=== PATIENT | male | born 1960 | race Caucasian/White ===

== ENCOUNTER 2017-05-18 11:13 | Observation (INO) | payer OTHER ==
[2017-05-18 11:36] VITALS: BMI 34.0
[2017-05-18] MEDS ORDERED: ONDANSETRON 4 MG/2 ML VIAL IVPB ONE (11:58)
[2017-05-18] MEDS ORDERED: morphine CARPU-JECT 4 MG/1 ML DISP.SYRIN IVPUSH ONE (12:02)
[2017-05-18 12:38] LABS: BASOPHIL 0.7 % (0-2.0); EOSINOPHIL 2.3 % (0-4.5); MCH 30.7 pg (25.7-33.7); MCHC 33.4 g/dl (32.0-35.9); MEAN CELL VOLUME 91.7 fl (80-96); MEAN PLT VOLUME 7.6 fl (7.5-11.1); NEUTROPHILS 78.9 % (42.8-82.8); PLATELET COUNT 235 K/MM3 (134-434); RDW 15.3 % (11.9-15.9); WHITE BLOOD COUNT 13.8 K/mm3 (4.0-10.0)
--- NOTE | 2017-05-18 12:52 | PDOC ---
Attending Attestation - HPI HPI: 05/18/17 13:09 The patient is a 56 year old male, with a significant past medical history of Anemia, CAD (s/p stents), COPD, DM, ESRD (HD on MWF), Osteomyelitis, HTN who presents to the emergency department with epigastric abdominal pain today. Patient reports associated nausea and vomiting. Patient admits to taking Oxycodone and 2 tabs of Antacids however denies relief. Patient was able to complete full HD today and presents to the ED for further evaluation. He denies chest pain, headache or dizziness. He denies fever, chills, abdominal pain, nausea, vomit, diarrhea or constipation. He denies dysuria, frequency, urgency or hematuria. - Physicial Exam PE: 05/18/17 13:10 GENERAL: Awake, alert, and fully oriented, in no acute distress. +Obese. HEAD: No signs of trauma EYES: PERRLA, EOMI, sclera anicteric, conjunctiva clear ENT: Auricles normal inspection, hearing grossly normal, nares patent, oropharynx clear without exudates. Moist mucosa NECK: Normal ROM, supple, no lymphadenopathy, JVD, or masses LUNGS: Breath sounds equal, clear to auscultation bilaterally. No wheezes, and no crackles HEART: Regular rate and rhythm, normal S1 and S2, no murmurs, rubs or gallops ABDOMEN: +Tenderness to epigastric. Soft, nontender, normoactive bowel sounds. No guarding, no rebound. No masses EXTREMITIES: Normal range of motion, no edema. No clubbing or cyanosis. No cords, erythema, or tenderness. +R sided BKA. +L arm Fistula. NEUROLOGICAL: Cranial nerves II through XII grossly intact. Normal speech, normal gait SKIN: Warm, Dry, normal turgor, no rashes or lesions noted. - Medical Decision Making 05/18/17 13:10 Documentation prepared by Alem Sanderson, acting as medical secretary for Hector Perry MD <Alem Sanderson - Last Filed: 05/18/17 13:09> - Resident Resident Name: Dat Becker - ED Attending Attestation I have performed the following: I have examined & evaluated the patient, The case was reviewed & discussed with the resident, I agree w/resident's findings & plan, Exceptions are as noted - Medical Decision Making 05/18/17 13:32 Vital Signs Temp Pulse Resp BP Pulse Ox 97 F L 71 17 166/67 100 05/18/17 11:28 05/18/17 11:28 05/18/17 11:28 05/18/17 11:28 05/18/17 11:28 56-year-old male with past medical history of peripheral arterial disease, status post right-sided BKA, end-stage renal disease on dialysis Thursday, Thursday, Thursday with last dialysis today, chronic hypertension, diabetes, gastroparesis presents with persistent upper abdominal pain. The patient was recently admitted to [facility] where he had a CAT scan and ultrasound abdominal workup. However, demonstrated no obvious findings. Patient was discharged however, he continues to persist with epigastric left upper quadrant right upper quadrant pain. He was told that he may potentially have gallstones in his gallbladder. Patient had taken his oxycodone today but did not help. Within differential is pancreatitis, biliary colic or acute cholecystitis. However, patient may benefit from endoscopy to rule out peptic ulcer disease or gastric ulcer. We'll attempt to control patient's pain, however, if the symptoms are persistent uncontrollable, we'll need to consider admission to the hospital. 05/18/17 14:50 CBC, BMP 05/18/17 12:05 05/18/17 12:05 CMP Sodium 138 mmol/L (136-145) 05/18/17 12:05 Potassium 3.9 mmol/L (3.5-5.1) 05/18/17 12:05 Chloride 99 mmol/L (98-107) 05/18/17 12:05 Carbon Dioxide 33 mmol/L (21-32) H 05/18/17 12:05 Anion Gap 6 (8-16) L 05/18/17 12:05 BUN 24 mg/dL (7-18) H 05/18/17 12:05 Creatinine 4.1 mg/dL (0.7-1.3) H 05/18/17 12:05 Creat Clearance w eGFR 15.06 (>60) 05/18/17 12:05 Random Glucose 212 mg/dL (74-106) H 05/18/17 12:05 Calcium 9.0 mg/dL (8.5-10.1) 05/18/17 12:05 Total Bilirubin 0.5 mg/dL (0.2-1.0) 05/18/17 12:05 AST 13 U/L (15-37) L 05/18/17 12:05 ALT 14 U/L (12-78) 05/18/17 12:05 Alkaline Phosphatase 98 U/L (45-117) 05/18/17 12:05 Creatine Kinase 108 IU/L (39-308) 05/18/17 12:05 Troponin I 0.04 ng/ml (0.00-0.05) 05/18/17 12:05 Total Protein 7.7 g/dl (6.4-8.2) 05/18/17 12:05 Albumin 3.5 g/dl (3.4-5.0) 05/18/17 12:05 Lipase 237 U/L (73-393) 05/18/17 12:05 Ultrasound shows positive richards and gallstones. Will need HIDA scan. Will admit the patient. <Hector Perry - Last Filed: 05/18/17 14:52>
[2017-05-18 13:14] LABS: ALBUMIN 3.5 g/dl (3.4-5.0); ANION GAP 6 (8-16); CO2 33 mmol/L (21-32); CREATININE 4.1 mg/dL (0.7-1.3); GLUCOSE,RANDOM 212 mg/dL (74-106); SGOT/AST 13 U/L (15-37); SGPT/ALT 14 U/L (12-78)
[2017-05-18 13:16] LABS: ALK PHOS 98 U/L (45-117); BILIRUBIN,TOTAL 0.5 mg/dL (0.2-1.0); TOT PROT 7.7 g/dl (6.4-8.2)
[2017-05-18 13:18] LABS: TROPONIN I 0.04 ng/ml (0.00-0.05)
--- NOTE | 2017-05-18 16:34 | EKG ---
Test Reason : Blood Pressure : / mmHG Vent. Rate : 066 BPM Atrial Rate : 066 BPM P-R Int : 202 ms QRS Dur : 104 ms QT Int : 480 ms P-R-T Axes : 049 046 067 degrees QTc Int : 503 ms SINUS RHYTHM WITH PREMATURE ATRIAL COMPLEXES IN A PATTERN OF BIGEMINY PROLONGED QT ABNORMAL ECG NO PREVIOUS ECGS AVAILABLE Confirmed by CAM PONCE MD ([id number]) on 05/18/2017 4:34:28 PM Referred By: Confirmed By:CAM PONCE MD
--- NOTE | 2017-05-18 17:01 | PDOC ---
History of Present Illness - General Chief Complaint: Pain Stated Complaint: ABD PAIN Time Seen by Provider: 05/18/17 11:36 History Source: Patient Exam Limitations: No Limitations - History of Present Illness Initial Comments: 05/18/17 16:56 Mr Ceja is a 56M with history of MWF dialysis, IDDM, HTN, peripheral artery disease, gastroparesis, COPD, and GERD is here today for epigastric abdominal pain. The patient was recently worked up at [facility], where he was hospitalized for a week. He says that he got a full abdominal workup including ultrasound, CT , labs. These were normal. He also had a normal cath. The pain radiates to both sides of his abdomen. He endorses associated nausea. He denies fevers and vomiting. Last bowel movement was yesterday. He successfully got dialysis today. He denies chest pain and shortness of breath. He was scheduled to see Dr Weeks tomorrow for his AV fistula. Past History - Past Medical History Allergies/Adverse Reactions: Allergies Allergy/AdvReac Type Severity Reaction Status Date / Time tree nut Allergy Verified 05/18/17 18:15 raw fruits Allergy Uncoded 05/18/17 18:15 Home Medications: Ambulatory Orders Aspirin [ASA -] 81 mg PO DAILY 05/18/17 Atorvastatin Ca [Lipitor] 40 mg PO HS 05/18/17 Azelastine HCl 137 mcg NS BID 05/18/17 Baclofen 10 mg PO ASDIR 05/18/17 Cetirizine HCl [Zyrtec -] 10 mg PO DAILY 05/18/17 Clopidogrel Bisulfate [Plavix -] 75 mg PO DAILY 05/18/17 Cyclosporine, Modified [Cyclosporine] 1 drop OU BID 05/18/17 Docusate Sodium [Colace -] 3 cap PO HS 05/18/17 Famotidine [Pepcid] 20 mg PO DAILY 05/18/17 Folic Acid 1 mg PO DAILY 05/18/17 Gabapentin 100 mg PO HS 05/18/17 Insulin Glargine,Hum.rec.anlog [Basaglar Kwikpen U-100] 10 unit SQ DAILY Insulin Lispro [Humalog] 0 unit SQ PRN 05/18/17 Insulin Lispro [Humalog] 10 unit SQ DAILY 05/18/17 Lactobacillus Acidophilus [Probiotic] 1 each PO TID 05/18/17 Mag Hydrox/Al Hydrox/Simeth [Mylanta Oral Suspension -] 30 ml PO Q8H PRN Metoprolol Tartrate [Lopressor] 50 mg PO BID 05/18/17 Oxycodone HCl 2 tab PO Q6H PRN 05/18/17 Pantoprazole Sodium [Protonix] 40 mg PO DAILY 05/18/17 Polyethylene Glycol 3350 [Glycolax] 17 gm PO DAILY 05/18/17 Sennosides [Senna] 2 tab PO HS 05/18/17 Tamsulosin HCl [Flomax] 0.4 mg PO HS 05/18/17 Vitamin B Comp W-C [Nephro-Ingris -] 1 tablet PO DAILY 05/18/17 Zolpidem Tartrate [Ambien] 10 mg PO HS PRN 05/18/17 Anemia: Yes Cardiac Disorders: Yes (cardiac stent) COPD: Yes Diabetes: Yes Dialysis: Yes (M-W-F) GI Disorders: Yes (Acid Reflux) Other medical history: PVD, Osteomyelitis RT stump - Suicide/Smoking/Psychosocial Hx Smoking History: Former smoker Have you smoked in the past 12 months: No Information on smoking cessation initiated: No Hx Alcohol Use: No (denies) Drug/Substance Use Hx: No (denies) Substance Use Type: None Review of Systems - Review of Systems Comments:: 05/18/17 17:01 GENERAL/CONSTITUTIONAL: No fever or chills. No weakness. HEAD, EYES, EARS, NOSE AND THROAT: No change in vision. No sore throat. CARDIOVASCULAR: No chest pain or shortness of breath RESPIRATORY: No cough, wheezing, or hemoptysis. GASTROINTESTINAL: Positive for nausea. Negative for vomiting, diarrhea or constipation. GENITOURINARY: No dysuria, frequency, or change in urination. MUSCULOSKELETAL: Positive for back pain and multiple joint pain, chronic SKIN: No rash NEUROLOGIC: Positive for headache. Negative for vertigo, loss of consciousness, or change in strength/sensation. ENDOCRINE: No increased thirst. No abnormal weight change ALLERGIC/IMMUNOLOGIC: No hives or skin allergy. *Physical Exam - Vital Signs Last Vital Signs Temp Pulse Resp BP Pulse Ox 99.2 F 76 17 151/86 98 05/18/17 15:33 05/18/17 15:33 05/18/17 15:33 05/18/17 15:33 05/18/17 15:33 - Physical Exam Comments: 05/18/17 17:03 GENERAL: Awake, alert, and fully oriented, in no acute distress HEAD: No signs of trauma, normocephalic, atraumatic EYES: PERRLA, EOMI, sclera anicteric, conjunctiva clear ENT: Auricles normal inspection, hearing grossly normal, nares patent, oropharynx clear without exudates. Moist mucosa LUNGS: No distress, speaks full sentences, clear to auscultation bilaterally HEART: Regular rate and rhythm, normal S1 and S2, no murmurs, rubs or gallops, peripheral pulses normal and equal bilaterally. ABDOMEN: Soft, tender to palpation in RUQ, positive richards sign, normoactive bowel sounds. No guarding, no rebound. No masses EXTREMITIES: Normal inspection, Normal range of motion, no edema. No clubbing or cyanosis. NEUROLOGICAL: Cranial nerves II through XII grossly intact. Normal speech, normal gait, no focal sensorimotor deficits SKIN: Warm, Dry, normal turgor, no rashes or lesions noted. ED Treatment Course - LABORATORY CBC & Chemistry Diagram: 05/18/17 12:05 05/18/17 12:05 - ADDITIONAL ORDERS Additional order review: Laboratory Results 05/18/17 05/18/17 12:05 12:05 Sodium 138 Potassium 3.9 Chloride 99 Carbon Dioxide 33 H Anion Gap 6 L BUN 24 H Creatinine 4.1 H Creat Clearance w eGFR 15.06 Random Glucose 212 H Calcium 9.0 Total Bilirubin 0.5 AST 13 L ALT 14 Alkaline Phosphatase 98 Creatine Kinase 108 Troponin I 0.04 Total Protein 7.7 Albumin 3.5 Lipase 237 05/18/17 12:05 RBC 3.99 L MCV 91.7 MCHC 33.4 RDW 15.3 MPV 7.6 Neutrophils % 78.9 Lymphocytes % 12.3 Monocytes % 5.8 Eosinophils % 2.3 Basophils % 0.7 - RADIOLOGY Radiology Studies Ordered: Category Date Time Status HIDA SCAN [NM] Stat Nuclear 05/18/17 16:06 Ordered ABDOMEN US -LIMITED [US] Stat Ultrasound 05/18/17 12:01 Completed - Medications Given in the ED: ED Medications Discontinued Medications Generic Name Dose Route Start Last Admin Trade Name Freq PRN Reason Stop Dose Admin Morphine Sulfate 4 mg 05/18/17 12:02 05/18/17 13:40 Morphine Injection - IVPUSH 05/18/17 12:03 4 mg ONCE ONE Administration Ondansetron HCl 4 mg 05/18/17 11:58 05/18/17 12:43 Zofran Injection IVPB 05/18/17 11:59 4 mg ONCE ONE Administration Medical Decision Making - Medical Decision Making 05/18/17 17:03 56M with history of ESRD, IDDM, HTN, PAD, and gastroparesis here today complaining of abdominal pain. Vital signs stable and normal. Will evaluated with labs, cxr, and ultrasound. Will treat with morphine and zofran. Differential diagnosis includes, but is not limited to: gastroparesis, cholecystitis, gastritis. 05/18/17 17:08 Laboratory Tests 05/18/17 05/18/17 12:05 12:05 WBC 13.8 H Hgb 12.2 Hct 36.6 Plt Count 235 Troponin I 0.04 CBC shows white count of 14. Trop negative. CMP reassuring. UA negative. 05/18/17 17:08 Ultrasound shows gallstones and sludge without signs of acute cholecystitis. Suggests HIDA scan given clinical picture. Admitted to [facility]. *DC/Admit/Observation/Transfer Diagnosis at time of Disposition: Abdominal pain, RUQ abdominal pain
[2017-05-18 17:27] LABS: URINE APPEARANCE CLEAR; URINE BILIRUBIN NEGATIVE (NEGATIVE); URINE BLOOD NEGATIVE (NEGATIVE); URINE COLOR LTYELLOW; URINE GLUCOSE (UA) 3+ (NEGATIVE); URINE KETONE NEGATIVE (NEGATIVE); URINE LEUK ESTERASE NEGATIVE (NEGATIVE); URINE NITRITE NEGATIVE (NEGATIVE); URINE UROBILINOGEN NEGATIVE mg/dL (0.2-1.0)
[2017-05-18 17:36] LABS: URINE PROTEIN 3+ (NEGATIVE)
[2017-05-18 17:37] LABS: URINE MUCUS RARE; URINE RBC 1 /hpf (0-3); URINE WBC 1 /hpf (3-5)
[2017-05-18] MEDS ORDERED: ZOLPIDEM TARTRATE 5 MG TABLET PO PRN (18:09)
--- NOTE | 2017-05-18 18:09 | HP ---
Admitting History and Physical - Primary Care Physician PCP: Jerome Castellano - Admission History of Present Illness: 56 year old male, with a significant past medical history of Anemia, CAD (s/p stents), COPD, DM, ESRD (HD on MWF), Osteomyelitis, HTN who presents to the emergency department with epigastric abdominal pain today. Patient reports associated nausea and vomiting. Patient admits to taking Oxycodone and 2 tabs of Antacids however denies relief. Patient was able to complete full HD today and presents to the ED for further evaluation. - Past Medical History Cardiovascular: Yes: HTN Renal/: Yes: Hemodialysis, Other (esrd) Endocrine: Yes: Diabetes Mellitus - Smoking History Smoking history: Former smoker Have you smoked in the past 12 months: No - Alcohol/Substance Use Hx Alcohol Use: No (denies) Home Medications - Allergies Allergies/Adverse Reactions: Allergies Allergy/AdvReac Type Severity Reaction Status Date / Time tree nut Allergy Verified 05/18/17 18:15 raw fruits Allergy Uncoded 05/18/17 18:15 - Home Medications Home Medications: Ambulatory Orders Aspirin [ASA -] 81 mg PO DAILY 05/18/17 Atorvastatin Ca [Lipitor] 40 mg PO HS 05/18/17 Azelastine HCl 137 mcg NS BID 05/18/17 Cetirizine HCl [Zyrtec -] 10 mg PO DAILY 05/18/17 Clopidogrel Bisulfate [Plavix -] 75 mg PO DAILY 05/18/17 Cyclosporine, Modified [Cyclosporine] 1 drop OU BID 05/18/17 Docusate Sodium [Colace -] 3 cap PO HS 05/18/17 Famotidine [Pepcid] 20 mg PO DAILY 05/18/17 Folic Acid 1 mg PO DAILY 05/18/17 Gabapentin 100 mg PO HS 05/18/17 Insulin Glargine,Hum.rec.anlog [Basaglar Kwikpen U-100] 10 unit SQ DAILY Insulin Lispro [Humalog] 0 unit SQ PRN 05/18/17 Insulin Lispro [Humalog] 10 unit SQ DAILY 05/18/17 Lactobacillus Acidophilus [Probiotic] 1 each PO TID 05/18/17 Mag Hydrox/Al Hydrox/Simeth [Mylanta Oral Suspension -] 30 ml PO Q8H PRN Metoprolol Tartrate [Lopressor] 50 mg PO BID 05/18/17 Pantoprazole Sodium [Protonix] 40 mg PO DAILY 05/18/17 Polyethylene Glycol 3350 [Glycolax] 17 gm PO DAILY 05/18/17 Sennosides [Senna] 2 tab PO HS 05/18/17 Tamsulosin HCl [Flomax] 0.4 mg PO HS 05/18/17 Vitamin B Comp W-C [Nephro-Ingris -] 1 tablet PO DAILY 05/18/17 Zolpidem Tartrate [Ambien] 10 mg PO HS PRN 05/18/17 Baclofen [Lioresal -] 5 mg PO TID #90 tablet 05/20/17 Physical Examination Vital Signs: Vital Signs Temperature 99.2 F 05/18/17 15:33 Pulse Rate 76 05/18/17 15:33 Respiratory Rate 17 05/18/17 15:33 Blood Pressure 151/86 05/18/17 15:33 O2 Sat by Pulse Oximetry (%) 98 05/18/17 15:33 Constitutional: Yes: No Distress HENT: Yes: Atraumatic Neck: Yes: Supple Cardiovascular: Yes: Regular Rate and Rhythm Respiratory: Yes: CTA Bilaterally Gastrointestinal: Yes: Normal Bowel Sounds Extremities: Yes: Other (R bka) Neurological: Yes: Alert, Oriented Imaging - Results Cat Scan: Report Reviewed Problem List - Problems (1) RUQ abdominal pain Assessment/Plan: better prn pain meds Code(s): R10.11 - RIGHT UPPER QUADRANT PAIN (2) ESRD (end stage renal disease) Assessment/Plan: on hd dr marsh Code(s): N18.6 - END STAGE RENAL DISEASE (3) HTN (hypertension) Assessment/Plan: on meds stable Code(s): I10 - ESSENTIAL (PRIMARY) HYPERTENSION (4) Diabetes Assessment/Plan: on insulin coverage bgms Code(s): E11.9 - TYPE 2 DIABETES MELLITUS WITHOUT COMPLICATIONS Assessment/Plan Laboratory Tests 05/18/17 05/18/17 05/18/17 12:05 12:05 12:05 WBC 13.8 H RBC 3.99 L Hgb 12.2 Hct 36.6 MCV 91.7 MCH 30.7 MCHC 33.4 RDW 15.3 Plt Count 235 MPV 7.6 Neutrophils % 78.9 Lymphocytes % 12.3 Monocytes % 5.8 Eosinophils % 2.3 Basophils % 0.7 Sodium 138 Potassium 3.9 Chloride 99 Carbon Dioxide 33 H Anion Gap 6 L BUN 24 H Creatinine 4.1 H Creat Clearance w eGFR 15.06 Random Glucose 212 H Calcium 9.0 Total Bilirubin 0.5 AST 13 L ALT 14 Alkaline Phosphatase 98 Creatine Kinase 108 Troponin I 0.04 Total Protein 7.7 Albumin 3.5 Lipase 237 Urine Color Urine Appearance Urine pH Urine Protein Urine Glucose (UA) Urine Ketones Urine Blood Urine Nitrite Urine Bilirubin Urine Urobilinogen Urine RBC Urine WBC Urine Mucus 05/18/17 17:18 WBC RBC Hgb Hct MCV MCH MCHC RDW Plt Count MPV Neutrophils % Lymphocytes % Monocytes % Eosinophils % Basophils % Sodium Potassium Chloride Carbon Dioxide Anion Gap BUN Creatinine Creat Clearance w eGFR Random Glucose Calcium Total Bilirubin AST ALT Alkaline Phosphatase Creatine Kinase Troponin I Total Protein Albumin Lipase Urine Color Ltyellow Urine Appearance Clear Urine pH 8.0 Urine Protein 3+ H Urine Glucose (UA) 3+ H Urine Ketones Negative Urine Blood Negative Urine Nitrite Negative Urine Bilirubin Negative Urine Urobilinogen Negative Urine RBC 1 Urine WBC 1 Urine Mucus Rare Active Medications Generic Name Dose Route Start Last Admin Trade Name Freq PRN Reason Stop Dose Admin Hydromorphone HCl 1 mg 05/18/17 17:55 Dilaudid Injection - IVPB Q3H PRN PAIN Sodium Chloride 1,000 mls @ 100 mls/hr 05/18/17 18:00 Normal Saline - IV ASDIR LULU
[2017-05-18] MEDS: HYDROmorphone HCL CARPU-JECT 1 MG/1 ML DISP.SYRIN IVPB PRN (21:11)
[2017-05-18] MEDS: SODIUM CHLORIDE 1,000 ML IV SCH (21:12)
[2017-05-18] MEDS: DOCUSATE SODIUM 100 MG CAPSULE (FP) PO SCH (21:15)
[2017-05-18] MEDS: METOPROLOL TARTRATE 50 MG TABLET (FP) PO SCH (21:16)
[2017-05-18] MEDS: ATORVASTATIN CA 40 MG TABLET (FP) PO SCH (21:16)
[2017-05-18] MEDS: TAMSULOSIN HCL 0.4 MG CAP.ER.24H (FP) PO SCH (21:16)
[2017-05-18] MEDS ORDERED: CYCLOSPORINE MODIFIED OU SCH (22:00)
[2017-05-19] MEDS: HYDROmorphone HCL CARPU-JECT 1 MG/1 ML DISP.SYRIN IVPB PRN ×2 (07:02→21:18)
--- NOTE | 2017-05-19 08:39 | PN ---
Progress Note (short form) - Note Progress Note: 56 yo male admitted with RUQ/epigastric tenderness x3 weeks. States he was recently seen/evaluated at [facility] for same problem. While at , he underwent a cardiac cath. Currently, resting comfortably. Had some pain and nausea early this morning that resolved with PRN medicine. Had U/S which didn't show any acute billiary process. HIDA scan which showed prompt filling of the GB , delayed emptying into the small bowel (most likely secondary to ampullary spasm secondary to opiod administration during study). Denies CP, SOB, change in urine color, fever, chills. Last Vital Signs Temp Pulse Resp BP Pulse Ox 99.7 F H 69 20 150/88 98 05/19/17 06:44 05/19/17 06:44 05/19/17 06:44 05/19/17 06:44 05/18/17 21:21 CBC, BMP 05/18/17 12:05 05/18/17 12:05 Hepatic Panel Total Bilirubin 0.5 mg/dL (0.2-1.0) 05/18/17 12:05 AST 13 U/L (15-37) L 05/18/17 12:05 ALT 14 U/L (12-78) 05/18/17 12:05 Alkaline Phosphatase 98 U/L (45-117) 05/18/17 12:05 Albumin 3.5 g/dl (3.4-5.0) 05/18/17 12:05 PE General: alert. NAD. ABD: obese. Negative Fallon's sign or epigastric tenderness. Negative rebound/ guarding/rigidity UE: LAVF with +thrill LE: RBKA <Amauri Marie P - Last Filed: 05/19/17 09:08> - Note Progress Note: Attending Surgeon Patient seen and evaluated; concur w/ a/p as outlined by GRIS Marie. Tc Ross MD FACS <Tc Ross - Last Filed: 05/19/17 10:41> Problem List - Problems (1) Abdominal pain Assessment/Plan: Patient with RUQ / epigastric abd pain. Mild leukocytosis U/S & HIDA scan--> no acute process Recommend Cardiac Consult (given recent h/o cardiac cath) No surgical intervention at this time Await GI Consult Cont medical management Above discussed with Dr. Ross and agrees Code(s): R10.9 - UNSPECIFIED ABDOMINAL PAIN (2) Diabetes Assessment/Plan: Tight glycemic control Code(s): E11.9 - TYPE 2 DIABETES MELLITUS WITHOUT COMPLICATIONS (3) ESRD (end stage renal disease) Assessment/Plan: HD per schedule -- Code(s): N18.6 - END STAGE RENAL DISEASE <Amauri Marie - Last Filed: 05/19/17 09:08>
[2017-05-19] MEDS: METOPROLOL TARTRATE 50 MG TABLET (FP) PO SCH ×2 (10:16→21:23)
[2017-05-19] MEDS: FOLIC ACID 1 MG TABLET (FP) PO SCH (10:16)
[2017-05-19] MEDS: CLOPIDOGREL BISULFATE 75 MG TABLET (FP) PO SCH (10:16)
[2017-05-19] MEDS: POLYETHYLENE GLYCOL 3350 255 GM BTL PO SCH (10:24)
--- NOTE | 2017-05-19 17:42 | PN ---
Progress Note, Physician - Current Medication List Current Medications: Active Medications Atorvastatin Calcium (Lipitor -) 40 mg PO HS [facility] Last Admin: 05/18/17 21:16 Dose: 40 mg Clopidogrel Bisulfate (Plavix -) 75 mg PO DAILY [facility] Last Admin: 05/19/17 10:16 Dose: 75 mg Docusate Sodium (Colace -) 300 mg PO HS [facility] Last Admin: 05/18/17 21:15 Dose: 300 mg Folic Acid (Folic Acid -) 1 mg PO DAILY [facility] Last Admin: 05/19/17 10:16 Dose: 1 mg Hydromorphone HCl (Dilaudid Injection -) 1 mg IVPB Q3H PRN PRN Reason: PAIN Last Admin: 05/19/17 07:02 Dose: 1 mg Sodium Chloride (Normal Saline -) 1,000 mls @ 100 mls/hr IV ASDIR [facility] Last Admin: 05/18/17 21:12 Dose: 100 mls/hr Metoprolol Tartrate (Lopressor -) 50 mg PO BID [facility] Last Admin: 05/19/17 10:16 Dose: 50 mg Non-Formulary Medication (Cyclosporine, Modified [Cyclosporine]) 1 drop OU BID [facility] Polyethylene Glycol (Miralax (For Bowel Prep) -) 17 gm PO DAILY [facility] Last Admin: 05/19/17 10:24 Dose: Not Given Tamsulosin HCl (Flomax -) 0.4 mg PO [facility] Last Admin: 05/18/17 21:16 Dose: 0.4 mg Zolpidem Tartrate (Ambien -) 10 mg PO HS PRN PRN Reason: INSOMNIA - Objective Vital Signs: Vital Signs Temperature 98.5 F 05/19/17 14:00 Pulse Rate 64 05/19/17 14:00 Respiratory Rate 20 05/19/17 14:00 Blood Pressure 135/60 05/19/17 14:00 O2 Sat by Pulse Oximetry (%) 98 05/19/17 09:00 Constitutional: Yes: No Distress HENT: Yes: Atraumatic Neck: Yes: Supple Cardiovascular: Yes: Regular Rate and Rhythm Respiratory: Yes: CTA Bilaterally Gastrointestinal: Yes: Normal Bowel Sounds Extremities: Yes: WNL, Other (r bka) Edema: No Neurological: Yes: Alert, Oriented Problem List - Problems (1) RUQ abdominal pain Assessment/Plan: better prn pain meds Code(s): R10.11 - RIGHT UPPER QUADRANT PAIN (2) ESRD (end stage renal disease) Assessment/Plan: on hd dr marsh Code(s): N18.6 - END STAGE RENAL DISEASE (3) HTN (hypertension) Assessment/Plan: on meds Code(s): I10 - ESSENTIAL (PRIMARY) HYPERTENSION (4) Diabetes Assessment/Plan: on insulin coverage Code(s): E11.9 - TYPE 2 DIABETES MELLITUS WITHOUT COMPLICATIONS Assessment/Plan all questions answered
--- NOTE | 2017-05-19 19:14 | CON.GI ---
Consult Consult Specialty:: GI Referred by:: Dr Castellano Reason for Consultation:: abdominal pain - History of Present Illness Chief Complaint: abdominal pain History of Present Illness: Mr Ceja is a 56M with history of MWF dialysis, IDDM, HTN, peripheral artery disease, S/P R BKA, gastroparesis, COPD, and GERD is here today for epigastric abdominal pain. The patient was recently worked up at [facility], where he was hospitalized for a week. He says that he got a full abdominal workup including ultrasound, CT, labs. These were normal. He also had a normal cath. The pain radiates to both sides of his abdomen. On arrival at [facility] he had a HIDA scan done that shows normal gb filling but suggests CBD obstruction with no tracer in the intestine suggesting CBD obstruction. This might be due to stone or SOD secondary to narcotic meds. - History Source History Provided By: Patient, Medical Record Limitations to Obtaining History: No Limitations - Past Medical History Cardio/Vascular: Yes: HTN Renal/: Yes: Hemodialysis, Other (esrd) Endocrine: Yes: Diabetes Mellitus - Alcohol/Substance Use Hx Alcohol Use: No (denies) - Smoking History Smoking history: Former smoker Have you smoked in the past 12 months: No Home Medications - Allergies Allergies/Adverse Reactions: Allergies Allergy/AdvReac Type Severity Reaction Status Date / Time tree nut Allergy Verified 05/18/17 18:15 raw fruits Allergy Uncoded 05/18/17 18:15 - Home Medications Home Medications: Ambulatory Orders Aspirin [ASA -] 81 mg PO DAILY 05/18/17 Atorvastatin Ca [Lipitor] 40 mg PO HS 05/18/17 Azelastine HCl 137 mcg NS BID 05/18/17 Baclofen 10 mg PO ASDIR 05/18/17 Cetirizine HCl [Zyrtec -] 10 mg PO DAILY 05/18/17 Clopidogrel Bisulfate [Plavix -] 75 mg PO DAILY 05/18/17 Cyclosporine, Modified [Cyclosporine] 1 drop OU BID 05/18/17 Docusate Sodium [Colace -] 3 cap PO HS 05/18/17 Famotidine [Pepcid] 20 mg PO DAILY 05/18/17 Folic Acid 1 mg PO DAILY 05/18/17 Gabapentin 100 mg PO HS 05/18/17 Insulin Glargine,Hum.rec.anlog [Basaglar Kwikpen U-100] 10 unit SQ DAILY Insulin Lispro [Humalog] 0 unit SQ PRN 05/18/17 Insulin Lispro [Humalog] 10 unit SQ DAILY 05/18/17 Lactobacillus Acidophilus [Probiotic] 1 each PO TID 05/18/17 Mag Hydrox/Al Hydrox/Simeth [Mylanta Oral Suspension -] 30 ml PO Q8H PRN Metoprolol Tartrate [Lopressor] 50 mg PO BID 05/18/17 Oxycodone HCl 2 tab PO Q6H PRN 05/18/17 Pantoprazole Sodium [Protonix] 40 mg PO DAILY 05/18/17 Polyethylene Glycol 3350 [Glycolax] 17 gm PO DAILY 05/18/17 Sennosides [Senna] 2 tab PO HS 05/18/17 Tamsulosin HCl [Flomax] 0.4 mg PO HS 05/18/17 Vitamin B Comp W-C [Nephro-Ingris -] 1 tablet PO DAILY 05/18/17 Zolpidem Tartrate [Ambien] 10 mg PO HS PRN 05/18/17 Physical Exam-GI Vital Signs: Vital Signs Temperature 98.5 F 05/19/17 14:00 Pulse Rate 64 05/19/17 14:00 Respiratory Rate 20 05/19/17 14:00 Blood Pressure 135/60 05/19/17 14:00 O2 Sat by Pulse Oximetry (%) 98 05/19/17 09:00 Constitutional: Yes: Obese HENT: Yes: Normocephalic Neck: Yes: Supple, Trachea Midline Cardiovascular: Yes: Regular Rate and Rhythm Respiratory: Yes: CTA Bilaterally Gastrointestinal Inspection: Yes: Distention ...Auscultate: Yes: Normoactive Bowel Sounds Labs: CBC, BMP 05/18/17 12:05 05/18/17 12:05 Hepatic Panel Total Bilirubin 0.5 mg/dL (0.2-1.0) 05/18/17 12:05 AST 13 U/L (15-37) L 05/18/17 12:05 ALT 14 U/L (12-78) 05/18/17 12:05 Alkaline Phosphatase 98 U/L (45-117) 05/18/17 12:05 Albumin 3.5 g/dl (3.4-5.0) 05/18/17 12:05 Imaging - Results Other: Pending, Report Reviewed (HIDA with gb filling but failure of CBD to drain into the intestine suggesting obstruction of the duct), Image Reviewed, Other Assessment/Plan Needs MRI/MRCP to better evaluate the duct ERCP may be necessary
[2017-05-19] MEDS ORDERED: SODIUM CHLORIDE NASAL SPRAY 44 ML BOTTLE NS PRN (21:18)
[2017-05-19] MEDS: DOCUSATE SODIUM 100 MG CAPSULE (FP) PO SCH (21:21)
[2017-05-19] MEDS: PANTOPRAZOLE 40 MG TABLET (FP) PO SCH (21:22)
[2017-05-19] MEDS: TAMSULOSIN HCL 0.4 MG CAP.ER.24H (FP) PO SCH (21:22)
[2017-05-19] MEDS: ATORVASTATIN CA 40 MG TABLET (FP) PO SCH (21:22)
[2017-05-19] MEDS: INSULIN SLIDING SCALE (NOVOLOG) 1 VIAL SQ SCH (21:23)
[2017-05-19] MEDS: LORATADINE 10 MG TABLET PO SCH (21:30)
[2017-05-19] MEDS: VITAMIN B COMP W-C 1 EA TABLET PO SCH (21:58)
[2017-05-19] MEDS: ARTIFICIAL TEARS (POLYVINYL ALCOHOL 1.4%) OPTH DROPS OU PRN (21:58)
[2017-05-20] MEDS: INSULIN SLIDING SCALE (NOVOLOG) 1 VIAL SQ SCH ×4 (07:41→21:56)
[2017-05-20] MEDS ORDERED: LORATADINE 10 MG TABLET PO SCH (10:00)
--- NOTE | 2017-05-20 10:15 | PN ---
Progress Note (short form) - Note Progress Note: PT states that he had some nausea yesterday after eating, mild upper abd pain. Also asked by the nursing staff to look at an abscess site on his buttock. The patient states that he had an I&D completed while he was admitted at [facility] this month. He is unsure if it was drained in the OR/ or at the bedside. He is to have HD today, records reviewed and the ER note states that he had HD prior to coming to the hospital for admission. The patient was to have an appointment with Dr. Trujillo to evaluate his fistula. He has occasional pain to his left arm with HD. Vital Signs Period Temp Pulse Resp BP Sys/Quick Pulse Ox Last 24 Hr 98.5 F-100.1 F 64-73 20-20 135-171/60-86 98-98 GEN: appears comfortable ABD: soft, non-distended, mild epigastric/upper abd tenderness. Left buttock with healing/non-draining wound, approx 1/2 by 1/2 cm in size. Granulation pink tissue base without surrounding erythema. It does not probe with a cotton tip and is non-tender. Left arm: Palpable thrill to left FA access, gd radial pulse without evidence of ischemia. Hepatic Panel Total Bilirubin 0.5 mg/dL (0.2-1.0) 05/18/17 12:05 AST 13 U/L (15-37) L 05/18/17 12:05 ALT 14 U/L (12-78) 05/18/17 12:05 Alkaline Phosphatase 98 U/L (45-117) 05/18/17 12:05 Albumin 3.5 g/dl (3.4-5.0) 05/18/17 12:05 US-GB stones A/P: 56 yo male with abd pain, LFTs WNL, HIDa delatyed transient time to SB Plan for MRI/MRPC of the abd today He remains NPO HD via left arm access D/W Dr. Ross
[2017-05-20] MEDS: SODIUM CHLORIDE 1,000 ML IV SCH ×2 (11:11→20:52)
[2017-05-20] MEDS ORDERED: INSULIN (NOVOLOG) ASPART 100 UNITS/ML 10ML VIAL ONE (11:59)
[2017-05-20] MEDS: POLYETHYLENE GLYCOL 3350 255 GM BTL PO SCH (12:44)
[2017-05-20] MEDS: FOLIC ACID 1 MG TABLET (FP) PO SCH (12:44)
[2017-05-20] MEDS: LORATADINE 10 MG TABLET PO SCH ×2 (12:44→22:43)
[2017-05-20] MEDS: METOPROLOL TARTRATE 50 MG TABLET (FP) PO SCH ×2 (12:44→21:05)
[2017-05-20] MEDS: VITAMIN B COMP W-C 1 EA TABLET PO SCH (12:45)
[2017-05-20] MEDS: CLOPIDOGREL BISULFATE 75 MG TABLET (FP) PO SCH (12:45)
[2017-05-20] MEDS ORDERED: ALPRAZolam 0.25 MG TABLET PO ONE (12:45)
[2017-05-20] MEDS: PANTOPRAZOLE 40 MG TABLET (FP) PO SCH (12:46)
--- NOTE | 2017-05-20 14:48 | CONSULT ---
Consult Consult Specialty:: Nephrology Reason for Consultation:: ESRD - History of Present Illness Chief Complaint: abdominal pain History of Present Illness: Pt is a 56 year old male with pmhx of anemia, CAD, ESRD, COPD, DM and HTN who presents to the ER with abdominal pain. He is admitted and being worked up for cholecystitis. He is due for HD today and I was called to evaluate him. He says he has not been eating or drinking much. He has a dry weight of 117 kg but he says that it has varied over the last few weeks. He denies shortness of breath. He denies fevers or chills. - History Source History Provided By: Patient - Past Medical History Cardio/Vascular: Yes: HTN Pulmonary: Yes: COPD Renal/: Yes: Hemodialysis, Other (esrd) Heme/Onc: Yes: Anemia Endocrine: Yes: Diabetes Mellitus - Alcohol/Substance Use Hx Alcohol Use: No (denies) - Smoking History Smoking history: Former smoker Have you smoked in the past 12 months: No Home Medications - Allergies Allergies/Adverse Reactions: Allergies Allergy/AdvReac Type Severity Reaction Status Date / Time tree nut Allergy Verified 05/18/17 18:15 raw fruits Allergy Uncoded 05/18/17 18:15 - Home Medications Home Medications: Ambulatory Orders Aspirin [ASA -] 81 mg PO DAILY 05/18/17 Atorvastatin Ca [Lipitor] 40 mg PO HS 05/18/17 Azelastine HCl 137 mcg NS BID 05/18/17 Baclofen 10 mg PO ASDIR 05/18/17 Cetirizine HCl [Zyrtec -] 10 mg PO DAILY 05/18/17 Clopidogrel Bisulfate [Plavix -] 75 mg PO DAILY 05/18/17 Cyclosporine, Modified [Cyclosporine] 1 drop OU BID 05/18/17 Docusate Sodium [Colace -] 3 cap PO HS 05/18/17 Famotidine [Pepcid] 20 mg PO DAILY 05/18/17 Folic Acid 1 mg PO DAILY 05/18/17 Gabapentin 100 mg PO HS 05/18/17 Insulin Glargine,Hum.rec.anlog [Basaglar Kwikpen U-100] 10 unit SQ DAILY Insulin Lispro [Humalog] 0 unit SQ PRN 05/18/17 Insulin Lispro [Humalog] 10 unit SQ DAILY 05/18/17 Lactobacillus Acidophilus [Probiotic] 1 each PO TID 05/18/17 Mag Hydrox/Al Hydrox/Simeth [Mylanta Oral Suspension -] 30 ml PO Q8H PRN Metoprolol Tartrate [Lopressor] 50 mg PO BID 05/18/17 Oxycodone HCl 2 tab PO Q6H PRN 05/18/17 Pantoprazole Sodium [Protonix] 40 mg PO DAILY 05/18/17 Polyethylene Glycol 3350 [Glycolax] 17 gm PO DAILY 05/18/17 Sennosides [Senna] 2 tab PO HS 05/18/17 Tamsulosin HCl [Flomax] 0.4 mg PO HS 05/18/17 Vitamin B Comp W-C [Nephro-Ingris -] 1 tablet PO DAILY 05/18/17 Zolpidem Tartrate [Ambien] 10 mg PO HS PRN 05/18/17 Family Disease History - Family Disease History Family History: Denies Review of Systems - Review of Systems Constitutional: reports: Malaise Eyes: reports: No Symptoms HENT: reports: No Symptoms Neck: reports: No Symptoms Cardiovascular: reports: No Symptoms Respiratory: reports: No Symptoms Gastrointestinal: reports: Abdominal Pain Genitourinary: reports: No Symptoms Musculoskeletal: reports: No Symptoms Hematology/Lymphatic: reports: No Symptoms Physical Exam Vital Signs: Vital Signs Temperature 98.1 F 05/20/17 13:11 Pulse Rate 68 05/20/17 13:11 Respiratory Rate 13 05/20/17 13:11 Blood Pressure 135/57 05/20/17 13:11 O2 Sat by Pulse Oximetry (%) 98 05/19/17 21:00 Constitutional: Yes: Calm Eyes: Yes: Conjunctiva Clear HENT: Yes: Atraumatic Neck: Yes: Supple Cardiovascular: Yes: S1, S2 Respiratory: Yes: CTA Bilaterally Gastrointestinal: Yes: Soft Renal/: Yes: WNL Extremities: Yes: Amputation Neurological: Yes: Oriented Psychiatric: Yes: Oriented Labs: Laboratory Tests 05/18/17 05/18/17 12:05 12:05 Hgb 12.2 Sodium 138 Potassium 3.9 Chloride 99 Carbon Dioxide 33 H BUN 24 H Creatinine 4.1 H Imaging - Results MRI: Report Reviewed Problem List - Problems (1) Abdominal pain Code(s): R10.9 - UNSPECIFIED ABDOMINAL PAIN (2) Diabetes Code(s): E11.9 - TYPE 2 DIABETES MELLITUS WITHOUT COMPLICATIONS (3) ESRD (end stage renal disease) Code(s): N18.6 - END STAGE RENAL DISEASE (4) HTN (hypertension) Code(s): I10 - ESSENTIAL (PRIMARY) HYPERTENSION (5) RUQ abdominal pain Code(s): R10.11 - RIGHT UPPER QUADRANT PAIN Assessment/Plan Current Medications Generic Name Dose Route Start Last Admin Trade Name Freq PRN Reason Stop Dose Admin Artificial Tears 1 drop 05/19/17 20:47 05/19/17 21:58 Artificial Tears OU 1 drop BID PRN Administration DRY EYES Atorvastatin Calcium 40 mg 05/18/17 22:00 05/19/17 21:22 Lipitor - PO 40 mg HS [facility] Administration Clopidogrel Bisulfate 75 mg 05/19/17 10:00 05/20/17 12:45 Plavix - PO Not Given DAILY [facility] Docusate Sodium 300 mg 05/18/17 22:00 05/19/17 21:21 Colace - PO 300 mg HS [facility] Administration Folic Acid 1 mg 05/19/17 10:00 05/20/17 12:44 Folic Acid - PO Not Given DAILY [facility] Hydromorphone HCl 1 mg 05/18/17 17:55 05/20/17 14:51 Dilaudid Injection - IVPB 1 mg Q3H PRN Administration PAIN Sodium Chloride 1,000 mls @ 100 mls/hr 05/18/17 18:00 05/20/17 11:11 Normal Saline - IV Not Given ASDIR [facility] Insulin Aspart 1 vial 05/19/17 22:00 05/20/17 17:54 Novolog Vial Sliding Scale - SQ Not Given ACHS [facility] Protocol Loratadine 10 mg 05/19/17 21:30 05/20/17 12:44 Claritin - PO Not Given DAILY [facility] Metoprolol Tartrate 50 mg 05/18/17 22:00 05/20/17 12:44 Lopressor - PO Not Given BID [facility] Multivit/Ca Carb/B Cmplx/FA/Prenat 1 tablet 05/19/17 20:30 05/20/17 12:45 Nephro-Ingris - PO Not Given DAILY [facility] Pantoprazole Sodium 40 mg 05/19/17 20:30 05/20/17 12:46 Protonix - PO Not Given DAILY [facility] Polyethylene Glycol 17 gm 05/19/17 10:00 05/20/17 12:44 Miralax (For Bowel Prep) - PO Not Given DAILY [facility] Sodium Chloride 2 spray 05/19/17 21:18 [place] Nasal [place] - NS BID PRN NASAL CONGESTION Tamsulosin HCl 0.4 mg 05/18/17 22:00 05/19/17 21:22 Flomax - PO 0.4 mg HS [facility] Administration Zolpidem Tartrate 10 mg 05/18/17 18:09 Ambien - PO HS PRN INSOMNIA Impression 1. ESRD 2. HTN 3. abdominal pain 4. DM 5. COPD Plan - will arrange for HD today - GI/surgery follow up - monitor blood pressure - he does not have labs, order pre hd labs - will follow Dr Vicente
--- NOTE | 2017-05-20 14:49 | PN ---
Progress Note, Physician History of Present Illness: comfortable - Current Medication List Current Medications: Active Medications Artificial Tears (Artificial Tears) 1 drop OU BID PRN PRN Reason: DRY EYES Last Admin: 05/19/17 21:58 Dose: 1 drop Atorvastatin Calcium (Lipitor -) 40 mg PO HS [facility] Last Admin: 05/19/17 21:22 Dose: 40 mg Baclofen (Lioresal -) 10 mg PO ASDIR [facility] Clopidogrel Bisulfate (Plavix -) 75 mg PO DAILY [facility] Last Admin: 05/20/17 12:45 Dose: Not Given Docusate Sodium (Colace -) 300 mg PO HS [facility] Last Admin: 05/19/17 21:21 Dose: 300 mg Folic Acid (Folic Acid -) 1 mg PO DAILY [facility] Last Admin: 05/20/17 12:44 Dose: Not Given Hydromorphone HCl (Dilaudid Injection -) 1 mg IVPB Q3H PRN PRN Reason: PAIN Last Admin: 05/19/17 21:18 Dose: 1 mg Sodium Chloride (Normal Saline -) 1,000 mls @ 100 mls/hr IV ASDIR [facility] Last Admin: 05/20/17 11:11 Dose: Not Given Insulin Aspart (Novolog Vial Sliding Scale -) 1 vial SQ ACHS [facility] PRN Reason: Protocol Last Admin: 05/20/17 12:08 Dose: 4 units Loratadine (Claritin -) 10 mg PO DAILY [facility] Last Admin: 05/20/17 12:44 Dose: Not Given Metoprolol Tartrate (Lopressor -) 50 mg PO BID [facility] Last Admin: 05/20/17 12:44 Dose: Not Given Multivit/Ca Carb/B Cmplx/FA/Prenat (Nephro-Ingris -) 1 tablet PO DAILY [facility] Last Admin: 05/20/17 12:45 Dose: Not Given Pantoprazole Sodium (Protonix -) 40 mg PO DAILY [facility] Last Admin: 05/20/17 12:46 Dose: Not Given Polyethylene Glycol (Miralax (For Bowel Prep) -) 17 gm PO DAILY [facility] Last Admin: 05/20/17 12:44 Dose: Not Given Sodium Chloride ([place] Nasal [place] -) 2 spray NS BID PRN PRN Reason: NASAL CONGESTION Tamsulosin HCl (Flomax -) 0.4 mg PO HS [facility] Last Admin: 05/19/17 21:22 Dose: 0.4 mg Zolpidem Tartrate (Ambien -) 10 mg PO HS PRN PRN Reason: INSOMNIA - Objective Vital Signs: Vital Signs Temperature 98.1 F 05/20/17 13:11 Pulse Rate 68 05/20/17 13:11 Respiratory Rate 13 05/20/17 13:11 Blood Pressure 135/57 05/20/17 13:11 O2 Sat by Pulse Oximetry (%) 98 05/19/17 21:00 Constitutional: Yes: No Distress HENT: Yes: Atraumatic Neck: Yes: Supple Cardiovascular: Yes: Regular Rate and Rhythm Respiratory: Yes: CTA Bilaterally Gastrointestinal: Yes: Normal Bowel Sounds Extremities: Yes: Other (R bka) Neurological: Yes: Alert, Oriented Problem List - Problems (1) RUQ abdominal pain Assessment/Plan: better prn pain meds Code(s): R10.11 - RIGHT UPPER QUADRANT PAIN (2) ESRD (end stage renal disease) Assessment/Plan: on hd dr marsh Code(s): N18.6 - END STAGE RENAL DISEASE (3) HTN (hypertension) Assessment/Plan: on meds Code(s): I10 - ESSENTIAL (PRIMARY) HYPERTENSION (4) Diabetes Assessment/Plan: on insulin coverage Code(s): E11.9 - TYPE 2 DIABETES MELLITUS WITHOUT COMPLICATIONS Assessment/Plan i was in patients room with dr becerril , he discussed findings of mri he suggested baclofen 5mgpotid stop narcotics as that is mostlikely causing problem and follow up in his office patient can be dc back to [facility]
[2017-05-20] MEDS: HYDROmorphone HCL CARPU-JECT 1 MG/1 ML DISP.SYRIN IVPB PRN ×2 (14:51→20:43)
[2017-05-20] MEDS ORDERED: BACLOFEN 10 MG TABLET (FP) PO ONE (15:00)
--- NOTE | 2017-05-20 15:08 | CON.ID ---
Consult Consult Specialty:: infectious diseases Reason for Consultation:: abd pain - History of Present Illness Chief Complaint: abd pain History of Present Illness: 56 yo male admitted with RUQ/epigastric tenderness x3 weeks. patient [facility] cardiac cath on work up patient was worked up Had U/S which didn't show any acute billiary process. HIDA scan which showed prompt filling of the GB, delayed emptying into the small bowel Denies CP, SOB, change in urine color, fever, chills. patient also has wound in the buttocks which is superficial. says that he had an I&D completed while he was admitted at [facility] this month. currently patient has no problems and is being dialyzed He says he has not been eating or drinking much. - Past Medical History Cardio/Vascular: Yes: HTN Renal/: Yes: Hemodialysis, Other (esrd) Endocrine: Yes: Diabetes Mellitus - Alcohol/Substance Use Hx Alcohol Use: No (denies) - Smoking History Smoking history: Former smoker Have you smoked in the past 12 months: No Home Medications - Allergies Allergies/Adverse Reactions: Allergies Allergy/AdvReac Type Severity Reaction Status Date / Time tree nut Allergy Verified 05/18/17 18:15 raw fruits Allergy Uncoded 05/18/17 18:15 - Home Medications Home Medications: Ambulatory Orders Aspirin [ASA -] 81 mg PO DAILY 05/18/17 Atorvastatin Ca [Lipitor] 40 mg PO HS 05/18/17 Azelastine HCl 137 mcg NS BID 05/18/17 Baclofen 10 mg PO ASDIR 05/18/17 Cetirizine HCl [Zyrtec -] 10 mg PO DAILY 05/18/17 Clopidogrel Bisulfate [Plavix -] 75 mg PO DAILY 05/18/17 Cyclosporine, Modified [Cyclosporine] 1 drop OU BID 05/18/17 Docusate Sodium [Colace -] 3 cap PO HS 05/18/17 Famotidine [Pepcid] 20 mg PO DAILY 05/18/17 Folic Acid 1 mg PO DAILY 05/18/17 Gabapentin 100 mg PO HS 05/18/17 Insulin Glargine,Hum.rec.anlog [Basaglar Kwikpen U-100] 10 unit SQ DAILY Insulin Lispro [Humalog] 0 unit SQ PRN 05/18/17 Insulin Lispro [Humalog] 10 unit SQ DAILY 05/18/17 Lactobacillus Acidophilus [Probiotic] 1 each PO TID 05/18/17 Mag Hydrox/Al Hydrox/Simeth [Mylanta Oral Suspension -] 30 ml PO Q8H PRN Metoprolol Tartrate [Lopressor] 50 mg PO BID 05/18/17 Oxycodone HCl 2 tab PO Q6H PRN 05/18/17 Pantoprazole Sodium [Protonix] 40 mg PO DAILY 05/18/17 Polyethylene Glycol 3350 [Glycolax] 17 gm PO DAILY 05/18/17 Sennosides [Senna] 2 tab PO HS 05/18/17 Tamsulosin HCl [Flomax] 0.4 mg PO HS 05/18/17 Vitamin B Comp W-C [Nephro-Ingris -] 1 tablet PO DAILY 05/18/17 Zolpidem Tartrate [Ambien] 10 mg PO HS PRN 05/18/17 Review of Systems - Review of Systems Constitutional: reports: No Symptoms Eyes: reports: No Symptoms HENT: reports: No Symptoms Cardiovascular: reports: No Symptoms Respiratory: reports: No Symptoms Gastrointestinal: reports: Abdominal Pain Musculoskeletal: reports: No Symptoms Integumentary: reports: No Symptoms Neurological: reports: No Symptoms Endocrine: reports: No Symptoms Hematology/Lymphatic: reports: No Symptoms Psychiatric: reports: No Symptoms Physical Exam Vital Signs: Vital Signs Temperature 98.4 F 05/20/17 14:30 Pulse Rate 54 L 05/20/17 14:40 Respiratory Rate 18 05/20/17 14:40 Blood Pressure 192/79 05/20/17 14:40 O2 Sat by Pulse Oximetry (%) 98 05/19/17 21:00 Constitutional: Yes: No Distress, Calm Neck: Yes: Supple Cardiovascular: Yes: Regular Rate and Rhythm Respiratory: Yes: Regular, CTA Bilaterally Gastrointestinal: Yes: Normal Bowel Sounds, Soft Musculoskeletal: Yes: WNL Extremities: Yes: Other Neurological: Yes: Alert, Oriented Psychiatric: Yes: Alert Imaging - Results Ultrasound: Report Reviewed, Image Reviewed Assessment/Plan Problem List - Problems (1) RUQ abdominal pain Code(s): R10.11 - RIGHT UPPER QUADRANT PAIN (2) ESRD (end stage renal disease) Code(s): N18.6 - END STAGE RENAL DISEASE (3) HTN (hypertension) Code(s): I10 - ESSENTIAL (PRIMARY) HYPERTENSION (4) Diabetes Code(s): E11.9 - TYPE 2 DIABETES MELLITUS WITHOUT COMPLICATIONS plan will not start any abx at this time wound care gi following the patient patient being dialyzed if patient continues to remain stable will not start any abx
[2017-05-20] MEDS: ATORVASTATIN CA 40 MG TABLET (FP) PO SCH (21:05)
[2017-05-20] MEDS: DOCUSATE SODIUM 100 MG CAPSULE (FP) PO SCH (21:05)
[2017-05-20] MEDS: TAMSULOSIN HCL 0.4 MG CAP.ER.24H (FP) PO SCH (21:05)
[2017-05-20] MEDS ORDERED: PT OWN MED DRAWER 7, Y5N ONE ×2 (22:42→22:48)
[2017-05-20] MEDS: ARTIFICIAL TEARS (POLYVINYL ALCOHOL 1.4%) OPTH DROPS OU PRN (22:43)
[2017-05-20] MEDS: BACLOFEN 10 MG TABLET (FP) PO SCH (23:11)
[2017-05-21] MEDS: BACLOFEN 10 MG TABLET (FP) PO SCH (05:38)
[2017-05-21] MEDS: INSULIN SLIDING SCALE (NOVOLOG) 1 VIAL SQ SCH ×2 (06:06→11:46)
[2017-05-21 07:29] LABS: BASOPHIL 0.6 % (0-2.0); MCH 30.6 pg (25.7-33.7); MCHC 33.6 g/dl (32.0-35.9); MEAN CELL VOLUME 91.1 fl (80-96); MEAN PLT VOLUME 7.5 fl (7.5-11.1); NEUTROPHILS 68.2 % (42.8-82.8); PLATELET COUNT 242 K/MM3 (134-434); RDW 15.6 % (11.9-15.9); WHITE BLOOD COUNT 11.2 K/mm3 (4.0-10.0)
[2017-05-21 08:01] LABS: ALBUMIN 3.6 g/dl (3.4-5.0); ANION GAP 9 (8-16); CALCIUM 8.9 mg/dL (8.5-10.1); CO2 32 mmol/L (21-32); GLUCOSE,RANDOM 143 mg/dL (74-106); SGOT/AST 13 U/L (15-37); SGPT/ALT 16 U/L (12-78)
[2017-05-21 08:03] LABS: ALK PHOS 95 U/L (45-117); CREATININE 5.1 mg/dL (0.7-1.3); TOT PROT 7.4 g/dl (6.4-8.2)
[2017-05-21] MEDS: PANTOPRAZOLE 40 MG TABLET (FP) PO SCH (10:07)
[2017-05-21] MEDS: LORATADINE 10 MG TABLET PO SCH (10:07)
[2017-05-21] MEDS: METOPROLOL TARTRATE 50 MG TABLET (FP) PO SCH (10:07)
[2017-05-21] MEDS: FOLIC ACID 1 MG TABLET (FP) PO SCH (10:07)
[2017-05-21] MEDS: VITAMIN B COMP W-C 1 EA TABLET PO SCH (10:07)
[2017-05-21] MEDS: CLOPIDOGREL BISULFATE 75 MG TABLET (FP) PO SCH (10:07)
[2017-05-21] MEDS: POLYETHYLENE GLYCOL 3350 255 GM BTL PO SCH (10:08)
--- NOTE | 2017-05-21 11:02 | PN ---
Progress Note (short form) - Note Progress Note: Attending Surgeon No c/o; tolerating diet VSS AF abdomen-benign WBC 11.2 LFT's wnl MRI reviewed; seen by ID IMP: cholelithiasis w/o evidence of acute cholecystitis PLAN: Would defer lap ifrah if at all until patient is off ASA/Plavix and full reults of cardiac w/u are available from recent inpatient stay at [facility]; suggest low fat diet. Tc Ross MD FACS
[2017-05-21] MEDS ORDERED: INSULIN (NOVOLOG) ASPART 100 UNITS/ML 10ML VIAL ONE (11:41)
[2017-05-21 13:04] VITALS: BP 151/80; PULSE 78; TEMP 98.9
--- NOTE | 2017-05-21 18:06 | DS ---
Physical Examination Vital Signs: Vital Signs Temperature 98.9 F 05/21/17 08:00 Pulse Rate 78 05/21/17 08:00 Respiratory Rate 20 05/21/17 08:00 Blood Pressure 151/80 05/21/17 08:00 O2 Sat by Pulse Oximetry (%) 98 05/20/17 21:00 Labs: CBC, BMP 05/21/17 06:00 05/21/17 06:00 Discharge Summary Reason For Visit: ABD PAIN - Instructions Diet, Activity, Other Instructions: see dr dominguez in 1 week pt was instructed not to take narcotics pain meds as that is most likely causing his gi problems follow up mri if wound at the buttocks does not heal completely after wound care in few weeks d/w dr crum id ...no need for abx now pts pmd is dr domenic claros Referrals: Katherine Crum MD [Staff Physician] - Francisco Dominguez MD [Staff Physician] - Domenic Good MD [Non Staff, Medical] - Disposition: [facility] - Home Medications Comprehensive Discharge Medication List: Ambulatory Orders Aspirin [ASA -] 81 mg PO DAILY 05/18/17 Atorvastatin Ca [Lipitor] 40 mg PO HS 05/18/17 Azelastine HCl 137 mcg NS BID 05/18/17 Cetirizine HCl [Zyrtec -] 10 mg PO DAILY 05/18/17 Clopidogrel Bisulfate [Plavix -] 75 mg PO DAILY 05/18/17 Cyclosporine, Modified [Cyclosporine] 1 drop OU BID 05/18/17 Docusate Sodium [Colace -] 3 cap PO HS 05/18/17 Famotidine [Pepcid] 20 mg PO DAILY 05/18/17 Folic Acid 1 mg PO DAILY 05/18/17 Gabapentin 100 mg PO HS 05/18/17 Insulin Glargine,Hum.rec.anlog [Basaglar Kwikpen U-100] 10 unit SQ DAILY Insulin Lispro [Humalog] 0 unit SQ PRN 05/18/17 Insulin Lispro [Humalog] 10 unit SQ DAILY 05/18/17 Lactobacillus Acidophilus [Probiotic] 1 each PO TID 05/18/17 Mag Hydrox/Al Hydrox/Simeth [Mylanta Oral Suspension -] 30 ml PO Q8H PRN Metoprolol Tartrate [Lopressor] 50 mg PO BID 05/18/17 Pantoprazole Sodium [Protonix] 40 mg PO DAILY 05/18/17 Polyethylene Glycol 3350 [Glycolax] 17 gm PO DAILY 05/18/17 Sennosides [Senna] 2 tab PO HS 05/18/17 Tamsulosin HCl [Flomax] 0.4 mg PO HS 05/18/17 Vitamin B Comp W-C [Nephro-Ingris -] 1 tablet PO DAILY 05/18/17 Zolpidem Tartrate [Ambien] 10 mg PO HS PRN 05/18/17 Baclofen [Lioresal -] 5 mg PO TID #90 tablet 05/20/17 dc to snf
[2017-05-22 08:07] LABS: HEP B SURFACE AB Non Reactive (.)
== END 2017-05-21 13:27 ==
LOC: JER 11:13 → JERBED 16:22 → INTOOBSV 16:22 → UNDOADMOB 16:22 → JERBED 20:44 → J8W 20:44 → JERBED 05-19 11:20 → J8W 05-19 11:20
PROVIDERS: ADMIT Internal Medicine; ATTEND Internal Medicine
PROC: 3E033NZ Introduction of Analgesics, Hypnotics, Sedatives into Peripheral Vein, Percutaneous Approach (ICD-10-PCS; principal; 2017-05-19)
PROC: 3E013VG Introduction of Insulin into Subcutaneous Tissue, Percutaneous Approach (ICD-10-PCS; 2017-05-19)
PROC: 3E033GC Introduction of Other Therapeutic Substance into Peripheral Vein, Percutaneous Approach (ICD-10-PCS; 2017-05-19)
PROC: 3E0337Z Introduction of Electrolytic and Water Balance Substance into Peripheral Vein, Percutaneous Approach (ICD-10-PCS; 2017-05-19)
DX: R10.11 Right upper quadrant pain (principal); I12.0 Hypertensive chronic kidney disease with stage 5 chronic kidney disease or end stage renal disease; E13.22 Other specified diabetes mellitus with diabetic chronic kidney disease; N18.6 End stage renal disease; Z99.2 Dependence on renal dialysis; Z79.4 Long term (current) use of insulin; Z79.84 Long term (current) use of oral hypoglycemic drugs; Z87.891 Personal history of nicotine dependence; I25.10 Atherosclerotic heart disease of native coronary artery without angina pectoris; K21.9 Gastro-esophageal reflux disease without esophagitis; D64.9 Anemia, unspecified; M86.9 Osteomyelitis, unspecified; D72.829 Elevated white blood cell count, unspecified; Z95.5 Presence of coronary angioplasty implant and graft; Z91.010 Allergy to peanuts; Z91.018 Allergy to other foods; Z79.82 Long term (current) use of aspirin; Z79.01 Long term (current) use of anticoagulants; K80.20 Calculus of gallbladder without cholecystitis without obstruction
CPT/HCPCS: 36415; 74181-TC; 76705-TC; 78226-TC; 80053; 81003; 81015; 83690; 84484; 85025; 86704; 86706; 86708; 86803; 87340; 93005; 93010; 99283-25; A9537; G0378; J0475

== ENCOUNTER 2017-05-22 08:00 | Inpatient (IN) | payer OTHER ==
[2017-05-22 08:12] VITALS: BMI 25.7
[2017-05-22] MEDS ORDERED: HYDROmorphone HCL CARPU-JECT 1 MG/1 ML DISP.SYRIN IVPUSH ONE (08:16)
[2017-05-22 09:07] LABS: URINE APPEARANCE CLEAR; URINE BILIRUBIN NEGATIVE (NEGATIVE); URINE BLOOD 1+ (NEGATIVE); URINE COLOR LT. YELLOW; URINE GLUCOSE (UA) 2+ (NEGATIVE); URINE KETONE NEGATIVE (NEGATIVE); URINE LEUK ESTERASE NEGATIVE (NEGATIVE); URINE NITRITE NEGATIVE (NEGATIVE); URINE UROBILINOGEN 0.2 mg/dL (0.2-1.0)
[2017-05-22 09:12] LABS: URINE PROTEIN 3+ (NEGATIVE)
[2017-05-22 09:20] LABS: URINE RBC 2 /hpf (0-3); URINE WBC 1 /hpf (3-5)
[2017-05-22 09:26] LABS: BASOPHIL 0.8 % (0-2.0); EOSINOPHIL 2.4 % (0-4.5); MCH 31.1 pg (25.7-33.7); MCHC 34.2 g/dl (32.0-35.9); MEAN CELL VOLUME 90.9 fl (80-96); MEAN PLT VOLUME 7.3 fl (7.5-11.1); NEUTROPHILS 71.9 % (42.8-82.8); PLATELET COUNT 251 K/MM3 (134-434); RDW 15.5 % (11.9-15.9); WHITE BLOOD COUNT 13.6 K/mm3 (4.0-10.0)
[2017-05-22] MEDS ORDERED: HYDROmorphone HCL CARPU-JECT 1 MG/1 ML DISP.SYRIN ONE (09:36)
[2017-05-22 09:55] LABS: ALBUMIN 3.4 g/dl (3.4-5.0); ANION GAP 10 (8-16); CALCIUM 8.4 mg/dL (8.5-10.1); CO2 26 mmol/L (21-32); GLUCOSE,RANDOM 195 mg/dL (74-106); SGPT/ALT 18 U/L (12-78)
[2017-05-22 10:00] LABS: ALK PHOS 95 U/L (45-117); BILIRUBIN,TOTAL 0.5 mg/dL (0.2-1.0); CREATININE 5.1 mg/dL (0.7-1.3); TOT PROT 7.3 g/dl (6.4-8.2); TROPONIN I 0.03 ng/ml (0.00-0.05)
--- NOTE | 2017-05-22 10:09 | PDOC ---
History of Present Illness - General Chief Complaint: Pain Stated Complaint: ABD PAIN History Source: Patient Exam Limitations: No Limitations - History of Present Illness Initial Comments: 05/22/17 09:48 The patient is a 56M with a PMH of ESRD (MWF), DM, HTN, CAD s/p stents, who presents to the ED from the dialysis center. He did not finish HD. The patient is complaining of lower R sided CP and RUQ pain. The patient states that this pain is sharp/stabbing and does not radiate anywhere. The pain comes and goes and nothing makes it feel better, some positions make it worse. He denies CP, SOB, nausea, vomiting. The patient was discharged from [facility] yesterday for similar pain and states that the pain was mild when he was discharged. He had a HIDA scan which showed no CBD dilation. Cath at [facility] 2-3 weeks ago. Past History - Past Medical History Allergies/Adverse Reactions: Allergies Allergy/AdvReac Type Severity Reaction Status Date / Time tree nut Allergy Verified 05/22/17 08:06 raw fruits Allergy Uncoded 05/22/17 08:06 Home Medications: Ambulatory Orders Aspirin [ASA -] 81 mg PO DAILY 05/18/17 Atorvastatin Ca [Lipitor] 40 mg PO HS 05/18/17 Azelastine HCl 137 mcg NS BID 05/18/17 Cetirizine HCl [Zyrtec -] 10 mg PO DAILY 05/18/17 Clopidogrel Bisulfate [Plavix -] 75 mg PO DAILY 05/18/17 Cyclosporine, Modified [Cyclosporine] 1 drop OU BID 05/18/17 Docusate Sodium [Colace -] 3 cap PO HS 05/18/17 Famotidine [Pepcid] 20 mg PO DAILY 05/18/17 Folic Acid 1 mg PO DAILY 05/18/17 Gabapentin 100 mg PO HS 05/18/17 Insulin Glargine,Hum.rec.anlog [Basaglar Kwikpen U-100] 10 unit SQ DAILY Insulin Lispro [Humalog] 0 unit SQ PRN 05/18/17 Insulin Lispro [Humalog] 10 unit SQ DAILY 05/18/17 Lactobacillus Acidophilus [Probiotic] 1 each PO TID 05/18/17 Mag Hydrox/Al Hydrox/Simeth [Mylanta Oral Suspension -] 30 ml PO Q8H PRN Metoprolol Tartrate [Lopressor] 50 mg PO BID 05/18/17 Pantoprazole Sodium [Protonix] 40 mg PO DAILY 05/18/17 Polyethylene Glycol 3350 [Glycolax] 17 gm PO DAILY 05/18/17 Sennosides [Senna] 2 tab PO HS 05/18/17 Tamsulosin HCl [Flomax] 0.4 mg PO HS 05/18/17 Vitamin B Comp W-C [Nephro-Ingris -] 1 tablet PO DAILY 05/18/17 Zolpidem Tartrate [Ambien] 10 mg PO HS PRN 05/18/17 Baclofen [Lioresal -] 5 mg PO TID #90 tablet 05/20/17 Anemia: Yes Cardiac Disorders: Yes (cardiac stent) COPD: Yes Diabetes: Yes Dialysis: Yes ([facility]-) GI Disorders: Yes (Acid Reflux) HTN: Yes - Surgical History Orthopedic Surgery: Yes (rt AKA) - Suicide/Smoking/Psychosocial Hx Smoking History: Never smoked Have you smoked in the past 12 months: No Hx Alcohol Use: No Drug/Substance Use Hx: No Substance Use Type: None Review of Systems - Review of Systems Able to Perform ROS?: Yes Is the patient limited Malagasy proficient: No Constitutional: No: Chills, Fever Respiratory: No: Shortness of Breath Cardiac (ROS): Yes: Chest Pain (R sided). No: Irregular Heart Rate, Palpitations, Chest Tightness ABD/GI: Yes: Diarrhea. No: Constipated, Nausea, Vomiting : No: Burning, Dysuria, Discharge Musculoskeletal: Yes: Neck Pain (chronic) Neurological: No: Headache, Numbness, Tingling, Weakness *Physical Exam - Vital Signs Last Vital Signs Temp Pulse Resp BP Pulse Ox 98.7 F 70 20 164/74 100 05/22/17 08:07 05/22/17 08:07 05/22/17 08:07 05/22/17 08:07 05/22/17 08:07 - Physical Exam General Appearance: Yes: Nourished, Appropriately Dressed. No: Apparent Distress HEENT: positive: Normal Voice, Hearing Grossly Normal Respiratory/Chest: positive: Chest Tender (R anterior inferior chest wall), Lungs Clear, Normal Breath Sounds. negative: Respiratory Distress, Decreased Breath Sounds, Crackles, Rales, Rhonchi Cardiovascular: positive: Regular Rhythm, Regular Rate, S1, S2. negative: Diastolic Murmur, Systolic Murmur Gastrointestinal/Abdominal: positive: Tender (near RUQ, negative richards sign), Flat, Soft. negative: Distended, Guarding, Rebound, Tenderness, Hernia Musculoskeletal: negative: CVA Tenderness (R), CVA Tenderness (L) Integumentary: positive: Dry, Warm, Petechiae (Lower extremities), Other (BKA on R side) Neurologic: positive: Fully Oriented, Alert, Normal Mood/Affect Heart Score/ECG Review - ECG Impressions Comment:: 05/22/17 11:47 1st degree AV block Rate 84 VT 218 QT/QTc 458/472 Unchanged from EKG 3 days ago ED Treatment Course - LABORATORY CBC & Chemistry Diagram: 05/22/17 09:00 05/22/17 09:00 - ADDITIONAL ORDERS Additional order review: Laboratory Results 05/22/17 08:15 Urine Color Lt. yellow Urine Appearance Clear Urine pH 8.0 Urine Protein 3+ H Urine Glucose (UA) 2+ H Urine Ketones Negative Urine Blood 1+ H Urine Nitrite Negative Urine Bilirubin Negative Urine Urobilinogen 0.2 Urine RBC 2 Urine WBC 1 05/22/17 09:00 RBC 3.70 L MCV 90.9 MCHC 34.2 RDW 15.5 MPV 7.3 L Neutrophils % 71.9 Lymphocytes % 17.7 Monocytes % 7.2 Eosinophils % 2.4 Basophils % 0.8 - RADIOLOGY Radiology Studies Ordered: Category Date Time Status CHEST X-RAY PORTABLE* [RAD] Stat Radiology 05/22/17 08:18 Completed ABDOMEN US -LIMITED [US] Stat Ultrasound 05/22/17 08:18 Ordered - Medications Given in the ED: ED Medications Discontinued Medications Generic Name Dose Route Start Last Admin Trade Name Freq PRN Reason Stop Dose Admin Hydromorphone HCl 0.5 mg 05/22/17 08:16 05/22/17 09:41 Dilaudid Injection - IVPUSH 05/22/17 08:17 0.5 mg ONCE ONE Administration Medical Decision Making - Medical Decision Making 05/22/17 10:19 The patient is a 56M with a PMH of ESRD (MWF), CAD s/p stents, DM, HTN, who presents to the ED with R chest wall pain that is tender to palpation. Negative richards and extensive workup with discharge yesterday shows a low suspicion for a hepatobiliary pathology. This is most likely musculoskeletal 2/2 to its reproducibility. Repeat ACS event and PE are also on the differential. Will reassess when labs/imaging return. 05/22/17 11:27 Attending has spoken with Dr. Dominguez and he recommends f/u at a higher care facility where they can do an endoscopic ultrasound. 05/22/17 11:53 CT to r/o PE cannot be done because of a lack of proper access. Radiologist has been paged for recs. *DC/Admit/Observation/Transfer Diagnosis at time of Disposition: Chest pain Qualifiers: Chest pain type: unspecified Qualified Code(s): R07.9 - Chest pain, unspecified - Discharge Dispostion Condition at time of disposition: Stable Admit: Yes
[2017-05-22 10:14] LABS: CPK 169 IU/L (39-308); SGOT/AST 22 U/L (15-37)
--- NOTE | 2017-05-22 11:43 | PDOC ---
Attending Attestation - Resident Resident Name: Hector Chang - ED Attending Attestation I have performed the following: I have examined & evaluated the patient, The case was reviewed & discussed with the resident, I agree w/resident's findings & plan, Exceptions are as noted - HPI HPI: 05/22/17 11:38 56 yo male with h/o esrd, htn dm, pvc ( right bka) here with c/o epigastric ruq pain. was recenlty admitted and dc yesterday for same . work up had included mrcp, us and hida. concerns for gb emptying dysfunction on hida, cholelithiasis on us, ( single small stone) but no cbd stone on mrcp. pt to follow up with outpt with dr. becerril. denies n/v no fever or chills. pain right upper abd , right lower ribs. also reports having a fall 3 weeks ago, but landed on buttock, no chest wall trauma. no cough. no sob. no change to pain with food. 05/22/17 16:53 - Physicial Exam PE: 05/22/17 11:42 awake alert lungs clear heart rrr no mrg. abd soft, ruq epigastric ttp. righ tlower rib ttp. no crepitus. no step off. . right bka. nuero alert oriented x 3 05/22/17 16:53 05/22/17 16:54 - Medical Decision Making 05/22/17 11:35 56 yo M h/o esrd, dm htn , right aka, here with right sided epigastric pain, pleuritic. was admitted and worked up with recent mrcp, hida and us. has known cholelithiasis, but no cbd stone. concerns for gb emptying dysfunction. d/w dr becerril ( GI) labs, repeat us gb. and reassess. differential gastritis, rib trauma from recent fall, ifrah, pna
[2017-05-22] MEDS ORDERED: BACLOFEN 10 MG TABLET (FP) PO ONE (16:45)
[2017-05-22] MEDS ORDERED: BACLOFEN 10 MG TABLET (FP) ONE (16:57)
--- NOTE | 2017-05-22 17:05 | CONSULT ---
Consult Consult Specialty:: Nephrology Reason for Consultation:: ESRD - History of Present Illness Chief Complaint: abdominal pain History of Present Illness: Pt is a 56 year old male with pmhx of anemia, CAD, ESRD, COPD, DM and HTN who presents to the ER with abdominal pain. He was just discharged yesterday with similar symptoms. He went to HD today and could only tolerate about 20 minutes. He denies vomiting or diarrhea. He denies fevers or chills. - History Source History Provided By: Patient - Past Medical History Cardio/Vascular: Yes: HTN Pulmonary: Yes: COPD Renal/: Yes: Hemodialysis, Other (esrd) Endocrine: Yes: Diabetes Mellitus - Alcohol/Substance Use Hx Alcohol Use: No - Smoking History Smoking history: Never smoked Have you smoked in the past 12 months: No Home Medications - Allergies Allergies/Adverse Reactions: Allergies Allergy/AdvReac Type Severity Reaction Status Date / Time tree nut Allergy Verified 05/22/17 08:06 raw fruits Allergy Uncoded 05/22/17 08:06 - Home Medications Home Medications: Ambulatory Orders Aspirin [ASA -] 81 mg PO DAILY 05/18/17 Atorvastatin Ca [Lipitor] 40 mg PO HS 05/18/17 Azelastine HCl 137 mcg NS BID 05/18/17 Cetirizine HCl [Zyrtec -] 10 mg PO DAILY 05/18/17 Clopidogrel Bisulfate [Plavix -] 75 mg PO DAILY 05/18/17 Cyclosporine, Modified [Cyclosporine] 1 drop OU BID 05/18/17 Docusate Sodium [Colace -] 3 cap PO HS 05/18/17 Famotidine [Pepcid] 20 mg PO DAILY 05/18/17 Folic Acid 1 mg PO DAILY 05/18/17 Gabapentin 100 mg PO HS 05/18/17 Insulin Glargine,Hum.rec.anlog [Basaglar Kwikpen U-100] 10 unit SQ DAILY Insulin Lispro [Humalog] 0 unit SQ PRN 05/18/17 Insulin Lispro [Humalog] 10 unit SQ DAILY 05/18/17 Lactobacillus Acidophilus [Probiotic] 1 each PO TID 05/18/17 Mag Hydrox/Al Hydrox/Simeth [Mylanta Oral Suspension -] 30 ml PO Q8H PRN Metoprolol Tartrate [Lopressor] 50 mg PO BID 05/18/17 Pantoprazole Sodium [Protonix] 40 mg PO DAILY 05/18/17 Polyethylene Glycol 3350 [Glycolax] 17 gm PO DAILY 05/18/17 Sennosides [Senna] 2 tab PO HS 05/18/17 Tamsulosin HCl [Flomax] 0.4 mg PO HS 05/18/17 Vitamin B Comp W-C [Nephro-Ingris -] 1 tablet PO DAILY 05/18/17 Zolpidem Tartrate [Ambien] 10 mg PO HS PRN 05/18/17 Baclofen [Lioresal -] 5 mg PO TID #90 tablet 05/20/17 Family Disease History - Family Disease History Family History: Denies Review of Systems - Review of Systems Constitutional: reports: No Symptoms Eyes: reports: No Symptoms HENT: reports: No Symptoms Neck: reports: No Symptoms Cardiovascular: reports: No Symptoms Gastrointestinal: reports: Abdominal Pain Genitourinary: reports: No Symptoms Musculoskeletal: reports: No Symptoms Integumentary: reports: No Symptoms Neurological: reports: No Symptoms Endocrine: reports: No Symptoms Hematology/Lymphatic: reports: No Symptoms Physical Exam Vital Signs: Vital Signs Temperature 98.7 F 05/22/17 08:07 Pulse Rate 70 05/22/17 08:07 Respiratory Rate 20 05/22/17 08:07 Blood Pressure 164/74 05/22/17 08:07 O2 Sat by Pulse Oximetry (%) 100 05/22/17 08:07 Constitutional: Yes: Anxious HENT: Yes: Atraumatic Neck: Yes: Supple Cardiovascular: Yes: S1, S2 Respiratory: Yes: CTA Bilaterally Gastrointestinal: Yes: Normal Bowel Sounds, Soft Extremities: Yes: Amputation Neurological: Yes: Oriented Psychiatric: Yes: Oriented Labs: Laboratory Tests 05/22/17 05/22/17 09:00 09:00 WBC 13.6 H Hgb 11.5 L Sodium 139 Potassium 4.3 Problem List - Problems (1) ESRD (end stage renal disease) Code(s): N18.6 - END STAGE RENAL DISEASE (2) HTN (hypertension) Code(s): I10 - ESSENTIAL (PRIMARY) HYPERTENSION (3) RUQ abdominal pain Code(s): R10.11 - RIGHT UPPER QUADRANT PAIN Assessment/Plan Impression 1. ESRD 2. abdominal pain 3. copd 4. HTN 5. DM Plan - will arrange for HD today - GI follow up - resume home meds - will follow Dr Vicente
[2017-05-22] MEDS ORDERED: HEPARIN NA (PORCINE) 5,000 UNITS/ML 1ML VIAL IVPUSH ONE (18:00)
[2017-05-22] MEDS: METOPROLOL TARTRATE 50 MG TABLET (FP) PO SCH (19:04)
--- NOTE | 2017-05-22 19:23 | HP ---
CHIEF COMPLAINT: Abdominal pain PCP: Dr. Marques Good HISTORY OF PRESENT ILLNESS: 56 year-old male, resident of [place], with a PMH significant for HTN, CAD s/ p stents, DM, and ESRD (MWF), PVD s/p right BKA. Presented to the ED from the dialysis center after stopping the session after 20 minutes because of abdominal pain. Complains of RUQ and epigastric pain, the same complaint for which patient was admitted to this hospital from 05/18-->05/22/17. Workup revealed an ampullary spasm. Patient was advised to avoid opioid use as the possible source of this diagnosis. Patient states the pain is intolerable and that is why he came back to the ED. Recent Travel: No Social History: Smoking: former smoker Alcohol: no Drugs: no Family History: non-contributory Allergies tree nut Allergy (Verified 05/22/17 08:06) raw fruits Allergy (Uncoded 05/22/17 08:06) Home Medications Medication Instructions Recorded Aspirin [ASA -] 81 mg PO DAILY 05/18/17 Atorvastatin Ca [Lipitor] 40 mg PO HS 05/18/17 Azelastine HCl 137 mcg NS BID 05/18/17 Cetirizine HCl [Zyrtec -] 10 mg PO DAILY 05/18/17 Clopidogrel Bisulfate [Plavix -] 75 mg PO DAILY 05/18/17 Cyclosporine, Modified 1 drop OU BID 05/18/17 [Cyclosporine] Docusate Sodium [Colace -] 3 cap PO HS 05/18/17 Famotidine [Pepcid] 20 mg PO DAILY 05/18/17 Folic Acid 1 mg PO DAILY 05/18/17 Gabapentin 100 mg PO HS 05/18/17 Insulin Glargine,Hum.rec.anlog 10 unit SQ DAILY 05/18/17 [Basaglar Kwikpen U-100] Insulin Lispro [Humalog] 0 unit SQ PRN 05/18/17 Insulin Lispro [Humalog] 10 unit SQ DAILY 05/18/17 Lactobacillus Acidophilus 1 each PO TID 05/18/17 [Probiotic] Mag Hydrox/Al Hydrox/Simeth 30 ml PO Q8H PRN 05/18/17 [Mylanta Oral Suspension -] Metoprolol Tartrate [Lopressor] 50 mg PO BID 05/18/17 Pantoprazole Sodium [Protonix] 40 mg PO DAILY 05/18/17 Polyethylene Glycol 3350 [Glycolax] 17 gm PO DAILY 05/18/17 Sennosides [Senna] 2 tab PO HS 05/18/17 Tamsulosin HCl [Flomax] 0.4 mg PO HS 05/18/17 Vitamin B Comp W-C [Nephro-Ingris -] 1 tablet PO DAILY 05/18/17 Zolpidem Tartrate [Ambien] 10 mg PO HS PRN 05/18/17 Baclofen [Lioresal -] 5 mg PO TID #90 tablet 05/20/17 REVIEW OF SYSTEMS CONSTITUTIONAL: Absent: fever, chills, diaphoresis, generalized weakness, malaise, loss of appetite, weight change HEENT: Absent: rhinorrhea, nasal congestion, throat pain, throat swelling, difficulty swallowing, mouth swelling, ear pain, eye pain, visual changes CARDIOVASCULAR: Absent: chest pain, syncope, palpitations, irregular heart rate, lightheadedness , peripheral edema RESPIRATORY: Absent: cough, shortness of breath, dyspnea with exertion, orthopnea, wheezing, stridor, hemoptysis GASTROINTESTINAL: Present: epigastric, RUQ pain Absent: abdominal distension, nausea, vomiting, diarrhea, constipation, melena, hematochezia GENITOURINARY: Absent: dysuria, frequency, urgency, hesitancy, hematuria, flank pain, genital pain MUSCULOSKELETAL: Absent: myalgia, arthralgia, joint swelling, back pain, neck pain SKIN: Absent: rash, itching, pallor HEMATOLOGIC/IMMUNOLOGIC: Absent: easy bleeding, easy bruising, lymphadenopathy, frequent infections ENDOCRINE: Absent: unexplained weight gain, unexplained weight loss, heat intolerance, cold intolerance NEUROLOGIC: Absent: headache, focal weakness or paresthesias, dizziness, unsteady gait, seizure, mental status changes, bladder or bowel incontinence PSYCHIATRIC: Absent: anxiety, depression, suicidal or homicidal ideation, hallucinations. PHYSICAL EXAMINATION Vital Signs - 24 hr 05/22/17 05/22/17 05/22/17 17:01 17:25 17:30 Temperature 97.8 F Pulse Rate 78 78 Pulse Rate [ 74 Apical] Respiratory 18 18 18 Rate Blood Pressure 203/64 185/64 Blood Pressure 159/64 [Right Arm] O2 Sat by Pulse 98 Oximetry (%) 05/22/17 05/22/17 18:00 18:30 Temperature Pulse Rate 60 81 Pulse Rate [ Apical] Respiratory 18 18 Rate Blood Pressure 190/81 180/90 Blood Pressure [Right Arm] O2 Sat by Pulse Oximetry (%) GENERAL: Awake, alert, and fully oriented. HEAD: Normal with no signs of trauma. EYES: Pupils equal, round and reactive to light, extraocular movements intact, sclera injected appearance, conjunctiva clear. No ptosis.. EARS, NOSE, THROAT: Ears normal, nares patent, oropharynx clear without exudates. Moist mucous membranes. NECK: Normal range of motion, supple without lymphadenopathy, JVD, or masses. LUNGS: Breath sounds equal, clear to auscultation bilaterally. No wheezes, and no crackles. No accessory muscle use. HEART: Regular rate and rhythm, normal S1 and S2 without murmur, rub or gallop. ABDOMEN: Would not allow exam. UPPER EXTREMITIES: 2+ pulses, warm, well-perfused. No cyanosis. No clubbing. No peripheral edema. LOWER EXTREMITIES: Right BKA NEUROLOGICAL: Cranial nerves II-XII intact. Normal speech. Normal gait. PSYCHIATRIC: Agitated, verbally agressive toward staff. ASSESSMENT/PLAN: 56 year-old male, resident of [place], with a PMH significant for HTN, CAD s/ p stents, DM, and ESRD (MWF), PVD s/p right BKA. Presented to the ED from the dialysis center after stopping the session after 20 minutes because of abdominal pain. Abdominal pain secondary to ampullary spasm --per patient and review of EMR, he has had two complete workups over the past 3 weeks for this complaint, one at [facility], and one at [facility] --HIDA scan showed ampullary spasm --discharged yesterday with instructions to follow up with Dr. Dominguez and to avoid opioid use as a contributing factor --patient states the pain is too severe to wait for an outpatient appointment ; he is demanding transfer to a facility that can treat him --continue Baclofen, protonix IV BID --lorazepam 0.5mg IVP x 1 for agitation/anxiety --GI consult ESRD on HD --HD this evening, 1.8L off --Dr. Vicente following Hypertension --continue metoprolol CAD --continue metoprolol, ASA, Plavix, Lipitor Dispo: continues to require inpatient care. Full Code. Visit type - Emergency Visit Emergency Visit: Yes ED Registration Date: 05/23/17 Care time: The patient presented to the Emergency Department on the above date and was hospitalized for further evaluation of their emergent condition. - New Patient This patient is new to me today: Yes Date on this admission: 05/23/17 - Critical Care Critical Care patient: No
[2017-05-22] MEDS ORDERED: BACLOFEN 10 MG TABLET (FP) PO STA (20:35)
[2017-05-22] MEDS ORDERED: PANTOPRAZOLE SODIUM 40 MG in SODIUM CHLORIDE 100 ML IVPB STA (20:45)
[2017-05-22] MEDS ORDERED: MAG HYDROX/AL HYDROX/SIMETH 30 ML UNIT-DOSE CUP PO PRN (21:03)
[2017-05-22] MEDS: TAMSULOSIN HCL 0.4 MG CAP.ER.24H (FP) PO SCH (21:23)
[2017-05-22] MEDS: GABAPENTIN 100 MG CAPSULE (FP) PO SCH (21:24)
[2017-05-22] MEDS: MAG HYDROX/AL HYDROX/SIMETH 30 ML UNIT-DOSE CUP PO PRN (21:24)
[2017-05-22] MEDS: ATORVASTATIN CA 40 MG TABLET (FP) PO SCH (21:27)
[2017-05-22] MEDS: DOCUSATE SODIUM 100 MG CAPSULE (FP) PO SCH (21:27)
[2017-05-22] MEDS: SENNOSIDES 8.6MG TABLET (FP) PO SCH (21:28)
[2017-05-22] MEDS ORDERED: TAMSULOSIN HCL 0.4 MG CAP.ER.24H (FP) PO SCH (22:00)
[2017-05-22] MEDS ORDERED: LORazepam 2 MG/ML SDV VIAL IVPUSH ONE (22:00)
[2017-05-22] MEDS ORDERED: METOPROLOL TARTRATE 50 MG TABLET (FP) PO SCH (22:00)
[2017-05-23] MEDS: BACLOFEN 10 MG TABLET (FP) PO SCH ×4 (01:58→21:25)
[2017-05-23] MEDS: METOPROLOL TARTRATE 50 MG TABLET (FP) PO SCH ×2 (01:58→09:18)
[2017-05-23] MEDS: INSULIN (NOVOLOG) ASPART 100 UNITS/ML 10ML VIAL SQ SCH ×5 (01:59→21:26)
[2017-05-23] MEDS ORDERED: traMADol HCL 50 MG TABLET PO ONE (03:49)
[2017-05-23] MEDS: MAG HYDROX/AL HYDROX/SIMETH 30 ML UNIT-DOSE CUP PO PRN (06:31)
[2017-05-23 08:17] LABS: BASOPHIL 0.9 % (0-2.0); EOSINOPHIL 2.5 % (0-4.5); MCH 30.8 pg (25.7-33.7); MCHC 33.6 g/dl (32.0-35.9); MEAN CELL VOLUME 91.7 fl (80-96); MEAN PLT VOLUME 7.4 fl (7.5-11.1); NEUTROPHILS 74.2 % (42.8-82.8); PLATELET COUNT 241 K/MM3 (134-434); RDW 15.4 % (11.9-15.9); WHITE BLOOD COUNT 10.4 K/mm3 (4.0-10.0)
[2017-05-23 08:41] LABS: ALBUMIN 3.4 g/dl (3.4-5.0); ANION GAP 7 (8-16); CALCIUM 8.6 mg/dL (8.5-10.1); CO2 31 mmol/L (21-32); GLUCOSE,RANDOM 197 mg/dL (74-106)
[2017-05-23 08:45] LABS: ALK PHOS 90 U/L (45-117); BILIRUBIN,TOTAL 0.6 mg/dL (0.2-1.0); CREATININE 5.2 mg/dL (0.7-1.3); PHOSPHOROUS 3.5 mg/dL (2.5-4.9); SGOT/AST 15 U/L (15-37); SGPT/ALT 15 U/L (12-78); TOT PROT 7.4 g/dl (6.4-8.2)
[2017-05-23] MEDS: ASPIRIN 81 MG CHEWABLE TABLETS PO SCH (09:16)
[2017-05-23] MEDS: VITAMIN B COMP W-C 1 EA TABLET PO SCH (09:16)
[2017-05-23] MEDS: FOLIC ACID 1 MG TABLET (FP) PO SCH (09:17)
[2017-05-23] MEDS: TAMSULOSIN HCL 0.4 MG CAP.ER.24H (FP) PO SCH ×2 (09:18→21:24)
[2017-05-23] MEDS: CLOPIDOGREL BISULFATE 75 MG TABLET (FP) PO SCH (09:18)
[2017-05-23] MEDS: POLYETHYLENE GLYCOL 3350 255 GM BTL PO SCH (09:21)
--- NOTE | 2017-05-23 09:48 | EKG ---
Test Reason : Blood Pressure : / mmHG Vent. Rate : 064 BPM Atrial Rate : 064 BPM P-R Int : 218 ms QRS Dur : 104 ms QT Int : 458 ms P-R-T Axes : 037 028 094 degrees QTc Int : 472 ms SINUS RHYTHM WITH SINUS ARRHYTHMIA WITH 1ST DEGREE A-V BLOCK ABNORMAL QRS-T ANGLE, CONSIDER PRIMARY T WAVE ABNORMALITY ABNORMAL ECG Confirmed by MD REINA, EVERETT ([id number]) on 05/23/2017 9:48:12 AM Referred By: Confirmed By:EVERETT HUANG MD
[2017-05-23] MEDS ORDERED: PANTOPRAZOLE 40 MG TABLET (FP) PO SCH (10:00)
--- NOTE | 2017-05-23 13:41 | PN ---
Progress Note (short form) - Note Progress Note: RENAL pt is awake and alert comfortable but complains of recurent abdominal pain says he has been on opioids for pain from his BKA asking if his pain is from hemodialysis Last Vital Signs Temp Pulse Resp BP Pulse Ox 98.8 F 66 20 166/71 98 05/23/17 06:00 05/23/17 06:00 05/23/17 06:00 05/23/17 06:00 05/22/17 21:00 lungs clear cvs s1s2 rr abd soft, not distended ext no edema, right BKA neuro a+o x3 CBC, BMP 05/23/17 06:00 05/23/17 06:00 Current Medications Generic Name Dose Route Start Last Admin Trade Name Freq PRN Reason Stop Dose Admin Al Hydroxide/Mg Hydroxide 30 ml 05/22/17 19:38 05/23/17 06:31 Mylanta Oral Suspension - PO 30 ml Q8H PRN Administration DYSPEPSIA Al Hydroxide/Mg Hydroxide 30 ml 05/22/17 21:03 Mylanta Oral Suspension - PO Q6H PRN DYSPEPSIA Aspirin 81 mg 05/23/17 10:00 05/23/17 09:16 Asa - PO 81 mg DAILY [facility] Administration Atorvastatin Calcium 40 mg 05/22/17 22:00 05/22/17 21:27 Lipitor - PO 40 mg HS [facility] Administration Baclofen 5 mg 05/22/17 22:00 05/23/17 06:19 Lioresal - PO 5 mg TID [facility] Administration Clopidogrel Bisulfate 75 mg 05/23/17 10:00 05/23/17 09:18 Plavix - PO 75 mg DAILY [facility] Administration Docusate Sodium 300 mg 05/22/17 22:00 05/22/17 21:27 Colace - PO 300 mg HS L[facility]U Administration Folic Acid 1 mg 05/23/17 10:00 05/23/17 09:17 Folic Acid - PO 1 mg DAILY [facility] Administration Gabapentin 100 mg 05/22/17 22:00 05/22/17 21:24 Neurontin - PO 100 mg HS [facility] Administration Insulin Aspart 0 units 05/22/17 22:00 05/23/17 06:31 Novolog Vial SQ 4 units ACHS [facility] Administration Protocol Metoprolol Tartrate 50 mg 05/22/17 18:30 05/23/17 09:18 Lopressor - PO 50 mg BID [facility] Administration Multivit/Ca Carb/B Cmplx/FA/Prenat 1 tablet 05/23/17 10:00 05/23/17 09:16 Nephro-Ingris - PO 1 tablet DAILY [facility] Administration Polyethylene Glycol 17 gm 05/23/17 10:00 05/23/17 09:21 Miralax (For Bowel Prep) - PO Not Given DAILY [facility] Senna 2 tab 05/22/17 22:00 05/22/17 21:28 Senna - PO 2 tab HS L[facility] Administration Tamsulosin HCl 0.4 mg 05/22/17 20:00 05/23/17 09:18 Flomax - PO Not Given DAILY@0830 [facility] Impression 1. ESRD 2. abdominal pain- sphincter of oddi spasm, constipation or biliary dyskinesia 3. copd 4. HTN 5. DM Plan dc aluminum containing meds- not good for hd patients keep on a bowel regimen to see if treating constipation solves his problem mrcp vs ercp MV
--- NOTE | 2017-05-23 16:50 | CON.GI ---
Consult Consult Specialty:: gastroenterology Referred by:: hospitalist Reason for Consultation:: ruq pain - History of Present Illness History of Present Illness: 56 y/o male with ESRD was admitted because of severe abdominal pain which occurred during dialysis. i saw him during lunch time and was eating almost 90percnet of his tray.He is asymptomatic . extnsive w/u including MRCP fail to show any biliary dilation.He was recently discharged for the same complaints - Past Medical History Cardio/Vascular: Yes: HTN Pulmonary: Yes: COPD Renal/: Yes: Hemodialysis, Other (esrd) Endocrine: Yes: Diabetes Mellitus - Alcohol/Substance Use Hx Alcohol Use: No - Smoking History Smoking history: Never smoked Have you smoked in the past 12 months: No Home Medications - Allergies Allergies/Adverse Reactions: Allergies Allergy/AdvReac Type Severity Reaction Status Date / Time tree nut Allergy Verified 05/22/17 08:06 raw fruits Allergy Uncoded 05/22/17 08:06 - Home Medications Home Medications: Ambulatory Orders Aspirin [ASA -] 81 mg PO DAILY 05/18/17 Atorvastatin Ca [Lipitor] 40 mg PO HS 05/18/17 Azelastine HCl 137 mcg NS BID 05/18/17 Cetirizine HCl [Zyrtec -] 10 mg PO DAILY 05/18/17 Clopidogrel Bisulfate [Plavix -] 75 mg PO DAILY 05/18/17 Cyclosporine, Modified [Cyclosporine] 1 drop OU BID 05/18/17 Docusate Sodium [Colace -] 3 cap PO HS 05/18/17 Famotidine [Pepcid] 20 mg PO DAILY 05/18/17 Folic Acid 1 mg PO DAILY 05/18/17 Gabapentin 100 mg PO HS 05/18/17 Insulin Glargine,Hum.rec.anlog [Basaglar Kwikpen U-100] 10 unit SQ DAILY Insulin Lispro [Humalog] 0 unit SQ PRN 05/18/17 Insulin Lispro [Humalog] 10 unit SQ DAILY 05/18/17 Lactobacillus Acidophilus [Probiotic] 1 each PO TID 05/18/17 Mag Hydrox/Al Hydrox/Simeth [Mylanta Oral Suspension -] 30 ml PO Q8H PRN Metoprolol Tartrate [Lopressor] 50 mg PO BID 05/18/17 Pantoprazole Sodium [Protonix] 40 mg PO DAILY 05/18/17 Polyethylene Glycol 3350 [Glycolax] 17 gm PO DAILY 05/18/17 Sennosides [Senna] 2 tab PO HS 05/18/17 Tamsulosin HCl [Flomax] 0.4 mg PO HS 05/18/17 Vitamin B Comp W-C [Nephro-Ingris -] 1 tablet PO DAILY 05/18/17 Zolpidem Tartrate [Ambien] 10 mg PO HS PRN 05/18/17 Baclofen [Lioresal -] 5 mg PO TID #90 tablet 05/20/17 Physical Exam-GI Vital Signs: Vital Signs Temperature 99.5 F 05/23/17 14:35 Pulse Rate 66 05/23/17 14:35 Respiratory Rate 18 05/23/17 14:35 Blood Pressure 148/86 05/23/17 10:00 O2 Sat by Pulse Oximetry (%) 98 05/22/17 21:00 Constitutional: Yes: Obese Eyes: Yes: Conjunctiva Clear Neck: No: Lymphadenopathy Cardiovascular: Yes: Regular Rate and Rhythm Respiratory: Yes: CTA Bilaterally ...Palpate: Yes: Soft. No: Firm/Rigid, Guarding, Hepatomegaly, Pulsatile Mass, Splenomegaly Labs: CBCD WBC 10.4 K/mm3 (4.0-10.0) H 05/23/17 06:00 RBC 3.95 M/mm3 (4.00-5.60) L 05/23/17 06:00 Hgb 12.2 GM/dL (11.7-16.9) 05/23/17 06:00 Hct 36.2 % (35.4-49) 05/23/17 06:00 MCV 91.7 fl (80-96) 05/23/17 06:00 MCHC 33.6 g/dl (32.0-35.9) 05/23/17 06:00 RDW 15.4 % (11.9-15.9) 05/23/17 06:00 Plt Count 241 K/MM3 (134-434) 05/23/17 06:00 MPV 7.4 fl (7.5-11.1) L 05/23/17 06:00 CMP Sodium 139 mmol/L (136-145) 05/23/17 06:00 Potassium 3.8 mmol/L (3.5-5.1) 05/23/17 06:00 Chloride 101 mmol/L (98-107) 05/23/17 06:00 Carbon Dioxide 31 mmol/L (21-32) 05/23/17 06:00 Anion Gap 7 (8-16) L 05/23/17 06:00 BUN 26 mg/dL (7-18) H 05/23/17 06:00 Creatinine 5.2 mg/dL (0.7-1.3) H 05/23/17 06:00 Creat Clearance w eGFR 11.45 (>60) 05/23/17 06:00 Calcium 8.6 mg/dL (8.5-10.1) 05/23/17 06:00 Total Bilirubin 0.6 mg/dL (0.2-1.0) 05/23/17 06:00 AST 15 U/L (15-37) D 05/23/17 06:00 ALT 15 U/L (12-78) 05/23/17 06:00 Alkaline Phosphatase 90 U/L (45-117) 05/23/17 06:00 Total Protein 7.4 g/dl (6.4-8.2) 05/23/17 06:00 Albumin 3.4 g/dl (3.4-5.0) 05/23/17 06:00 Problem List - Problems (1) RUQ abdominal pain Assessment/Plan: severe associated with mild leokocytosis and low grade temp r/o secondary low flow state during dialysis leading ischemia and sphincter of oddi dyskenisia r>w/u for hyprcoaguable state made aware to ffup egd as an outpatient maintain on PPI bentyl 10mg bid Code(s): R10.11 - RIGHT UPPER QUADRANT PAIN
[2017-05-23] MEDS ORDERED: DICYCLOMINE HCL 10 MG CAPSULE PO PRN (16:54)
[2017-05-23] MEDS: PANTOPRAZOLE SODIUM 40 MG in SODIUM CHLORIDE 100 ML IVPB SCH ×2 (17:20→22:01)
--- NOTE | 2017-05-23 18:31 | PN ---
Physical Exam: SUBJECTIVE: Patient seen and examined sitting on edge of bed. Reports feeling "much better" and pain resolved last night. Answered numerous questions to patient's apparent satisfaction. OBJECTIVE: Vital Signs Period Temp Pulse Resp BP Sys/Quick Pulse Ox Last 24 Hr 99.0 F 91 18 162/105 GENERAL: The patient is awake, alert, and fully oriented, in no acute distress. LUNGS: Breath sounds equal, clear to auscultation bilaterally, no wheezes, no crackles, no accessory muscle use. HEART: Regular rate and rhythm, S1, S2 without murmur, rub or gallop. ABDOMEN: Soft, nontender, nondistended, normoactive bowel sounds, no guarding, no rebound, no hepatosplenomegaly, no masses. EXTREMITIES: 2+ pulses, warm, well-perfused, no edema. NEUROLOGICAL: Cranial nerves II through XII grossly intact. Normal speech, gait not observed. PSYCH: Calm, cooperative. CBCD WBC 10.4 K/mm3 (4.0-10.0) H 05/23/17 06:00 RBC 3.95 M/mm3 (4.00-5.60) L 05/23/17 06:00 Hgb 12.2 GM/dL (11.7-16.9) 05/23/17 06:00 Hct 36.2 % (35.4-49) 05/23/17 06:00 MCV 91.7 fl (80-96) 05/23/17 06:00 MCHC 33.6 g/dl (32.0-35.9) 05/23/17 06:00 RDW 15.4 % (11.9-15.9) 05/23/17 06:00 Plt Count 241 K/MM3 (134-434) 05/23/17 06:00 MPV 7.4 fl (7.5-11.1) L 05/23/17 06:00 CMP Sodium 139 mmol/L (136-145) 05/23/17 06:00 Potassium 3.8 mmol/L (3.5-5.1) 05/23/17 06:00 Chloride 101 mmol/L (98-107) 05/23/17 06:00 Carbon Dioxide 31 mmol/L (21-32) 05/23/17 06:00 Anion Gap 7 (8-16) L 05/23/17 06:00 BUN 26 mg/dL (7-18) H 05/23/17 06:00 Creatinine 5.2 mg/dL (0.7-1.3) H 05/23/17 06:00 Creat Clearance w eGFR 11.45 (>60) 05/23/17 06:00 Calcium 8.6 mg/dL (8.5-10.1) 05/23/17 06:00 Total Bilirubin 0.6 mg/dL (0.2-1.0) 05/23/17 06:00 AST 15 U/L (15-37) D 05/23/17 06:00 ALT 15 U/L (12-78) 05/23/17 06:00 Alkaline Phosphatase 90 U/L (45-117) 05/23/17 06:00 Total Protein 7.4 g/dl (6.4-8.2) 05/23/17 06:00 Albumin 3.4 g/dl (3.4-5.0) 05/23/17 06:00 Laboratory Results - last 24 hr 05/23/17 17:10 POC Glucometer 197 Active Medications Generic Name Dose Route Start Last Admin Trade Name Edouard PRN Reason Stop Dose Admin Aspirin 81 mg 05/23/17 10:00 05/23/17 09:16 Asa - PO 81 mg DAILY [facility] Administration Atorvastatin Calcium 40 mg 05/22/17 22:00 05/22/17 21:27 Lipitor - PO 40 mg HS [facility] Administration Baclofen 5 mg 05/22/17 22:00 05/23/17 14:27 Lioresal - PO 5 mg TID [facility] Administration Clopidogrel Bisulfate 75 mg 05/23/17 10:00 05/23/17 09:18 Plavix - PO 75 mg DAILY [facility] Administration Dicyclomine HCl 10 mg 05/23/17 22:00 Bentyl - PO BID [facility] Docusate Sodium 300 mg 05/22/17 22:00 05/22/17 21:27 Colace - PO 300 mg HS [facility] Administration Folic Acid 1 mg 05/23/17 10:00 05/23/17 09:17 Folic Acid - PO 1 mg DAILY [facility] Administration Gabapentin 100 mg 05/22/17 22:00 05/22/17 21:24 Neurontin - PO 100 mg HS [facility] Administration Pantoprazole Sodium 40 mg/ 100 mls @ 200 mls/hr 05/23/17 17:00 05/23/17 17:20 Sodium Chloride IVPB 200 mls/hr BID [facility] Administration Insulin Aspart 0 units 05/22/17 22:00 05/23/17 17:12 Novolog Vial SQ 2 units ACHS [facility] Administration Protocol Metoprolol Succinate 50 mg 05/23/17 22:00 Toprol Xl - PO BID [facility] Multivit/Ca Carb/B Cmplx/FA/Prenat 1 tablet 05/23/17 10:00 05/23/17 09:16 Nephro-Ingris - PO 1 tablet DAILY [facility] Administration Polyethylene Glycol 17 gm 05/23/17 10:00 05/23/17 09:21 Miralax (For Bowel Prep) - PO Not Given DAILY [facility] Senna 2 tab 05/22/17 22:00 05/22/17 21:28 Senna - PO 2 tab HS [facility] Administration Tamsulosin HCl 0.4 mg 05/23/17 22:00 Flomax - PO HS [facility] ASSESSMENT/PLAN: 56 year-old male, resident of [place], with a PMH significant for HTN, CAD s/ p stents, DM, and ESRD (MWF), PVD s/p right BKA. Presented to the ED from the dialysis center after stopping the session after 20 minutes because of abdominal pain. Abdominal pain secondary to ampullary spasm --pain subsided last night with no further recurrence --seen and evaluated by GI, will start Bentyl ESRD on HD --HD yesterday --Dr. Vicente following Hypertension --BP elevated, switched metoprolol to Toprol XL CAD --continue Toprol XL, ASA, Plavix, Lipitor Dispo: continues to require inpatient care. Full Code. Visit type - Emergency Visit Emergency Visit: Yes ED Registration Date: 05/23/17 Care time: The patient presented to the Emergency Department on the above date and was hospitalized for further evaluation of their emergent condition. - New Patient This patient is new to me today: No - Critical Care Critical Care patient: No
[2017-05-23] MEDS: DICYCLOMINE HCL 10 MG CAPSULE PO SCH (21:22)
[2017-05-23] MEDS: DOCUSATE SODIUM 100 MG CAPSULE (FP) PO SCH (21:24)
[2017-05-23] MEDS: ATORVASTATIN CA 40 MG TABLET (FP) PO SCH (21:26)
[2017-05-23] MEDS: GABAPENTIN 100 MG CAPSULE (FP) PO SCH (21:26)
[2017-05-23] MEDS: SENNOSIDES 8.6MG TABLET (FP) PO SCH (21:27)
[2017-05-23] MEDS: METOPROLOL SUCCINATE 50 MG TAB.SR.24H (FP) PO SCH (21:28)
[2017-05-23] MEDS ORDERED: LOSARTAN POTASSIUM 50 MG TABLET (FP) PO ONE (21:50)
[2017-05-23] MEDS ORDERED: PANTOPRAZOLE SODIUM 40 MG in SODIUM CHLORIDE 100 ML IVPB SCH (22:00)
--- NOTE | 2017-05-23 23:30 | HOSP ---
Subjective - Review of Symptoms Events since last encounter: Called to see this patient a 56 year-old male, resident of [place], with a PMH significant for HTN, CAD s/p stents, DM, and ESRD (MWF), PVD s/p right BKA. Presented to the ED from the dialysis center after stopping the session after 20 minutes because of abdominal pain because he thought there was a problem with the site of the R central line. No history of fevers or headaches. No dizziness. PE: Patient was lying in bed. In no obvious respiratory distress. Neck was supple, no signs of meningeal irritation. Examination of the neck showed a small 2mm red non-tender surrounding the site of the previous central line. Dry, not warm, no obvious discharge. Firm to touch. Assessment: Mild soft tissue reaction to previous R central line site Plan: Observe overnight If signs of infection like fever, please call doctor. Physical Examination Vital Signs: Vital Signs Temperature 99.0 F 05/23/17 18:10 Pulse Rate 70 05/23/17 22:00 Respiratory Rate 18 05/23/17 22:00 Blood Pressure 189/74 05/23/17 22:00 O2 Sat by Pulse Oximetry (%) 98 05/23/17 11:00 Visit type - Emergency Visit Emergency Visit: Yes ED Registration Date: 05/23/17 Care time: The patient presented to the Emergency Department on the above date and was hospitalized for further evaluation of their emergent condition. - New Patient This patient is new to me today: Yes Date on this admission: 05/23/17 - Critical Care Critical Care patient: No
[2017-05-24] MEDS ORDERED: diphenhydrAMINE HCL 25 MG CAPSULE (FP) PO ONE (04:45)
[2017-05-24] MEDS: BACLOFEN 10 MG TABLET (FP) PO SCH ×3 (06:56→22:06)
[2017-05-24] MEDS: INSULIN (NOVOLOG) ASPART 100 UNITS/ML 10ML VIAL SQ SCH ×4 (06:56→22:18)
[2017-05-24] MEDS ORDERED: FLU VACCINE QUAD 60 MCG/0.5 ML (MDV 17-18) IM ONE (10:00)
[2017-05-24] MEDS ORDERED: PT OWN MED DRAWER 7, Y5N ONE ×2 (10:26→18:23)
[2017-05-24] MEDS: LOSARTAN POTASSIUM 50 MG TABLET (FP) PO SCH (10:38)
[2017-05-24] MEDS: DICYCLOMINE HCL 10 MG CAPSULE PO SCH ×2 (10:39→22:05)
[2017-05-24] MEDS: CLOPIDOGREL BISULFATE 75 MG TABLET (FP) PO SCH (10:40)
[2017-05-24] MEDS: ASPIRIN 81 MG CHEWABLE TABLETS PO SCH (10:40)
[2017-05-24] MEDS: METOPROLOL SUCCINATE 50 MG TAB.SR.24H (FP) PO SCH ×2 (10:40→22:07)
[2017-05-24] MEDS: VITAMIN B COMP W-C 1 EA TABLET PO SCH (10:40)
[2017-05-24] MEDS: FOLIC ACID 1 MG TABLET (FP) PO SCH (10:40)
[2017-05-24] MEDS: POLYETHYLENE GLYCOL 3350 255 GM BTL PO SCH (10:41)
--- NOTE | 2017-05-24 10:44 | PN ---
Progress Note (short form) - Note Progress Note: RENAL pt is awake and alert pain is gone Last Vital Signs Temp Pulse Resp BP Pulse Ox 98.7 F 65 18 147/92 98 05/24/17 06:00 05/24/17 02:00 05/24/17 02:00 05/24/17 02:00 05/23/17 11:00 lungs clear cvs s1s2 rr abd soft, not distended ext no edema, right BKA neuro a+o x3 Current Medications Generic Name Dose Route Start Last Admin Trade Name Edouard PRN Reason Stop Dose Admin Aspirin 81 mg 05/23/17 10:00 05/24/17 10:40 Asa - PO 81 mg DAILY [facility] Administration Atorvastatin Calcium 40 mg 05/22/17 22:00 05/23/17 21:26 Lipitor - PO 40 mg HS [facility] Administration Baclofen 5 mg 05/22/17 22:00 05/24/17 06:56 Lioresal - PO 5 mg TID [facility] Administration Clopidogrel Bisulfate 75 mg 05/23/17 10:00 05/24/17 10:40 Plavix - PO 75 mg DAILY [facility] Administration Dicyclomine HCl 10 mg 05/23/17 22:00 05/24/17 10:39 Bentyl - PO 10 mg BID [facility] Administration Docusate Sodium 300 mg 05/22/17 22:00 05/23/17 21:24 Colace - PO 300 mg HS [facility] Administration Folic Acid 1 mg 05/23/17 10:00 05/24/17 10:40 Folic Acid - PO 1 mg DAILY [facility] Administration Gabapentin 100 mg 05/22/17 22:00 05/23/17 21:26 Neurontin - PO 100 mg HS [facility] Administration Pantoprazole Sodium 40 mg/ 100 mls @ 200 mls/hr 05/23/17 17:00 05/23/17 22:01 Sodium Chloride IVPB Not Given BID [facility] Insulin Aspart 0 units 05/22/17 22:00 05/24/17 06:56 Novolog Vial SQ 2 units ACHS [facility] Administration Protocol Losartan Potassium 100 mg 05/24/17 10:00 05/24/17 10:38 Cozaar - PO 100 mg DAILY [facility] Administration Metoprolol Succinate 50 mg 05/23/17 22:00 05/24/17 10:40 Toprol Xl - PO 50 mg BID [facility] Administration Multivit/Ca Carb/B Cmplx/FA/Prenat 1 tablet 05/23/17 10:00 05/24/17 10:40 Nephro-Ingris - PO 1 tablet DAILY [facility] Administration Polyethylene Glycol 17 gm 05/23/17 10:00 05/24/17 10:41 Miralax (For Bowel Prep) - PO Not Given DAILY [facility] Senna 2 tab 05/22/17 22:00 05/23/17 21:27 Senna - PO 2 tab HS [facility] Administration Tamsulosin HCl 0.4 mg 05/23/17 22:00 05/23/17 21:24 Flomax - PO 0.4 mg HS [facility] Administration CBC, BMP 05/23/17 06:00 05/23/17 06:00 Impression 1. ESRD 2. abdominal pain- sphincter of oddi spasm, constipation or biliary dyskinesia 3. copd 4. HTN 5. DM 6 gastroparesis likely contributing to pain Plan will dialyze again tomorrow mrcp vs ercp MV
[2017-05-24] MEDS: PANTOPRAZOLE SODIUM 40 MG in SODIUM CHLORIDE 100 ML IVPB SCH (11:18)
--- NOTE | 2017-05-24 11:32 | DS ---
Physical Exam: SUBJECTIVE: Patient seen and examined OBJECTIVE: Vital Signs Period Temp Pulse Resp BP Sys/Quick Pulse Ox Last 24 Hr 98.1 F-99.0 F 65-91 18-20 147-189/74-105 PHYSICAL EXAM GENERAL: The patient is awake, alert, and fully oriented, in no acute distress. HEAD: Normal with no signs of trauma. EYES: PERRL, extraocular movements intact, sclera anicteric, conjunctiva clear. ENT: Ears normal, nares patent, oropharynx clear without exudates, moist mucous membranes. NECK: Trachea midline, full range of motion, supple. LUNGS: Breath sounds equal, clear to auscultation bilaterally, no wheezes, no crackles, no accessory muscle use. HEART: Regular rate and rhythm, S1, S2 without murmur, rub or gallop. ABDOMEN: Soft, nontender, nondistended, normoactive bowel sounds, no guarding, no rebound, no hepatosplenomegaly, no masses. EXTREMITIES: 2+ pulses, warm, well-perfused, no edema. NEUROLOGICAL: Cranial nerves II through XII grossly intact. Normal speech, gait not observed. PSYCH: Normal mood, normal affect. SKIN: Warm, dry, normal turgor, no rashes or lesions noted. LABS Laboratory Results - last 24 hr 05/23/17 05/23/17 05/24/17 17:10 20:56 06:23 POC Glucometer 197 234 180 HOSPITAL COURSE: Date of Admission:05/23/17 Date of Discharge: 05/24/17 Minutes to complete discharge: 35 Discharge Summary Reason For Visit: CHEST PAIN,NEEDS DIALYSIS,NEGATIVE WORKUP Current Active Problems Chest pain (Acute) Condition: Stable - Home Medications Comprehensive Discharge Medication List: Ambulatory Orders Aspirin [ASA -] 81 mg PO DAILY 05/18/17 Atorvastatin Ca [Lipitor] 40 mg PO HS 05/18/17 Azelastine HCl 137 mcg NS BID 05/18/17 Cetirizine HCl [Zyrtec -] 10 mg PO DAILY 05/18/17 Clopidogrel Bisulfate [Plavix -] 75 mg PO DAILY 05/18/17 Cyclosporine, Modified [Cyclosporine] 1 drop OU BID 05/18/17 Docusate Sodium [Colace -] 3 cap PO HS 05/18/17 Famotidine [Pepcid] 20 mg PO DAILY 05/18/17 Folic Acid 1 mg PO DAILY 05/18/17 Gabapentin 100 mg PO HS 05/18/17 Insulin Glargine,Hum.rec.anlog [Basaglar Kwikpen U-100] 10 unit SQ DAILY Insulin Lispro [Humalog] 0 unit SQ PRN 05/18/17 Insulin Lispro [Humalog] 10 unit SQ DAILY 05/18/17 Lactobacillus Acidophilus [Probiotic] 1 each PO TID 05/18/17 Mag Hydrox/Al Hydrox/Simeth [Mylanta Oral Suspension -] 30 ml PO Q8H PRN Metoprolol Tartrate [Lopressor] 50 mg PO BID 05/18/17 Pantoprazole Sodium [Protonix] 40 mg PO DAILY 05/18/17 Polyethylene Glycol 3350 [Glycolax] 17 gm PO DAILY 05/18/17 Sennosides [Senna] 2 tab PO HS 05/18/17 Tamsulosin HCl [Flomax] 0.4 mg PO HS 05/18/17 Vitamin B Comp W-C [Nephro-Ingris -] 1 tablet PO DAILY 05/18/17 Zolpidem Tartrate [Ambien] 10 mg PO HS PRN 05/18/17 Baclofen [Lioresal -] 5 mg PO TID #90 tablet 05/20/17 This patient is new to me today: No Emergency Visit: Yes ED Registration Date: 05/23/17 Care time: The patient presented to the Emergency Department on the above date and was hospitalized for further evaluation of their emergent condition. Critical Care patient: No - Discharge Referral Referred to [facility] Med P.C.: No
[2017-05-24] MEDS ORDERED: INSULIN (NOVOLOG) ASPART 100 UNITS/ML 10ML VIAL ONE ×2 (11:55→21:39)
[2017-05-24] MEDS ORDERED: HEPARIN NA (PORCINE) 5,000 UNITS/ML 1ML VIAL IVPUSH ONE (13:30)
[2017-05-24] MEDS: PANTOPRAZOLE 40 MG TABLET (FP) PO SCH ×2 (14:11→22:19)
[2017-05-24] MEDS ORDERED: PANTOPRAZOLE 40 MG TABLET (FP) PO SCH (22:00)
[2017-05-24] MEDS: DOCUSATE SODIUM 100 MG CAPSULE (FP) PO SCH (22:05)
[2017-05-24] MEDS: SENNOSIDES 8.6MG TABLET (FP) PO SCH (22:05)
[2017-05-24] MEDS: GABAPENTIN 100 MG CAPSULE (FP) PO SCH (22:06)
[2017-05-24] MEDS: TAMSULOSIN HCL 0.4 MG CAP.ER.24H (FP) PO SCH (22:06)
[2017-05-24] MEDS: ATORVASTATIN CA 40 MG TABLET (FP) PO SCH (22:06)
[2017-05-25] MEDS ORDERED: DICYCLOMINE HCL 20 MG/2 ML AMPUL IM ONE (01:00)
[2017-05-25] MEDS ORDERED: FAMOTIDINE 20 MG/50 ML IVPB 50 ML IVPB ONE (01:11)
[2017-05-25] MEDS: INSULIN (NOVOLOG) ASPART 100 UNITS/ML 10ML VIAL SQ SCH ×4 (06:00→22:14)
[2017-05-25] MEDS: BACLOFEN 10 MG TABLET (FP) PO SCH ×3 (06:01→22:03)
[2017-05-25] MEDS ORDERED: INSULIN (NOVOLOG) ASPART 100 UNITS/ML 10ML VIAL ONE ×2 (06:47→21:49)
[2017-05-25] MEDS ORDERED: RANITIDINE HCL 150 MG TABLET (FP) PO ONE ×2 (07:30)
[2017-05-25] MEDS ORDERED: HYOSCYAMINE SULFATE 0.125 MG TABLET PO SCH (09:45)
[2017-05-25] MEDS ORDERED: HYOSCYAMINE SULFATE 0.125 MG *ODT PO SCH (09:58)
[2017-05-25] MEDS ORDERED: SUCRALFATE 1 GM/10 ML UNIT DOSE CUPS PO SCH (10:00)
[2017-05-25] MEDS: VITAMIN B COMP W-C 1 EA TABLET PO SCH (10:30)
[2017-05-25] MEDS: FOLIC ACID 1 MG TABLET (FP) PO SCH (10:30)
[2017-05-25] MEDS: METOPROLOL SUCCINATE 50 MG TAB.SR.24H (FP) PO SCH ×2 (10:30→22:03)
[2017-05-25] MEDS: CLOPIDOGREL BISULFATE 75 MG TABLET (FP) PO SCH (10:30)
[2017-05-25] MEDS: LOSARTAN POTASSIUM 50 MG TABLET (FP) PO SCH (10:30)
[2017-05-25] MEDS: POLYETHYLENE GLYCOL 3350 255 GM BTL PO SCH (10:30)
[2017-05-25] MEDS: ASPIRIN 81 MG CHEWABLE TABLETS PO SCH (10:30)
[2017-05-25] MEDS: HYOSCYAMINE SULFATE 0.125 MG *ODT PO SCH ×3 (10:44→22:04)
[2017-05-25] MEDS ORDERED: PT OWN MED DRAWER 7, Y5N ONE ×2 (11:36→21:51)
[2017-05-25] MEDS: DICYCLOMINE HCL 10 MG CAPSULE PO SCH ×2 (11:45→22:02)
[2017-05-25] MEDS: PANTOPRAZOLE 40 MG TABLET (FP) PO SCH ×2 (11:46→22:02)
[2017-05-25] MEDS ORDERED: HEPARIN NA (PORCINE) 5,000 UNITS/ML 1ML VIAL IVPUSH ONE (13:30)
--- NOTE | 2017-05-25 14:14 | PN ---
Progress Note, Physician History of Present Illness: Pt seen and examined at bedside. He complains of abdominal discomfort. - Current Medication List Current Medications: Active Medications Aspirin (Asa -) 81 mg PO DAILY [facility] Last Admin: 05/25/17 10:30 Dose: Not Given Atorvastatin Calcium (Lipitor -) 40 mg PO HS [facility] Last Admin: 05/24/17 22:06 Dose: 40 mg Baclofen (Lioresal -) 5 mg PO TID [facility] Last Admin: 05/25/17 06:01 Dose: 5 mg Bismuth Subsalicylate (Pepto-Bismol -) 524 mg PO DAILY PRN PRN Reason: DIARRHEA Calcium Carbonate (Calcium Carbonate -) 650 mg PO DAILY [facility] Clopidogrel Bisulfate (Plavix -) 75 mg PO DAILY [facility] Last Admin: 05/25/17 10:30 Dose: Not Given Dicyclomine HCl (Bentyl -) 10 mg PO BID [facility] Last Admin: 05/25/17 11:45 Dose: 10 mg Docusate Sodium (Colace -) 300 mg PO HS [facility] Last Admin: 05/24/17 22:05 Dose: 300 mg Folic Acid (Folic Acid -) 1 mg PO DAILY [facility] Last Admin: 05/25/17 10:30 Dose: Not Given Gabapentin (Neurontin -) 100 mg PO HS [facility] Last Admin: 05/24/17 22:06 Dose: 100 mg Heparin Sodium (Porcine) (Heparin -) 500 unit IVPUSH Q1H [facility] Stop: 05/25/17 15:31 Hyoscyamine Sulfate (Levsin Odt -) 0.125 mg PO TID [facility] Last Admin: 05/25/17 10:44 Dose: 0.125 mg Insulin Aspart (Novolog Vial) 0 units SQ ACHS [facility] PRN Reason: Protocol Last Admin: 05/25/17 12:26 Dose: 4 units Losartan Potassium (Cozaar -) 100 mg PO DAILY [facility] Last Admin: 05/25/17 10:30 Dose: Not Given Metoprolol Succinate (Toprol Xl -) 50 mg PO BID [facility] Last Admin: 05/25/17 10:30 Dose: Not Given Multivit/Ca Carb/B Cmplx/FA/Prenat (Nephro-Ingris -) 1 tablet PO DAILY [facility] Last Admin: 05/25/17 10:30 Dose: Not Given Pantoprazole Sodium (Protonix -) 40 mg PO BID [facility] Last Admin: 05/25/17 11:46 Dose: 40 mg Polyethylene Glycol (Miralax (For Bowel Prep) -) 17 gm PO DAILY [facility] Last Admin: 05/25/17 10:30 Dose: Not Given Senna (Senna -) 2 tab PO HS [facility] Last Admin: 05/24/17 22:05 Dose: 2 tab Tamsulosin HCl (Flomax -) 0.4 mg PO HS [facility] Last Admin: 05/24/17 22:06 Dose: 0.4 mg - Objective Vital Signs: Vital Signs Temperature 98.8 F 05/25/17 09:06 Pulse Rate 67 05/25/17 09:06 Respiratory Rate 20 05/25/17 09:06 Blood Pressure 146/73 05/25/17 09:06 O2 Sat by Pulse Oximetry (%) 98 05/25/17 09:00 Constitutional: Yes: Calm Eyes: Yes: Conjunctiva Clear HENT: Yes: Atraumatic Neck: Yes: Supple Cardiovascular: Yes: S1, S2 Respiratory: Yes: CTA Bilaterally Gastrointestinal: Yes: Soft, Abdomen, Obese Genitourinary: Yes: WNL Musculoskeletal: Yes: WNL Edema: Yes Edema: LLE: Trace, RLE: Trace Neurological: Yes: Oriented Psychiatric: Yes: Oriented Problem List - Problems (1) ESRD (end stage renal disease) Code(s): N18.6 - END STAGE RENAL DISEASE (2) HTN (hypertension) Code(s): I10 - ESSENTIAL (PRIMARY) HYPERTENSION (3) RUQ abdominal pain Code(s): R10.11 - RIGHT UPPER QUADRANT PAIN Assessment/Plan Current Medications Generic Name Dose Route Start Last Admin Trade Name Freq PRN Reason Stop Dose Admin Aspirin 81 mg 05/23/17 10:00 05/25/17 10:30 Asa - PO Not Given DAILY [facility] Atorvastatin Calcium 40 mg 05/22/17 22:00 05/24/17 22:06 Lipitor - PO 40 mg HS [facility] Administration Baclofen 5 mg 05/22/17 22:00 05/25/17 06:01 Lioresal - PO 5 mg TID [facility] Administration Bismuth Subsalicylate 524 mg 05/25/17 13:15 Pepto-Bismol - PO DAILY PRN DIARRHEA Calcium Carbonate 650 mg 05/25/17 13:15 Calcium Carbonate - PO DAILY [facility] Clopidogrel Bisulfate 75 mg 05/23/17 10:00 05/25/17 10:30 Plavix - PO Not Given DAILY [facility] Dicyclomine HCl 10 mg 05/23/17 22:00 05/25/17 11:45 Bentyl - PO 10 mg BID [facility] Administration Docusate Sodium 300 mg 05/22/17 22:00 05/24/17 22:05 Colace - PO 300 mg HS [facility] Administration Folic Acid 1 mg 05/23/17 10:00 05/25/17 10:30 Folic Acid - PO Not Given DAILY [facility] Gabapentin 100 mg 05/22/17 22:00 05/24/17 22:06 Neurontin - PO 100 mg HS [facility] Administration Heparin Sodium (Porcine) 500 unit 05/25/17 13:30 Heparin - IVPUSH 05/25/17 15:31 Q1H [facility] Hyoscyamine Sulfate 0.125 mg 05/25/17 10:30 05/25/17 10:44 Levsin Odt - PO 0.125 mg TID [facility] Administration Insulin Aspart 0 units 05/22/17 22:00 05/25/17 12:26 Novolog Vial SQ 4 units ACHS [facility] Administration Protocol Losartan Potassium 100 mg 05/24/17 10:00 05/25/17 10:30 Cozaar - PO Not Given DAILY [facility] Metoprolol Succinate 50 mg 05/23/17 22:00 05/25/17 10:30 Toprol Xl - PO Not Given BID [facility] Multivit/Ca Carb/B Cmplx/FA/Prenat 1 tablet 05/23/17 10:00 05/25/17 10:30 Nephro-Ingris - PO Not Given DAILY [facility] Pantoprazole Sodium 40 mg 05/24/17 11:16 05/25/17 11:46 Protonix - PO 40 mg BID [facility] Administration Polyethylene Glycol 17 gm 05/23/17 10:00 05/25/17 10:30 Miralax (For Bowel Prep) - PO Not Given DAILY [facility] Senna 2 tab 05/22/17 22:00 05/24/17 22:05 Senna - PO 2 tab HS [facility] Administration Tamsulosin HCl 0.4 mg 05/23/17 22:00 05/24/17 22:06 Flomax - PO 0.4 mg HS [facility] Administration Impression 1. ESRD 2. abdominal pain 3. copd 4. HTN 5. DM Plan - HD today - cont current meds - check pre hd labs - discussed with medical team - GI follow up - will follow Dr Vicente
[2017-05-25] MEDS: HEPARIN NA (PORCINE) 5,000 UNITS/ML 1ML VIAL IVPUSH SCH ×4 (14:15→17:02)
[2017-05-25 15:13] LABS: ANION GAP 12 (8-16); CALCIUM 8.3 mg/dL (8.5-10.1); CO2 20 mmol/L (21-32); CREATININE 7.3 mg/dL (0.7-1.3); GLUCOSE,RANDOM 242 mg/dL (74-106)
[2017-05-25] MEDS: BISMUTH SUBSALICYLATE 524 MG/30 ML UD PO PRN (17:26)
--- NOTE | 2017-05-25 18:04 | PN ---
Physical Exam: SUBJECTIVE: Patient seen and examined. He has abdominal pain it awoke him from sleep. Its too painful to lay down in HD, however he tolerated HD today and said the Hyoscyamine tempered it. OBJECTIVE: Vital Signs Period Temp Pulse Resp BP Sys/Quick Pulse Ox Last 24 Hr 98.1 F-98.8 F 58-82 18-22 114-193/52-100 98-98 PE Neuro: alert, awake, cn 2-12intact Pulm: CTAB CV: s1 s2 rrr nomrg Abd: abdominal tenderness soft abd Ext: R BKA, in WC Laboratory Results - last 24 hr 05/25/17 14:15 Sodium 139 Potassium 4.4 Chloride 107 Carbon Dioxide 20 L D Anion Gap 12 BUN 64 H D Creatinine 7.3 H D POC Glucometer Random Glucose 242 H D Calcium 8.3 L Active Medications Generic Name Dose Route Start Last Admin Trade Name Freq PRN Reason Stop Dose Admin Aspirin 81 mg 05/23/17 10:00 05/25/17 10:30 Asa - PO Not Given DAILY [facility] Atorvastatin Calcium 40 mg 05/22/17 22:00 05/24/17 22:06 Lipitor - PO 40 mg HS [facility] Administration Baclofen 5 mg 05/22/17 22:00 05/25/17 14:53 Lioresal - PO Not Given TID [facility] Bismuth Subsalicylate 524 mg 05/25/17 13:15 05/25/17 17:26 Pepto-Bismol - PO 524 mg DAILY PRN Administration DIARRHEA Calcium Carbonate 650 mg 05/25/17 13:15 Calcium Carbonate - PO DAILY [facility] Clopidogrel Bisulfate 75 mg 05/23/17 10:00 05/25/17 10:30 Plavix - PO Not Given DAILY [facility] Dicyclomine HCl 10 mg 05/23/17 22:00 05/25/17 11:45 Bentyl - PO 10 mg BID [facility] Administration Docusate Sodium 300 mg 05/22/17 22:00 05/24/17 22:05 Colace - PO 300 mg HS [facility] Administration Folic Acid 1 mg 05/23/17 10:00 05/25/17 10:30 Folic Acid - PO Not Given DAILY [facility] Gabapentin 100 mg 05/22/17 22:00 05/24/17 22:06 Neurontin - PO 100 mg HS [facility] Administration Hyoscyamine Sulfate 0.125 mg 05/25/17 10:30 05/25/17 14:53 Levsin Odt - PO Not Given TID [facility] Insulin Aspart 0 units 05/22/17 22:00 05/25/17 12:26 Novolog Vial SQ 4 units ACHS [facility] Administration Protocol Losartan Potassium 100 mg 05/24/17 10:00 05/25/17 10:30 Cozaar - PO Not Given DAILY [facility] Metoprolol Succinate 50 mg 05/23/17 22:00 05/25/17 10:30 Toprol Xl - PO Not Given BID [facility] Multivit/Ca Carb/B Cmplx/FA/Prenat 1 tablet 05/23/17 10:00 05/25/17 10:30 Nephro-Ingris - PO Not Given DAILY [facility] Pantoprazole Sodium 40 mg 05/24/17 11:16 05/25/17 11:46 Protonix - PO 40 mg BID [facility] Administration Polyethylene Glycol 17 gm 05/23/17 10:00 05/25/17 10:30 Miralax (For Bowel Prep) - PO Not Given DAILY [facility] Senna 2 tab 05/22/17 22:00 05/24/17 22:05 Senna - PO 2 tab HS [facility] Administration Tamsulosin HCl 0.4 mg 05/23/17 22:00 05/24/17 22:06 Flomax - PO 0.4 mg HS [facility] Administration Assessment: 56 year old male, resident of [place], with a PMH significant for HTN, CAD s/p stents, DM II, and ESRD (MWF), PVD s/p right BKA. Presented to the ED from the dialysis center after stopping the session after 20 minutes because of abdominal pain. Plan: 1. Abdominal pain secondary to ampullary spasm - Pain persists - Stop mylanta, has already received dose in ED, only give if pain is severe - Continue Bentyl - If pain persists, will need GI transfer for ischemia and sphincter of oddi dyskenisia work up - FFUP EGD oupt - Started hyoscyamine TID - Ca carbonate daily - Pepto daily 2. ESRD on HD - HD today 3. Hypertension - Elevated, however post HD now and BP meds to be given - Continue to monitor 4. CAD - Continue Toprol XL, ASA, Plavix, Lipitor 5. DM II - Start levemir 10units (home dose) - ISS, BGM ACHS Dispo: - Awaiting SNF authorization Visit type - Emergency Visit Emergency Visit: Yes ED Registration Date: 05/23/17 Care time: The patient presented to the Emergency Department on the above date and was hospitalized for further evaluation of their emergent condition. - New Patient This patient is new to me today: Yes Date on this admission: 05/25/17 - Critical Care Critical Care patient: No
[2017-05-25] MEDS: CALCIUM CARBONATE 650 MG TABLET PO SCH (18:39)
[2017-05-25 19:06] LABS: CREATININE 2.6 mg/dL (0.7-1.3)
[2017-05-25] MEDS ORDERED: INSULIN DETEMIR 100 UNITS/ML MDV SQ SCH (22:00)
[2017-05-25] MEDS: ATORVASTATIN CA 40 MG TABLET (FP) PO SCH (22:02)
[2017-05-25] MEDS: DOCUSATE SODIUM 100 MG CAPSULE (FP) PO SCH (22:02)
[2017-05-25] MEDS: GABAPENTIN 100 MG CAPSULE (FP) PO SCH (22:03)
[2017-05-25] MEDS: TAMSULOSIN HCL 0.4 MG CAP.ER.24H (FP) PO SCH (22:03)
[2017-05-25] MEDS: SENNOSIDES 8.6MG TABLET (FP) PO SCH (22:03)
[2017-05-26] MEDS ORDERED: INSULIN DETEMIR 100 UNITS/ML MDV SQ ONE ×2 (06:28→08:29)
[2017-05-26] MEDS: HYOSCYAMINE SULFATE 0.125 MG *ODT PO SCH ×4 (06:45→21:52)
[2017-05-26] MEDS: BACLOFEN 10 MG TABLET (FP) PO SCH ×4 (06:45→21:50)
[2017-05-26] MEDS: INSULIN (NOVOLOG) ASPART 100 UNITS/ML 10ML VIAL SQ SCH ×4 (06:48→21:57)
[2017-05-26] MEDS: INSULIN DETEMIR 100 UNITS/ML MDV SQ SCH (06:49)
[2017-05-26] MEDS ORDERED: PT OWN MED DRAWER 7, Y5N ONE ×5 (06:52→19:05)
[2017-05-26] MEDS: BISMUTH SUBSALICYLATE 524 MG/30 ML UD PO PRN (06:53)
[2017-05-26] MEDS ORDERED: INSULIN (NOVOLOG) ASPART 100 UNITS/ML 10ML VIAL ONE ×5 (08:29→21:22)
[2017-05-26] MEDS: VITAMIN B COMP W-C 1 EA TABLET PO SCH (10:52)
[2017-05-26] MEDS: ASPIRIN 81 MG CHEWABLE TABLETS PO SCH (10:52)
[2017-05-26] MEDS: CLOPIDOGREL BISULFATE 75 MG TABLET (FP) PO SCH (10:52)
[2017-05-26] MEDS: PANTOPRAZOLE 40 MG TABLET (FP) PO SCH ×2 (10:52→21:51)
[2017-05-26] MEDS: FOLIC ACID 1 MG TABLET (FP) PO SCH (10:52)
[2017-05-26] MEDS: METOPROLOL SUCCINATE 50 MG TAB.SR.24H (FP) PO SCH ×2 (10:52→21:54)
[2017-05-26] MEDS: CALCIUM CARBONATE 650 MG TABLET PO SCH (10:52)
[2017-05-26] MEDS: LOSARTAN POTASSIUM 50 MG TABLET (FP) PO SCH (10:52)
[2017-05-26] MEDS: DICYCLOMINE HCL 10 MG CAPSULE PO SCH ×2 (10:53→21:52)
[2017-05-26] MEDS: amLODIPine BESYLATE 5 MG TABLET (FP) PO SCH ×2 (10:53→11:00)
[2017-05-26] MEDS: POLYETHYLENE GLYCOL 3350 255 GM BTL PO SCH (10:55)
--- NOTE | 2017-05-26 11:07 | DS ---
Physical Examination Vital Signs: Vital Signs Temperature 98.4 F 05/26/17 10:38 Pulse Rate 70 05/26/17 10:38 Respiratory Rate 20 05/26/17 10:38 Blood Pressure 135/63 05/26/17 10:38 O2 Sat by Pulse Oximetry (%) 98 05/25/17 21:00 Findings/Remarks: PE Neuro: alert, awake, cn 2-12intact Pulm: CTAB CV: s1 s2 rrr nomrg Abd: abdominal tenderness soft abd Ext: R BKA, in WC Labs: CBC, BMP 05/25/17 18:00 Discharge Summary Reason For Visit: CHEST PAIN,NEEDS DIALYSIS,NEGATIVE WORKUP Current Active Problems Chest pain (Acute) Hospital Course: 56 year old male, resident of [place], with a PMH significant for HTN, CAD s/ p stents, DM II, and ESRD (MWF), PVD s/p right BKA. Presented to the ED from the dialysis center after stopping the session after 20 minutes because of abdominal pain. Plan: 1. Abdominal burning - Stop mylanta, has already received dose in ED - Continue Bentyl - FFUP EGD oupt - Started hyoscyamine TID - Ca carbonate daily - Pepto daily 2. ESRD on HD - HD M,W,F 3. Hypertension - Elevated, however post HD now and BP meds to be given - Continue to monitor 4. CAD - Continue Toprol XL, ASA, Plavix, Lipitor 5. DM II - Levemir 10units (home dose) - [facility] Instructed the patient to follow-up with Dr. Serna (in network with insurance) on Thursday05/27/17 at 4pm. Discussed case with Dr. Dominguez who recommends discharge with outpatient follow- up Condition: Improved - Instructions Diet, Activity, Other Instructions: The following changes were made to Mr. Ceja's mediation regimen. Please adjust your orders accordingly: 1. Discontinued Pepcid; switch to Protonix PO 40mg BID 2. Baclofen 10mg BID was added 3. Patient should NOT be given Mylanta; it is contraindicated for renal dialysis patients 4. Keep your appt with Dr. Serna 06/02/17 at 3pm Referrals: Farhan Serna MD [Staff Physician] - 06/02/17 3:00 pm (Please follow-up with Dr. Serna on 06/01/17 at 3pm ) Marques Good MD [Non Staff, Medical] - 1 Week (Please follow-up with Dr. Good within 1 week to schedule an outpatient appointment for an MRI to assess the hypodense focus seen on T11 on your catscan of your chest) Disposition: HALFWAY FACILITY - Home Medications Comprehensive Discharge Medication List: Ambulatory Orders Aspirin [ASA -] 81 mg PO DAILY 05/18/17 Atorvastatin Ca [Lipitor] 40 mg PO HS 05/18/17 Azelastine HCl 137 mcg NS BID 05/18/17 Cetirizine HCl [Zyrtec -] 10 mg PO DAILY 05/18/17 Clopidogrel Bisulfate [Plavix -] 75 mg PO DAILY 05/18/17 Cyclosporine, Modified [Cyclosporine] 1 drop OU BID 05/18/17 Docusate Sodium [Colace -] 3 cap PO HS 05/18/17 Folic Acid 1 mg PO DAILY 05/18/17 Gabapentin 100 mg PO HS 05/18/17 Insulin Glargine,Hum.rec.anlog [Basaglar Kwikpen U-100] 10 unit SQ DAILY Insulin Lispro [Humalog] 0 unit SQ PRN 05/18/17 Insulin Lispro [Humalog] 10 unit SQ DAILY 05/18/17 Lactobacillus Acidophilus [Probiotic] 1 each PO TID 05/18/17 Polyethylene Glycol 3350 [Glycolax] 17 gm PO DAILY 05/18/17 Sennosides [Senna] 2 tab PO HS 05/18/17 Tamsulosin HCl [Flomax] 0.4 mg PO HS 05/18/17 Vitamin B Comp W-C [Nephro-Ingris -] 1 tablet PO DAILY 05/18/17 Zolpidem Tartrate [Ambien] 10 mg PO HS PRN 05/18/17 Baclofen [Lioresal -] 5 mg PO TID PRN #90 tablet MDD 3 05/24/17 Dicyclomine HCl [Bentyl -] 10 mg PO BID #60 cap 05/24/17 Losartan Potassium [Cozaar -] 100 mg PO DAILY #30 tablet 05/24/17 Pantoprazole Sodium [Protonix -] 40 mg PO BID #80 tab MDD 2 05/24/17 Bismuth Subsalicylate [Pepto-Bismol -] 524 mg PO DAILY PRN #0 tab 05/25/17 Calcium Carbonate - 650 mg PO DAILY #0 tablet 05/25/17 Hyoscyamine Sulfate [Levsin 0.125MG Tablet -] 0.125 mg PO Q8H #90 tablet Metoprolol Tartrate [Lopressor] 50 mg PO BID #1 tablet 05/26/17 This patient is new to me today: No Emergency Visit: Yes ED Registration Date: 05/23/17 Care time: The patient presented to the Emergency Department on the above date and was hospitalized for further evaluation of their emergent condition. Critical Care patient: No - Discharge Referral Referred to [facility] Med P.C.: No
--- NOTE | 2017-05-26 16:28 | PN ---
Progress Note, Physician History of Present Illness: Pt seen and examined at bedside. He feels that the abdominal pain is improved. - Current Medication List Current Medications: Active Medications Amlodipine Besylate (Norvasc -) 5 mg PO DAILY [facility] Last Admin: 05/26/17 11:00 Dose: Not Given Aspirin (Asa -) 81 mg PO DAILY [facility] Last Admin: 05/26/17 10:52 Dose: 81 mg Atorvastatin Calcium (Lipitor -) 40 mg PO HS [facility] Last Admin: 05/25/17 22:02 Dose: 40 mg Baclofen (Lioresal -) 5 mg PO TID [facility] Last Admin: 05/26/17 15:09 Dose: 5 mg Bismuth Subsalicylate (Pepto-Bismol -) 524 mg PO DAILY PRN PRN Reason: DIARRHEA Last Admin: 05/26/17 06:53 Dose: 524 mg Calcium Carbonate (Calcium Carbonate -) 650 mg PO DAILY [facility] Last Admin: 05/26/17 10:52 Dose: 650 mg Clopidogrel Bisulfate (Plavix -) 75 mg PO DAILY [facility] Last Admin: 05/26/17 10:52 Dose: 75 mg Dicyclomine HCl (Bentyl -) 10 mg PO BID [facility] Last Admin: 05/26/17 10:53 Dose: 10 mg Docusate Sodium (Colace -) 300 mg PO [facility] Last Admin: 05/25/17 22:02 Dose: 100 mg Folic Acid (Folic Acid -) 1 mg PO DAILY [facility] Last Admin: 05/26/17 10:52 Dose: 1 mg Gabapentin (Neurontin -) 100 mg PO HS [facility] Last Admin: 05/25/17 22:03 Dose: 100 mg Hyoscyamine Sulfate (Levsin Odt -) 0.125 mg PO TID [facility] Last Admin: 05/26/17 15:09 Dose: 0.125 mg Insulin Aspart (Novolog Vial) 0 units SQ ACHS [facility] PRN Reason: Protocol Last Admin: 05/26/17 12:25 Dose: 4 units Insulin Detemir (Levemir Vial) 10 units SQ DAILY@0700 [facility] Last Admin: 05/26/17 06:49 Dose: 10 units Losartan Potassium (Cozaar -) 100 mg PO DAILY [facility] Last Admin: 05/26/17 10:52 Dose: 100 mg Metoprolol Succinate (Toprol Xl -) 50 mg PO BID [facility] Last Admin: 05/26/17 10:52 Dose: 50 mg Multivit/Ca Carb/B Cmplx/FA/Prenat (Nephro-Ingris -) 1 tablet PO DAILY [facility] Last Admin: 05/26/17 10:52 Dose: 1 tablet Pantoprazole Sodium (Protonix -) 40 mg PO BID [facility] Last Admin: 05/26/17 10:52 Dose: 40 mg Polyethylene Glycol (Miralax (For Bowel Prep) -) 17 gm PO DAILY [facility] Last Admin: 05/26/17 10:55 Dose: Not Given Senna (Senna -) 2 tab PO [facility] Last Admin: 05/25/17 22:03 Dose: 2 tab Tamsulosin HCl (Flomax -) 0.4 mg PO [facility] Last Admin: 05/25/17 22:03 Dose: 0.4 mg - Objective Vital Signs: Vital Signs Temperature 99.3 F 05/26/17 14:50 Pulse Rate 72 05/26/17 14:50 Respiratory Rate 22 05/26/17 14:50 Blood Pressure 123/62 05/26/17 14:50 O2 Sat by Pulse Oximetry (%) 98 05/25/17 21:00 Constitutional: Yes: Calm Eyes: Yes: Conjunctiva Clear Neck: Yes: Supple Cardiovascular: Yes: S1, S2 Respiratory: Yes: CTA Bilaterally Gastrointestinal: Yes: Soft, Abdomen, Obese Genitourinary: Yes: WNL Extremities: Yes: Amputation Edema: No Neurological: Yes: Oriented Psychiatric: Yes: Oriented Labs: CBC, BMP 05/25/17 18:00 Problem List - Problems (1) ESRD (end stage renal disease) Code(s): N18.6 - END STAGE RENAL DISEASE (2) HTN (hypertension) Code(s): I10 - ESSENTIAL (PRIMARY) HYPERTENSION (3) RUQ abdominal pain Code(s): R10.11 - RIGHT UPPER QUADRANT PAIN Assessment/Plan Current Medications Generic Name Dose Route Start Last Admin Trade Name Freq PRN Reason Stop Dose Admin Amlodipine Besylate 5 mg 05/26/17 10:00 05/26/17 11:00 Norvasc - PO Not Given DAILY [facility] Aspirin 81 mg 05/23/17 10:00 05/26/17 10:52 Asa - PO 81 mg DAILY [facility] Administration Atorvastatin Calcium 40 mg 05/22/17 22:00 05/25/17 22:02 Lipitor - PO 40 mg HS [facility] Administration Baclofen 5 mg 05/22/17 22:00 05/26/17 15:09 Lioresal - PO 5 mg TID [facility] Administration Bismuth Subsalicylate 524 mg 05/25/17 13:15 05/26/17 06:53 Pepto-Bismol - PO 524 mg DAILY PRN Administration DIARRHEA Calcium Carbonate 650 mg 05/25/17 13:15 05/26/17 10:52 Calcium Carbonate - PO 650 mg DAILY [facility] Administration Clopidogrel Bisulfate 75 mg 05/23/17 10:00 05/26/17 10:52 Plavix - PO 75 mg DAILY [facility] Administration Dicyclomine HCl 10 mg 05/23/17 22:00 05/26/17 10:53 Bentyl - PO 10 mg BID [facility] Administration Docusate Sodium 300 mg 05/22/17 22:00 05/25/17 22:02 Colace - PO 100 mg HS [facility] Administration Folic Acid 1 mg 05/23/17 10:00 05/26/17 10:52 Folic Acid - PO 1 mg DAILY [facility] Administration Gabapentin 100 mg 05/22/17 22:00 05/25/17 22:03 Neurontin - PO 100 mg HS [facility] Administration Hyoscyamine Sulfate 0.125 mg 05/25/17 10:30 05/26/17 15:09 Levsin Odt - PO 0.125 mg TID [facility] Administration Insulin Aspart 0 units 05/22/17 22:00 05/26/17 12:25 Novolog Vial SQ 4 units ACHS [facility] Administration Protocol Insulin Detemir 10 units 05/26/17 07:00 05/26/17 06:49 Levemir Vial SQ 10 units DAILY@0700 [facility] Administration Losartan Potassium 100 mg 05/24/17 10:00 05/26/17 10:52 Cozaar - PO 100 mg DAILY [facility] Administration Metoprolol Succinate 50 mg 05/23/17 22:00 05/26/17 10:52 Toprol Xl - PO 50 mg BID [facility] Administration Multivit/Ca Carb/B Cmplx/FA/Prenat 1 tablet 05/23/17 10:00 05/26/17 10:52 Nephro-Ingris - PO 1 tablet DAILY [facility] Administration Pantoprazole Sodium 40 mg 05/24/17 11:16 05/26/17 10:52 Protonix - PO 40 mg BID [facility] Administration Polyethylene Glycol 17 gm 05/23/17 10:00 05/26/17 10:55 Miralax (For Bowel Prep) - PO Not Given DAILY [facility] Senna 2 tab 05/22/17 22:00 05/25/17 22:03 Senna - PO 2 tab HS [facility] Administration Tamsulosin HCl 0.4 mg 05/23/17 22:00 05/25/17 22:03 Flomax - PO 0.4 mg HS [facility] Administration Impression 1. ESRD 2. abdominal pain 3. copd 4. HTN 5. DM Plan - HD scheduled as outpt tomorrow - will need follow up with GI - volume status is stable - cont current meds - discussed plan with pt at length - will follow Dr Vicente
--- NOTE | 2017-05-26 20:16 | PN ---
Progress Note (short form) - Note Progress Note: Patient appears completely comfortable. In wheelchair at nursing station. Seen last admission at which time he had a HIDA that showed normal gb filling but markedly delayed [id number] transit. An MRCP subsequently showed no stone in a non-dilated CBD The thought at that time was that he had sphincter of Oddi dysfunction, likely related to narcotic pain meds, and needed advanced biliary procedures that we don't offer at [facility]. (ie: EUS) 1 day post-discharge, he returned here. I reiterated the problem to the patient and he seems to understand. From my POV, he can be discharged after arrangement is made for ongoing dialysis and go to a tertiary care center. WBC down and LFT's normal
[2017-05-26 20:23] LABS: TROPONIN I 0.03 ng/ml (0.00-0.05)
[2017-05-26] MEDS: DOCUSATE SODIUM 100 MG CAPSULE (FP) PO SCH (21:51)
[2017-05-26] MEDS: SENNOSIDES 8.6MG TABLET (FP) PO SCH (21:51)
[2017-05-26] MEDS: TAMSULOSIN HCL 0.4 MG CAP.ER.24H (FP) PO SCH (21:51)
[2017-05-26] MEDS: GABAPENTIN 100 MG CAPSULE (FP) PO SCH (21:51)
[2017-05-26] MEDS: ATORVASTATIN CA 40 MG TABLET (FP) PO SCH (21:52)
[2017-05-26] MEDS ORDERED: BISMUTH SUBSALICYLATE 524 MG/30 ML UD PO ONE (22:16)
[2017-05-26] MEDS ORDERED: ACETAMINOPHEN 500 MG TABLET (FP) PO ONE (22:21)
--- NOTE | 2017-05-26 22:22 | HOSP ---
Subjective - Review of Symptoms Subjective: Pt reports pain to RUE "like I'm being shocked" 08/09 from site of BP cuff/ tourniquet to fingertips. The pain radiates to RUQ but is not as intense as the arm. Pain is relieved when the BP cuff/tourniquet is removed. Gastrointestinal: Yes: Abdominal Pain (RUQ) Musculoskeletal: Yes: Extremity Pain (right upper ) Physical Examination Vital Signs: Vital Signs Temperature 98.2 F 05/26/17 17:25 Pulse Rate 66 05/26/17 17:35 Respiratory Rate 20 05/26/17 17:35 Blood Pressure 124/53 05/26/17 17:35 O2 Sat by Pulse Oximetry (%) 98 05/26/17 11:00 Cardiovascular: Yes: Regular Rate and Rhythm. No: JVD, Gallop, Murmur, Rub Respiratory: Yes: WNL Gastrointestinal: Yes: WNL Extremities: Yes: Amputation (Right BKA), Other (strength 5/5). No: Cold, Cyanosis, Delayed Capillary Refill Edema: No Peripheral Pulses: Left Radial: 2+, Right Radial: 2+, Left Doralis Pedis: 2+ Neurological: Yes: WNL, Alert, Oriented, Cran Nerves II-XII Intact Labs: CBC, BMP 05/25/17 18:00 Hospitalist Encounter Assessment: A: 56yo man who is a resident of [place], with a PMH significant for HTN, CAD s/ p stents, DM II, and ESRD (MWF), PVD s/p right BKA. Presented to the ED from the dialysis center after stopping the session after 20 minutes because of abdominal pain. Now with RUE pain radiating to RUQ. P: Pain likely neuropathy - taking gabapentin currently- give dose homer - pepto-bismol x1 dose now - avoid right upper arm for blood pressure and tourniquet placement
[2017-05-27] MEDS ORDERED: LORazepam 1 MG TABLET PO ONE (01:58)
[2017-05-27] MEDS: HYOSCYAMINE SULFATE 0.125 MG *ODT PO SCH ×3 (06:49→22:15)
[2017-05-27] MEDS: BACLOFEN 10 MG TABLET (FP) PO SCH ×3 (06:49→22:18)
[2017-05-27] MEDS: INSULIN (NOVOLOG) ASPART 100 UNITS/ML 10ML VIAL SQ SCH ×5 (06:50→22:26)
[2017-05-27] MEDS: INSULIN DETEMIR 100 UNITS/ML MDV SQ SCH (06:50)
[2017-05-27 08:57] LABS: TROPONIN I 0.05 ng/ml (0.00-0.05)
[2017-05-27] MEDS ORDERED: PT OWN MED DRAWER 7, Y5N ONE ×2 (10:10→13:15)
[2017-05-27] MEDS: VITAMIN B COMP W-C 1 EA TABLET PO SCH (10:14)
[2017-05-27] MEDS: METOPROLOL SUCCINATE 50 MG TAB.SR.24H (FP) PO SCH ×2 (10:14→22:18)
[2017-05-27] MEDS: DICYCLOMINE HCL 10 MG CAPSULE PO SCH ×2 (10:14→22:48)
[2017-05-27] MEDS: ASPIRIN 81 MG CHEWABLE TABLETS PO SCH (10:15)
[2017-05-27] MEDS: PANTOPRAZOLE 40 MG TABLET (FP) PO SCH ×2 (10:15→22:18)
[2017-05-27] MEDS: FOLIC ACID 1 MG TABLET (FP) PO SCH (10:16)
[2017-05-27] MEDS: LOSARTAN POTASSIUM 50 MG TABLET (FP) PO SCH (10:16)
[2017-05-27] MEDS: CLOPIDOGREL BISULFATE 75 MG TABLET (FP) PO SCH (10:16)
[2017-05-27] MEDS: POLYETHYLENE GLYCOL 3350 255 GM BTL PO SCH (10:17)
[2017-05-27] MEDS: CALCIUM CARBONATE 650 MG TABLET PO SCH (10:17)
[2017-05-27] MEDS: amLODIPine BESYLATE 5 MG TABLET (FP) PO SCH (10:17)
[2017-05-27] MEDS: BISMUTH SUBSALICYLATE 524 MG/30 ML UD PO PRN (13:10)
--- NOTE | 2017-05-27 14:03 | PN ---
Progress Note, Physician History of Present Illness: Pt seen and examined at bedside. He is going for HD today. He feels that the abdominal pain is improved. - Current Medication List Current Medications: Active Medications Amlodipine Besylate (Norvasc -) 5 mg PO DAILY [facility] Last Admin: 05/27/17 10:17 Dose: 5 mg Aspirin (Asa -) 81 mg PO DAILY [facility] Last Admin: 05/27/17 10:15 Dose: 81 mg Atorvastatin Calcium (Lipitor -) 40 mg PO HS [facility] Last Admin: 05/26/17 21:52 Dose: 40 mg Baclofen (Lioresal -) 5 mg PO TID [facility] Last Admin: 05/27/17 13:20 Dose: 5 mg Bismuth Subsalicylate (Pepto-Bismol -) 524 mg PO DAILY PRN PRN Reason: DIARRHEA Last Admin: 05/27/17 13:10 Dose: 524 mg Calcium Carbonate (Calcium Carbonate -) 650 mg PO DAILY [facility] Last Admin: 05/27/17 10:17 Dose: 650 mg Clopidogrel Bisulfate (Plavix -) 75 mg PO DAILY [facility] Last Admin: 05/27/17 10:16 Dose: 75 mg Dicyclomine HCl (Bentyl -) 10 mg PO BID [facility] Last Admin: 05/27/17 10:14 Dose: 10 mg Docusate Sodium (Colace -) 300 mg PO HS [facility] Last Admin: 05/26/17 21:51 Dose: 300 mg Folic Acid (Folic Acid -) 1 mg PO DAILY [facility] Last Admin: 05/27/17 10:16 Dose: 1 mg Gabapentin (Neurontin -) 100 mg PO HS [facility] Last Admin: 05/26/17 21:51 Dose: 100 mg Hyoscyamine Sulfate (Levsin Odt -) 0.125 mg PO TID [facility] Last Admin: 05/27/17 06:49 Dose: 0.125 mg Insulin Aspart (Novolog Vial) 0 units SQ ACHS [facility] PRN Reason: Protocol Last Admin: 05/27/17 12:16 Dose: 6 units Insulin Detemir (Levemir Vial) 10 units SQ DAILY@0700 [facility] Last Admin: 05/27/17 06:50 Dose: 10 units Losartan Potassium (Cozaar -) 100 mg PO DAILY [facility] Last Admin: 05/27/17 10:16 Dose: 100 mg Metoprolol Succinate (Toprol Xl -) 50 mg PO BID [facility] Last Admin: 05/27/17 10:14 Dose: 50 mg Multivit/Ca Carb/B Cmplx/FA/Prenat (Nephro-Ingris -) 1 tablet PO DAILY [facility] Last Admin: 05/27/17 10:14 Dose: 1 tablet Pantoprazole Sodium (Protonix -) 40 mg PO BID [facility] Last Admin: 05/27/17 10:15 Dose: 40 mg Polyethylene Glycol (Miralax (For Bowel Prep) -) 17 gm PO DAILY [facility] Last Admin: 05/27/17 10:17 Dose: Not Given Senna (Senna -) 2 tab PO HS [facility] Last Admin: 05/26/17 21:51 Dose: 2 tab Tamsulosin HCl (Flomax -) 0.4 mg PO HS [facility] Last Admin: 05/26/17 21:51 Dose: 0.4 mg - Objective Vital Signs: Vital Signs Temperature 98.0 F 05/27/17 06:00 Pulse Rate 57 L 05/27/17 06:00 Respiratory Rate 18 05/27/17 06:00 Blood Pressure 163/76 05/27/17 06:00 O2 Sat by Pulse Oximetry (%) 98 05/26/17 21:00 Constitutional: Yes: Calm Eyes: Yes: Conjunctiva Clear HENT: Yes: Atraumatic Neck: Yes: Supple Cardiovascular: Yes: S1, S2 Respiratory: Yes: CTA Bilaterally Gastrointestinal: Yes: Soft Genitourinary: Yes: WNL Extremities: Yes: Amputation Integumentary: Yes: Tattoos Neurological: Yes: Oriented Psychiatric: Yes: Oriented Labs: CBC, BMP 05/25/17 18:00 Problem List - Problems (1) ESRD (end stage renal disease) Code(s): N18.6 - END STAGE RENAL DISEASE (2) HTN (hypertension) Code(s): I10 - ESSENTIAL (PRIMARY) HYPERTENSION (3) RUQ abdominal pain Code(s): R10.11 - RIGHT UPPER QUADRANT PAIN Assessment/Plan Current Medications Generic Name Dose Route Start Last Admin Trade Name Freq PRN Reason Stop Dose Admin Amlodipine Besylate 5 mg 05/26/17 10:00 05/27/17 10:17 Norvasc - PO 5 mg DAILY [facility] Administration Aspirin 81 mg 05/23/17 10:00 05/27/17 10:15 Asa - PO 81 mg DAILY [facility] Administration Atorvastatin Calcium 40 mg 05/22/17 22:00 05/26/17 21:52 Lipitor - PO 40 mg HS [facility] Administration Baclofen 5 mg 05/22/17 22:00 05/27/17 13:20 Lioresal - PO 5 mg TID [facility] Administration Bismuth Subsalicylate 524 mg 05/25/17 13:15 05/27/17 13:10 Pepto-Bismol - PO 524 mg DAILY PRN Administration DIARRHEA Calcium Carbonate 650 mg 05/25/17 13:15 05/27/17 10:17 Calcium Carbonate - PO 650 mg DAILY [facility] Administration Clopidogrel Bisulfate 75 mg 05/23/17 10:00 05/27/17 10:16 Plavix - PO 75 mg DAILY [facility] Administration Dicyclomine HCl 10 mg 05/23/17 22:00 05/27/17 10:14 Bentyl - PO 10 mg BID [facility] Administration Docusate Sodium 300 mg 05/22/17 22:00 05/26/17 21:51 Colace - PO 300 mg HS [facility] Administration Folic Acid 1 mg 05/23/17 10:00 05/27/17 10:16 Folic Acid - PO 1 mg DAILY [facility] Administration Gabapentin 100 mg 05/22/17 22:00 05/26/17 21:51 Neurontin - PO 100 mg HS [facility] Administration Hyoscyamine Sulfate 0.125 mg 05/25/17 10:30 05/27/17 06:49 Levsin Odt - PO 0.125 mg TID [facility] Administration Insulin Aspart 0 units 05/22/17 22:00 05/27/17 12:16 Novolog Vial SQ 6 units ACHS [facility] Administration Protocol Insulin Detemir 10 units 05/26/17 07:00 05/27/17 06:50 Levemir Vial SQ 10 units DAILY@0700 [facility] Administration Losartan Potassium 100 mg 05/24/17 10:00 05/27/17 10:16 Cozaar - PO 100 mg DAILY [facility] Administration Metoprolol Succinate 50 mg 05/23/17 22:00 05/27/17 10:14 Toprol Xl - PO 50 mg BID [facility] Administration Multivit/Ca Carb/B Cmplx/FA/Prenat 1 tablet 05/23/17 10:00 05/27/17 10:14 Nephro-Ingris - PO 1 tablet DAILY [facility] Administration Pantoprazole Sodium 40 mg 05/24/17 11:16 05/27/17 10:15 Protonix - PO 40 mg BID [facility] Administration Polyethylene Glycol 17 gm 05/23/17 10:00 05/27/17 10:17 Miralax (For Bowel Prep) - PO Not Given DAILY [facility] Senna 2 tab 05/22/17 22:00 05/26/17 21:51 Senna - PO 2 tab HS [facility] Administration Tamsulosin HCl 0.4 mg 05/23/17 22:00 05/26/17 21:51 Flomax - PO 0.4 mg HS [facility] Administration Impression 1. ESRD 2. abdominal pain 3. copd 4. HTN 5. DM - HD today - pt has HD scheduled as outpt - he will need GI follow up - volume status is stable - cont current meds - will follow Dr Vicente
[2017-05-27] MEDS: GABAPENTIN 100 MG CAPSULE (FP) PO SCH (22:18)
[2017-05-27] MEDS: ATORVASTATIN CA 40 MG TABLET (FP) PO SCH (22:18)
[2017-05-27] MEDS: TAMSULOSIN HCL 0.4 MG CAP.ER.24H (FP) PO SCH (22:18)
[2017-05-27] MEDS: SENNOSIDES 8.6MG TABLET (FP) PO SCH (22:18)
[2017-05-27] MEDS: DOCUSATE SODIUM 100 MG CAPSULE (FP) PO SCH (22:18)
[2017-05-28] MEDS ORDERED: BISMUTH SUBSALICYLATE 262 MG/15 ML BTL PO ONE (02:39)
[2017-05-28] MEDS ORDERED: ACETAMINOPHEN 500 MG TABLET (FP) PO ONE ×2 (02:39→23:15)
[2017-05-28] MEDS: HYOSCYAMINE SULFATE 0.125 MG *ODT PO SCH ×3 (05:34→22:16)
[2017-05-28] MEDS: BACLOFEN 10 MG TABLET (FP) PO SCH ×3 (05:34→22:13)
[2017-05-28] MEDS: INSULIN (NOVOLOG) ASPART 100 UNITS/ML 10ML VIAL SQ SCH (06:04)
[2017-05-28] MEDS: INSULIN DETEMIR 100 UNITS/ML MDV SQ SCH (06:04)
[2017-05-28] MEDS ORDERED: INSULIN DETEMIR 100 UNITS/ML MDV SQ ONE (06:31)
--- NOTE | 2017-05-28 07:16 | HOSP ---
Physical Examination Vital Signs: Vital Signs Temperature 98.3 F 05/27/17 22:00 Pulse Rate 72 05/27/17 22:00 Respiratory Rate 18 05/27/17 22:00 Blood Pressure 126/69 05/27/17 22:00 O2 Sat by Pulse Oximetry (%) 98 05/27/17 22:00 Findings/Remarks: The patient was discharged yesterday, awaiting insurance authorization prior to sending back to [facility]. Changed appointment with Dr. Serna to Thursday06/01/17 at 3pm. Labs: CBC, BMP 05/25/17 18:00
[2017-05-28] MEDS ORDERED: INSULIN SLIDING SCALE (NOVOLOG) 1 VIAL SQ SCH (08:00)
--- NOTE | 2017-05-28 11:07 | PN ---
Progress Note (short form) - Note Progress Note: SUBJECTIVE: Patient seen and examined. He has abdominal pain it awoke him from sleep. Its too painful to lay down in HD, however he tolerated HD today and said the Hyoscyamine tempered it. OBJECTIVE: Vital Signs Period Temp Pulse Resp BP Sys/Quick Pulse Ox Last 24 Hr 98.1 F-98.8 F 58-82 18-22 114-193/52-100 98-98 PE Neuro: alert, awake, cn 2-12intact Pulm: CTAB CV: s1 s2 rrr nomrg Abd: abdominal tenderness soft abd Ext: R BKA, in WC Laboratory Results - last 24 hr 05/25/17 14:15 Sodium 139 Potassium 4.4 Chloride 107 Carbon Dioxide 20 L D Anion Gap 12 BUN 64 H D Creatinine 7.3 H D POC Glucometer Random Glucose 242 H D Calcium 8.3 L Active Medications Generic Name Dose Route Start Last Admin Trade Name Freq PRN Reason Stop Dose Admin Aspirin 81 mg 05/23/17 10:00 05/25/17 10:30 Asa - PO Not Given DAILY [facility] Atorvastatin Calcium 40 mg 05/22/17 22:00 05/24/17 22:06 Lipitor - PO 40 mg HS [facility] Administration Baclofen 5 mg 05/22/17 22:00 05/25/17 14:53 Lioresal - PO Not Given TID [facility] Bismuth Subsalicylate 524 mg 05/25/17 13:15 05/25/17 17:26 Pepto-Bismol - PO 524 mg DAILY PRN Administration DIARRHEA Calcium Carbonate 650 mg 05/25/17 13:15 Calcium Carbonate - PO DAILY [facility] Clopidogrel Bisulfate 75 mg 05/23/17 10:00 05/25/17 10:30 Plavix - PO Not Given DAILY [facility] Dicyclomine HCl 10 mg 05/23/17 22:00 05/25/17 11:45 Bentyl - PO 10 mg BID [facility] Administration Docusate Sodium 300 mg 05/22/17 22:00 05/24/17 22:05 Colace - PO 300 mg HS [facility] Administration Folic Acid 1 mg 05/23/17 10:00 05/25/17 10:30 Folic Acid - PO Not Given DAILY [facility] Gabapentin 100 mg 05/22/17 22:00 05/24/17 22:06 Neurontin - PO 100 mg HS [facility] Administration Hyoscyamine Sulfate 0.125 mg 05/25/17 10:30 05/25/17 14:53 Levsin Odt - PO Not Given TID [facility] Insulin Aspart 0 units 05/22/17 22:00 05/25/17 12:26 Novolog Vial SQ 4 units ACHS [facility] Administration Protocol Losartan Potassium 100 mg 05/24/17 10:00 05/25/17 10:30 Cozaar - PO Not Given DAILY [facility] Metoprolol Succinate 50 mg 05/23/17 22:00 05/25/17 10:30 Toprol Xl - PO Not Given BID [facility] Multivit/Ca Carb/B Cmplx/FA/Prenat 1 tablet 05/23/17 10:00 05/25/17 10:30 Nephro-Ingris - PO Not Given DAILY [facility] Pantoprazole Sodium 40 mg 05/24/17 11:16 05/25/17 11:46 Protonix - PO 40 mg BID [facility] Administration Polyethylene Glycol 17 gm 05/23/17 10:00 05/25/17 10:30 Miralax (For Bowel Prep) - PO Not Given DAILY [facility] Senna 2 tab 05/22/17 22:00 05/24/17 22:05 Senna - PO 2 tab HS [facility] Administration Tamsulosin HCl 0.4 mg 05/23/17 22:00 05/24/17 22:06 Flomax - PO 0.4 mg HS [facility] Administration Assessment: 56 year old male, resident of [place], with a PMH significant for HTN, CAD s/p stents, DM II, and ESRD (MWF), PVD s/p right BKA. Presented to the ED from the dialysis center after stopping the session after 20 minutes because of abdominal pain. Plan: 1. Abdominal burning - Stop mylanta, has already received dose in ED - Continue Bentyl - [facility]UP EGD oupt - Started hyoscyamine TID - Ca carbonate daily - Pepto daily 2. ESRD on HD - HD M,W,F 3. Hypertension - Losartan - Norvasc - Continue to monitor 4. CAD - Continue Toprol XL, ASA, Plavix, Lipitor 5. DM II - Levemir 10units (home dose) - ISS, BGM ACHS 6. Diabetic neuropathy - Increased neuronton to 200mg po daily Dispo: - Awaiting SNF authorization Visit type - Emergency Visit Emergency Visit: Yes ED Registration Date: 05/23/17 Care time: The patient presented to the Emergency Department on the above date and was hospitalized for further evaluation of their emergent condition. - New Patient This patient is new to me today: No - Critical Care Critical Care patient: No
[2017-05-28] MEDS ORDERED: PT OWN MED DRAWER 7, Y5N ONE ×4 (11:24→18:01)
[2017-05-28] MEDS: ASPIRIN 81 MG CHEWABLE TABLETS PO SCH (11:27)
[2017-05-28] MEDS: VITAMIN B COMP W-C 1 EA TABLET PO SCH (11:28)
[2017-05-28] MEDS: LOSARTAN POTASSIUM 50 MG TABLET (FP) PO SCH (11:28)
[2017-05-28] MEDS: FOLIC ACID 1 MG TABLET (FP) PO SCH (11:28)
[2017-05-28] MEDS: PANTOPRAZOLE 40 MG TABLET (FP) PO SCH ×2 (11:28→22:14)
[2017-05-28] MEDS: METOPROLOL SUCCINATE 50 MG TAB.SR.24H (FP) PO SCH ×2 (11:28→22:14)
[2017-05-28] MEDS: amLODIPine BESYLATE 5 MG TABLET (FP) PO SCH (11:29)
[2017-05-28] MEDS: CALCIUM CARBONATE 650 MG TABLET PO SCH (11:29)
[2017-05-28] MEDS: DICYCLOMINE HCL 10 MG CAPSULE PO SCH ×2 (11:29→22:15)
[2017-05-28] MEDS: CLOPIDOGREL BISULFATE 75 MG TABLET (FP) PO SCH (11:29)
[2017-05-28] MEDS: POLYETHYLENE GLYCOL 3350 255 GM BTL PO SCH (11:29)
[2017-05-28] MEDS ORDERED: INSULIN (NOVOLOG) ASPART 100 UNITS/ML 10ML VIAL ONE ×3 (11:51→17:47)
[2017-05-28] MEDS: INSULIN SLIDING SCALE (NOVOLOG) 1 VIAL SQ SCH ×3 (12:26→22:19)
--- NOTE | 2017-05-28 14:57 | PN ---
Progress Note, Physician History of Present Illness: Pt seen and examined at bedside. He is awake and alert. He complains of abdominal discomfort. - Current Medication List Current Medications: Active Medications Amlodipine Besylate (Norvasc -) 5 mg PO DAILY [facility] Last Admin: 05/28/17 11:29 Dose: 5 mg Aspirin (Asa -) 81 mg PO DAILY [facility] Last Admin: 05/28/17 11:27 Dose: 81 mg Atorvastatin Calcium (Lipitor -) 40 mg PO HS [facility] Last Admin: 05/27/17 22:18 Dose: 40 mg Baclofen (Lioresal -) 5 mg PO TID [facility] Last Admin: 05/28/17 05:34 Dose: 5 mg Bismuth Subsalicylate (Pepto-Bismol -) 524 mg PO DAILY PRN PRN Reason: DIARRHEA Last Admin: 05/27/17 13:10 Dose: 524 mg Calcium Carbonate (Calcium Carbonate -) 650 mg PO DAILY [facility] Last Admin: 05/28/17 11:29 Dose: 650 mg Clopidogrel Bisulfate (Plavix -) 75 mg PO DAILY [facility] Last Admin: 05/28/17 11:29 Dose: 75 mg Dicyclomine HCl (Bentyl -) 10 mg PO BID [facility] Last Admin: 05/28/17 11:29 Dose: 10 mg Docusate Sodium (Colace -) 300 mg PO [facility] Last Admin: 05/27/17 22:18 Dose: 300 mg Folic Acid (Folic Acid -) 1 mg PO DAILY [facility] Last Admin: 05/28/17 11:28 Dose: 1 mg Gabapentin (Neurontin -) 200 mg PO [facility] Hyoscyamine Sulfate (Levsin Odt -) 0.125 mg PO TID [facility] Last Admin: 05/28/17 05:34 Dose: 0.125 mg Insulin Aspart (Novolog Vial Sliding Scale -) 1 vial SQ 0745,1145,1715,2200 [facility] PRN Reason: Protocol Last Admin: 05/28/17 12:26 Dose: 6 units Insulin Detemir (Levemir Vial) 10 units SQ DAILY@0700 [facility] Last Admin: 05/28/17 06:04 Dose: 10 units Losartan Potassium (Cozaar -) 100 mg PO DAILY [facility] Last Admin: 05/28/17 11:28 Dose: 100 mg Metoprolol Succinate (Toprol Xl -) 50 mg PO BID [facility] Last Admin: 05/28/17 11:28 Dose: 50 mg Multivit/Ca Carb/B Cmplx/FA/Prenat (Nephro-Ingris -) 1 tablet PO DAILY [facility] Last Admin: 05/28/17 11:28 Dose: 1 tablet Pantoprazole Sodium (Protonix -) 40 mg PO BID [facility] Last Admin: 05/28/17 11:28 Dose: 40 mg Polyethylene Glycol (Miralax (For Bowel Prep) -) 17 gm PO DAILY [facility] Last Admin: 05/28/17 11:29 Dose: Not Given Senna (Senna -) 2 tab PO HS [facility] Last Admin: 05/27/17 22:18 Dose: 2 tab Tamsulosin HCl (Flomax -) 0.4 mg PO [facility] Last Admin: 05/27/17 22:18 Dose: 0.4 mg - Objective Vital Signs: Vital Signs Temperature 98.5 F 05/28/17 11:27 Pulse Rate 65 05/28/17 11:27 Respiratory Rate 20 05/28/17 11:27 Blood Pressure 154/72 05/28/17 11:27 O2 Sat by Pulse Oximetry (%) 98 05/27/17 22:00 Constitutional: Yes: Calm Eyes: Yes: Conjunctiva Clear HENT: Yes: Atraumatic Neck: Yes: Supple Cardiovascular: Yes: S1, S2 Respiratory: Yes: CTA Bilaterally Gastrointestinal: Yes: Soft, Abdomen, Obese Genitourinary: Yes: WNL Extremities: Yes: Amputation Edema: Yes Integumentary: Yes: Tattoos Neurological: Yes: Oriented Psychiatric: Yes: Oriented Labs: CBC, BMP 05/25/17 18:00 Problem List - Problems (1) ESRD (end stage renal disease) Code(s): N18.6 - END STAGE RENAL DISEASE (2) HTN (hypertension) Code(s): I10 - ESSENTIAL (PRIMARY) HYPERTENSION (3) RUQ abdominal pain Code(s): R10.11 - RIGHT UPPER QUADRANT PAIN Assessment/Plan Current Medications Generic Name Dose Route Start Last Admin Trade Name Freq PRN Reason Stop Dose Admin Amlodipine Besylate 5 mg 05/26/17 10:00 05/28/17 11:29 Norvasc - PO 5 mg DAILY [facility] Administration Aspirin 81 mg 05/23/17 10:00 05/28/17 11:27 Asa - PO 81 mg DAILY [facility] Administration Atorvastatin Calcium 40 mg 05/22/17 22:00 05/27/17 22:18 Lipitor - PO 40 mg HS [facility] Administration Baclofen 5 mg 05/22/17 22:00 05/28/17 05:34 Lioresal - PO 5 mg TID [facility] Administration Bismuth Subsalicylate 524 mg 05/25/17 13:15 05/27/17 13:10 Pepto-Bismol - PO 524 mg DAILY PRN Administration DIARRHEA Calcium Carbonate 650 mg 05/25/17 13:15 05/28/17 11:29 Calcium Carbonate - PO 650 mg DAILY [facility] Administration Clopidogrel Bisulfate 75 mg 05/23/17 10:00 05/28/17 11:29 Plavix - PO 75 mg DAILY [facility] Administration Dicyclomine HCl 10 mg 05/23/17 22:00 05/28/17 11:29 Bentyl - PO 10 mg BID [facility] Administration Docusate Sodium 300 mg 05/22/17 22:00 05/27/17 22:18 Colace - PO 300 mg HS [facility] Administration Folic Acid 1 mg 05/23/17 10:00 05/28/17 11:28 Folic Acid - PO 1 mg DAILY [facility] Administration Gabapentin 200 mg 05/28/17 22:00 Neurontin - PO HS [facility] Hyoscyamine Sulfate 0.125 mg 05/25/17 10:30 05/28/17 05:34 Levsin Odt - PO 0.125 mg TID [facility] Administration Insulin Aspart 1 vial 05/28/17 08:00 05/28/17 12:26 Novolog Vial Sliding Scale - SQ 6 units 0745,1145,1715,2200 [facility] Administration Protocol Insulin Detemir 10 units 05/26/17 07:00 05/28/17 06:04 Levemir Vial SQ 10 units DAILY@0700 [facility] Administration Losartan Potassium 100 mg 05/24/17 10:00 05/28/17 11:28 Cozaar - PO 100 mg DAILY [facility] Administration Metoprolol Succinate 50 mg 05/23/17 22:00 05/28/17 11:28 Toprol Xl - PO 50 mg BID [facility] Administration Multivit/Ca Carb/B Cmplx/FA/Prenat 1 tablet 05/23/17 10:00 05/28/17 11:28 Nephro-Ingris - PO 1 tablet DAILY [facility] Administration Pantoprazole Sodium 40 mg 05/24/17 11:16 05/28/17 11:28 Protonix - PO 40 mg BID [facility] Administration Polyethylene Glycol 17 gm 05/23/17 10:00 05/28/17 11:29 Miralax (For Bowel Prep) - PO Not Given DAILY [facility] Senna 2 tab 05/22/17 22:00 05/27/17 22:18 Senna - PO 2 tab HS [facility] Administration Tamsulosin HCl 0.4 mg 05/23/17 22:00 05/27/17 22:18 Flomax - PO 0.4 mg HS [facility] Administration Impression 1. ESRD 2. abdominal pain 3. copd 4. HTN 5. DM Plan - will arrange for HD in am - orders written - cont current meds - he will need GI follow up - volume status is stable - will follow Dr Vicente
[2017-05-28] MEDS: BISMUTH SUBSALICYLATE 524 MG/30 ML UD PO PRN (19:58)
[2017-05-28] MEDS ORDERED: GABAPENTIN 100 MG CAPSULE (FP) PO SCH (22:00)
[2017-05-28] MEDS: DOCUSATE SODIUM 100 MG CAPSULE (FP) PO SCH (22:13)
[2017-05-28] MEDS: SENNOSIDES 8.6MG TABLET (FP) PO SCH (22:14)
[2017-05-28] MEDS: TAMSULOSIN HCL 0.4 MG CAP.ER.24H (FP) PO SCH (22:14)
[2017-05-28] MEDS: ATORVASTATIN CA 40 MG TABLET (FP) PO SCH (22:14)
[2017-05-29] MEDS: BACLOFEN 10 MG TABLET (FP) PO SCH ×2 (06:24→13:24)
[2017-05-29] MEDS: HYOSCYAMINE SULFATE 0.125 MG *ODT PO SCH ×2 (06:24→13:25)
[2017-05-29] MEDS: INSULIN DETEMIR 100 UNITS/ML MDV SQ SCH (06:29)
[2017-05-29] MEDS: INSULIN SLIDING SCALE (NOVOLOG) 1 VIAL SQ SCH ×2 (08:21→13:22)
[2017-05-29] MEDS ORDERED: INSULIN (NOVOLOG) ASPART 100 UNITS/ML 10ML VIAL ONE (08:27)
[2017-05-29 10:50] LABS: MCH 30.6 pg (25.7-33.7); MCHC 33.3 g/dl (32.0-35.9); MEAN CELL VOLUME 91.7 fl (80-96); MEAN PLT VOLUME 7.6 fl (7.5-11.1); PLATELET COUNT 205 K/MM3 (134-434); RDW 15.3 % (11.9-15.9)
[2017-05-29] MEDS ORDERED: HEPARIN NA (PORCINE) 5,000 UNITS/ML 1ML VIAL IVPUSH ONE (11:00)
[2017-05-29 11:17] LABS: ANION GAP 8 (8-16); CALCIUM 8.2 mg/dL (8.5-10.1); CO2 25 mmol/L (21-32); CREATININE 5.8 mg/dL (0.7-1.3); GLUCOSE,RANDOM 188 mg/dL (74-106)
[2017-05-29] MEDS: CALCIUM CARBONATE 650 MG TABLET PO SCH (13:23)
[2017-05-29] MEDS: DICYCLOMINE HCL 10 MG CAPSULE PO SCH (13:23)
[2017-05-29] MEDS: ASPIRIN 81 MG CHEWABLE TABLETS PO SCH (13:23)
[2017-05-29] MEDS: FOLIC ACID 1 MG TABLET (FP) PO SCH (13:24)
[2017-05-29] MEDS: amLODIPine BESYLATE 5 MG TABLET (FP) PO SCH (13:24)
[2017-05-29] MEDS: METOPROLOL SUCCINATE 50 MG TAB.SR.24H (FP) PO SCH (13:24)
[2017-05-29] MEDS: LOSARTAN POTASSIUM 50 MG TABLET (FP) PO SCH (13:24)
[2017-05-29] MEDS: PANTOPRAZOLE 40 MG TABLET (FP) PO SCH (13:25)
[2017-05-29] MEDS: VITAMIN B COMP W-C 1 EA TABLET PO SCH (13:25)
[2017-05-29] MEDS: POLYETHYLENE GLYCOL 3350 255 GM BTL PO SCH (13:25)
[2017-05-29] MEDS: CLOPIDOGREL BISULFATE 75 MG TABLET (FP) PO SCH (13:25)
[2017-05-29] MEDS ORDERED: PT OWN MED DRAWER 7, Y5N ONE (13:39)
[2017-05-29 13:40] VITALS: PULSE 61
--- NOTE | 2017-05-29 14:26 | PN ---
Progress Note, Physician History of Present Illness: Pt seen and examined at bedside. He is awake and alert. He tolerated HD today. He is being discharged back to rehab. - Current Medication List Current Medications: Active Medications Amlodipine Besylate (Norvasc -) 5 mg PO DAILY [facility] Last Admin: 05/29/17 13:24 Dose: 5 mg Aspirin (Asa -) 81 mg PO DAILY [facility] Last Admin: 05/29/17 13:23 Dose: 81 mg Atorvastatin Calcium (Lipitor -) 40 mg PO HS [facility] Last Admin: 05/28/17 22:14 Dose: 40 mg Baclofen (Lioresal -) 5 mg PO TID [facility] Last Admin: 05/29/17 13:24 Dose: 5 mg Bismuth Subsalicylate (Pepto-Bismol -) 524 mg PO DAILY PRN PRN Reason: DIARRHEA Last Admin: 05/28/17 19:58 Dose: 524 mg Calcium Carbonate (Calcium Carbonate -) 650 mg PO DAILY [facility] Last Admin: 05/29/17 13:23 Dose: 650 mg Clopidogrel Bisulfate (Plavix -) 75 mg PO DAILY [facility] Last Admin: 05/29/17 13:25 Dose: 75 mg Dicyclomine HCl (Bentyl -) 10 mg PO BID [facility] Last Admin: 05/29/17 13:23 Dose: 10 mg Docusate Sodium (Colace -) 300 mg PO HS [facility] Last Admin: 05/28/17 22:13 Dose: 300 mg Folic Acid (Folic Acid -) 1 mg PO DAILY [facility] Last Admin: 05/29/17 13:24 Dose: 1 mg Gabapentin (Neurontin -) 200 mg PO HS [facility] Last Admin: 05/28/17 22:13 Dose: 200 mg Hyoscyamine Sulfate (Levsin Odt -) 0.125 mg PO TID [facility] Last Admin: 05/29/17 13:25 Dose: 0.125 mg Insulin Aspart (Novolog Vial Sliding Scale -) 1 vial SQ 0745,1145,1715,2200 [facility] PRN Reason: Protocol Last Admin: 05/29/17 13:22 Dose: 2 units Insulin Detemir (Levemir Vial) 10 units SQ DAILY@0700 [facility] Last Admin: 05/29/17 06:29 Dose: 10 units Losartan Potassium (Cozaar -) 100 mg PO DAILY [facility] Last Admin: 05/29/17 13:24 Dose: 100 mg Metoprolol Succinate (Toprol Xl -) 50 mg PO BID [facility] Last Admin: 05/29/17 13:24 Dose: 50 mg Multivit/Ca Carb/B Cmplx/FA/Prenat (Nephro-Ingris -) 1 tablet PO DAILY [facility] Last Admin: 05/29/17 13:25 Dose: 1 tablet Pantoprazole Sodium (Protonix -) 40 mg PO BID [facility] Last Admin: 05/29/17 13:25 Dose: 40 mg Polyethylene Glycol (Miralax (For Bowel Prep) -) 17 gm PO DAILY [facility] Last Admin: 05/29/17 13:25 Dose: Not Given Senna (Senna -) 2 tab PO [facility] Last Admin: 05/28/17 22:14 Dose: 2 tab Tamsulosin HCl (Flomax -) 0.4 mg PO [facility] Last Admin: 05/28/17 22:14 Dose: 0.4 mg - Objective Vital Signs: Vital Signs Temperature 98.1 F 05/29/17 10:00 Pulse Rate 61 05/29/17 12:50 Respiratory Rate 18 05/29/17 12:50 Blood Pressure 171/75 05/29/17 12:50 O2 Sat by Pulse Oximetry (%) 99 05/29/17 09:00 Constitutional: Yes: Calm Eyes: Yes: Conjunctiva Clear HENT: Yes: Atraumatic Neck: Yes: Supple Cardiovascular: Yes: S1, S2 Respiratory: Yes: CTA Bilaterally Gastrointestinal: Yes: Soft, Abdomen, Obese Genitourinary: Yes: WNL Extremities: Yes: Amputation Edema: No Integumentary: Yes: Tattoos Neurological: Yes: Oriented Psychiatric: Yes: Oriented Labs: CBC, BMP 05/29/17 10:05 05/29/17 10:05 Problem List - Problems (1) ESRD (end stage renal disease) Code(s): N18.6 - END STAGE RENAL DISEASE (2) HTN (hypertension) Code(s): I10 - ESSENTIAL (PRIMARY) HYPERTENSION (3) RUQ abdominal pain Code(s): R10.11 - RIGHT UPPER QUADRANT PAIN Assessment/Plan Current Medications Generic Name Dose Route Start Last Admin Trade Name Freq PRN Reason Stop Dose Admin Amlodipine Besylate 5 mg 05/26/17 10:00 05/29/17 13:24 Norvasc - PO 5 mg DAILY [facility] Administration Aspirin 81 mg 05/23/17 10:00 05/29/17 13:23 Asa - PO 81 mg DAILY [facility] Administration Atorvastatin Calcium 40 mg 05/22/17 22:00 05/28/17 22:14 Lipitor - PO 40 mg HS [facility] Administration Baclofen 5 mg 05/22/17 22:00 05/29/17 13:24 Lioresal - PO 5 mg TID [facility] Administration Bismuth Subsalicylate 524 mg 05/25/17 13:15 05/28/17 19:58 Pepto-Bismol - PO 524 mg DAILY PRN Administration DIARRHEA Calcium Carbonate 650 mg 05/25/17 13:15 05/29/17 13:23 Calcium Carbonate - PO 650 mg DAILY [facility] Administration Clopidogrel Bisulfate 75 mg 05/23/17 10:00 05/29/17 13:25 Plavix - PO 75 mg DAILY [facility] Administration Dicyclomine HCl 10 mg 05/23/17 22:00 05/29/17 13:23 Bentyl - PO 10 mg BID [facility] Administration Docusate Sodium 300 mg 05/22/17 22:00 05/28/17 22:13 Colace - PO 300 mg HS [facility] Administration Folic Acid 1 mg 05/23/17 10:00 05/29/17 13:24 Folic Acid - PO 1 mg DAILY [facility] Administration Gabapentin 200 mg 05/28/17 22:00 05/28/17 22:13 Neurontin - PO 200 mg HS [facility] Administration Hyoscyamine Sulfate 0.125 mg 05/25/17 10:30 05/29/17 13:25 Levsin Odt - PO 0.125 mg TID [facility] Administration Insulin Aspart 1 vial 05/28/17 08:00 05/29/17 13:22 Novolog Vial Sliding Scale - SQ 2 units 0745,1145,1715,2200 [facility] Administration Protocol Insulin Detemir 10 units 05/26/17 07:00 05/29/17 06:29 Levemir Vial SQ 10 units DAILY@0700 [facility] Administration Losartan Potassium 100 mg 05/24/17 10:00 05/29/17 13:24 Cozaar - PO 100 mg DAILY [facility] Administration Metoprolol Succinate 50 mg 05/23/17 22:00 05/29/17 13:24 Toprol Xl - PO 50 mg BID [facility] Administration Multivit/Ca Carb/B Cmplx/FA/Prenat 1 tablet 05/23/17 10:00 05/29/17 13:25 Nephro-Ingris - PO 1 tablet DAILY [facility] Administration Pantoprazole Sodium 40 mg 05/24/17 11:16 05/29/17 13:25 Protonix - PO 40 mg BID [facility] Administration Polyethylene Glycol 17 gm 05/23/17 10:00 05/29/17 13:25 Miralax (For Bowel Prep) - PO Not Given DAILY [facility] Senna 2 tab 05/22/17 22:00 05/28/17 22:14 Senna - PO 2 tab HS [facility] Administration Tamsulosin HCl 0.4 mg 05/23/17 22:00 05/28/17 22:14 Flomax - PO 0.4 mg HS [facility] Administration Impression 1. ESRD 2. abdominal pain 3. copd 4. HTN 5. DM Plan - pt tolerated HD today - he has dialysis set up as outpt - will need GI follow up after discharge, he has an appointment Thursday at 3 pm - cont current meds - volume status is stable - will follow Dr Vicente
[2017-05-29 15:33] VITALS: BP 160/95; TEMP 98.2
--- NOTE | 2017-06-02 16:54 | PN ---
Physical Exam: SUBJECTIVE: Patient seen and examined sitting on edge of bed. Denies abdominal pain. OBJECTIVE: Vital Signs Temperature 98.2 F 05/29/17 14:00 Pulse Rate 61 05/29/17 12:50 Respiratory Rate 18 05/29/17 14:00 Blood Pressure 160/95 05/29/17 14:00 O2 Sat by Pulse Oximetry (%) 99 05/29/17 09:00 GENERAL: The patient is awake, alert, and fully oriented, in no acute distress. LUNGS: Breath sounds equal, clear to auscultation bilaterally, no wheezes, no crackles, no accessory muscle use. HEART: Regular rate and rhythm, S1, S2 without murmur, rub or gallop. ABDOMEN: Soft, nontender, nondistended, normoactive bowel sounds, no guarding, no rebound, no hepatosplenomegaly, no masses. EXTREMITIES: 2+ pulses, warm, well-perfused, no edema. NEUROLOGICAL: Cranial nerves II through XII grossly intact. Normal speech, gait not observed. PSYCH: Calm, cooperative. CBCD WBC 10.4 K/mm3 (4.0-10.0) H 05/23/17 06:00 RBC 3.95 M/mm3 (4.00-5.60) L 05/23/17 06:00 Hgb 12.2 GM/dL (11.7-16.9) 05/23/17 06:00 Hct 36.2 % (35.4-49) 05/23/17 06:00 MCV 91.7 fl (80-96) 05/23/17 06:00 MCHC 33.6 g/dl (32.0-35.9) 05/23/17 06:00 RDW 15.4 % (11.9-15.9) 05/23/17 06:00 Plt Count 241 K/MM3 (134-434) 05/23/17 06:00 MPV 7.4 fl (7.5-11.1) L 05/23/17 06:00 CMP Sodium 139 mmol/L (136-145) 05/23/17 06:00 Potassium 3.8 mmol/L (3.5-5.1) 05/23/17 06:00 Chloride 101 mmol/L (98-107) 05/23/17 06:00 Carbon Dioxide 31 mmol/L (21-32) 05/23/17 06:00 Anion Gap 7 (8-16) L 05/23/17 06:00 BUN 26 mg/dL (7-18) H 05/23/17 06:00 Creatinine 5.2 mg/dL (0.7-1.3) H 05/23/17 06:00 Creat Clearance w eGFR 11.45 (>60) 05/23/17 06:00 Calcium 8.6 mg/dL (8.5-10.1) 05/23/17 06:00 Total Bilirubin 0.6 mg/dL (0.2-1.0) 05/23/17 06:00 AST 15 U/L (15-37) D 05/23/17 06:00 ALT 15 U/L (12-78) 05/23/17 06:00 Alkaline Phosphatase 90 U/L (45-117) 05/23/17 06:00 Total Protein 7.4 g/dl (6.4-8.2) 05/23/17 06:00 Albumin 3.4 g/dl (3.4-5.0) 05/23/17 06:00 Active Medications Generic Name Dose Route Start Last Admin Trade Name Freq PRN Reason Stop Dose Admin Aspirin 81 mg 05/23/17 10:00 05/23/17 09:16 Asa - PO 81 mg DAILY [facility] Administration Atorvastatin Calcium 40 mg 05/22/17 22:00 05/22/17 21:27 Lipitor - PO 40 mg HS [facility] Administration Baclofen 5 mg 05/22/17 22:00 05/23/17 14:27 Lioresal - PO 5 mg TID [facility] Administration Clopidogrel Bisulfate 75 mg 05/23/17 10:00 05/23/17 09:18 Plavix - PO 75 mg DAILY [facility] Administration Dicyclomine HCl 10 mg 05/23/17 22:00 Bentyl - PO BID [facility] Docusate Sodium 300 mg 05/22/17 22:00 05/22/17 21:27 Colace - PO 300 mg HS [facility] Administration Folic Acid 1 mg 05/23/17 10:00 05/23/17 09:17 Folic Acid - PO 1 mg DAILY [facility] Administration Gabapentin 100 mg 05/22/17 22:00 05/22/17 21:24 Neurontin - PO 100 mg HS [facility] Administration Pantoprazole Sodium 40 mg/ 100 mls @ 200 mls/hr 05/23/17 17:00 05/23/17 17:20 Sodium Chloride IVPB 200 mls/hr BID [facility] Administration Insulin Aspart 0 units 05/22/17 22:00 05/23/17 17:12 Novolog Vial SQ 2 units ACHS [facility] Administration Protocol Metoprolol Succinate 50 mg 05/23/17 22:00 Toprol Xl - PO BID [facility] Multivit/Ca Carb/B Cmplx/FA/Prenat 1 tablet 05/23/17 10:00 05/23/17 09:16 Nephro-Ingris - PO 1 tablet DAILY [facility] Administration Polyethylene Glycol 17 gm 05/23/17 10:00 05/23/17 09:21 Miralax (For Bowel Prep) - PO Not Given DAILY [facility] Senna 2 tab 05/22/17 22:00 05/22/17 21:28 Senna - PO 2 tab HS [facility] Administration Tamsulosin HCl 0.4 mg 05/23/17 22:00 Flomax - PO HS [facility] ASSESSMENT/PLAN: 56 year-old male, resident of [place], with a PMH significant for HTN, CAD s/ p stents, DM, and ESRD (MWF), PVD s/p right BKA. Presented to the ED from the dialysis center after stopping the session after 20 minutes because of abdominal pain. Abdominal pain secondary to ampullary spasm --pain has subsided on current regimen, no further recurrence --continue baclofen, Bentyl, gabapentin, protonix ESRD on HD --HD today --Dr. Vicente following Hypertension --BP elevated, switched metoprolol to Toprol XL CAD --continue Toprol XL, ASA, Plavix, Lipitor Dispo: continues to require inpatient care. Full Code. Visit type - Emergency Visit Emergency Visit: Yes ED Registration Date: 05/23/17 Care time: The patient presented to the Emergency Department on the above date and was hospitalized for further evaluation of their emergent condition. - New Patient This patient is new to me today: No - Critical Care Critical Care patient: No
== END 2017-05-29 16:50 ==
LOC: JER 08:00 → JERBED 15:58 → J5S 18:25 → OBSVTOIN 05-23 15:45
PROVIDERS: ADMIT Internal Medicine; ATTEND Nurse Practitioner Acute Care
PROC: 5A1D60Z (ICD-10-PCS; principal; 2017-05-27)
DX: K83.4 Spasm of sphincter of Oddi (principal); I12.0 Hypertensive chronic kidney disease with stage 5 chronic kidney disease or end stage renal disease; E11.22 Type 2 diabetes mellitus with diabetic chronic kidney disease; N18.6 End stage renal disease; Z99.2 Dependence on renal dialysis; J44.9 Chronic obstructive pulmonary disease, unspecified; I25.10 Atherosclerotic heart disease of native coronary artery without angina pectoris; Z95.5 Presence of coronary angioplasty implant and graft; K21.9 Gastro-esophageal reflux disease without esophagitis; I44.0 Atrioventricular block, first degree; Z89.511 Acquired absence of right leg below knee; Z87.891 Personal history of nicotine dependence; E66.9 Obesity, unspecified; Z68.32 Body mass index [BMI] 32.0-32.9, adult
CPT/HCPCS: 36415; 71010-TC; 71250-TC; 71275-TC; 76705-TC; 80048; 80053; 81003; 81015; 82553; 82565; 83690; 83735; 84100; 84484; 84520; 85025; 85027; 87086; 90688; 93005; 93010; 93970-TC; 97161-GP; 99285-25; G0008; G0378; J0475; J1644

== ENCOUNTER 2017-06-04 07:26 | Day surgery (SDC) | payer OTHER ==
[2017-06-04] MEDS ORDERED: PROPOFOL 20 ML ONE ×2 (08:14)
[2017-06-04 08:35] VITALS: BMI 32.3
[2017-06-04] MEDS ORDERED: SUCCINYLCHOLINE CHLORIDE 200 MG/10 ML VIAL ONE (08:45)
[2017-06-04 09:46] VITALS: TEMP 98.1
[2017-06-04 10:33] VITALS: BP 167/75; PULSE 64
--- NOTE | 2017-06-04 12:21 | PN ---
Progress Note (short form) - Note Progress Note: please see scanned procedure report Visit type - Emergency Visit Emergency Visit: No - New Patient This patient is new to me today: No - Critical Care Critical Care patient: No
--- NOTE | 2017-06-04 16:02 | PROC ---
Endoscopy Procedure Endoscopy procedure completed. Please see scanned procedure report.
--- NOTE | 2017-06-05 13:31 | PATH ---
Surgical Pathology Report Patient Name: KERON SÁNCHEZ [facility]. Rec. #: [id number] /Age/Gender: 1960 (Age: 56) / M Account: [id number] Location: [facility]-ENDOSCOPY Taken: 06/04/2017 Received: 06/04/2017 Reported: 06/05/2017 Physicians: Farhan Serna M.D. Specimen(s) Received A: BX DUODENUM B: BX ANTRUM AND BODY C: BX DISTAL ESOPHAGUS D: BX MID ESOPHAGUS PLAQUE Clinical History Persistent epigastric pain Esophagitis, gastritis Final Diagnosis A. DUODENUM, BIOPSY: DUODENAL MUCOSA WITH FOCAL CAROLYN'S GLANDS HYPERPLASIA. NO HISTOLOGIC EVIDENCE OF GLUTEN SENSITIVE ENTEROPATHY (CELIAC DISEASE). B. STOMACH, ANTRUM AND BODY, BIOPSY: GASTRIC ANTRAL AND OXYNTIC MUCOSA WITH MILD TO MODERATE CHRONIC GASTRITIS AND REACTIVE GASTROPATHY. IMMUNOSTAIN FOR H. PYLORI IS NEGATIVE FOR ORGANISMS. C. ESOPHAGUS, DISTAL, BIOPSY: SQUAMOCOLUMNAR JUNCTIONAL MUCOSA WITH CHRONIC INFLAMMATION, REFLUX TYPE CHANGES AND FOCAL INTESTINAL METAPLASIA (SEE COMMENT). NEGATIVE FOR DYSPLASIA. Comment: The findings are compatible with Fernandes's esophagus in proper endoscopic settings. Endoscopic correlations and followup are suggested. D. ESOPHAGUS, MID, PLAQUE, BIOPSY: SQUAMOUS PAPILLOMA. NEGATIVE FOR DYSPLASIA. Electronically Signed Franco Wilson M.D. Gross Description A. Received in formalin, labeled "biopsy duodenum" are 2 ennis, irregular portions of soft tissue averaging 0.3 cm in greatest dimension. The specimens are submitted in toto in one cassette. B. Received in formalin, labeled "biopsy antrum and body" are 4 ennis, irregular portions of soft tissue ranging from 0.2-0.5 cm in greatest dimension. The specimens are submitted in toto in one cassette. C. Received in formalin, labeled "biopsy distal esophagus" are 5 ennis, irregular portions of soft tissue ranging from 0.1-0.4 cm in greatest dimension. The specimens are submitted in toto in one cassette. D. Received in formalin, labeled "biopsy mid esophagus plaque" is a ennis, irregular portion of soft tissue measuring 0.5 cm in greatest dimension. The specimen is submitted in toto in one cassette. DL/06/04/2017 saudi06/04/2017
== END 2017-06-04 10:33 ==
LOC: JASU-ENDO 07:26
PROVIDERS: ATTEND Internal Medicine Gastroenterology
PROC: 0DB68ZX Excision of Stomach, Via Natural or Artificial Opening Endoscopic, Diagnostic (ICD-10-PCS; 2017-06-04)
PROC: 0DB58ZX Excision of Esophagus, Via Natural or Artificial Opening Endoscopic, Diagnostic (ICD-10-PCS; 2017-06-04)
PROC: 0DB98ZX Excision of Duodenum, Via Natural or Artificial Opening Endoscopic, Diagnostic (ICD-10-PCS; principal; 2017-06-04 08:00)
DX: K31.7 Polyp of stomach and duodenum (principal); K29.70 Gastritis, unspecified, without bleeding
CPT/HCPCS: 88305-TC; 88342-TC

== ENCOUNTER 2017-08-26 04:55 | Inpatient (IN) | payer OTHER ==
--- NOTE | 2017-08-26 05:00 | PDOC ---
Attending Attestation - Resident Resident Name: Bola Salcedo - ED Attending Attestation I have performed the following: I have examined & evaluated the patient, The case was reviewed & discussed with the resident, I agree w/resident's findings & plan, Exceptions are as noted - Physicial Exam PE: 08/26/17 05:37 Physical Exam General Appearance: Yes: Appropriately Dressed .mild respiratory distress No: Intoxicated HEENT: positive: EOMI, ALEX, Normal ENT Inspection, Normal Voice, TMs Normal, Pharynx Normal. negative: Pale Conjunctivae, Photophobia, Scleral Icterus (R), Scleral Icterus (L) Neck: positive: Trachea midline, Normal Thyroid, Supple. negative: Tender, Rigid, Carotid bruit, Stridor, Lymphadenopathy (R), Lymphadenopathy (L), Thyromegaly Respiratory/Chest: positive: bilateral crackles and rhonchi, mild resp. distress negative: Chest Tender Accessory Muscle Use, Labored Respiration, RES , Crackles, Rales, Rhonchi, Stridor, Wheezing, Dullness Cardiovascular: positive: Regular Rhythm, Regular Rate, S1, S2. negative: Edema , JVD, Murmur, Bradycardia, Tachycardia Vascular Pulses: Dorsalis-Pedis (R): 2+, Doralis-Pedis (L): 2+ Gastrointestinal/Abdominal: positive: Normal Bowel Sounds, Flat, Soft. obese negative: Tender, Organomegaly, Pulsatile Mass, Increased Bowel Sounds, Decreased BS, Distended, Guarding, Rebound, Hernia, Hepatomegaly, Spleenomegaly Lymphatic: negative: Adenopathy, Tenderness Musculoskeletal: positive: Normal Inspection. negative: CVA Tenderness, Decreased Range of Motion Extremity: positive: Normal Capillary Refill, Normal Inspection, Normal Range of Motion, Pelvis Stable. negative: Tender, Pedal Edema, Swelling, Erythema Integumentary: positive: Normal Color, Dry, Warm. 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 negative: EOM Palsy, Facial Droop, Sensory Deficit <Lew Pulido - Last Filed: 08/26/17 05:37> - HPI HPI: 08/26/17 05:07 The patient is a 57 year old male with a significant PMH of ESRD (dialysis MWF) , diabetes, HTN, and CAD s/p stents who presents to the emergency department via EMS with cough and worsening short of breath over the past couple of days. The patient denies fevers or chills. Denies any other complaints. Allergies: NKDA - Medical Decision Making 08/26/17 05:[address] Shin regarding this patient. 08/26/17 06:15 Second call put out. No callback from Dr. Shin for first call. 08/26/17 06:40 Third call put out. No callback from Dr. hSin for second call. <Hector Storey - Last Filed: 08/26/17 06:41> Heart Score/ECG Review #1 08/26/17 05:07 Vent rate 93 bpm Normal sinus rhythm Possible left atrial enlargement Borderline ECG <Hector Storey - Last Filed: 08/26/17 06:41>
[2017-08-26] MEDS ORDERED: FUROSEMIDE 40 MG/4 ML INJECTABLE VIAL IVPUSH ONE (05:07)
[2017-08-26] MEDS ORDERED: morphine CARPU-JECT 4 MG/1 ML DISP.SYRIN IVPUSH ONE (05:11)
--- NOTE | 2017-08-26 05:16 | PDOC ---
History of Present Illness - General Chief Complaint: Shortness of Breath Stated Complaint: S.O.B. Time Seen by Provider: 08/26/17 04:59 - History of Present Illness Initial Comments: 08/26/17 05:10 Pt is a 57 M w/ PMH CABG & stent, COPD, asthma, ESRD on HD MWF who was BIBEMS from [facility] for resp distress. Pt missed dialysis on Mon because of [place]. He also had a cough for the last 2 days. Today he suddenly felt much worse and has progressively worsened since around 3am. In ED pt is in respiratory distress, with diaphoresis, paradoxical respiration, and expressing sense of impending doom. O2 sat currently 96% on 2L. Pt complains of chest pain with respirations. Denies abdominal pain. Past History - Past Medical History Allergies/Adverse Reactions: Allergies Allergy/AdvReac Type Severity Reaction Status Date / Time tree nut Allergy Verified 08/26/17 05:13 raw fruits Allergy Uncoded 08/26/17 05:13 Home Medications: Ambulatory Orders Aspirin [ASA -] 81 mg PO DAILY 05/18/17 Atorvastatin Ca [Lipitor] 40 mg PO HS 05/18/17 Azelastine HCl 137 mcg NS BID 05/18/17 Clopidogrel Bisulfate [Plavix -] 75 mg PO DAILY 05/18/17 Docusate Sodium [Colace -] 1 cap PO HS 05/18/17 Folic Acid 1 mg PO DAILY 05/18/17 Gabapentin 200 mg PO HS 05/18/17 Insulin Glargine,Hum.rec.anlog [Basaglar Kwikpen U-100] 20 unit SQ DAILY Insulin Lispro [Humalog] 10 unit SQ HS 05/18/17 Sennosides [Senna] 1 tab PO HS 05/18/17 Tamsulosin HCl [Flomax] 0.4 mg PO HS 05/18/17 Vitamin B Comp W-C [Nephro-Ingris -] 1 tablet PO DAILY 05/18/17 Calcium Carbonate - 650 mg PO DAILY #0 tablet 05/25/17 Metoprolol Succinate [Toprol Xl] 50 mg PO BID #30 tab.er.24h 05/28/17 Losartan Potassium [Cozaar -] 100 mg PO DAILY 06/04/17 Acetaminophen [Tylenol] 650 mg PO Q6H PRN 08/26/17 Baclofen [Lioresal -] 10 mg PO TID PRN MDD 3 08/26/17 Bismuth Subsalicylate [[place] Bismuth] 525 mg PO DAILY PRN 08/26/17 Cetirizine HCl [Zyrtec -] 10 mg PO DAILY 08/26/17 Clonidine Patch [Catapres Tts Patch -] 0.1 mg TD WEEKLY 08/26/17 Dexlansoprazole [Dexilant] 60 mg PO DAILY 08/26/17 Dextromethorphan/Benzocaine [Cepacol Sorethroat-Cough Henrry] 3 each PO DAILY 08/26 Dicyclomine HCl [Bentyl -] 20 mg PO BID 08/26/17 Hydralazine HCl [Apresoline -] 25 mg PO Q6H 08/26/17 Lifitegrast [Xiidra] 1 each OP BID 08/26/17 Metoprolol Tartrate [Lopressor -] 50 mg PO BID 08/26/17 Pantoprazole Sodium [Protonix -] 40 mg PO DAILY 08/26/17 Trazodone HCl 50 mg PO HS 08/26/17 Bacitracin - [Bacitracin Topical Ointment -] 1 applic TP DAILY 08/27/17 Calcium Acetate [Phoslo -] 667 mg PO TIDCM 08/27/17 Polyethylene Glycol 3350 [Miralax 119 gm Btl -] 17 gm PO DAILY 08/27/17 Tramadol HCl 100 mg PO BID PRN 08/27/17 Azithromycin 500 mg PO DAILY #7 tablet 08/28/17 Anemia: Yes Cardiac Disorders: Yes (CAD) COPD: Yes Diabetes: Yes Dialysis: Yes (MO-WE-FR) GI Disorders: Yes (GERD) HTN: Yes Hypercholesterolemia: (DYSLIPIDEMIA) - Surgical History Orthopedic Surgery: Yes (RIGHT BKA) - Suicide/Smoking/Psychosocial Hx Smoking History: Never smoked Have you smoked in the past 12 months: No Hx Alcohol Use: No Drug/Substance Use Hx: No Substance Use Type: None Review of Systems - Review of Systems Able to Perform ROS?: Yes Is the patient limited French proficient: No Constitutional: Yes: Symptoms Reported, Chills, Diaphoresis, Malaise. No: Fever HEENTM: Yes: Symptoms Reported. No: Blurred Vision, Recent change in vision Respiratory: Yes: Symptoms reported, Cough, Shortness of Breath (severe), SOB at Rest. No: Stridor, Wheezing Cardiac (ROS): Yes: Symptoms Reported, See HPI, Chest Pain (associated with breathing) ABD/GI: Yes: Symptoms Reported, Abdominal Distended. No: Constipated, Diarrhea , Nausea, Vomiting : Yes: Symptoms Reported (pt still makes small volumes of urine). No: Burning , Dysuria Musculoskeletal: Yes: Symptoms Reported. No: Back Pain *Physical Exam - Physical Exam General Appearance: Yes: Appropriately Dressed, Apparent Distress (mod-sev resp distress) HEENT: positive: EOMI, ALEX, Normal ENT Inspection, Pharynx Normal Neck: positive: Trachea midline, Supple. negative: Tender, Stridor Respiratory/Chest: positive: Chest Tender, Respiratory Distress, Rapid RR, Paradoxal Breathing, Crackles, Rhonchi. negative: Lungs Clear (diffuse crackles ), Decreased Breath Sounds, Stridor Cardiovascular: positive: Regular Rhythm, S1, S2, Tachycardia. negative: JVD, Murmur Vascular Pulses: Dorsalis-Pedis (R): 0 (R bka), Doralis-Pedis (L): 1+ Gastrointestinal/Abdominal: positive: Normal Bowel Sounds, Soft, Protuberent ( obese). negative: Tender, Distended Extremity: negative: Normal Capillary Refill, Normal Inspection (multiple small lesions) Neurologic: positive: Fully Oriented, Alert ED Treatment Course - LABORATORY CBC & Chemistry Diagram: 08/28/17 09:30 08/28/17 09:30 Medical Decision Making - Medical Decision Making 08/26/17 05:20 Pt is a 57M w/ PMH CABG, stent, COPD, asthma, ESRD on HD (MWF) who came to ED with respiratory distress after missing his dialysis appointment on Thu. -Resp -NIPPV -CBC -CMP -Mg -PT/INR -Lasix -Morphine -Nitro 08/26/17 05:44 Pt placed on NIPPV 08/26/17 06:26 Several attempts by multiple nurses to establish IV access unsuccessful. Considering EJ line, but pt might not tolerate lying flat. Pt currently looks much better clinically than when he came in, but still tachypnic. Pt was given nitro patch *DC/Admit/Observation/Transfer Diagnosis at time of Disposition: End stage chronic kidney disease, Hyperkalemia, HTN (hypertension) - Discharge Dispostion Condition at time of disposition: Guarded - Prescriptions - Referrals - Patient Instructions - Post Discharge Activity
[2017-08-26 05:27] VITALS: BMI 33.3
[2017-08-26] MEDS ORDERED: morphine CARPU-JECT 10 MG/1 ML DISP.SYRIN ONE (05:44)
[2017-08-26] MEDS ORDERED: FUROSEMIDE 40 MG/4 ML INJECTABLE VIAL ONE (05:45)
[2017-08-26] MEDS ORDERED: NITROGLYCERIN 25MG/D5W 250ML 25 MG/250 ML ML IVPB ONE (05:45)
[2017-08-26] MEDS ORDERED: NITROGLYCERIN 2% OINTMENT - 1GM PACKET TD ONE ×2 (05:59→06:25)
--- NOTE | 2017-08-26 07:54 | PDOC ---
*Physical Exam - Vital Signs Last Vital Signs Temp Pulse Resp BP Pulse Ox 100 F H 92 H 22 204/81 94 L 08/26/17 05:09 08/26/17 05:09 08/26/17 05:09 08/26/17 05:09 08/26/17 05:09 <Hoang Barksdale - Last Filed: 08/26/17 11:36> - Vital Signs Last Vital Signs Temp Pulse Resp BP Pulse Ox 100 F H 92 H 22 204/81 94 L 08/26/17 05:09 08/26/17 05:09 08/26/17 05:09 08/26/17 05:09 08/26/17 05:09 - Physical Exam Comments: 08/26/17 07:58 GENERAL: Awake, alert, and fully oriented, on bipap HEAD: No signs of trauma, normocephalic, atraumatic EYES: PERRLA, EOMI, sclera anicteric, conjunctiva clear ENT: Auricles normal inspection, hearing grossly normal, nares patent, oropharynx clear without exudates. Moist mucosa NECK: Normal ROM, supple, no lymphadenopathy, JVD, or masses LUNGS: On bipap, rales bilaterally HEART: Regular rate and rhythm, normal S1 and S2, no murmurs, rubs or gallops, peripheral pulses normal and equal bilaterally. ABDOMEN: Soft, nontender, normoactive bowel sounds. No guarding, no rebound. No masses NEUROLOGICAL: Cranial nerves II through XII grossly intact. Normal speech, no focal sensorimotor deficits SKIN: Warm, Dry, normal turgor, no rashes or lesions noted. <Dat Becker - Last Filed: 08/26/17 19:18> Heart Score/ECG Review - ECG Impressions Comment:: 08/26/17 10:36 Twelve-lead EKG was performed and reviewed by me. There is normal sinus rhythm with a normal rate. Rate of 65 First degree AV block (presnt on previous ekg) <Hoang Barksdale - Last Filed: 08/26/17 11:36> ED Treatment Course - LABORATORY CBC & Chemistry Diagram: 08/26/17 07:45 08/26/17 07:45 - ADDITIONAL ORDERS Additional order review: Laboratory Results 08/26/17 08/26/17 07:45 07:45 PT with INR 10.50 INR 0.93 Sodium 141 Potassium 7.4 H* D Chloride 110 H Carbon Dioxide 18 L D Anion Gap 13 BUN 91 H D Creatinine 9.0 H* D Creat Clearance w eGFR 6.06 Random Glucose 168 H Calcium 8.5 Magnesium 1.8 Total Bilirubin 0.2 D AST 22 D ALT 25 D Alkaline Phosphatase 103 Creatine Kinase 287 Creatine Kinase Index 2.7 CK-MB (CK-2) 7.939 H Troponin I 0.14 H D B-Natriuretic Peptide 11890.99 H Total Protein 7.5 Albumin 3.5 08/26/17 07:45 RBC 3.62 L MCV 96.4 H MCHC 32.1 RDW 14.9 MPV 8.1 Neutrophils % No Result Required. Lymphocytes % No Result Required. - Medications Given in the ED: ED Medications Discontinued Medications Generic Name Dose Route Start Last Admin Trade Name Freq PRN Reason Stop Dose Admin Dextrose 25 gm 08/26/17 09:06 08/26/17 09:47 D50w (Vial) - IVPUSH 08/26/17 09:07 25 gm NOW ONE Administration Furosemide 80 mg 08/26/17 05:07 08/26/17 08:56 Lasix Injection - IVPUSH 08/26/17 05:08 80 mg ONCE ONE Administration Insulin Human Regular 10 units 08/26/17 09:07 08/26/17 09:47 Novolin R Vial *For Ivpush Or Iv Drip Only* IVPUSH 08/26/17 09:08 10 unit ONCE ONE Administration Morphine Sulfate 6 mg 08/26/17 05:11 08/26/17 08:56 Morphine Injection - IVPUSH 08/26/17 05:12 Not Given ONCE ONE Nitroglycerin 1 inch 08/26/17 05:59 08/26/17 06:38 Nitro-Bid 2% Paste - TD 08/26/17 06:00 1 inch ONCE ONE Administration <Apolonia,Hoang - Last Filed: 08/26/17 11:36> - LABORATORY CBC & Chemistry Diagram: 08/26/17 07:45 08/26/17 07:45 - Medications Given in the ED: ED Medications Discontinued Medications Generic Name Dose Route Start Last Admin Trade Name Freq PRN Reason Stop Dose Admin Nitroglycerin 1 inch 08/26/17 05:59 08/26/17 06:38 Nitro-Bid 2% Paste - TD 08/26/17 06:00 1 inch ONCE ONE Administration <EugenioDat - Last Filed: 08/26/17 19:18> Medical Decision Making - Medical Decision Making 08/26/17 11:37 pt presenting with fluid overload, hyperkalemia in setting of missing dialysis. pt currently stable on bipap discussed with dr. 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 Admitting physician has assumed care for the patient, will follow all pending diagnostics and will complete the evaluation and treatment. CRITICAL CARE DOCUMENTATION: I spent ~35 minutes of Critical Care time, excluding separately billable procedures, involving high complexity decision making to assess, manipulate and support vital system function(s) to treat single or multiple vital organ system failure and/or to prevent further life threatening deterioration of the patient' s condition. <Hoang Barksdale - Last Filed: 08/26/17 11:36> - Critical Care Time Total Critical Care Time (minutes): 30 Critical Care Statement: The care of this patient involved high complexity decision making to prevent further life threatening deterioration of the patient 's condition and/or to evaluate & treat vital organ system(s) failure or risk of failure. - Medical Decision Making 08/26/17 07:52 US IV placed, able to draw labs but line unstable and not usable. Patient remains without IV access. Patient on bipap, resting comfortably, satting 100% breathing 16 times per minute, satting 100%, HR in mid 60s. Report taken from Dr Salcedo. Patient is 57M ESRD and multiple heart issues here today with SOB. Improved on bipap. Patient is fluid overloaded. Missed dialysis on Thursday due to holiday. Due for dialysis today. Plan is to get patient dialysis. Calls out to patient's PMD. 08/26/17 08:10 BP 188/85, down from systolic of 205. Patient resting in bed on bipap. 08/26/17 09:23 Laboratory Tests 08/26/17 08/26/17 07:45 07:45 WBC 19.3 H D Hgb 11.2 L Hct 34.9 L Plt Count 218 Potassium 7.4 H* D Creatinine 9.0 H* D Troponin I 0.14 H D B-Natriuretic Peptide 48634.99 H EKG shows normal sinus rhythm with 1st degree block, same as EKG in done in May. K value of 7.4. Will given calcium gluconate, albuterol, insulin 10, d50. WBC 19, EKG shows likely fluid overload. Believe that this is most likely CHF exacerbation, but picture clouded by white count, temp 100 orally, rapid respiratory rate, recent inpatient admission in May. Will cover for hcap with vanc/zosyn. Trop positive to .14, BNP 19.5k, consistent with fluid overload. Dr Vicente paged for nephrology. 08/26/17 10:12 Dr Good paged. Message left on personal cell phone. 08/26/17 10:54 Dr Shin contacted, patient was seen by her, but not affiliated with [facility] anymore. Dr Good declined admission as well, said it goes to [facility]. Patient is upset over his lost cell phone. Pulled out IV looking for his phone. Will attempt to re-establish access. 08/26/17 19:17 Admitted to [facility] for dialysis. <Dat Becker - Last Filed: 08/26/17 19:18> *DC/Admit/Observation/Transfer - Discharge Dispostion Admit: Yes <Hoang Barksdale - Last Filed: 08/26/17 11:36> <Dat Becker - Last Filed: 08/26/17 19:18> Diagnosis at time of Disposition: End stage chronic kidney disease, Hyperkalemia HTN (hypertension) Qualifiers: Hypertension type: unspecified Qualified Code(s): I10 - Essential (primary) hypertension - Discharge Dispostion Condition at time of disposition: Guarded
[2017-08-26 08:05] LABS: HEMATOCRIT 34.9 % (35.4-49); HEMOGLOBIN 11.2 GM/dL (11.7-16.9); MCHC 32.1 g/dl (32.0-35.9); MEAN CELL VOLUME 96.4 fl (80-96); MEAN PLT VOLUME 8.1 fl (7.5-11.1); PLATELET COUNT 218 K/MM3 (134-434); RBC 3.62 M/mm3 (4.00-5.60); RDW 14.9 % (11.9-15.9); WHITE BLOOD COUNT 19.3 K/mm3 (4.0-10.0)
[2017-08-26 08:49] LABS: INR 0.93 (0.82-1.09); PROTHROMBIN TIME (PATIENT) 10.5 SEC (9.98-11.88)
[2017-08-26 08:52] LABS: ALBUMIN 3.5 g/dl (3.4-5.0); ANION GAP 13 (8-16); BILIRUBIN,TOTAL 0.2 mg/dL (0.2-1.0); BLOOD UREA NITROGEN 91 mg/dL (7-18); CALCIUM 8.5 mg/dL (8.5-10.1); CHLORIDE 110 mmol/L (98-107); CO2 18 mmol/L (21-32); GLUCOSE,RANDOM 168 mg/dL (74-106); MAGNESIUM 1.8 mg/dL (1.8-2.4); SGOT/AST 22 U/L (15-37); SGPT/ALT 25 U/L (12-78); SODIUM 141 mmol/L (136-145); TOT PROT 7.5 g/dl (6.4-8.2)
[2017-08-26] MEDS: NITROGLYCERIN 25MG/D5W 250ML 25 MG/250 ML ML IVPB SCH (08:56)
[2017-08-26 08:58] LABS: ALK PHOS 103 U/L (45-117); N-TERMINAL BNP 19543.99 pg/ml (5-125)
[2017-08-26 09:04] LABS: POTASSIUM 7.4 mmol/L (3.5-5.1)
[2017-08-26] MEDS ORDERED: DEXTROSE 50%-WATER - 25 GM/50 ML VIAL IVPUSH ONE (09:06)
[2017-08-26] MEDS ORDERED: INSULIN REGULAR HUMAN 100 UNITS/ML *VIAL IVPUSH ONE (09:07)
[2017-08-26] MEDS ORDERED: MAGNESIUM SULF 50% (8.12 MEQ/2 ML-1 GM VIAL) IVPB ONE (09:08)
[2017-08-26] MEDS ORDERED: SODIUM BICARBONATE 8.4% 50 MEQ/50 ML DISP.SYRIN IVPUSH ONE (09:08)
[2017-08-26] MEDS ORDERED: CALCIUM GLUCONATE 10% - 1,000 MG/10 ML VIAL IVPB ONE (09:11)
[2017-08-26] MEDS ORDERED: PIPERACILLIN/TAZOB 4.5 GM/100 ML PREMIX BAG IVPB ONE (09:19)
[2017-08-26] MEDS ORDERED: VANCOMYCIN 1,000 MG in DEXTROSE 5%-WATER - 250 ML IVPB ONE (09:19)
[2017-08-26] MEDS ORDERED: CALCIUM GLUCONATE 10% - 1,000 MG/10 ML VIAL ONE (09:32)
[2017-08-26] MEDS ORDERED: DEXTROSE 50%-WATER 25 GM/50 ML DISP.SYRIN ONE (09:32)
[2017-08-26] MEDS ORDERED: INSULIN NPH 100 UNITS/ML *VIAL ONE (09:33)
[2017-08-26] MEDS ORDERED: SODIUM BICARBONATE 8.4% 50 MEQ/50 ML VIAL ONE (09:33)
[2017-08-26] MEDS ORDERED: PIPERACILLIN/TAZOB 4.5 GM 4.5 GM in DEXTROSE 5%-WATER - 100 ML IVPB ONE (09:45)
[2017-08-26] MEDS ORDERED: HEPARIN NA (PORCINE) 5,000 UNITS/ML 1ML VIAL IVPUSH ONE (10:08)
[2017-08-26] MEDS ORDERED: PIPERACILLIN/TAZOB 4.5 GM 4.5 GM/100 ML BAG IVPB ONE (10:12)
[2017-08-26] MEDS ORDERED: VANCOMYCIN 1 GRAM (PRE-DOCKED) 1,000 MG/250 ML BAG IVPB ONE (10:13)
[2017-08-26 11:10] LABS: ARTERIAL BLD GAS O2 SATURATION 98.6 % (90-98.9); ARTERIAL BLOOD GAS BASE EXCESS -7.6 meq/l (-2-2); ARTERIAL BLOOD GAS PCO2 41.1 mmHg (35-45); ARTERIAL BLOOD GAS pH 7.27 (7.35-7.45); CARBOXYHEMOGLOBIN 0.4 gm% (0.5-2.0)
--- NOTE | 2017-08-26 12:25 | HP ---
Admitting History and Physical - Primary Care Physician PCP: Juju Fontenot - Admission Chief Complaint: ESRD History of Present Illness: Pt is a 57 M w/ PMH CABG & stent, COPD, asthma, ESRD on HD MWF who was BIBEMS from [facility] for resp distress. Pt missed dialysis on Mon because of [place]. He also had a cough for the last 2 days. Today he suddenly felt much worse and has progressively worsened since around 3am. In ED pt is in respiratory distress, with diaphoresis, paradoxical respiration, and expressing sense of impending doom. O2 sat currently 96% on 2L. Pt complains of chest pain with respirations. Denies abdominal pain. History Source: Patient, Medical Record Limitations to Obtaining History: No Limitations - Past Medical History Cardiovascular: Yes: HTN Pulmonary: Yes: COPD Renal/: Yes: Hemodialysis, Other (esrd) Heme/Onc: Yes: Anemia Endocrine: Yes: Diabetes Mellitus - Smoking History Smoking history: Never smoked Have you smoked in the past 12 months: No - Alcohol/Substance Use Hx Alcohol Use: No Home Medications - Allergies Allergies/Adverse Reactions: Allergies Allergy/AdvReac Type Severity Reaction Status Date / Time tree nut Allergy Verified 08/26/17 05:13 raw fruits Allergy Uncoded 08/26/17 05:13 - Home Medications Home Medications: Ambulatory Orders Aspirin [ASA -] 81 mg PO DAILY 05/18/17 Atorvastatin Ca [Lipitor] 40 mg PO HS 05/18/17 Azelastine HCl 137 mcg NS BID 05/18/17 Clopidogrel Bisulfate [Plavix -] 75 mg PO DAILY 05/18/17 Docusate Sodium [Colace -] 1 cap PO HS 05/18/17 Folic Acid 1 mg PO DAILY 05/18/17 Gabapentin 200 mg PO HS 05/18/17 Insulin Glargine,Hum.rec.anlog [Basaglar Kwikpen U-100] 20 unit SQ DAILY Insulin Lispro [Humalog] 10 unit SQ HS 05/18/17 Sennosides [Senna] 1 tab PO HS 05/18/17 Tamsulosin HCl [Flomax] 0.4 mg PO HS 05/18/17 Vitamin B Comp W-C [Nephro-Ingris -] 1 tablet PO DAILY 05/18/17 Calcium Carbonate - 650 mg PO DAILY #0 tablet 05/25/17 Metoprolol Succinate [Toprol Xl] 50 mg PO BID #30 tab.er.24h 05/28/17 Losartan Potassium [Cozaar -] 100 mg PO DAILY 06/04/17 Acetaminophen [Tylenol] 650 mg PO Q6H PRN 08/26/17 Baclofen [Lioresal -] 10 mg PO TID PRN MDD 3 08/26/17 Bismuth Subsalicylate [[place] Bismuth] 525 mg PO DAILY PRN 08/26/17 Cetirizine HCl [Zyrtec -] 10 mg PO DAILY 08/26/17 Clonidine Patch [Catapres Tts Patch -] 0.1 mg TD WEEKLY 08/26/17 Dexlansoprazole [Dexilant] 60 mg PO DAILY 08/26/17 Dextromethorphan/Benzocaine [Cepacol Sorethroat-Cough Henrry] 3 each PO DAILY 08/26 Dicyclomine HCl [Bentyl -] 20 mg PO BID 08/26/17 Hydralazine HCl [Apresoline -] 25 mg PO Q6H 08/26/17 Lifitegrast [Xiidra] 1 each OP BID 08/26/17 Metoprolol Tartrate [Lopressor -] 50 mg PO BID 08/26/17 Pantoprazole Sodium [Protonix -] 40 mg PO DAILY 08/26/17 Trazodone HCl 50 mg PO HS 08/26/17 Bacitracin - [Bacitracin Topical Ointment -] 1 applic TP DAILY 08/27/17 Calcium Acetate [Phoslo -] 667 mg PO TIDCM 08/27/17 Polyethylene Glycol 3350 [Miralax (For Daily Use) -] 17 gm PO DAILY 08/27/17 Tramadol HCl 100 mg PO BID PRN 08/27/17 Review of Systems - Review of Systems Constitutional: reports: Weakness Eyes: reports: No Symptoms HENT: reports: No Symptoms Neck: reports: No Symptoms Cardiovascular: reports: Shortness of Breath Respiratory: reports: SOB, SOB on Exertion Gastrointestinal: reports: No Symptoms Genitourinary: reports: No Symptoms Breasts: reports: No Symptoms Reported Musculoskeletal: reports: No Symptoms Integumentary: reports: No Symptoms Neurological: reports: No Symptoms Endocrine: reports: No Symptoms Hematology/Lymphatic: reports: No Symptoms Psychiatric: reports: No Symptoms Physical Examination Vital Signs: Vital Signs Temperature 100 F H 08/26/17 05:09 Pulse Rate 92 H 08/26/17 05:09 Respiratory Rate 22 08/26/17 05:09 Blood Pressure 204/81 08/26/17 05:09 O2 Sat by Pulse Oximetry (%) 94 L 08/26/17 05:09 Constitutional: Yes: Well Nourished, No Distress, Anxious Cardiovascular: Yes: Regular Rate and Rhythm Respiratory: Yes: SOB Gastrointestinal: Yes: Normal Bowel Sounds, Abdomen, Obese Musculoskeletal: Yes: WNL Extremities: Yes: Amputation (RLE) Edema: No Neurological: Yes: Alert, Oriented Psychiatric: Yes: Alert, Oriented Labs: CBC, BMP 08/26/17 07:45 08/26/17 07:45 Imaging - Results Chest X-ray: Report Reviewed Problem List - Problems (1) Acute and chronic respiratory failure with hypoxia Assessment/Plan: -nasal o2 -neb tx -pulmonary consult Code(s): J96.21 - ACUTE AND CHRONIC RESPIRATORY FAILURE WITH HYPOXIA (2) CAD (coronary artery disease) Assessment/Plan: -cardiology consult -telemetry monitoring -Echo Code(s): I25.10 - ATHSCL HEART DISEASE OF [place] CORONARY ARTERY W/O ANG PCTRS (3) COPD (chronic obstructive pulmonary disease) Assessment/Plan: nasal o2 -neb tx -Pulmonary consult Code(s): J44.9 - CHRONIC OBSTRUCTIVE PULMONARY DISEASE, UNSPECIFIED (4) Elevated troponin Assessment/Plan: -may not be true value in light of ESRD -cardiology consult for further evaluation -Echo Code(s): R74.8 - ABNORMAL LEVELS OF OTHER SERUM ENZYMES (5) End stage chronic kidney disease Assessment/Plan: -Nephrology on board -Dialysis -continue to monitor Code(s): N18.6 - END STAGE RENAL DISEASE (6) HTN (hypertension) Assessment/Plan: fluctuating Code(s): I10 - ESSENTIAL (PRIMARY) HYPERTENSION Qualifiers: Hypertension type: unspecified Qualified Code(s): I10 - Essential (primary ) hypertension (7) Hyperkalemia Assessment/Plan: -needs dialysis Code(s): E87.5 - HYPERKALEMIA (8) Leukocytosis Assessment/Plan: -ID consult -cultures pending -afebrile now Code(s): D72.829 - ELEVATED WHITE BLOOD CELL COUNT, UNSPECIFIED Assessment/Plan see problem list
--- NOTE | 2017-08-26 13:09 | CONSULT ---
Consultation: REQUESTING PROVIDER: CONSULT REQUEST: We have been asked to medically evaluate this patient for hyperkalemia HISTORY OF PRESENT ILLNESS: This is a 57 yo M with PMH of ESRD on HD MWF, CAD s/p CABG & stent, COPD not on O2, asthma, BIBEMS from [facility] for resp distress. Patient reports "laryngitis" for the past 3 days with runny nose, sore throat and loss of voice. Last night he developed a cough productive of clear sputum, with orthopnea and sob. He denenied CP, chest discompfort or pressure, fever or chills. In ED he is initially tachypneic but satting 100% on 2L O2. Found to have hyperkalemia 7.4 w/o EKG changes and a trop 0.14, above baseline of 0.05. Treated with hyperkalemia cocktail, lasix 80 IV and placed on NTG gtt. His last HD was on Thursday and still makes urine. Patient reports recent tte and negative stress test 3 w ago. He denies dysuria, hematuria, flank pain, pelvic pain. Surgery: L bracheocephalic AVF, R BKA Smoking: former smoker Alcohol: no Drugs: no Family History: non-contributory Allergies tree nut Allergy (Verified 05/22/17 08:06) raw fruits Allergy (Uncoded 05/22/17 08:06) REVIEW OF SYSTEMS: CONSTITUTIONAL: Absent: fever, chills, weight change HEENT: Absent: difficulty swallowing CARDIOVASCULAR: Absent: chest pain, syncope, palpitations, irregular heart rate, lightheadedness , peripheral edema RESPIRATORY: Absent: wheezing, stridor, hemoptysis GASTROINTESTINAL: Absent: abdominal pain, abdominal distension, nausea, vomiting, diarrhea, constipation GENITOURINARY: Absent: dysuria, frequency, urgency, hesitancy, hematuria, flank pain MUSCULOSKELETAL: Absent: back pain, neck pain SKIN: Absent: rash, itching, pallor HEMATOLOGIC/IMMUNOLOGIC: Absent: easy bleeding, easy bruising, frequent infections ENDOCRINE: Absent: unexplained weight gain, unexplained weight loss, heat intolerance, cold intolerance NEUROLOGIC: Absent: headache, focal weakness or paresthesias PSYCHIATRIC: Absent: anxiety, depression PHYSICAL EXAMINATION Vital Signs - 24 hr 08/26/17 05:09 Temperature 100 F H Pulse Rate 92 H Respiratory 22 Rate Blood Pressure 204/81 O2 Sat by Pulse 94 L Oximetry (%) GENERAL: Awake, alert, and fully oriented, in mild respiratory distress on NC. does not appear grossly volume overloaded HEAD: Normal with no signs of trauma. EYES: Pupils equal, round and reactive to light, extraocular movements intact, sclera anicteric, conjunctiva clear. No lid lag. EARS, NOSE, THROAT: Moist mucous membranes. NECK: supple without JVD LUNGS: diffusely restricted breath sounds, no wheezes. HEART: Regular rate and rhythm, normal S1 and S2 ABDOMEN: Soft, obese, nontender, not distended, normoactive bowel sounds, MUSCULOSKELETAL: No CVA tenderness. UPPER EXTREMITIES: 2+ pulses, warm, well-perfused. No cyanosis. No clubbing. Cap refill <2 seconds. No peripheral edema. L bracheocephalic fistula + thrill LOWER EXTREMITIES: 1+ pulses, warm, well-perfused. No calf tenderness. 1+ peripheral edema and stasis dermatitis b/l. NEUROLOGICAL: Cranial nerves II-XII grossly intact. Normal speech. PSYCHIATRIC: Cooperative. Good eye contact. Appropriate mood and affect. SKIN: Warm, dry, stasis dermatitis as above Laboratory Results - last 24 hr 08/26/17 08/26/17 08/26/17 07:45 07:45 07:45 WBC 19.3 H D RBC 3.62 L Hgb 11.2 L Hct 34.9 L MCV 96.4 H MCH 31.0 MCHC 32.1 RDW 14.9 Plt Count 218 MPV 8.1 Neutrophils % No Result Required. Lymphocytes % No Result Required. PT with INR 10.50 INR 0.93 Puncture Site ABG pH ABG pCO2 at Pt Temp ABG pO2 at Pt Temp ABG HCO3 ABG O2 Sat (Measured) ABG O2 Content ABG Base Excess Cristopher Test Carboxyhemoglobin Methemoglobin O2 Delivery Device Oxygen Flow Rate Vent Mode Vent Rate Mechanical Rate PEEP Sodium 141 Potassium 7.4 H* D Chloride 110 H Carbon Dioxide 18 L D Anion Gap 13 BUN 91 H D Creatinine 9.0 H* D Creat Clearance w eGFR 6.06 Random Glucose 168 H Calcium 8.5 Magnesium 1.8 Total Bilirubin 0.2 D AST 22 D ALT 25 D Alkaline Phosphatase 103 Creatine Kinase 287 Creatine Kinase Index 2.7 CK-MB (CK-2) 7.939 H Troponin I 0.14 H D B-Natriuretic Peptide 27881.99 H Total Protein 7.5 Albumin 3.5 08/26/17 11:05 WBC RBC Hgb Hct MCV MCH MCHC RDW Plt Count MPV Neutrophils % Lymphocytes % PT with INR INR Puncture Site No Result Required. ABG pH 7.27 L ABG pCO2 at Pt Temp 41.1 ABG pO2 at Pt Temp 165.0 H* ABG HCO3 18.3 L ABG O2 Sat (Measured) 98.6 ABG O2 Content 14.9 L ABG Base Excess -7.6 L Cristopher Test Not applicable Carboxyhemoglobin 0.4 L Methemoglobin 1.0 O2 Delivery Device Bipap Oxygen Flow Rate 40 Vent Mode S/t 15/6 Vent Rate 16 Mechanical Rate Yes PEEP 0.0 Sodium Potassium Chloride Carbon Dioxide Anion Gap BUN Creatinine Creat Clearance w eGFR Random Glucose Calcium Magnesium Total Bilirubin AST ALT Alkaline Phosphatase Creatine Kinase Creatine Kinase Index CK-MB (CK-2) Troponin I B-Natriuretic Peptide Total Protein Albumin Active Medications Generic Name Dose Route Start Last Admin Trade Name Freq PRN Reason Stop Dose Admin Heparin Sodium (Porcine) 6,000 unit 08/26/17 10:08 Heparin - IVPUSH 08/26/17 10:09 ONCE ONE Nitroglycerin/Dextrose 25 mg in 250 mls @ 6 mls/hr 08/26/17 05:15 08/26/17 08 :56 Nitroglycerin 25mg/D5w 250ml IVPB Not Given TITR LULU 10 MCG/MIN ASSESSMENT/PLAN: This is a 57 yo M with PMH of ESRD on HD MWF,CAD s/p CABG & stent, COPD not on O2, asthma, BIBEMS from [facility] for resp distress. ESRD on HD MWF Hyperkalemia -K 7.4 no EKG changes -likley due to pood adherence to renal diat durign , patient known to be noncompliant -arrange for HD today while on tele monitoring -repeat labs, ekg -does not appear grossly volume overloaded, does not require daily lasix. -can resume losartan, hydralazine, asa CAD with elevated trop -trop 0.15 above baseline; trend -cardio consult, TTE -resume beta agustín Asthma exacerbation with acute hypoxic respiratory failure vs COPD exacerbation -likely secondary to URI -flu swab, rapid strep -nebs -daily peak flow -abx coverage in ed [facility]; would place on alessia; has leukocytois 19 due to laryngitis Dispo: We will continue to follow the patient. Thank you for this consultative opportunity. Problem List - Problems (1) Hyperkalemia Code(s): E87.5 - HYPERKALEMIA (2) Asthma exacerbation Code(s): J45.901 - UNSPECIFIED ASTHMA WITH (ACUTE) EXACERBATION (3) Acute and chronic respiratory failure with hypoxia Code(s): J96.21 - ACUTE AND CHRONIC RESPIRATORY FAILURE WITH HYPOXIA (4) COPD (chronic obstructive pulmonary disease) Code(s): J44.9 - CHRONIC OBSTRUCTIVE PULMONARY DISEASE, UNSPECIFIED (5) CAD (coronary artery disease) Code(s): I25.10 - ATHSCL HEART DISEASE OF [place] CORONARY ARTERY W/O ANG PCTRS (6) Elevated troponin Code(s): R74.8 - ABNORMAL LEVELS OF OTHER SERUM ENZYMES (7) End stage chronic kidney disease Code(s): N18.6 - END STAGE RENAL DISEASE (8) HTN (hypertension) Code(s): I10 - ESSENTIAL (PRIMARY) HYPERTENSION Qualifiers: Hypertension type: unspecified Qualified Code(s): I10 - Essential (primary ) hypertension (9) Hyperkalemia Code(s): E87.5 - HYPERKALEMIA (10) ESRD (end stage renal disease) Code(s): N18.6 - END STAGE RENAL DISEASE Visit type - Emergency Visit Emergency Visit: Yes ED Registration Date: 08/26/17 Care time: The patient presented to the Emergency Department on the above date and was hospitalized for further evaluation of their emergent condition. - New Patient This patient is new to me today: Yes Date on this admission: 08/26/17 - Critical Care Critical Care patient: No
--- NOTE | 2017-08-26 13:10 | EKG ---
Test Reason : Blood Pressure : / mmHG Vent. Rate : 065 BPM Atrial Rate : 065 BPM P-R Int : 210 ms QRS Dur : 114 ms QT Int : 454 ms P-R-T Axes : 052 026 078 degrees QTc Int : 472 ms SINUS RHYTHM WITH 1ST DEGREE A-V BLOCK OTHERWISE NORMAL ECG WHEN COMPARED WITH ECG OF 26-AUG-2017 05:01, NO SIGNIFICANT CHANGE WAS FOUND Confirmed by MEME BA MD ([id number]) on 08/26/2017 1:10:19 PM Referred By: Confirmed By:MEME BA MD
[2017-08-26 13:17] LABS: ANISOCYTOSIS 2+; MACROCYTOSIS 1+; PLATELET ESTIMATE NORMAL
--- NOTE | 2017-08-26 14:08 | PN ---
Teaching Attending Note Name of Resident: Darby Hobbs (Nephrology) ATTENDING PHYSICIAN STATEMENT I saw and evaluated the patient. I reviewed the resident's note and discussed the case with the resident. I agree with the resident's findings and plan as documented. Renal Please see consult filled out by resident. Pt presents to the ER with cough and shortness of breath. He was found to be hyperkalemic. He was not compliant with diet over the holidays. His last HD was on Thursday. pmhx esrd cad copd pshx fistula cabg allergies nuts and raw fruits social hx smoking history family history non contrib Current Medications Generic Name Dose Route Start Last Admin Trade Name Freq PRN Reason Stop Dose Admin Heparin Sodium (Porcine) 6,000 unit 08/26/17 10:08 Heparin - IVPUSH 08/26/17 10:09 ONCE ONE Nitroglycerin/Dextrose 25 mg in 250 mls @ 6 mls/hr 08/26/17 05:15 08/26/17 08 :56 Nitroglycerin 25mg/D5w 250ml IVPB Not Given TITR LULU 10 MCG/MIN Laboratory Tests 08/26/17 08/26/17 07:45 07:45 WBC 19.3 H D Hgb 11.2 L Sodium 141 Potassium 7.4 H* D Chloride 110 H Carbon Dioxide 18 L D Anion Gap 13 BUN 91 H D Creatinine 9.0 H* D Random Glucose 168 H B-Natriuretic Peptide 03811.99 H cardio s1s2 reg pulm diminished GI soft wnl ext fistula with thrill and bruit right bka neuro awake and alert skin mult tattoos circ pos pulses Impression 1. ESRD 2. hyperkalemia 3. copd 4. HTN 5. DM 6. dyspnea 7. acute resp failure requiring bipap 8. elevated troponin Plan - will arrange for urgent HD today - hyperkalemia treated medically until we arrange for HD - will get bedside HD on tele, pending bed - discussed with ER - cxr reviewed, there is congestion - discussed with resident - discussed diet and compliance - called HD unit for prescription - HD AVF 4:15, 2 k bath, 500 abg, heparin 6000 units, [id number] dialyzer
[2017-08-26] MEDS ORDERED: BENZOCAINE/MENTH/CETYLPYRD CL 1 EACH LOZENGE MM PRN (15:38)
--- NOTE | 2017-08-26 17:29 | PN ---
Progress Note (short form) - Note Progress Note: ID consult dictated 57 year old man NHR esrd/hd [place] with cough and sore throat and SOB he denies fevers or chills +productive cough with yellow sputum wbc 19k in ed given vanco/zosyn now on HD cxray congestion versus pneumonia remote history of MRSA last infection buttock abscess in january at -not mrsa per patient no cultures sent! blood cltures throat culture influenza screen vanco given check level in am continue zosyn pneumonia esrd/hd Problem List - Problems (1) Pneumonia Code(s): J18.9 - PNEUMONIA, UNSPECIFIED ORGANISM (2) ESRD (end stage renal disease) Code(s): N18.6 - END STAGE RENAL DISEASE
[2017-08-26] MEDS ORDERED: ACETAMINOPHEN 325 MG TABLET (FP) PO PRN (18:49)
[2017-08-26] MEDS ORDERED: cloNIDine-TTS 0.1 MG/24 HRS PATCH.TDWK TD SCH (19:00)
--- NOTE | 2017-08-26 19:27 | CONS ---
INFECTIOUS DISEASE CONSULTATION DATE OF CONSULTATION: 08/26/2017 REQUESTING PHYSICIAN: Juju Fontenot MD HISTORY OF PRESENT ILLNESS: This is a 57-year-old man with history of end-stage renal disease. He is on dialysis. He lives at the skilled nursing. He presented from the skilled nursing with cough and sore throat and shortness of breath for the last 4-5 days. He denies fevers or chills. He has a productive cough with yellow sputum. There is no hemoptysis. His white count was 19,000 in the emergency room. He was placed on oxygen, given vancomycin and Zosyn. He had a chest x-ray done that was consistent with congestion versus pneumonia. He is now on hemodialysis. He gives a remote history of MRSA in the past. He has not had any sick contacts. Last infection was a buttock abscess in January, that was treated at [facility] with incision and drainage. He reports there was no MRSA at that time. ALLERGIES: He is allergic to FRUITS, NUTS, and PEANUTS. PAST MEDICAL HISTORY: Notable for diabetes, GERD. He has had osteomyelitis in the past. He has diabetes, anxiety disorder, end-stage renal disease. He has been on dialysis since 2016. He has a major depressive disorder. SURGICAL HISTORY: Notable for right BKA. As well, he has an AV fistula. He has stents as well. He has no other cardiac surgery. MEDICATIONS: At the skilled nursing include throat lozenges, Cepacol. He has a clonidine patch. He takes Dexilant insulin, hydralazine, metoprolol, Protonix, tramadol, Cozaar, calcium, Bentyl, Ambien, vitamins, Flomax, Lactobacillus. SOCIAL HISTORY: He is retired. 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 He is not a smoker. There is no history of any substance use. REVIEW OF SYSTEMS: He reports his breathing has improved. He has been able to eat. There has been no nausea, vomiting, diarrhea, or dysuria. He still makes urine. There have been no issues. PHYSICAL EXAMINATION: General: He is awake and alert. Vital Signs: Temperature is 98.8, pulse is 70, blood pressure is 170/92, respiratory rate is 18. HEENT: He is normocephalic. His eyes are anicteric. He has no thrush. He has some erythema, but there is no obvious pharyngitis. Lungs: Bibasilar crackles. Heart: Regular rate and rhythm. Abdomen: Soft, nontender. Extremities: His stump is well healed. He has 2 blisters on his left leg with some erythema. His AV fistula is in use. DIAGNOSTIC DATA: His labs are notable for a white count of 19,000. Hemoglobin is 11.2. Platelets are 218. INR is 0.9. His potassium was 7.4. BUN was 91 and creatinine 9. LFTs were normal. Troponin is 0.14. Per the balancer, he apparently had his last dialysis on Thursday and today is now Thursday, and he has apparently been noncompliant with his diet. In summary, this is a 57-year-old man admitted with cough, sore throat, shortness of breath. He may have missed a dialysis as his last dialysis was Thursday. Chest x-ray consistent with congestion versus pneumonia. Remote history of methicillin-resistant Staphylococcus aureus. No cultures have been sent. Would send blood cultures, a throat culture, influenza screen. All of which have been done now. Vancomycin was given in the emergency room. Would check a level in the morning and continue Zosyn at this time. Further recommendations to follow. Eduardo [id number]
[2017-08-26] MEDS: BACLOFEN 10 MG TABLET (FP) PO PRN (21:04)
[2017-08-26] MEDS: HEPARIN NA (PORCINE) 5,000 UNITS/ML 1ML VIAL SQ SCH (21:22)
[2017-08-26] MEDS: hydrALAZINE HCL 25 MG TABLET (FP) PO SCH (21:23)
[2017-08-26] MEDS: DICYCLOMINE HCL 10 MG CAPSULE PO SCH (21:23)
[2017-08-26] MEDS: traZODone HCL 50 MG TABLET (FP) PO SCH (21:25)
[2017-08-26] MEDS: DOCUSATE SODIUM 100 MG CAPSULE (FP) PO SCH (21:25)
[2017-08-26] MEDS: TAMSULOSIN HCL 0.4 MG CAP.ER.24H (FP) PO SCH (21:27)
[2017-08-26] MEDS: METOPROLOL TARTRATE 50 MG TABLET (FP) PO SCH (21:27)
[2017-08-26] MEDS: GABAPENTIN 100 MG CAPSULE (FP) PO SCH (21:27)
[2017-08-26] MEDS: ATORVASTATIN CA 40 MG TABLET (FP) PO SCH (21:27)
[2017-08-26] MEDS: SENNOSIDES 8.6MG TABLET (FP) PO SCH (21:28)
[2017-08-26] MEDS: BENZOCAINE/MENTH/CETYLPYRD CL 1 EACH LOZENGE MM SCH (21:35)
[2017-08-26] MEDS ORDERED: INSULIN (NOVOLOG) ASPART 100 UNITS/ML 10ML VIAL SQ SCH (22:00)
[2017-08-26] MEDS ORDERED: PATIENT'S OWN MEDICATION (NON-FORMULARY) (Lifitegrast [Xiidra] 1 EACH) OP SCH (22:00)
[2017-08-26] MEDS ORDERED: PATIENT'S OWN MEDICATION (NON-FORMULARY) (Insulin Lispro [Humalog] 10 UNIT) SQ SCH (22:00)
[2017-08-27] MEDS ORDERED: SODIUM CHLORIDE NASAL SPRAY 44 ML BOTTLE NS PRN (02:41)
--- NOTE | 2017-08-27 02:47 | HOSP ---
Subjective - Review of Symptoms Events since last encounter: hospitalist encounter Notified by primary RN, the patient is reporting nasal congestion. He is on Azelastine HCL NF A/P 57 y/o man with a PMHx of COPD, Asthma, CAD s/p stent, PVD, DM, Anemia. Admitted for Acute Respiratory Failure Hypoxemia, ?Pneumonia/Bronchitis. NS [place] prn HEENT: Yes: Sinus Congestion Physical Examination Vital Signs: Vital Signs Temperature 98.6 F 08/27/17 01:49 Pulse Rate 64 08/27/17 01:49 Respiratory Rate 18 08/27/17 01:49 Blood Pressure 127/64 08/27/17 01:49 O2 Sat by Pulse Oximetry (%) 100 08/26/17 21:00 Labs: CBC, BMP 08/26/17 07:45 08/26/17 07:45
[2017-08-27] MEDS: hydrALAZINE HCL 25 MG TABLET (FP) PO SCH ×4 (03:18→19:05)
[2017-08-27] MEDS ORDERED: traMADol HCL 50 MG TABLET PO ONE (03:30)
[2017-08-27] MEDS: BENZOCAINE/MENTH/CETYLPYRD CL 1 EACH LOZENGE MM SCH ×3 (06:37→23:29)
[2017-08-27] MEDS: INSULIN SLIDING SCALE (NOVOLOG) 1 VIAL SQ SCH ×4 (06:38→23:33)
[2017-08-27] MEDS ORDERED: PT OWN MED DRAWER 7, Y5N ONE ×3 (06:40→23:17)
[2017-08-27 08:21] LABS: BASO % 0.7 % (0-2.0); EOS % 3.7 % (0-4.5); HEMATOCRIT 31.2 % (35.4-49); LYMPH % 15.4 % (8-40); MCH 30.5 pg (25.7-33.7); MEAN CELL VOLUME 95.4 fl (80-96); MEAN PLT VOLUME 8.3 fl (7.5-11.1); NEUT % 73.2 % (42.8-82.8); PLATELET COUNT 169 K/MM3 (134-434); RBC 3.27 M/mm3 (4.00-5.60); RDW 14.8 % (11.9-15.9); WHITE BLOOD COUNT 12.2 K/mm3 (4.0-10.0)
[2017-08-27] MEDS: NITROGLYCERIN 25MG/D5W 250ML 25 MG/250 ML ML IVPB SCH (08:27)
[2017-08-27 08:35] LABS: CHLORIDE 106 mmol/L (98-107); POTASSIUM 4.5 mmol/L (3.5-5.1); SODIUM 141 mmol/L (136-145)
[2017-08-27 08:55] LABS: ANION GAP 8 (8-16); BLOOD UREA NITROGEN 53 mg/dL (7-18); CO2 27 mmol/L (21-32); CREATININE 6.4 mg/dL (0.7-1.3); GLUCOSE,RANDOM 124 mg/dL (74-106)
[2017-08-27] MEDS: ASPIRIN 81 MG CHEWABLE TABLETS PO SCH (09:32)
[2017-08-27] MEDS: LOSARTAN POTASSIUM 50 MG TABLET (FP) PO SCH (09:32)
[2017-08-27] MEDS: METOPROLOL TARTRATE 50 MG TABLET (FP) PO SCH ×2 (09:32→23:30)
[2017-08-27] MEDS: PANTOPRAZOLE 40 MG TABLET (FP) PO SCH (09:32)
[2017-08-27] MEDS: LORATADINE 10 MG TABLET PO SCH (09:32)
[2017-08-27] MEDS: CLOPIDOGREL BISULFATE 75 MG TABLET (FP) PO SCH (09:32)
[2017-08-27] MEDS: FOLIC ACID 1 MG TABLET (FP) PO SCH (09:32)
[2017-08-27] MEDS: INSULIN DETEMIR 100 UNITS/ML MDV SQ SCH (09:32)
[2017-08-27] MEDS: DICYCLOMINE HCL 10 MG CAPSULE PO SCH ×2 (09:33→23:29)
[2017-08-27] MEDS: HEPARIN NA (PORCINE) 5,000 UNITS/ML 1ML VIAL SQ SCH ×2 (09:33→23:21)
[2017-08-27] MEDS: BACLOFEN 10 MG TABLET (FP) PO PRN (09:34)
[2017-08-27] MEDS: VITAMIN B COMP W-C 1 EA TABLET PO SCH (09:35)
[2017-08-27] MEDS ORDERED: PATIENT'S OWN MEDICATION (NON-FORMULARY) (Insulin Glargine,Hum.Rec.Anlog [Basaglar Kwikpen SQ SCH (10:00)
[2017-08-27] MEDS ORDERED: PATIENT'S OWN MEDICATION (NON-FORMULARY) (Cetirizine Hcl 10 MG) PO SCH (10:00)
[2017-08-27] MEDS ORDERED: CALCIUM CARBONATE 650 MG TABLET PO SCH (10:00)
--- NOTE | 2017-08-27 10:17 | PN ---
Progress Note, Physician Chief Complaint: ESRD, Pulmonary congestion vs PNE, SOB History of Present Illness: NAD, in bed complaining of pain - Current Medication List Current Medications: Active Medications Acetaminophen (Tylenol -) 650 mg PO Q6H PRN PRN Reason: FEVER Aspirin (Asa -) 81 mg PO DAILY [facility] Last Admin: 08/27/17 09:32 Dose: 81 mg Atorvastatin Calcium (Lipitor -) 40 mg PO HS [facility] Last Admin: 08/26/17 21:27 Dose: 40 mg Bacitracin (Bacitracin -) 1 applic TP DAILY [facility] Baclofen (Lioresal -) 10 mg PO TID PRN PRN Reason: SEVERE PAIN Last Admin: 08/27/17 09:34 Dose: 10 mg Benzocaine/Menthol (Cepacol Lozenge -) 1 each MM PRN PRN PRN Reason: SORE THROAT Benzocaine/Menthol (Cepacol Lozenge -) 1 each MM TID [facility] Last Admin: 08/27/17 06:37 Dose: Not Given Clopidogrel Bisulfate (Plavix -) 75 mg PO DAILY [facility] Last Admin: 08/27/17 09:32 Dose: 75 mg Dicyclomine HCl (Bentyl -) 20 mg PO BID [facility] Last Admin: 08/27/17 09:33 Dose: 20 mg Docusate Sodium (Colace -) 100 mg PO HS [facility] Last Admin: 08/26/17 21:25 Dose: 100 mg Folic Acid (Folic Acid -) 1 mg PO DAILY [facility] Last Admin: 08/27/17 09:32 Dose: 1 mg Gabapentin (Neurontin -) 200 mg PO HS [facility] Last Admin: 08/26/17 21:27 Dose: 200 mg Heparin Sodium (Porcine) (Heparin -) 5,000 unit SQ BID [facility] Last Admin: 08/27/17 09:33 Dose: 5,000 unit Hydralazine HCl (Apresoline -) 25 mg PO Q6H [facility] Last Admin: 08/27/17 09:32 Dose: 25 mg Nitroglycerin/Dextrose (Nitroglycerin 25mg/D5w 250ml) 25 mg in 250 mls @ 6 mls/ hr IVPB TITR [facility] PRN Reason: 10 MCG/MIN Last Admin: 08/27/17 08:27 Dose: Not Given Insulin Aspart (Novolog Vial Sliding Scale -) 0 vial SQ TIDAC [facility] PRN Reason: Protocol Last Admin: 08/27/17 06:38 Dose: Not Given Insulin Detemir (Levemir Vial) 20 units SQ DAILY [facility] Last Admin: 08/27/17 09:32 Dose: 20 unit Loratadine (Claritin -) 10 mg PO DAILY [facility] Last Admin: 08/27/17 09:32 Dose: 10 mg Losartan Potassium (Cozaar -) 100 mg PO DAILY [facility] Last Admin: 08/27/17 09:32 Dose: 100 mg Metoprolol Tartrate (Lopressor -) 50 mg PO BID [facility] Last Admin: 08/27/17 09:32 Dose: 50 mg Multivit/Ca Carb/B Cmplx/FA/Prenat (Nephro-Ingris -) 1 tablet PO DAILY [facility] Last Admin: 08/27/17 09:35 Dose: 1 tablet Pantoprazole Sodium (Protonix -) 40 mg PO DAILY [facility] Last Admin: 08/27/17 09:32 Dose: 40 mg Senna (Senna -) 1 tab PO [facility] Last Admin: 08/26/17 21:28 Dose: 1 tab Sodium Chloride ([place]al [place] -) 2 spray NS BID PRN PRN Reason: NASAL CONGESTION Tamsulosin HCl (Flomax -) 0.4 mg PO [facility] Last Admin: 08/26/17 21:27 Dose: 0.4 mg Tramadol HCl (Ultram -) 50 mg PO Q8H PRN PRN Reason: PAIN Trazodone HCl (Desyrel -) 100 mg PO [facility] Last Admin: 08/26/17 21:25 Dose: 100 mg - Objective Vital Signs: Vital Signs Temperature 98.3 F 08/27/17 06:00 Pulse Rate 60 08/27/17 06:00 Respiratory Rate 18 08/27/17 06:00 Blood Pressure 125/57 08/27/17 06:00 O2 Sat by Pulse Oximetry (%) 100 08/27/17 06:51 Constitutional: Yes: Well Nourished, No Distress, Calm Cardiovascular: Yes: Regular Rate and Rhythm Respiratory: Yes: Regular Gastrointestinal: Yes: Normal Bowel Sounds Musculoskeletal: Yes: WNL Extremities: Yes: Amputation (RBKA) Edema: No Peripheral Pulses WNL: Yes Peripheral Pulses: Left Doralis Pedis: 2+ Neurological: Yes: Alert, Oriented Psychiatric: Yes: Alert, Oriented Labs: CBC, BMP 08/27/17 07:00 08/27/17 07:00 INR, PTT INR 0.93 (0.82-1.09) 08/26/17 07:45 Problem List - Problems (1) Acute and chronic respiratory failure with hypoxia Code(s): J96.21 - ACUTE AND CHRONIC RESPIRATORY FAILURE WITH HYPOXIA (2) CAD (coronary artery disease) Assessment/Plan: -cardiology consult -telemetry monitoring Code(s): I25.10 - ATHSCL HEART DISEASE OF [place] CORONARY ARTERY W/O ANG PCTRS (3) COPD (chronic obstructive pulmonary disease) Assessment/Plan: nasal o2 -neb tx -Pulmonary consult Code(s): J44.9 - CHRONIC OBSTRUCTIVE PULMONARY DISEASE, UNSPECIFIED (4) Elevated troponin Assessment/Plan: -may not be true value in light of ESRD -cardiology consult for further evaluation -Echo Code(s): R74.8 - ABNORMAL LEVELS OF OTHER SERUM ENZYMES (5) End stage chronic kidney disease Assessment/Plan: -Nephrology on board -Dialysis last evening -labs improved -continue to monitor Code(s): N18.6 - END STAGE RENAL DISEASE (6) HTN (hypertension) Assessment/Plan: fluctuating Code(s): I10 - ESSENTIAL (PRIMARY) HYPERTENSION Qualifiers: Hypertension type: unspecified Qualified Code(s): I10 - Essential (primary ) hypertension (7) Hyperkalemia Assessment/Plan: -resolved after dialysis Code(s): E87.5 - HYPERKALEMIA (8) Pneumonia Assessment/Plan: -ID consult -received zosyn and Vanco yesterday -cultures pending -Pulmonary consult Code(s): J18.9 - PNEUMONIA, UNSPECIFIED ORGANISM (9) Diabetes Assessment/Plan: -renal diabetic diet -insulin sliding scale -levemir -endocrine consult Code(s): E11.9 - TYPE 2 DIABETES MELLITUS WITHOUT COMPLICATIONS (10) Leukocytosis Assessment/Plan: -improved after abx -ID on board -cultures pending -afebrile now Code(s): D72.829 - ELEVATED WHITE BLOOD CELL COUNT, UNSPECIFIED Assessment/Plan see problem list -DVT and GI prophylaxis Physical therapy
[2017-08-27] MEDS: CALCIUM ACETATE 667 MG CAPSULE (FP) PO SCH ×2 (12:18→17:28)
--- NOTE | 2017-08-27 13:00 | CON.NEURO ---
Consult - Past Medical History Cardio/Vascular: Yes: HTN Pulmonary: Yes: COPD Renal/: Yes: Hemodialysis, Other (esrd) Endocrine: Yes: Diabetes Mellitus - Alcohol/Substance Use Hx Alcohol Use: No - Smoking History Smoking history: Never smoked Have you smoked in the past 12 months: No Home Medications - Allergies Allergies/Adverse Reactions: Allergies Allergy/AdvReac Type Severity Reaction Status Date / Time tree nut Allergy Verified 08/26/17 05:13 raw fruits Allergy Uncoded 08/26/17 05:13 - Home Medications Home Medications: Ambulatory Orders Aspirin [ASA -] 81 mg PO DAILY 05/18/17 Atorvastatin Ca [Lipitor] 40 mg PO HS 05/18/17 Azelastine HCl 137 mcg NS BID 05/18/17 Clopidogrel Bisulfate [Plavix -] 75 mg PO DAILY 05/18/17 Docusate Sodium [Colace -] 1 cap PO HS 05/18/17 Folic Acid 1 mg PO DAILY 05/18/17 Gabapentin 200 mg PO HS 05/18/17 Insulin Glargine,Hum.rec.anlog [Basaglar Kwikpen U-100] 20 unit SQ DAILY Insulin Lispro [Humalog] 10 unit SQ HS 05/18/17 Sennosides [Senna] 1 tab PO HS 05/18/17 Tamsulosin HCl [Flomax] 0.4 mg PO HS 05/18/17 Vitamin B Comp W-C [Nephro-Ingris -] 1 tablet PO DAILY 05/18/17 Calcium Carbonate - 650 mg PO DAILY #0 tablet 05/25/17 Metoprolol Succinate [Toprol Xl] 50 mg PO BID #30 tab.er.24h 05/28/17 Losartan Potassium [Cozaar -] 100 mg PO DAILY 06/04/17 Acetaminophen [Tylenol] 650 mg PO Q6H PRN 08/26/17 Baclofen [Lioresal -] 10 mg PO TID PRN MDD 3 08/26/17 Bismuth Subsalicylate [[place] Bismuth] 525 mg PO DAILY PRN 08/26/17 Cetirizine HCl [Zyrtec -] 10 mg PO DAILY 08/26/17 Clonidine Patch [Catapres Tts Patch -] 0.1 mg TD WEEKLY 08/26/17 Dexlansoprazole [Dexilant] 60 mg PO DAILY 08/26/17 Dextromethorphan/Benzocaine [Cepacol Sorethroat-Cough Henrry] 3 each PO DAILY 08/26 Dicyclomine HCl [Bentyl -] 20 mg PO BID 08/26/17 Hydralazine HCl [Apresoline -] 25 mg PO Q6H 08/26/17 Lifitegrast [Xiidra] 1 each OP BID 08/26/17 Metoprolol Tartrate [Lopressor -] 50 mg PO BID 08/26/17 Pantoprazole Sodium [Protonix -] 40 mg PO DAILY 08/26/17 Trazodone HCl 50 mg PO HS 08/26/17 Bacitracin - [Bacitracin Topical Ointment -] 1 applic TP DAILY 08/27/17 Calcium Acetate [Phoslo -] 667 mg PO TIDCM 08/27/17 Polyethylene Glycol 3350 [Miralax (For Daily Use) -] 17 gm PO DAILY 08/27/17 Tramadol HCl 100 mg PO BID PRN 08/27/17 Physical Exam-Neuro Vital Signs: Vital Signs Temperature 98.3 F 08/27/17 06:00 Pulse Rate 60 08/27/17 06:00 Respiratory Rate 18 08/27/17 06:00 Blood Pressure 125/57 08/27/17 06:00 O2 Sat by Pulse Oximetry (%) 100 08/27/17 06:51 Labs: CBC, BMP 08/27/17 07:00 08/27/17 07:00 INR, PTT INR 0.93 (0.82-1.09) 08/26/17 07:45 Assessment/Plan cc Chronic low back pain and neck pain HPI 57 year old male history of ESRD on HD, CAD s/p CABG and stent placement, COPD. I was asked to eval for chronic low back Pain. He has this pain for thirty years, He has back surgery in 1989 and hard harrell placement. Adonis has also had ELIANA as recently as one year ago. There was no significant pain relief. He used to take oxycodone and it was stopped due to biliary problem. Patient is on tramadol now . He also take gabapentin. He is also getting PT. Patient describes pain is moderate to severe intensity and worse on activity. He also complain of neck pain and pain shoots downt o right upper extremity. Outpatient he also see pain management and had mri and not offered any procedure for neck. Past Medical History as above Surgery: L bracheocephalic AVF, R BKA Former smoker, Smoking: former smoker tree nut Allergy (Verified 05/22/17 08:06)raw fruits Allergy (Uncoded 05/22/17 08:06) SH, ROS, FH reviewed in chart Neurological Examination Alert oriented x 3 ,CN all intact There is mild neck and back tendernes. 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 There is no evidence of cord compression or cauda equina syndrome. -- radicular neck pain - no evidence of cord compression or neuro deficit. no need for urgent cx spine imaging. Plan- continue tramadol, baclofen, gabapentin( he was told he cant have higher dose) -- At this time, There is no further testing need for neurological point of view , continue PT and current level of medication - He can follow up with Pain management as outpatient -Please feel free to call me if you have any question. Dejuan Vila MD
--- NOTE | 2017-08-27 13:32 | PN ---
Progress Note, Physician Chief Complaint: ID Suspect respiratory tract illness Hoarseness nasal congestion No fever - Current Medication List Current Medications: Active Medications Acetaminophen (Tylenol -) 650 mg PO Q6H PRN PRN Reason: FEVER Artificial Tears (Artificial Tears) 1 drop OU BID [facility] Aspirin (Asa -) 81 mg PO DAILY [facility] Last Admin: 08/27/17 09:32 Dose: 81 mg Atorvastatin Calcium (Lipitor -) 40 mg PO HS [facility] Last Admin: 08/26/17 21:27 Dose: 40 mg Bacitracin (Bacitracin -) 1 applic TP DAILY [facility] Baclofen (Lioresal -) 10 mg PO TID PRN PRN Reason: SEVERE PAIN Last Admin: 08/27/17 09:34 Dose: 10 mg Benzocaine/Menthol (Cepacol Lozenge -) 1 each MM PRN PRN PRN Reason: SORE THROAT Benzocaine/Menthol (Cepacol Lozenge -) 1 each MM TID [facility] Last Admin: 08/27/17 06:37 Dose: Not Given Calcium Acetate (Phoslo -) 667 mg PO TIDCM [facility] Last Admin: 08/27/17 12:18 Dose: 667 mg Clopidogrel Bisulfate (Plavix -) 75 mg PO DAILY [facility] Last Admin: 08/27/17 09:32 Dose: 75 mg Dicyclomine HCl (Bentyl -) 20 mg PO BID [facility] Last Admin: 08/27/17 09:33 Dose: 20 mg Docusate Sodium (Colace -) 100 mg PO HS [facility] Last Admin: 08/26/17 21:25 Dose: 100 mg Folic Acid (Folic Acid -) 1 mg PO DAILY [facility] Last Admin: 08/27/17 09:32 Dose: 1 mg Gabapentin (Neurontin -) 200 mg PO HS [facility] Last Admin: 08/26/17 21:27 Dose: 200 mg Heparin Sodium (Porcine) (Heparin -) 5,000 unit SQ BID [facility] Last Admin: 08/27/17 09:33 Dose: 5,000 unit Hydralazine HCl (Apresoline -) 25 mg PO Q6H [facility] Last Admin: 08/27/17 09:32 Dose: 25 mg Insulin Aspart (Novolog Vial Sliding Scale -) 0 vial SQ TIDAC [facility] PRN Reason: Protocol Last Admin: 08/27/17 12:19 Dose: Not Given Insulin Detemir (Levemir Vial) 20 units SQ DAILY [facility] Last Admin: 08/27/17 09:32 Dose: 20 unit Loratadine (Claritin -) 10 mg PO DAILY [facility] Last Admin: 08/27/17 09:32 Dose: 10 mg Losartan Potassium (Cozaar -) 100 mg PO DAILY [facility] Last Admin: 08/27/17 09:32 Dose: 100 mg Metoprolol Tartrate (Lopressor -) 50 mg PO BID [facility] Last Admin: 08/27/17 09:32 Dose: 50 mg Multivit/Ca Carb/B Cmplx/FA/Prenat (Nephro-Ingris -) 1 tablet PO DAILY [facility] Last Admin: 08/27/17 09:35 Dose: 1 tablet Pantoprazole Sodium (Protonix -) 40 mg PO DAILY [facility] Last Admin: 08/27/17 09:32 Dose: 40 mg Senna (Senna -) 1 tab PO HS [facility] Last Admin: 08/26/17 21:28 Dose: 1 tab Sodium Chloride ([place] Nasal [place] -) 2 spray NS BID PRN PRN Reason: NASAL CONGESTION Tamsulosin HCl (Flomax -) 0.4 mg PO [facility] Last Admin: 08/26/17 21:27 Dose: 0.4 mg Tramadol HCl (Ultram -) 50 mg PO Q8H PRN PRN Reason: PAIN Trazodone HCl (Desyrel -) 100 mg PO [facility] Last Admin: 08/26/17 21:25 Dose: 100 mg - Objective Vital Signs: Vital Signs Temperature 98.3 F 08/27/17 06:00 Pulse Rate 60 08/27/17 06:00 Respiratory Rate 18 08/27/17 06:00 Blood Pressure 125/57 08/27/17 06:00 O2 Sat by Pulse Oximetry (%) 100 08/27/17 06:51 Constitutional: Yes: No Distress Neck: Yes: WNL, Supple Cardiovascular: Yes: S1, S2 Respiratory: Yes: WNL, Regular, CTA Bilaterally. No: Rales, Rhonchi Gastrointestinal: Yes: Soft. No: Tenderness Labs: CBC, BMP 08/27/17 07:00 08/27/17 07:00 INR, PTT INR 0.93 (0.82-1.09) 08/26/17 07:45 Assessment/Plan Microbiology 08/26/17 17:15 Throat Group A Strep Rapid Antigen - Final 08/26/17 17:15 Nasopharyngeal Swab Influenza Types A,B Antigen (LIZ) - Final 08/26/17 17:15 Nasopharyngeal Swab - Final Laboratory Tests 08/26/17 08/27/17 07:45 07:00 WBC 19.3 H D 12.2 H D Plt Count 169 D Assessment ESRD respiratory illness better today ? Sinusitis Plan By tomorrow can consider switch to po med maybe Augmentin adjust for Cr CL 500mg daily and after dialysis 7 days Shahida BRIGGS
--- NOTE | 2017-08-27 13:43 | CON.CARD ---
Consult Consult Specialty:: cardiology Referred by:: Po Reason for Consultation:: Respiratory distress - History of Present Illness Chief Complaint: Shortness of breath History of Present Illness: The patient is a 57-year-old obese man, assisted resident, we've a history of hypertension, hyperlipidemia, coronary artery disease and prior stent, right BKA, end-stage renal disease on hemodialysis, COPD, admitted with shortness of breath, URI symptoms with a productive cough. The patient denies chest pains. He is symptomatically and clinically better. - History Source History Provided By: Patient, Medical Record Limitations to Obtaining History: No Limitations - Past Medical History Cardio/Vascular: Yes: CAD, HTN Pulmonary: Yes: COPD Renal/: Yes: Hemodialysis, Other (esrd) Endocrine: Yes: Diabetes Mellitus - Alcohol/Substance Use Hx Alcohol Use: No - Smoking History Smoking history: Former smoker Have you smoked in the past 12 months: No Home Medications - Allergies Allergies/Adverse Reactions: Allergies Allergy/AdvReac Type Severity Reaction Status Date / Time tree nut Allergy Verified 08/26/17 05:13 raw fruits Allergy Uncoded 08/26/17 05:13 - Home Medications Home Medications: Ambulatory Orders Aspirin [ASA -] 81 mg PO DAILY 05/18/17 Atorvastatin Ca [Lipitor] 40 mg PO HS 05/18/17 Azelastine HCl 137 mcg NS BID 05/18/17 Clopidogrel Bisulfate [Plavix -] 75 mg PO DAILY 05/18/17 Docusate Sodium [Colace -] 1 cap PO HS 05/18/17 Folic Acid 1 mg PO DAILY 05/18/17 Gabapentin 200 mg PO HS 05/18/17 Insulin Glargine,Hum.rec.anlog [Basaglar Kwikpen U-100] 20 unit SQ DAILY Insulin Lispro [Humalog] 10 unit SQ HS 05/18/17 Sennosides [Senna] 1 tab PO HS 05/18/17 Tamsulosin HCl [Flomax] 0.4 mg PO HS 05/18/17 Vitamin B Comp W-C [Nephro-Ingris -] 1 tablet PO DAILY 05/18/17 Calcium Carbonate - 650 mg PO DAILY #0 tablet 05/25/17 Metoprolol Succinate [Toprol Xl] 50 mg PO BID #30 tab.er.24h 05/28/17 Losartan Potassium [Cozaar -] 100 mg PO DAILY 10/05/17 Acetaminophen [Tylenol] 650 mg PO Q6H PRN 08/26/17 Baclofen [Lioresal -] 10 mg PO TID PRN MDD 3 08/26/17 Bismuth Subsalicylate [[place] Bismuth] 525 mg PO DAILY PRN 08/26/17 Cetirizine HCl [Zyrtec -] 10 mg PO DAILY 08/26/17 Clonidine Patch [Catapres Tts Patch -] 0.1 mg TD WEEKLY 08/26/17 Dexlansoprazole [Dexilant] 60 mg PO DAILY 08/26/17 Dextromethorphan/Benzocaine [Cepacol Sorethroat-Cough Henrry] 3 each PO DAILY 08/26 Dicyclomine HCl [Bentyl -] 20 mg PO BID 08/26/17 Hydralazine HCl [Apresoline -] 25 mg PO Q6H 08/26/17 Lifitegrast [Xiidra] 1 each OP BID 08/26/17 Metoprolol Tartrate [Lopressor -] 50 mg PO BID 08/26/17 Pantoprazole Sodium [Protonix -] 40 mg PO DAILY 08/26/17 Trazodone HCl 50 mg PO HS 08/26/17 Bacitracin - [Bacitracin Topical Ointment -] 1 applic TP DAILY 08/27/17 Calcium Acetate [Phoslo -] 667 mg PO TIDCM 08/27/17 Polyethylene Glycol 3350 [Miralax (For Daily Use) -] 17 gm PO DAILY 08/27/17 Tramadol HCl 100 mg PO BID PRN 08/27/17 Review of Systems - Review of Systems Constitutional: reports: No Symptoms Eyes: reports: No Symptoms HENT: reports: No Symptoms Neck: reports: No Symptoms Cardiovascular: reports: No Symptoms Respiratory: reports: Cough, SOB Gastrointestinal: reports: No Symptoms Genitourinary: reports: No Symptoms Breasts: reports: No Symptoms Reported Musculoskeletal: reports: No Symptoms Integumentary: reports: No Symptoms Neurological: reports: No Symptoms Endocrine: reports: No Symptoms Hematology/Lymphatic: reports: No Symptoms Psychiatric: reports: No Symptoms Vital Signs: Vital Signs Temperature 98.3 F 08/27/17 06:00 Pulse Rate 60 08/27/17 06:00 Respiratory Rate 18 08/27/17 06:00 Blood Pressure 125/57 08/27/17 06:00 O2 Sat by Pulse Oximetry (%) 100 08/27/17 06:51 Constitutional: Yes: No Distress, Calm, Obese Eyes: Yes: WNL, Conjunctiva Clear HENT: Yes: WNL, Atraumatic, Normocephalic Neck: Yes: WNL, Supple, Trachea Midline Respiratory: Yes: Regular, Rales, Rhonchi, SOB Gastrointestinal: Yes: WNL, Normal Bowel Sounds, Abdomen, Obese Renal/: Yes: WNL Cardiovascular: Yes: WNL, Regular Rate and Rhythm JVD: No Carotid Bruit: No PMI: Non-Displaced Heart Sounds: Yes: S1, S2 Murmur: Yes: Systolic Murmur, Grade 2 Musculoskeletal: Yes: Other (Right BKA) Extremities: Yes: Amputation (Right BKA) Edema: No Peripheral Pulses WNL: Yes Peripheral Pulses: 1+ Left Femoral, 1+ Right Femoral, 1+ Left Popliteal, 1+ Left Doralis Pedis, 2+ Left Carotid, 2+ Right Carotid Integumentary: Yes: WNL Neurological: Yes: WNL - Other Data Labs, Other Data: CBC, BMP 08/27/17 07:00 08/27/17 07:00 INR, PTT INR 0.93 (0.82-1.09) 08/26/17 07:45 Troponin, BNP 08/27/17 07:00 Troponin I 0.19 H D Troponin, BNP 08/27/17 07:00 Troponin I 0.19 H D Assessment/Plan 57-year-old obese man, former smoker with COPD, history of hypertension, coronary artery disease and prior stent, end-stage renal disease on hemodialysis , status post right BKA, admitted with shortness of breath and URI symptoms. There is no evidence of ischemia nor acute coronary syndrome. No acute ECG changes. The patient is in sinus rhythm with first-degree AV block. There is mild pulmonary congestion. Troponin and creatinine are elevated. Needs further fluid removal with hemodialysis. There is no need for further cardiac workup at this point. Continue current regimen. Respiratory toilet Stable from the cardiac standpoint. There is no need for cardiac monitoring. Please do not hesitate to call us PRN.
[2017-08-27] MEDS ORDERED: PIPERACILLIN/TAZOB 2.25 GM/50 ML PREMIX BAG IVPB SCH (13:45)
[2017-08-27 14:11] LABS: URINE APPEARANCE CLEAR; URINE BILIRUBIN NEGATIVE (NEGATIVE); URINE BLOOD 1+ (NEGATIVE); URINE COLOR STRAW; URINE GLUCOSE (UA) 3+ (NEGATIVE); URINE KETONE NEGATIVE (NEGATIVE); URINE LEUK ESTERASE NEGATIVE (NEGATIVE); URINE NITRITE NEGATIVE (NEGATIVE); URINE UROBILINOGEN NEGATIVE mg/dL (0.2-1.0)
[2017-08-27 14:15] LABS: URINE PROTEIN 3+ (NEGATIVE)
[2017-08-27] MEDS: BACITRACIN 15 GM TUBE TOPICAL OINTMENT TP SCH ×2 (14:24→14:32)
--- NOTE | 2017-08-27 14:48 | CONSULT ---
Consult Consult Specialty:: Endocrinology Referred by:: Jalyn Sanford Reason for Consultation:: Hyperglycemia - History of Present Illness Chief Complaint: SOB History of Present Illness: This is a 57 M with h/o CAD & stent, PAD, neuropathy s/p Rt BKA, T2DM for around 26 years, on Insulin for 17 years, COPD, asthma, ESRD on HD from November [address] [facility] for resp distress. Pt missed dialysis on Mon because of [place]. He also had a cough for the last 2 days. In ED pt was in respiratory distress, with diaphoresis, paradoxical respiration, and expressing sense of impending doom. O2 sat currently 96% on 2L. Pt currently sitting in bed in [facility]. Denies any polyuria, polydipsia. Has poor vision Rt eye. Saw ophthalmology a few days ago. Has numbness of left foot. Family h/o DM in mother and grandmother. Blood sugar at [place] fluctuates from 70 to 340. Gets Basaglar 20 units daily in the morning and Humalog 14 units TID with meals. - History Source History Provided By: Patient, Medical Record - Past Medical History Cardio/Vascular: Yes: CAD, HTN Pulmonary: Yes: COPD Renal/: Yes: Hemodialysis, Other (esrd) Endocrine: Yes: Diabetes Mellitus - Past Surgical History Past Surgical History: Yes: Amputation (Rt BKA) - Alcohol/Substance Use Hx Alcohol Use: No - Smoking History Smoking history: Former smoker Have you smoked in the past 12 months: No Home Medications - Allergies Allergies/Adverse Reactions: Allergies Allergy/AdvReac Type Severity Reaction Status Date / Time tree nut Allergy Verified 08/26/17 05:13 raw fruits Allergy Uncoded 08/26/17 05:13 - Home Medications Home Medications: Ambulatory Orders Aspirin [ASA -] 81 mg PO DAILY 05/18/17 Atorvastatin Ca [Lipitor] 40 mg PO HS 05/18/17 Azelastine HCl 137 mcg NS BID 05/18/17 Clopidogrel Bisulfate [Plavix -] 75 mg PO DAILY 05/18/17 Docusate Sodium [Colace -] 1 cap PO HS 05/18/17 Folic Acid 1 mg PO DAILY 05/18/17 Gabapentin 200 mg PO HS 05/18/17 Insulin Glargine,Hum.rec.anlog [Basaglar Kwikpen U-100] 20 unit SQ DAILY Insulin Lispro [Humalog] 10 unit SQ HS 05/18/17 Sennosides [Senna] 1 tab PO HS 05/18/17 Tamsulosin HCl [Flomax] 0.4 mg PO HS 05/18/17 Vitamin B Comp W-C [Nephro-Ingris -] 1 tablet PO DAILY 05/18/17 Calcium Carbonate - 650 mg PO DAILY #0 tablet 05/25/17 Metoprolol Succinate [Toprol Xl] 50 mg PO BID #30 tab.er.24h 05/28/17 Losartan Potassium [Cozaar -] 100 mg PO DAILY 06/04/17 Acetaminophen [Tylenol] 650 mg PO Q6H PRN 08/26/17 Baclofen [Lioresal -] 10 mg PO TID PRN MDD 3 08/26/17 Bismuth Subsalicylate [[place] Bismuth] 525 mg PO DAILY PRN 08/26/17 Cetirizine HCl [Zyrtec -] 10 mg PO DAILY 08/26/17 Clonidine Patch [Catapres Tts Patch -] 0.1 mg TD WEEKLY 08/26/17 Dexlansoprazole [Dexilant] 60 mg PO DAILY 08/26/17 Dextromethorphan/Benzocaine [Cepacol Sorethroat-Cough Henrry] 3 each PO DAILY 08/26 Dicyclomine HCl [Bentyl -] 20 mg PO BID 08/26/17 Hydralazine HCl [Apresoline -] 25 mg PO Q6H 08/26/17 Lifitegrast [Xiidra] 1 each OP BID 08/26/17 Metoprolol Tartrate [Lopressor -] 50 mg PO BID 08/26/17 Pantoprazole Sodium [Protonix -] 40 mg PO DAILY 08/26/17 Trazodone HCl 50 mg PO HS 08/26/17 Bacitracin - [Bacitracin Topical Ointment -] 1 applic TP DAILY 08/27/17 Calcium Acetate [Phoslo -] 667 mg PO TIDCM 08/27/17 Polyethylene Glycol 3350 [Miralax (For Daily Use) -] 17 gm PO DAILY 08/27/17 Tramadol HCl 100 mg PO BID PRN 08/27/17 Family Disease History - Family Disease History Family Disease History: Diabetes: Grandparent, Mother Review of Systems - Review of Systems Constitutional: reports: No Symptoms Eyes: reports: Blurred Vision (Rt eye) HENT: reports: Other (hoarse voice) Neck: reports: No Symptoms Cardiovascular: reports: No Symptoms Respiratory: reports: No Symptoms Gastrointestinal: reports: No Symptoms Genitourinary: reports: No Symptoms Musculoskeletal: reports: No Symptoms Integumentary: reports: No Symptoms Neurological: reports: No Symptoms Physical Exam Vital Signs: Vital Signs Temperature 98.9 F 08/27/17 10:00 Pulse Rate 71 08/27/17 10:00 Respiratory Rate 18 08/27/17 10:00 Blood Pressure 143/86 08/27/17 10:00 O2 Sat by Pulse Oximetry (%) 95 08/27/17 09:00 Constitutional: Yes: No Distress, Calm Eyes: Yes: Conjunctiva Clear, EOM Intact HENT: Yes: Atraumatic, Normocephalic Neck: Yes: Supple, Trachea Midline Cardiovascular: Yes: Regular Rate and Rhythm Respiratory: Yes: Regular, CTA Bilaterally Gastrointestinal: Yes: Normal Bowel Sounds, Soft Breast(s): Yes: WNL Musculoskeletal: Yes: WNL Extremities: Yes: Other (Rt BKa) Edema: No Neurological: Yes: Alert, Oriented Labs: CBC, BMP 08/27/17 07:00 08/27/17 07:00 Assessment/Plan AP: COPD HTN T2DM PAD CAD S/p Rt BKA ESRD on HD BGM Q ACHS Levemir 20 units daily Novolog SS coverage Nutrition consult Diet exercise discussed Diabetes education done. IV Abx
--- NOTE | 2017-08-27 15:03 | PN ---
Progress Note (short form) - Note Progress Note: PULMONARY CONSULTATION DICTATED 08/27/17 IMP ACUTE HYPOXEMIC RESPIRATORY FAILURE ACUTE PULMONARY EDEMA ? PNEUMONIA/BRONCHITIS ESRD ON HD ASHD S/P CABG,S/P STENT COPD/ASTHMA PVD HTN PLAN HD PER RENAL ANTIBIOTICS PER ID F/U CHEST X-RAY CULTURES INHALED BRONCHODILATORS DR CUENCA Problem List - Problems (1) Acute hypoxemic respiratory failure Code(s): J96.01 - ACUTE RESPIRATORY FAILURE WITH HYPOXIA (2) Asthma exacerbation Code(s): J45.901 - UNSPECIFIED ASTHMA WITH (ACUTE) EXACERBATION (3) CAD (coronary artery disease) Code(s): I25.10 - ATHSCL HEART DISEASE OF [place] CORONARY ARTERY W/O ANG PCTRS (4) End stage chronic kidney disease Code(s): N18.6 - END STAGE RENAL DISEASE (5) HTN (hypertension) Code(s): I10 - ESSENTIAL (PRIMARY) HYPERTENSION Qualifiers: Hypertension type: unspecified Qualified Code(s): I10 - Essential (primary ) hypertension (6) Hyperkalemia Code(s): E87.5 - HYPERKALEMIA (7) Pulmonary edema Code(s): J81.1 - CHRONIC PULMONARY EDEMA
--- NOTE | 2017-08-27 15:24 | PN ---
Progress Note, Physician History of Present Illness: Pt seen and examined at bedside. He feels that his breathing is improved. - Current Medication List Current Medications: Active Medications Acetaminophen (Tylenol -) 650 mg PO Q6H PRN PRN Reason: FEVER Artificial Tears (Artificial Tears) 1 drop OU BID ON LICENSE OF [facility] Aspirin (Asa -) 81 mg PO DAILY ON [facility] OF [facility] Last Admin: 08/27/17 09:32 Dose: 81 mg Atorvastatin Calcium (Lipitor -) 40 mg PO HS ON [facility] OF [facility] Last Admin: 08/26/17 21:27 Dose: 40 mg Bacitracin (Bacitracin -) 1 applic TP DAILY ON [facility] Last Admin: 08/27/17 14:32 Dose: Not Given Baclofen (Lioresal -) 10 mg PO TID PRN PRN Reason: SEVERE PAIN Last Admin: 08/27/17 09:34 Dose: 10 mg Benzocaine/Menthol (Cepacol Lozenge -) 1 each MM PRN PRN PRN Reason: SORE THROAT Benzocaine/Menthol (Cepacol Lozenge -) 1 each MM TID ON [facility] Last Admin: 08/27/17 14:25 Dose: 1 each Calcium Acetate (Phoslo -) 667 mg PO TIDCM ON [facility] OF [facility] Last Admin: 08/27/17 12:18 Dose: 667 mg Clopidogrel Bisulfate (Plavix -) 75 mg PO DAILY ON [facility] Last Admin: 08/27/17 09:32 Dose: 75 mg Dicyclomine HCl (Bentyl -) 20 mg PO BID ON [facility] Last Admin: 08/27/17 09:33 Dose: 20 mg Docusate Sodium (Colace -) 100 mg PO HS ON [facility] Last Admin: 08/26/17 21:25 Dose: 100 mg Folic Acid (Folic Acid -) 1 mg PO DAILY ON [facility] Last Admin: 08/27/17 09:32 Dose: 1 mg Gabapentin (Neurontin -) 200 mg PO HS [facility] Last Admin: 08/26/17 21:27 Dose: 200 mg Heparin Sodium (Porcine) (Heparin -) 5,000 unit SQ BID ON [facility] Last Admin: 08/27/17 09:33 Dose: 5,000 unit Hydralazine HCl (Apresoline -) 25 mg PO Q6H ON [facility] OF [facility] Last Admin: 08/27/17 14:24 Dose: 25 mg Piperacillin/Tazobactam/Dextrose (Zosyn 2.25gm Ivpb (Premix)) 2.25 gm in 50 mls @ 100 mls/hr IVPB Q8H-IV ON LICENSE OF [facility] Insulin Aspart (Novolog Vial Sliding Scale -) 1 vial SQ TIDAC ON LICENSE OF [facility] PRN Reason: Protocol Insulin Aspart (Novolog Vial Sliding Scale -) 1 vial SQ HS ON [facility] OF [facility] PRN Reason: Protocol Insulin Detemir (Levemir Vial) 20 units SQ DAILY ON [facility] Last Admin: 08/27/17 09:32 Dose: 20 unit Loratadine (Claritin -) 10 mg PO DAILY ON [facility] Last Admin: 08/27/17 09:32 Dose: 10 mg Losartan Potassium (Cozaar -) 100 mg PO DAILY ON [facility] Last Admin: 08/27/17 09:32 Dose: 100 mg Metoprolol Tartrate (Lopressor -) 50 mg PO BID ON [facility] Last Admin: 08/27/17 09:32 Dose: 50 mg Multivit/Ca Carb/B Cmplx/FA/Prenat (Nephro-Ingris -) 1 tablet PO DAILY ON [facility] Last Admin: 08/27/17 09:35 Dose: 1 tablet Pantoprazole Sodium (Protonix -) 40 mg PO DAILY ON [facility] Last Admin: 08/27/17 09:32 Dose: 40 mg Senna (Senna -) 1 tab PO [facility] Last Admin: 08/26/17 21:28 Dose: 1 tab Sodium Chloride (Pegram Prole Nasal Prole -) 2 spray NS BID PRN PRN Reason: NASAL CONGESTION Tamsulosin HCl (Flomax -) 0.4 mg PO [facility] Last Admin: 08/26/17 21:27 Dose: 0.4 mg Tramadol HCl (Ultram -) 50 mg PO Q8H PRN PRN Reason: PAIN Trazodone HCl (Desyrel -) 100 mg PO [facility] Last Admin: 08/26/17 21:25 Dose: 100 mg - Objective Vital Signs: Vital Signs Temperature 98.9 F 08/27/17 10:00 Pulse Rate 71 08/27/17 10:00 Respiratory Rate 18 08/27/17 10:00 Blood Pressure 143/86 08/27/17 10:00 O2 Sat by Pulse Oximetry (%) 95 08/27/17 09:00 Constitutional: Yes: Calm Eyes: Yes: Conjunctiva Clear HENT: Yes: Atraumatic Neck: Yes: Supple Cardiovascular: Yes: S1, S2 Respiratory: Yes: On Nasal O2 Gastrointestinal: Yes: Soft, Abdomen, Obese Genitourinary: Yes: WNL Musculoskeletal: Yes: Other (right bka) Edema: Yes Edema: LLE: Trace Integumentary: Yes: Tattoos Neurological: Yes: Oriented Psychiatric: Yes: Oriented Labs: CBC, BMP 08/27/17 07:00 08/27/17 07:00 INR, PTT INR 0.93 (0.82-1.09) 08/26/17 07:45 Problem List - Problems (1) Acute and chronic respiratory failure with hypoxia Code(s): J96.21 - ACUTE AND CHRONIC RESPIRATORY FAILURE WITH HYPOXIA (2) Asthma exacerbation Code(s): J45.901 - UNSPECIFIED ASTHMA WITH (ACUTE) EXACERBATION (3) CAD (coronary artery disease) Code(s): I25.10 - ATHSCL HEART DISEASE OF [place] CORONARY ARTERY W/O ANG PCTRS (4) COPD (chronic obstructive pulmonary disease) Code(s): J44.9 - CHRONIC OBSTRUCTIVE PULMONARY DISEASE, UNSPECIFIED (5) Elevated troponin Code(s): R74.8 - ABNORMAL LEVELS OF OTHER SERUM ENZYMES (6) End stage chronic kidney disease Code(s): N18.6 - END STAGE RENAL DISEASE (7) HTN (hypertension) Code(s): I10 - ESSENTIAL (PRIMARY) HYPERTENSION Qualifiers: Hypertension type: unspecified Qualified Code(s): I10 - Essential (primary ) hypertension (8) Hyperkalemia Code(s): E87.5 - HYPERKALEMIA Assessment/Plan Current Medications Generic Name Dose Route Start Last Admin Trade Name Freq PRN Reason Stop Dose Admin Acetaminophen 650 mg 08/26/17 18:49 Tylenol - PO Q6H PRN FEVER Artificial Tears 1 drop 08/27/17 22:00 Artificial Tears OU BID [facility] Aspirin 81 mg 08/27/17 10:00 08/27/17 09:32 Asa - PO 81 mg DAILY [facility] Administration Atorvastatin Calcium 40 mg 08/26/17 22:00 08/26/17 21:27 Lipitor - PO 40 mg HS [facility] Administration Bacitracin 1 applic 08/27/17 10:15 08/27/17 14:32 Bacitracin - TP Not Given DAILY [facility] Baclofen 10 mg 08/26/17 18:49 08/27/17 09:34 Lioresal - PO 10 mg TID PRN Administration SEVERE PAIN Benzocaine/Menthol 1 each 08/26/17 15:38 Cepacol Lozenge - MM PRN PRN SORE THROAT Benzocaine/Menthol 1 each 08/26/17 22:00 08/27/17 14:25 Cepacol Lozenge - MM 1 each TID [facility] Administration Calcium Acetate 667 mg 08/27/17 12:00 08/27/17 12:18 Phoslo - PO 667 mg TIDCM [facility] Administration Clopidogrel Bisulfate 75 mg 08/27/17 10:00 08/27/17 09:32 Plavix - PO 75 mg DAILY [facility] Administration Dicyclomine HCl 20 mg 08/26/17 22:00 08/27/17 09:33 Bentyl - PO 20 mg BID [facility] Administration Docusate Sodium 100 mg 08/26/17 22:00 08/26/17 21:25 Colace - PO 100 mg HS [facility] Administration Folic Acid 1 mg 08/27/17 10:00 08/27/17 09:32 Folic Acid - PO 1 mg DAILY [facility] Administration Gabapentin 200 mg 08/26/17 22:00 08/26/17 21:27 Neurontin - PO 200 mg HS [facility] Administration Heparin Sodium (Porcine) 5,000 unit 08/26/17 22:00 08/27/17 09:33 Heparin - SQ 5,000 unit BID [facility] Administration Hydralazine HCl 25 mg 08/26/17 19:00 08/27/17 14:24 Apresoline - PO 25 mg Q6H [facility] Administration Piperacillin/Tazobactam/Dextrose 2.25 gm in 50 mls @ 100 mls/hr 08/27/17 14: 45 Zosyn 2.25gm Ivpb (Premix) IVPB Q8H-IV [facility] Insulin Aspart 1 vial 08/27/17 16:30 Novolog Vial Sliding Scale - SQ TIDAC ON LICENSE OF [facility] Protocol Insulin Aspart 1 vial 08/27/17 22:00 Novolog Vial Sliding Scale - SQ HS ON LICENSE OF [facility] Protocol Insulin Detemir 20 units 08/27/17 10:00 08/27/17 09:32 Levemir Vial SQ 20 unit DAILY [facility] Administration Loratadine 10 mg 08/27/17 10:00 08/27/17 09:32 Claritin - PO 10 mg DAILY [facility] Administration Losartan Potassium 100 mg 08/27/17 10:00 08/27/17 09:32 Cozaar - PO 100 mg DAILY [facility] Administration Metoprolol Tartrate 50 mg 08/26/17 22:00 08/27/17 09:32 Lopressor - PO 50 mg BID [facility] Administration Multivit/Ca Carb/B Cmplx/FA/Prenat 1 tablet 08/27/17 10:00 08/27/17 09:35 Nephro-Ingris - PO 1 tablet DAILY [facility] Administration Pantoprazole Sodium 40 mg 08/27/17 10:00 08/27/17 09:32 Protonix - PO 40 mg DAILY [facility] Administration Senna 1 tab 08/26/17 22:00 08/26/17 21:28 Senna - PO 1 tab HS [facility] Administration Sodium Chloride 2 spray 08/27/17 02:41 Pegram Prole Nasal Prole - NS BID PRN NASAL CONGESTION Tamsulosin HCl 0.4 mg 08/26/17 22:00 08/26/17 21:27 Flomax - PO 0.4 mg HS [facility] Administration Tramadol HCl 50 mg 08/27/17 10:09 Ultram - PO Q8H PRN PAIN Trazodone HCl 100 mg 08/26/17 22:00 08/26/17 21:25 Desyrel - PO 100 mg HS [facility] Administration Impression 1. ESRD 2. hyperkalemia 3. copd 4. HTN 5. DM 6. dyspnea 7. acute resp failure requiring bipap 8. elevated troponin Plan - HD in am - pulmonary status is improved - potassium is improved - renal diet - fluid restriction - HD AVF 4:15, 2 k bath, 500 abg, heparin 6000 units, [id number] dialyzer
[2017-08-27] MEDS: PIPERACILLIN/TAZOB 2.25 GM 2.25 GM/50 ML BAG IVPB SCH ×2 (15:54→18:17)
--- NOTE | 2017-08-27 15:57 | CONS ---
DATE OF CONSULTATION: 08/27/2017 PULMONARY CONSULTATION HISTORY OF PRESENT ILLNESS: The patient is a 57-year-old white male with extensive past medical history which includes ASHD status post stent, COPD/asthma, end-stage renal disease on hemodialysis 3 days a week, history of insulin dependent diabetes mellitus, hypertension, hyperlipidemia status post right BKA, history of tobacco use, about 2-1/2 to 3 packs per day for many years, quit approximately 15 years ago, admitted to [facility] from [facility] secondary to acute shortness of breath. Patient states at [place] he had a cough for a couple of days and some laryngitis. The day of admission, he developed increasing shortness of breath and dyspnea on minimal exertion. At approximately 3 a.m., he developed severe respiratory distress. EMS was called. Patient was brought to the emergency room. In the ER, he was found in acute respiratory distress, diaphoretic with paradoxical respirations. He was placed on supplemental O2 with improved oxygenation. He was also started on BiPAP with good clinical response. He denies any fevers, chills, nausea, vomiting, diaphoresis, had a cough productive of clear sputum. Denies any hemoptysis. Denies any chest pains or palpitations. Subsequently transferred to the medical floor for further management. Of note, his last dialysis was on Thursday. He states he has been compliant with his diet. Of note is on admission, he was known to be hyperkalemic, for which he underwent emergency dialysis. He was also had a chest x-ray with bilateral pulmonary vascular congestion with questionable infiltrate in the left side. PAST MEDICAL HISTORY: Again includes end-stage renal disease on hemodialysis, COPD, ASHD status post stent, status post CABG, asthma, hyperlipidemia, hypertension status post right BKA, peripheral vascular disease. REVIEW OF SYSTEMS: No palpitations. Positive cough. Clear sputum. No hemoptysis. No abdominal pain. No chest pain. Extremities positive for left lower extremity edema. CURRENT MEDICATIONS: Include Flomax, Tylenol, Cozaar, piperacillin, bacitracin, heparin, Neurontin, Desyrel, Bentyl, Lopressor, Colace, senna, Apresoline, , Lipitor, Novolog, Cepacol, aspirin, Ultram, Plavix, Protonix, Claritin, and folic acid, and Nephro-Ignris. PHYSICAL EXAMINATION: General: The patient is an obese male, wide awake, alert, in no acute distress. Vital signs: He is currently afebrile. Blood pressure 143/86, respiratory rate 18, and O2 saturation is 95% on room air. HEENT: Head is normocephalic, atraumatic. Neck: Supple. Heart: Regular. S1, S2. Chest: Bibasilar crackles. Abdomen: Soft. Bowel sounds positive. Extremities: Status post right BKA and left lower extremity is edematous. LABORATORY: WBC is 12.2, hemoglobin 10, hematocrit 31.2 with platelet count of 169,000. Blood gases on admission: 7.27, pCO2 of 41, pO2 of 165, bicarbonate of 13, and a saturation of 98.6 on BiPAP with 40% oxygen, BiPAP of 15, EPAP of 6, respiratory rate is 16. BUN 53, creatinine 6.4. Chest x-ray: reveals cardiomegaly, pulmonary vascular congestion. IMPRESSION: 1. Acute hypoxemic respiratory failure secondary to decompensated congestive heart failure, fluid overload. 2. End-stage renal disease, rule out possible infectious etiology, infectious process. 3. Hyperlipidemia. 4. Hypertension. 5. History of atherosclerotic heart disease status post coronary artery bypass graft status post stent. PLAN: Continue hemodialysis as per infectious disease. Being followed up with chest x-ray. Antibiotics as per ID. Follow strict I's and O's. Sputum for C&S. BELIA CUENCA M.D. [place]/[id number]
--- NOTE | 2017-08-27 20:15 | HOSP ---
Subjective - Review of Symptoms Events since last encounter: Hospitalist Encounter Primary RN informed me, that the patient reports having a productive cough- [place] , and that the ocean nasal spray is not working, he still is congested. A/P 57 y/o male admitted for Acute Respiratory Failure, Hypoxemia, ?Pneumonia/ Bronchitis Affrin spray prn Guaifenesin DM Continue to monitor Physical Examination Vital Signs: Vital Signs Temperature 99.2 F 08/27/17 17:40 Pulse Rate 68 08/27/17 17:40 Respiratory Rate 18 08/27/17 17:40 Blood Pressure 144/58 08/27/17 17:40 O2 Sat by Pulse Oximetry (%) 95 08/27/17 09:00 Labs: CBC, BMP 08/27/17 07:00 08/27/17 07:00
[2017-08-27] MEDS ORDERED: INSULIN (NOVOLOG) ASPART 100 UNITS/ML 10ML VIAL ONE (23:16)
[2017-08-27] MEDS: OXYMETAZOLINE 0.05% NASAL SOLUTION 15 ML BOTTLE NS PRN (23:21)
[2017-08-27] MEDS: guaiFENesin/D-METHORPHAN HB 10 ML UNIT-DOSE CUPS PO PRN (23:24)
[2017-08-27] MEDS: traZODone HCL 50 MG TABLET (FP) PO SCH (23:25)
[2017-08-27] MEDS: SENNOSIDES 8.6MG TABLET (FP) PO SCH (23:26)
[2017-08-27] MEDS: ATORVASTATIN CA 40 MG TABLET (FP) PO SCH (23:27)
[2017-08-27] MEDS: DOCUSATE SODIUM 100 MG CAPSULE (FP) PO SCH (23:27)
[2017-08-27] MEDS: ARTIFICIAL TEARS (POLYVINYL ALCOHOL 1.4%) OPTH DROPS OU SCH (23:28)
[2017-08-27] MEDS: TAMSULOSIN HCL 0.4 MG CAP.ER.24H (FP) PO SCH (23:31)
[2017-08-27] MEDS: GABAPENTIN 100 MG CAPSULE (FP) PO SCH (23:32)
[2017-08-28] MEDS ORDERED: PT OWN MED DRAWER 7, Y5N ONE ×6 (01:15→22:57)
[2017-08-28] MEDS: hydrALAZINE HCL 25 MG TABLET (FP) PO SCH ×4 (02:08→18:18)
[2017-08-28] MEDS: PIPERACILLIN/TAZOB 2.25 GM 2.25 GM/50 ML BAG IVPB SCH ×2 (02:08→14:15)
[2017-08-28] MEDS: traMADol HCL 50 MG TABLET PO PRN (02:21)
[2017-08-28 06:08] LABS: HBSAG SCREEN Negative (Negative); HEP B CORE AB, TOT Negative (Negative)
[2017-08-28] MEDS ORDERED: INSULIN (NOVOLOG) ASPART 100 UNITS/ML 10ML VIAL ONE ×2 (06:57→17:49)
[2017-08-28] MEDS: BENZOCAINE/MENTH/CETYLPYRD CL 1 EACH LOZENGE MM SCH ×3 (07:00→22:46)
[2017-08-28] MEDS: INSULIN SLIDING SCALE (NOVOLOG) 1 VIAL SQ SCH ×4 (07:00→22:49)
[2017-08-28] MEDS: CALCIUM ACETATE 667 MG CAPSULE (FP) PO SCH ×3 (08:16→17:30)
--- NOTE | 2017-08-28 08:41 | PN ---
Progress Note (short form) - Note Progress Note: breathing improved still with nasal congestion/scratchy throat sob resolved Vital Signs Period Temp Pulse Resp BP Sys/Quick Pulse Ox Last 24 Hr 97.4 F-99.2 F 59-71 18-20 121-149/58-86 95-97 cor-rrr lungs clear abd soft,nt ext s/p BKA on right CBC, BMP 08/27/17 07:00 08/27/17 07:00 cxray- improved congestion Microbiology 08/26/17 17:30 Blood - Post-Dialysis Blood Culture - Preliminary NO GROWTH OBTAINED AFTER 24 HOURS, INCUBATION TO CONTINUE FOR 4 DAYS. 08/26/17 17:30 Blood - Post-Dialysis Blood Culture - Preliminary NO GROWTH OBTAINED AFTER 24 HOURS, INCUBATION TO CONTINUE FOR 4 DAYS. 08/26/17 17:15 Throat Group A Strep Rapid Antigen - Final 08/26/17 17:15 Nasopharyngeal Swab Influenza Types A,B Antigen (LIZ) - Final 08/26/17 17:15 Nasopharyngeal Swab - Final a/p volume overload improved with HD ?sinusitis- suggest change to po augmentin 500 mg po daily (dose after HD on dialysis days) esrd/hd clinically improved please call back if needed Problem List - Problems (1) Pneumonia Code(s): J18.9 - PNEUMONIA, UNSPECIFIED ORGANISM (2) ESRD (end stage renal disease) Code(s): N18.6 - END STAGE RENAL DISEASE
[2017-08-28] MEDS: INSULIN DETEMIR 100 UNITS/ML MDV SQ SCH (09:30)
[2017-08-28] MEDS ORDERED: HEPARIN NA (PORCINE) 5,000 UNITS/ML 1ML VIAL IVPUSH ONE (10:45)
--- NOTE | 2017-08-28 10:47 | PN ---
Progress Note, Physician Chief Complaint: ESRD, Pulmonary congestion vs PNE, SOB History of Present Illness: NAD, in bed complaining of pain seen by neurologist for chronic back pain sinus congestion improved with Afrin and guafenisin - Current Medication List Current Medications: Active Medications Acetaminophen (Tylenol -) 650 mg PO Q6H PRN PRN Reason: FEVER Artificial Tears (Artificial Tears) 1 drop OU BID [facility] Last Admin: 08/27/17 23:28 Dose: 1 drop Aspirin (Asa -) 81 mg PO DAILY [facility] Last Admin: 08/27/17 09:32 Dose: 81 mg Atorvastatin Calcium (Lipitor -) 40 mg PO HS [facility] Last Admin: 08/27/17 23:27 Dose: 40 mg Bacitracin (Bacitracin -) 1 applic TP DAILY [facility] Last Admin: 08/27/17 14:32 Dose: Not Given Baclofen (Lioresal -) 10 mg PO TID PRN PRN Reason: SEVERE PAIN Last Admin: 08/27/17 09:34 Dose: 10 mg Benzocaine/Menthol (Cepacol Lozenge -) 1 each MM PRN PRN PRN Reason: SORE THROAT Benzocaine/Menthol (Cepacol Lozenge -) 1 each MM TID [facility] Last Admin: 08/28/17 07:00 Dose: 1 each Calcium Acetate (Phoslo -) 667 mg PO TIDCM [facility] Last Admin: 08/27/17 17:28 Dose: 667 mg Clopidogrel Bisulfate (Plavix -) 75 mg PO DAILY [facility] Last Admin: 08/27/17 09:32 Dose: 75 mg Dicyclomine HCl (Bentyl -) 20 mg PO BID [facility] Last Admin: 08/27/17 23:29 Dose: 20 mg Docusate Sodium (Colace -) 100 mg PO HS [facility] Last Admin: 08/27/17 23:27 Dose: 100 mg Folic Acid (Folic Acid -) 1 mg PO DAILY [facility] Last Admin: 08/27/17 09:32 Dose: 1 mg Gabapentin (Neurontin -) 200 mg PO HS [facility] Last Admin: 08/27/17 23:32 Dose: 200 mg Guaifenesin (Robitussin Dm -) 10 ml PO Q6H PRN PRN Reason: COUGH Last Admin: 08/27/17 23:24 Dose: 10 ml Heparin Sodium (Porcine) (Heparin -) 5,000 unit SQ BID [facility] Last Admin: 08/27/17 23:21 Dose: 5,000 unit Heparin Sodium (Porcine) (Heparin -) 6,000 unit IVPUSH ONCE ONE Stop: 08/28/17 15:27 Hydralazine HCl (Apresoline -) 25 mg PO Q6H [facility] Last Admin: 08/28/17 07:00 Dose: 25 mg Piperacillin/Tazobactam/Dextrose (Zosyn 2.25gm Ivpb (Premix)) 2.25 gm in 50 mls @ 100 mls/hr IVPB Q8H-IV [facility] Last Admin: 08/28/17 02:08 Dose: 100 mls/hr Insulin Aspart (Novolog Vial Sliding Scale -) 1 vial SQ TIDAC [facility] PRN Reason: Protocol Last Admin: 08/28/17 07:00 Dose: 2 units Insulin Aspart (Novolog Vial Sliding Scale -) 1 vial SQ HS [facility] PRN Reason: Protocol Last Admin: 08/27/17 23:33 Dose: 2 unit Insulin Detemir (Levemir Vial) 20 units SQ DAILY [facility] Last Admin: 08/27/17 09:32 Dose: 20 unit Loratadine (Claritin -) 10 mg PO DAILY [facility] Last Admin: 08/27/17 09:32 Dose: 10 mg Losartan Potassium (Cozaar -) 100 mg PO DAILY [facility] Last Admin: 08/27/17 09:32 Dose: 100 mg Metoprolol Tartrate (Lopressor -) 50 mg PO BID [facility] Last Admin: 08/27/17 23:30 Dose: 50 mg Multivit/Ca Carb/B Cmplx/FA/Prenat (Nephro-Ingris -) 1 tablet PO DAILY [facility] Last Admin: 08/27/17 09:35 Dose: 1 tablet Oxymetazoline HCl (Afrin -) 2 spray NS BID PRN PRN Reason: NASAL CONGESTION Last Admin: 08/27/17 23:21 Dose: 2 spray Pantoprazole Sodium (Protonix -) 40 mg PO DAILY [facility] Last Admin: 08/27/17 09:32 Dose: 40 mg Senna (Senna -) 1 tab PO HS [facility] Last Admin: 08/27/17 23:26 Dose: 1 tab Tamsulosin HCl (Flomax -) 0.4 mg PO HS [facility] Last Admin: 12/28/17 23:31 Dose: 0.4 mg Tramadol HCl (Ultram -) 50 mg PO Q8H PRN PRN Reason: PAIN Last Admin: 08/28/17 02:21 Dose: 50 mg Trazodone HCl (Desyrel -) 100 mg PO HS [facility] Last Admin: 08/27/17 23:25 Dose: 100 mg - Objective Vital Signs: Vital Signs Temperature 98.8 F 08/28/17 09:25 Pulse Rate 61 08/28/17 10:30 Respiratory Rate 18 08/28/17 10:30 Blood Pressure 144/67 08/28/17 10:30 O2 Sat by Pulse Oximetry (%) 97 08/28/17 00:05 Constitutional: Yes: Well Nourished, No Distress, Calm Cardiovascular: Yes: Regular Rate and Rhythm Respiratory: Yes: Regular Gastrointestinal: Yes: Normal Bowel Sounds Musculoskeletal: Yes: WNL Extremities: Yes: WNL, Amputation (RLE) Edema: No Neurological: Yes: Alert, Oriented Psychiatric: Yes: Alert, Oriented Labs: INR, PTT INR 0.93 (0.82-1.09) 08/26/17 07:45 Problem List - Problems (1) Acute and chronic respiratory failure with hypoxia Code(s): J96.21 - ACUTE AND CHRONIC RESPIRATORY FAILURE WITH HYPOXIA (2) CAD (coronary artery disease) Assessment/Plan: -cardiology consult -telemetry monitoring Code(s): I25.10 - ATHSCL HEART DISEASE OF [place] CORONARY ARTERY W/O ANG PCTRS (3) COPD (chronic obstructive pulmonary disease) Assessment/Plan: nasal o2 -neb tx -Pulmonary consult Code(s): J44.9 - CHRONIC OBSTRUCTIVE PULMONARY DISEASE, UNSPECIFIED (4) Elevated troponin Code(s): R74.8 - ABNORMAL LEVELS OF OTHER SERUM ENZYMES (5) End stage chronic kidney disease Code(s): N18.6 - END STAGE RENAL DISEASE (6) HTN (hypertension) Code(s): I10 - ESSENTIAL (PRIMARY) HYPERTENSION Qualifiers: Hypertension type: unspecified Qualified Code(s): I10 - Essential (primary ) hypertension (7) Hyperkalemia Code(s): E87.5 - HYPERKALEMIA (8) Pneumonia Code(s): J18.9 - PNEUMONIA, UNSPECIFIED ORGANISM (9) Diabetes Code(s): E11.9 - TYPE 2 DIABETES MELLITUS WITHOUT COMPLICATIONS (10) Leukocytosis Code(s): D72.829 - ELEVATED WHITE BLOOD CELL COUNT, UNSPECIFIED
[2017-08-28 10:49] LABS: ANION GAP 14 (8-16); BLOOD UREA NITROGEN 73 mg/dL (7-18); CALCIUM 8.6 mg/dL (8.5-10.1); CHLORIDE 104 mmol/L (98-107); CO2 24 mmol/L (21-32); GLUCOSE,RANDOM 140 mg/dL (74-106); POTASSIUM 4.5 mmol/L (3.5-5.1); SODIUM 142 mmol/L (136-145)
[2017-08-28] MEDS: ARTIFICIAL TEARS (POLYVINYL ALCOHOL 1.4%) OPTH DROPS OU SCH ×2 (11:16→22:45)
[2017-08-28] MEDS: BACITRACIN 15 GM TUBE TOPICAL OINTMENT TP SCH (11:16)
[2017-08-28] MEDS: DICYCLOMINE HCL 10 MG CAPSULE PO SCH ×2 (11:16→22:46)
[2017-08-28] MEDS: LORATADINE 10 MG TABLET PO SCH (11:16)
[2017-08-28] MEDS: ASPIRIN 81 MG CHEWABLE TABLETS PO SCH (11:16)
[2017-08-28] MEDS: PANTOPRAZOLE 40 MG TABLET (FP) PO SCH (11:17)
[2017-08-28] MEDS: VITAMIN B COMP W-C 1 EA TABLET PO SCH (11:17)
[2017-08-28] MEDS: FOLIC ACID 1 MG TABLET (FP) PO SCH (11:17)
[2017-08-28 11:56] LABS: CREATININE 8.3 mg/dL (0.7-1.3)
[2017-08-28 12:57] LABS: HEMATOCRIT 33.1 % (35.4-49); HEMOGLOBIN 10.6 GM/dL (11.7-16.9); MCH 30.2 pg (25.7-33.7); MCHC 31.9 g/dl (32.0-35.9); MEAN CELL VOLUME 94.7 fl (80-96); MEAN PLT VOLUME 8.3 fl (7.5-11.1); PLATELET COUNT 212 K/MM3 (134-434); RDW 14.7 % (11.9-15.9); WHITE BLOOD COUNT 12.2 K/mm3 (4.0-10.0)
--- NOTE | 2017-08-28 13:09 | PN ---
Progress Note (short form) - Note Progress Note: Feels better No SOB undergoing HD FS acceptable Vital Signs Period Temp Pulse Resp BP Sys/Quick Pulse Ox Last 24 Hr 97.4 F-99.2 F 59-70 18-20 121-179/58-83 95-100 PE: AOx3 Neck: Supple, No JVD HEENT: PERRL, EOMI Lungs: CTA CVS: S1S2 Abd: benign Ext: Rt BKA, Left leg stasis changes, +blister around 2 cm over [place] Neuro: No focal deficit CMP Sodium 142 mmol/L (136-145) 08/28/17 09:30 Potassium 4.5 mmol/L (3.5-5.1) 08/28/17 09:30 Chloride 104 mmol/L (98-107) 08/28/17 09:30 Carbon Dioxide 24 mmol/L (21-32) 08/28/17 09:30 Anion Gap 14 (8-16) 08/28/17 09:30 BUN 73 mg/dL (7-18) H D 08/28/17 09:30 Creatinine 8.3 mg/dL (0.7-1.3) H* D 08/28/17 09:30 Creat Clearance w eGFR 6.06 (>60) 08/26/17 07:45 POC Glucometer 178 UNITS (80-120) 08/28/17 11:59 Random Glucose 140 mg/dL (74-106) H 08/28/17 09:30 Hemoglobin A1c % 7.4 % (4.8-6.0) H 08/28/17 09:30 Calcium 8.6 mg/dL (8.5-10.1) 08/28/17 09:30 Magnesium 1.8 mg/dL (1.8-2.4) 08/26/17 07:45 Total Bilirubin 0.2 mg/dL (0.2-1.0) D 08/26/17 07:45 AST 22 U/L (15-37) D 08/26/17 07:45 ALT 25 U/L (12-78) D 08/26/17 07:45 Alkaline Phosphatase 103 U/L (45-117) 08/26/17 07:45 Creatine Kinase 287 IU/L (39-308) 08/26/17 07:45 Creatine Kinase Index 2.7 % (0.0-5.0) 08/26/17 07:45 CK-MB (CK-2) 7.939 ng/mL (0.5-3.6) H 08/26/17 07:45 Troponin I 0.19 ng/ml (0.00-0.05) H D 08/27/17 07:00 B-Natriuretic Peptide 20052.99 pg/ml (5-125) H 08/26/17 07:45 Total Protein 7.5 g/dl (6.4-8.2) 08/26/17 07:45 Albumin 3.5 g/dl (3.4-5.0) 08/26/17 07:45 Current Medications Generic Name Dose Route Start Last Admin Trade Name Freq PRN Reason Stop Dose Admin Acetaminophen 650 mg 08/26/17 18:49 Tylenol - PO Q6H PRN FEVER Artificial Tears 1 drop 08/27/17 22:00 08/28/17 11:16 Artificial Tears OU 1 drop BID [facility] Administration Aspirin 81 mg 08/27/17 10:00 08/28/17 11:16 Asa - PO 81 mg DAILY [facility] Administration Atorvastatin Calcium 40 mg 08/26/17 22:00 08/27/17 23:27 Lipitor - PO 40 mg HS [facility] Administration Bacitracin 1 applic 08/27/17 10:15 08/28/17 11:16 Bacitracin - TP 1 applic DAILY [facility] Administration Baclofen 10 mg 08/26/17 18:49 08/27/17 09:34 Lioresal - PO 10 mg TID PRN Administration SEVERE PAIN Benzocaine/Menthol 1 each 08/26/17 15:38 Cepacol Lozenge - MM PRN PRN SORE THROAT Benzocaine/Menthol 1 each 08/26/17 22:00 08/28/17 07:00 Cepacol Lozenge - MM 1 each TID [facility] Administration Calcium Acetate 667 mg 08/27/17 12:00 08/28/17 12:17 Phoslo - PO 667 mg TIDCM [facility] Administration Clopidogrel Bisulfate 75 mg 08/27/17 10:00 08/27/17 09:32 Plavix - PO 75 mg DAILY [facility] Administration Dicyclomine HCl 20 mg 08/26/17 22:00 08/28/17 11:16 Bentyl - PO 20 mg BID [facility] Administration Docusate Sodium 100 mg 08/26/17 22:00 08/27/17 23:27 Colace - PO 100 mg HS [facility] Administration Folic Acid 1 mg 08/27/17 10:00 08/28/17 11:17 Folic Acid - PO 1 mg DAILY [facility] Administration Gabapentin 200 mg 08/26/17 22:00 08/27/17 23:32 Neurontin - PO 200 mg HS [facility] Administration Guaifenesin 10 ml 08/27/17 20:03 08/27/17 23:24 Robitussin Dm - PO 10 ml Q6H PRN Administration COUGH Heparin Sodium (Porcine) 5,000 unit 08/26/17 22:00 08/27/17 23:21 Heparin - SQ 5,000 unit BID [facility] Administration Hydralazine HCl 25 mg 08/26/17 19:00 08/28/17 07:00 Apresoline - PO 25 mg Q6H [facility] Administration Piperacillin/Tazobactam/Dextrose 2.25 gm in 50 mls @ 100 mls/hr 08/27/17 14: 45 08/28/17 02:08 Zosyn 2.25gm Ivpb (Premix) IVPB 100 mls/hr Q8H-IV [facility] Administration Insulin Aspart 1 vial 08/27/17 16:30 08/28/17 12:17 Novolog Vial Sliding Scale - SQ 2 units TIDAC [facility] Administration Protocol Insulin Aspart 1 vial 08/27/17 22:00 08/27/17 23:33 Novolog Vial Sliding Scale - SQ 2 unit HS [facility] Administration Protocol Insulin Detemir 20 units 08/27/17 10:00 08/28/17 09:30 Levemir Vial SQ 20 unit DAILY [facility] Administration Loratadine 10 mg 08/27/17 10:00 08/28/17 11:16 Claritin - PO 10 mg DAILY [facility] Administration Losartan Potassium 100 mg 08/27/17 10:00 08/27/17 09:32 Cozaar - PO 100 mg DAILY [facility] Administration Metoprolol Tartrate 50 mg 08/26/17 22:00 08/27/17 23:30 Lopressor - PO 50 mg BID [facility] Administration Multivit/Ca Carb/B Cmplx/FA/Prenat 1 tablet 08/27/17 10:00 08/28/17 11:17 Nephro-Ingris - PO 1 tablet DAILY [facility] Administration Oxymetazoline HCl 2 spray 08/27/17 20:04 08/27/17 23:21 Afrin - NS 2 spray BID PRN Administration NASAL CONGESTION Pantoprazole Sodium 40 mg 08/27/17 10:00 08/28/17 11:17 Protonix - PO 40 mg DAILY [facility] Administration Senna 1 tab 08/26/17 22:00 08/27/17 23:26 Senna - PO 1 tab HS [facility] Administration Tamsulosin HCl 0.4 mg 08/26/17 22:00 08/27/17 23:31 Flomax - PO 0.4 mg HS [facility] Administration Tramadol HCl 50 mg 08/27/17 10:09 08/28/17 02:21 Ultram - PO 50 mg Q8H PRN Administration PAIN Trazodone HCl 100 mg 08/26/17 22:00 08/27/17 23:25 Desyrel - PO 100 mg HS [facility] Administration AP: COPD HTN T2DM PAD CAD S/p Rt BKA Left leg stasis changes with blister ESRD on HD BGM Q ACHS Levemir 20 units daily Novolog SS coverage, Novolog premeals to be given just before meals. Not to be given before food is in the room. Diet exercise discussed Diabetes education done. IV Abx
--- NOTE | 2017-08-28 13:32 | PN ---
Progress Note, Physician History of Present Illness: ULMONARY ALERT,FEELING BETTER ON HD,SOB IMPROVING - Current Medication List Current Medications: Active Medications Acetaminophen (Tylenol -) 650 mg PO Q6H PRN PRN Reason: FEVER Artificial Tears (Artificial Tears) 1 drop OU BID [facility] Last Admin: 08/28/17 11:16 Dose: 1 drop Aspirin (Asa -) 81 mg PO DAILY [facility] Last Admin: 08/28/17 11:16 Dose: 81 mg Atorvastatin Calcium (Lipitor -) 40 mg PO HS [facility] Last Admin: 08/27/17 23:27 Dose: 40 mg Bacitracin (Bacitracin -) 1 applic TP DAILY [facility] Last Admin: 08/28/17 11:16 Dose: 1 applic Baclofen (Lioresal -) 10 mg PO TID PRN PRN Reason: SEVERE PAIN Last Admin: 08/27/17 09:34 Dose: 10 mg Benzocaine/Menthol (Cepacol Lozenge -) 1 each MM PRN PRN PRN Reason: SORE THROAT Benzocaine/Menthol (Cepacol Lozenge -) 1 each MM TID [facility] Last Admin: 08/28/17 07:00 Dose: 1 each Calcium Acetate (Phoslo -) 667 mg PO TIDCM [facility] Last Admin: 08/28/17 12:17 Dose: 667 mg Clopidogrel Bisulfate (Plavix -) 75 mg PO DAILY [facility] Last Admin: 08/27/17 09:32 Dose: 75 mg Dicyclomine HCl (Bentyl -) 20 mg PO BID [facility] Last Admin: 08/28/17 11:16 Dose: 20 mg Docusate Sodium (Colace -) 100 mg PO HS [facility] Last Admin: 08/27/17 23:27 Dose: 100 mg Folic Acid (Folic Acid -) 1 mg PO DAILY [facility] Last Admin: 08/28/17 11:17 Dose: 1 mg Gabapentin (Neurontin -) 200 mg PO HS [facility] Last Admin: 08/27/17 23:32 Dose: 200 mg Guaifenesin (Robitussin Dm -) 10 ml PO Q6H PRN PRN Reason: COUGH Last Admin: 08/27/17 23:24 Dose: 10 ml Heparin Sodium (Porcine) (Heparin -) 5,000 unit SQ BID [facility] Last Admin: 08/27/17 23:21 Dose: 5,000 unit Hydralazine HCl (Apresoline -) 25 mg PO Q6H [facility] Last Admin: 08/28/17 07:00 Dose: 25 mg Piperacillin/Tazobactam/Dextrose (Zosyn 2.25gm Ivpb (Premix)) 2.25 gm in 50 mls @ 100 mls/hr IVPB Q8H-IV [facility] Last Admin: 08/28/17 02:08 Dose: 100 mls/hr Insulin Aspart (Novolog Vial Sliding Scale -) 1 vial SQ HS [facility] PRN Reason: Protocol Last Admin: 08/27/17 23:33 Dose: 2 unit Insulin Aspart (Novolog Vial Sliding Scale -) 1 vial SQ TIDAC [facility] PRN Reason: Protocol Insulin Detemir (Levemir Vial) 20 units SQ DAILY [facility] Last Admin: 08/28/17 09:30 Dose: 20 unit Loratadine (Claritin -) 10 mg PO DAILY [facility] Last Admin: 08/28/17 11:16 Dose: 10 mg Losartan Potassium (Cozaar -) 100 mg PO DAILY [facility] Last Admin: 08/27/17 09:32 Dose: 100 mg Metoprolol Tartrate (Lopressor -) 50 mg PO BID [facility] Last Admin: 08/27/17 23:30 Dose: 50 mg Multivit/Ca Carb/B Cmplx/FA/Prenat (Nephro-Ingris -) 1 tablet PO DAILY [facility] Last Admin: 08/28/17 11:17 Dose: 1 tablet Oxymetazoline HCl (Afrin -) 2 spray NS BID PRN PRN Reason: NASAL CONGESTION Last Admin: 08/27/17 23:21 Dose: 2 spray Pantoprazole Sodium (Protonix -) 40 mg PO DAILY [facility] Last Admin: 08/28/17 11:17 Dose: 40 mg Senna (Senna -) 1 tab PO HS [facility] Last Admin: 08/27/17 23:26 Dose: 1 tab Tamsulosin HCl (Flomax -) 0.4 mg PO HS [facility] Last Admin: 08/27/17 23:31 Dose: 0.4 mg Tramadol HCl (Ultram -) 50 mg PO Q8H PRN PRN Reason: PAIN Last Admin: 08/28/17 02:21 Dose: 50 mg Trazodone HCl (Desyrel -) 100 mg PO [facility] Last Admin: 08/27/17 23:25 Dose: 100 mg - Objective Vital Signs: Vital Signs Temperature 98.4 F 08/28/17 10:00 Pulse Rate 70 08/28/17 13:00 Respiratory Rate 18 08/28/17 13:00 Blood Pressure 148/65 08/28/17 13:00 O2 Sat by Pulse Oximetry (%) 100 08/28/17 10:00 Constitutional: Yes: Calm, Obese Eyes: Yes: WNL HENT: Yes: WNL Neck: Yes: WNL Cardiovascular: Yes: Regular Rate and Rhythm, S1, S2 Respiratory: Yes: Diminished Gastrointestinal: Yes: Normal Bowel Sounds, Soft Extremities: Yes: Amputation (R BKA) Edema: Yes Labs: CBC, BMP 08/28/17 09:30 08/28/17 09:30 INR, PTT INR 0.93 (0.82-1.09) 08/26/17 07:45 Problem List - Problems (1) Acute hypoxemic respiratory failure Code(s): J96.01 - ACUTE RESPIRATORY FAILURE WITH HYPOXIA (2) Asthma exacerbation Code(s): J45.901 - UNSPECIFIED ASTHMA WITH (ACUTE) EXACERBATION (3) CAD (coronary artery disease) Code(s): I25.10 - ATHSCL HEART DISEASE OF [place] CORONARY ARTERY W/O ANG PCTRS (4) End stage chronic kidney disease Code(s): N18.6 - END STAGE RENAL DISEASE (5) HTN (hypertension) Code(s): I10 - ESSENTIAL (PRIMARY) HYPERTENSION Qualifiers: Hypertension type: unspecified Qualified Code(s): I10 - Essential (primary ) hypertension (6) Hyperkalemia Code(s): E87.5 - HYPERKALEMIA (7) Pulmonary edema Code(s): J81.1 - CHRONIC PULMONARY EDEMA Assessment/Plan IMP ACUTE HYPOXEMIC RESPIRATORY FAILURE IMPROVING ACUTE PULMONARY EDEMA ? PNEUMONIA/BRONCHITIS ESRD ON HD ASHD S/P CABG,S/P STENT COPD/ASTHMA PVD HTN PLAN HD PER RENAL ANTIBIOTICS PER ID F/U CHEST X-RAY INHALED BRONCHODILATORS DR CUENCA Problem List - Problems (1) Acute hypoxemic respiratory failure Code(s): J96.01 - ACUTE RESPIRATORY FAILURE WITH HYPOXIA (2) Asthma exacerbation Code(s): J45.901 - UNSPECIFIED ASTHMA WITH (ACUTE) EXACERBATION (3) CAD (coronary artery disease) Code(s): I25.10 - ATHSCL HEART DISEASE OF [place] CORONARY ARTERY W/O ANG PCTRS (4) End stage chronic kidney disease Code(s): N18.6 - END STAGE RENAL DISEASE (5) HTN (hypertension) Code(s): I10 - ESSENTIAL (PRIMARY) HYPERTENSION Qualifiers: Hypertension type: unspecified Qualified Code(s): I10 - Essential (primary ) hypertension (6) Hyperkalemia Code(s): E87.5 - HYPERKALEMIA (7) Pulmonary edema Code(s): J81.1 - CHRONIC PULMONARY EDEMA
[2017-08-28] MEDS: LOSARTAN POTASSIUM 50 MG TABLET (FP) PO SCH (14:16)
[2017-08-28] MEDS: HEPARIN NA (PORCINE) 5,000 UNITS/ML 1ML VIAL SQ SCH ×2 (14:16→22:47)
[2017-08-28] MEDS: CLOPIDOGREL BISULFATE 75 MG TABLET (FP) PO SCH (14:16)
[2017-08-28] MEDS: METOPROLOL TARTRATE 50 MG TABLET (FP) PO SCH ×2 (14:16→22:48)
--- NOTE | 2017-08-28 15:08 | PN ---
Progress Note, Physician History of Present Illness: Pt seen and examined at bedside. He is awake and alert. He tolerated HD today. - Current Medication List Current Medications: Active Medications Acetaminophen (Tylenol -) 650 mg PO Q6H PRN PRN Reason: FEVER Artificial Tears (Artificial Tears) 1 drop OU BID [facility] Last Admin: 08/28/17 11:16 Dose: 1 drop Aspirin (Asa -) 81 mg PO DAILY [facility] Last Admin: 08/28/17 11:16 Dose: 81 mg Atorvastatin Calcium (Lipitor -) 40 mg PO HS [facility] Last Admin: 08/27/17 23:27 Dose: 40 mg Bacitracin (Bacitracin -) 1 applic TP DAILY [facility] Last Admin: 08/28/17 11:16 Dose: 1 applic Baclofen (Lioresal -) 10 mg PO TID PRN PRN Reason: SEVERE PAIN Last Admin: 08/27/17 09:34 Dose: 10 mg Benzocaine/Menthol (Cepacol Lozenge -) 1 each MM PRN PRN PRN Reason: SORE THROAT Benzocaine/Menthol (Cepacol Lozenge -) 1 each MM TID [facility] Last Admin: 08/28/17 07:00 Dose: 1 each Calcium Acetate (Phoslo -) 667 mg PO TIDCM [facility] Last Admin: 08/28/17 12:17 Dose: 667 mg Clopidogrel Bisulfate (Plavix -) 75 mg PO DAILY [facility] Last Admin: 08/28/17 14:16 Dose: 75 mg Dicyclomine HCl (Bentyl -) 20 mg PO BID [facility] Last Admin: 08/28/17 11:16 Dose: 20 mg Docusate Sodium (Colace -) 100 mg PO HS [facility] Last Admin: 08/27/17 23:27 Dose: 100 mg Folic Acid (Folic Acid -) 1 mg PO DAILY [facility] Last Admin: 08/28/17 11:17 Dose: 1 mg Gabapentin (Neurontin -) 200 mg PO HS [facility] Last Admin: 08/27/17 23:32 Dose: 200 mg Guaifenesin (Robitussin Dm -) 10 ml PO Q6H PRN PRN Reason: COUGH Last Admin: 08/27/17 23:24 Dose: 10 ml Heparin Sodium (Porcine) (Heparin -) 5,000 unit SQ BID [facility] Last Admin: 08/28/17 14:16 Dose: 5,000 unit Hydralazine HCl (Apresoline -) 25 mg PO Q6H [facility] Last Admin: 08/28/17 14:14 Dose: 25 mg Piperacillin/Tazobactam/Dextrose (Zosyn 2.25gm Ivpb (Premix)) 2.25 gm in 50 mls @ 100 mls/hr IVPB Q8H-IV [facility] Last Admin: 08/28/17 14:15 Dose: 100 mls/hr Insulin Aspart (Novolog Vial Sliding Scale -) 1 vial SQ HS [facility] PRN Reason: Protocol Last Admin: 08/27/17 23:33 Dose: 2 unit Insulin Aspart (Novolog Vial Sliding Scale -) 1 vial SQ TIDAC [facility] PRN Reason: Protocol Insulin Detemir (Levemir Vial) 20 units SQ DAILY [facility] Last Admin: 08/28/17 09:30 Dose: 20 unit Loratadine (Claritin -) 10 mg PO DAILY [facility] Last Admin: 08/28/17 11:16 Dose: 10 mg Losartan Potassium (Cozaar -) 100 mg PO DAILY [facility] Last Admin: 08/28/17 14:16 Dose: 100 mg Metoprolol Tartrate (Lopressor -) 50 mg PO BID [facility] Last Admin: 08/28/17 14:16 Dose: 50 mg Multivit/Ca Carb/B Cmplx/FA/Prenat (Nephro-Ingris -) 1 tablet PO DAILY [facility] Last Admin: 08/28/17 11:17 Dose: 1 tablet Oxymetazoline HCl (Afrin -) 2 spray NS BID PRN PRN Reason: NASAL CONGESTION Last Admin: 08/27/17 23:21 Dose: 2 spray Pantoprazole Sodium (Protonix -) 40 mg PO DAILY [facility] Last Admin: 08/28/17 11:17 Dose: 40 mg Senna (Senna -) 1 tab PO [facility] Last Admin: 08/27/17 23:26 Dose: 1 tab Tamsulosin HCl (Flomax -) 0.4 mg PO [facility] Last Admin: 08/27/17 23:31 Dose: 0.4 mg Tramadol HCl (Ultram -) 50 mg PO Q8H PRN PRN Reason: PAIN Last Admin: 08/28/17 02:21 Dose: 50 mg Trazodone HCl (Desyrel -) 100 mg PO [facility] Last Admin: 08/27/17 23:25 Dose: 100 mg - Objective Vital Signs: Vital Signs Temperature 98.4 F 08/28/17 10:00 Pulse Rate 62 08/28/17 13:48 Respiratory Rate 18 08/28/17 13:48 Blood Pressure 141/67 08/28/17 13:48 O2 Sat by Pulse Oximetry (%) 96 08/28/17 14:47 Constitutional: Yes: Calm Eyes: Yes: Conjunctiva Clear HENT: Yes: Atraumatic Neck: Yes: Supple Cardiovascular: Yes: S1, S2 Respiratory: Yes: CTA Bilaterally Gastrointestinal: Yes: Soft, Abdomen, Obese Genitourinary: Yes: WNL Musculoskeletal: Yes: Other (rigth bka) Edema: Yes Edema: LLE: Trace Integumentary: Yes: Skin Tear Neurological: Yes: Oriented Psychiatric: Yes: Oriented Labs: CBC, BMP 08/28/17 09:30 08/28/17 09:30 INR, PTT INR 0.93 (0.82-1.09) 08/26/17 07:45 Problem List - Problems (1) Acute and chronic respiratory failure with hypoxia Code(s): J96.21 - ACUTE AND CHRONIC RESPIRATORY FAILURE WITH HYPOXIA (2) Asthma exacerbation Code(s): J45.901 - UNSPECIFIED ASTHMA WITH (ACUTE) EXACERBATION (3) CAD (coronary artery disease) Code(s): I25.10 - ATHSCL HEART DISEASE OF [place] CORONARY ARTERY W/O ANG PCTRS (4) COPD (chronic obstructive pulmonary disease) Code(s): J44.9 - CHRONIC OBSTRUCTIVE PULMONARY DISEASE, UNSPECIFIED (5) Elevated troponin Code(s): R74.8 - ABNORMAL LEVELS OF OTHER SERUM ENZYMES (6) End stage chronic kidney disease Code(s): N18.6 - END STAGE RENAL DISEASE (7) HTN (hypertension) Code(s): I10 - ESSENTIAL (PRIMARY) HYPERTENSION Qualifiers: Hypertension type: unspecified Qualified Code(s): I10 - Essential (primary ) hypertension (8) Hyperkalemia Code(s): E87.5 - HYPERKALEMIA Assessment/Plan Current Medications Generic Name Dose Route Start Last Admin Trade Name Freq PRN Reason Stop Dose Admin Acetaminophen 650 mg 08/26/17 18:49 Tylenol - PO Q6H PRN FEVER Artificial Tears 1 drop 08/27/17 22:00 08/28/17 11:16 Artificial Tears OU 1 drop BID [facility] Administration Aspirin 81 mg 08/27/17 10:00 08/28/17 11:16 Asa - PO 81 mg DAILY [facility] Administration Atorvastatin Calcium 40 mg 08/26/17 22:00 08/27/17 23:27 Lipitor - PO 40 mg HS [facility] Administration Bacitracin 1 applic 08/27/17 10:15 08/28/17 11:16 Bacitracin - TP 1 applic DAILY [facility] Administration Baclofen 10 mg 08/26/17 18:49 08/27/17 09:34 Lioresal - PO 10 mg TID PRN Administration SEVERE PAIN Benzocaine/Menthol 1 each 08/26/17 15:38 Cepacol Lozenge - MM PRN PRN SORE THROAT Benzocaine/Menthol 1 each 08/26/17 22:00 08/28/17 07:00 Cepacol Lozenge - MM 1 each TID [facility] Administration Calcium Acetate 667 mg 08/27/17 12:00 08/28/17 12:17 Phoslo - PO 667 mg TIDCM [facility] Administration Clopidogrel Bisulfate 75 mg 08/27/17 10:00 08/28/17 14:16 Plavix - PO 75 mg DAILY [facility] Administration Dicyclomine HCl 20 mg 08/26/17 22:00 08/28/17 11:16 Bentyl - PO 20 mg BID [facility] Administration Docusate Sodium 100 mg 08/26/17 22:00 08/27/17 23:27 Colace - PO 100 mg HS [facility] Administration Folic Acid 1 mg 08/27/17 10:00 08/28/17 11:17 Folic Acid - PO 1 mg DAILY [facility] Administration Gabapentin 200 mg 08/26/17 22:00 08/27/17 23:32 Neurontin - PO 200 mg HS [facility] Administration Guaifenesin 10 ml 08/27/17 20:03 08/27/17 23:24 Robitussin Dm - PO 10 ml Q6H PRN Administration COUGH Heparin Sodium (Porcine) 5,000 unit 08/26/17 22:00 08/28/17 14:16 Heparin - SQ 5,000 unit BID [facility] Administration Hydralazine HCl 25 mg 08/26/17 19:00 08/28/17 14:14 Apresoline - PO 25 mg Q6H [facility] Administration Piperacillin/Tazobactam/Dextrose 2.25 gm in 50 mls @ 100 mls/hr 08/27/17 14: 45 08/28/17 14:15 Zosyn 2.25gm Ivpb (Premix) IVPB 100 mls/hr Q8H-IV [facility] Administration Insulin Aspart 1 vial 08/27/17 22:00 08/27/17 23:33 Novolog Vial Sliding Scale - SQ 2 unit HS [facility] Administration Protocol Insulin Aspart 1 vial 08/28/17 13:12 Novolog Vial Sliding Scale - SQ TIDAC [facility] Protocol Insulin Detemir 20 units 08/27/17 10:00 08/28/17 09:30 Levemir Vial SQ 20 unit DAILY [facility] Administration Loratadine 10 mg 08/27/17 10:00 08/28/17 11:16 Claritin - PO 10 mg DAILY [facility] Administration Losartan Potassium 100 mg 08/27/17 10:00 08/28/17 14:16 Cozaar - PO 100 mg DAILY [facility] Administration Metoprolol Tartrate 50 mg 08/26/17 22:00 08/28/17 14:16 Lopressor - PO 50 mg BID [facility] Administration Multivit/Ca Carb/B Cmplx/FA/Prenat 1 tablet 08/27/17 10:00 08/28/17 11:17 Nephro-Ingris - PO 1 tablet DAILY [facility] Administration Oxymetazoline HCl 2 spray 08/27/17 20:04 08/27/17 23:21 Afrin - NS 2 spray BID PRN Administration NASAL CONGESTION Pantoprazole Sodium 40 mg 08/27/17 10:00 08/28/17 11:17 Protonix - PO 40 mg DAILY [facility] Administration Senna 1 tab 08/26/17 22:00 08/27/17 23:26 Senna - PO 1 tab HS [facility] Administration Tamsulosin HCl 0.4 mg 08/26/17 22:00 08/27/17 23:31 Flomax - PO 0.4 mg HS [facility] Administration Tramadol HCl 50 mg 08/27/17 10:09 08/28/17 02:21 Ultram - PO 50 mg Q8H PRN Administration PAIN Trazodone HCl 100 mg 08/26/17 22:00 08/27/17 23:25 Desyrel - PO 100 mg HS [facility] Administration Impression 1. ESRD 2. hyperkalemia 3. copd 4. HTN 5. DM 6. dyspnea 7. acute resp failure requiring bipap 8. elevated troponin Plan - pt tolerated HD - discussed low potassium diet - discussed with primary team - renal diet - fluid restriction - HD AVF 4:15, 2 k bath, 500 abg, heparin 6000 units, [id number] dialyzer
--- NOTE | 2017-08-28 16:00 | DS ---
Physical Examination Vital Signs: Vital Signs Temperature 98.4 F 08/28/17 10:00 Pulse Rate 62 08/28/17 13:48 Respiratory Rate 18 08/28/17 13:48 Blood Pressure 141/67 08/28/17 13:48 O2 Sat by Pulse Oximetry (%) 96 08/28/17 14:47 Findings/Remarks: augmentin 500 mg po daily x 7 days (dose after HD on dialysis days) Constitutional: Yes: Well Nourished, No Distress, Calm Cardiovascular: Yes: Regular Rate and Rhythm Respiratory: Yes: Regular Gastrointestinal: Yes: Normal Bowel Sounds Extremities: Yes: Amputation (RLE) Edema: No Peripheral Pulses WNL: Yes Neurological: Yes: Alert, Oriented Psychiatric: Yes: Alert, Oriented Labs: CBC, BMP 08/28/17 09:30 08/28/17 09:30 Discharge Summary Reason For Visit: END STAGE CHRONIC KIDNEY DISEASE Current Active Problems Acute and chronic respiratory failure with hypoxia (Acute) Acute hypoxemic respiratory failure (Acute) Asthma exacerbation (Acute) CAD (coronary artery disease) (Acute) COPD (chronic obstructive pulmonary disease) (Acute) Elevated troponin (Acute) End stage chronic kidney disease (Acute) HTN (hypertension) (Acute) Hyperkalemia (Acute) Hyperkalemia (Acute) Leukocytosis (Acute) Pneumonia (Acute) Pulmonary edema (Acute) Hospital Course: Pt is a 57 M w/ PMH CABG & stent, COPD, asthma, ESRD on HD MWF who was BIBEMS from [facility] for resp distress. Pt missed dialysis on Mon because of [place]. He also had a cough for the last 2 days. Today he suddenly felt much worse and has progressively worsened since around 3am. In ED pt is in respiratory distress, with diaphoresis, paradoxical respiration, and expressing sense of impending doom. O2 sat currently 96% on 2L. Pt complains of chest pain with respirations. Denies abdominal pain. Condition: Guarded - Instructions Referrals: Renée Diaz MD [Primary Care Provider] - Disposition: [facility] - Home Medications Comprehensive Discharge Medication List: Ambulatory Orders Aspirin [ASA -] 81 mg PO DAILY 05/18/17 Atorvastatin Ca [Lipitor] 40 mg PO HS 05/18/17 Azelastine HCl 137 mcg NS BID 05/18/17 Clopidogrel Bisulfate [Plavix -] 75 mg PO DAILY 05/18/17 Docusate Sodium [Colace -] 1 cap PO HS 05/18/17 Folic Acid 1 mg PO DAILY 05/18/17 Gabapentin 200 mg PO HS 05/18/17 Insulin Glargine,Hum.rec.anlog [Basaglar Kwikpen U-100] 20 unit SQ DAILY Insulin Lispro [Humalog] 10 unit SQ HS 05/18/17 Sennosides [Senna] 1 tab PO HS 05/18/17 Tamsulosin HCl [Flomax] 0.4 mg PO HS 05/18/17 Vitamin B Comp W-C [Nephro-Ingris -] 1 tablet PO DAILY 05/18/17 Calcium Carbonate - 650 mg PO DAILY #0 tablet 05/25/17 Metoprolol Succinate [Toprol Xl] 50 mg PO BID #30 tab.er.24h 05/28/17 Losartan Potassium [Cozaar -] 100 mg PO DAILY 06/04/17 Acetaminophen [Tylenol] 650 mg PO Q6H PRN 08/26/17 Baclofen [Lioresal -] 10 mg PO TID PRN MDD 3 08/26/17 Bismuth Subsalicylate [Subiaco Bismuth] 525 mg PO DAILY PRN 08/26/17 Cetirizine HCl [Zyrtec -] 10 mg PO DAILY 08/26/17 Clonidine Patch [Catapres Tts Patch -] 0.1 mg TD WEEKLY 08/26/17 Dexlansoprazole [Dexilant] 60 mg PO DAILY 08/26/17 Dextromethorphan/Benzocaine [Cepacol Sorethroat-Cough Henrry] 3 each PO DAILY 08/26 Dicyclomine HCl [Bentyl -] 20 mg PO BID 08/26/17 Hydralazine HCl [Apresoline -] 25 mg PO Q6H 08/26/17 Lifitegrast [Xiidra] 1 each OP BID 08/26/17 Metoprolol Tartrate [Lopressor -] 50 mg PO BID 08/26/17 Pantoprazole Sodium [Protonix -] 40 mg PO DAILY 08/26/17 Trazodone HCl 50 mg PO HS 08/26/17 Bacitracin - [Bacitracin Topical Ointment -] 1 applic TP DAILY 08/27/17 Calcium Acetate [Phoslo -] 667 mg PO TIDCM 08/27/17 Polyethylene Glycol 3350 [Miralax (For Daily Use) -] 17 gm PO DAILY 08/27/17 Tramadol HCl 100 mg PO BID PRN 08/27/17
[2017-08-28] MEDS: DOCUSATE SODIUM 100 MG CAPSULE (FP) PO SCH (22:46)
[2017-08-28] MEDS: traZODone HCL 50 MG TABLET (FP) PO SCH (22:47)
[2017-08-28] MEDS: TAMSULOSIN HCL 0.4 MG CAP.ER.24H (FP) PO SCH (22:47)
[2017-08-28] MEDS: ATORVASTATIN CA 40 MG TABLET (FP) PO SCH (22:47)
[2017-08-28] MEDS: SENNOSIDES 8.6MG TABLET (FP) PO SCH (22:48)
[2017-08-28] MEDS: GABAPENTIN 100 MG CAPSULE (FP) PO SCH (22:48)
[2017-08-28] MEDS: guaiFENesin/D-METHORPHAN HB 10 ML UNIT-DOSE CUPS PO PRN (22:54)
[2017-08-28] MEDS: OXYMETAZOLINE 0.05% NASAL SOLUTION 15 ML BOTTLE NS PRN (22:58)
[2017-08-29] MEDS: hydrALAZINE HCL 25 MG TABLET (FP) PO SCH ×4 (00:51→18:16)
[2017-08-29] MEDS: BENZOCAINE/MENTH/CETYLPYRD CL 1 EACH LOZENGE MM SCH ×3 (06:37→22:56)
[2017-08-29] MEDS: INSULIN SLIDING SCALE (NOVOLOG) 1 VIAL SQ SCH ×4 (06:38→22:57)
[2017-08-29] MEDS: CALCIUM ACETATE 667 MG CAPSULE (FP) PO SCH ×3 (09:05→17:21)
[2017-08-29] MEDS: INSULIN DETEMIR 100 UNITS/ML MDV SQ SCH (09:18)
[2017-08-29] MEDS: OXYMETAZOLINE 0.05% NASAL SOLUTION 15 ML BOTTLE NS PRN ×2 (09:31→22:58)
[2017-08-29] MEDS: CLOPIDOGREL BISULFATE 75 MG TABLET (FP) PO SCH (09:32)
[2017-08-29] MEDS: AZITHROMYCIN 250 MG TABLET PO SCH (09:32)
[2017-08-29] MEDS: ASPIRIN 81 MG CHEWABLE TABLETS PO SCH (09:32)
[2017-08-29] MEDS: FOLIC ACID 1 MG TABLET (FP) PO SCH (09:32)
[2017-08-29] MEDS: ARTIFICIAL TEARS (POLYVINYL ALCOHOL 1.4%) OPTH DROPS OU SCH ×2 (09:32→22:56)
[2017-08-29] MEDS: HEPARIN NA (PORCINE) 5,000 UNITS/ML 1ML VIAL SQ SCH ×2 (09:33→22:56)
[2017-08-29] MEDS: DICYCLOMINE HCL 10 MG CAPSULE PO SCH ×2 (09:33→22:56)
[2017-08-29] MEDS: VITAMIN B COMP W-C 1 EA TABLET PO SCH (09:33)
[2017-08-29] MEDS: LORATADINE 10 MG TABLET PO SCH (09:37)
[2017-08-29] MEDS: PANTOPRAZOLE 40 MG TABLET (FP) PO SCH (09:38)
[2017-08-29] MEDS: METOPROLOL TARTRATE 50 MG TABLET (FP) PO SCH ×2 (09:38→22:57)
[2017-08-29] MEDS: LOSARTAN POTASSIUM 50 MG TABLET (FP) PO SCH (09:38)
[2017-08-29] MEDS ORDERED: INSULIN (NOVOLOG) ASPART 100 UNITS/ML 10ML VIAL ONE ×2 (11:25→18:26)
[2017-08-29] MEDS: guaiFENesin/D-METHORPHAN HB 10 ML UNIT-DOSE CUPS PO PRN ×3 (11:28→22:58)
[2017-08-29] MEDS: BACITRACIN 15 GM TUBE TOPICAL OINTMENT TP SCH (11:57)
--- NOTE | 2017-08-29 12:00 | PN ---
Progress Note (short form) - Note Progress Note: OOB to wheelchair. Comfortable on RA. SOB overall improved. Intake & Output 08/26/17 08/27/17 08/28/17 08/29/17 23:59 23:59 23:59 23:59 Intake Total 180 120 Output Total 600 700 600 Balance -600 -700 -420 120 Weight 291 lb 9.6 oz 290 lb Last Vital Signs Temp Pulse Resp BP Pulse Ox 98.4 F 63 20 152/76 99 08/29/17 10:00 08/29/17 10:00 08/29/17 10:00 08/29/17 10:00 08/29/17 10:00 Active Medications Acetaminophen (Tylenol -) 650 mg PO Q6H PRN PRN Reason: FEVER Artificial Tears (Artificial Tears) 1 drop OU BID [facility] Last Admin: 08/29/17 09:32 Dose: 1 drop Aspirin (Asa -) 81 mg PO DAILY [facility] Last Admin: 08/29/17 09:32 Dose: 81 mg Atorvastatin Calcium (Lipitor -) 40 mg PO HS [facility] Last Admin: 08/28/17 22:47 Dose: 40 mg Azithromycin (Zithromax -) 500 mg PO DAILY [facility] Stop: 08/31/17 10:01 Last Admin: 08/29/17 09:32 Dose: 500 mg Bacitracin (Bacitracin -) 1 applic TP DAILY [facility] Last Admin: 08/29/17 11:57 Dose: 1 applic Baclofen (Lioresal -) 10 mg PO TID PRN PRN Reason: SEVERE PAIN Last Admin: 08/27/17 09:34 Dose: 10 mg Benzocaine/Menthol (Cepacol Lozenge -) 1 each MM PRN PRN PRN Reason: SORE THROAT Benzocaine/Menthol (Cepacol Lozenge -) 1 each MM TID [facility] Last Admin: 08/29/17 06:37 Dose: 1 each Calcium Acetate (Phoslo -) 667 mg PO TIDCM [facility] Last Admin: 08/29/17 11:53 Dose: 667 mg Clopidogrel Bisulfate (Plavix -) 75 mg PO DAILY [facility] Last Admin: 08/29/17 09:32 Dose: 75 mg Dicyclomine HCl (Bentyl -) 20 mg PO BID [facility] Last Admin: 08/29/17 09:33 Dose: 20 mg Docusate Sodium (Colace -) 100 mg PO HS [facility] Last Admin: 08/28/17 22:46 Dose: 100 mg Folic Acid (Folic Acid -) 1 mg PO DAILY [facility] Last Admin: 08/29/17 09:32 Dose: 1 mg Gabapentin (Neurontin -) 200 mg PO HS [facility] Last Admin: 08/28/17 22:48 Dose: 200 mg Guaifenesin (Robitussin Dm -) 10 ml PO Q6H PRN PRN Reason: COUGH Last Admin: 08/29/17 11:28 Dose: 10 ml Heparin Sodium (Porcine) (Heparin -) 5,000 unit SQ BID [facility] Last Admin: 08/29/17 09:33 Dose: 5,000 unit Hydralazine HCl (Apresoline -) 25 mg PO Q6H [facility] Last Admin: 08/29/17 06:37 Dose: 25 mg Insulin Aspart (Novolog Vial Sliding Scale -) 1 vial SQ HS [facility] PRN Reason: Protocol Last Admin: 08/28/17 22:49 Dose: Not Given Insulin Aspart (Novolog Vial Sliding Scale -) 1 vial SQ TIDAC [facility] PRN Reason: Protocol Last Admin: 08/29/17 11:54 Dose: 6 units Insulin Detemir (Levemir Vial) 20 units SQ DAILY [facility] Last Admin: 08/29/17 09:18 Dose: 20 unit Loratadine (Claritin -) 10 mg PO DAILY [facility] Last Admin: 08/29/17 09:37 Dose: 10 mg Losartan Potassium (Cozaar -) 100 mg PO DAILY [facility] Last Admin: 08/29/17 09:38 Dose: 100 mg Metoprolol Tartrate (Lopressor -) 50 mg PO BID [facility] Last Admin: 08/29/17 09:38 Dose: 50 mg Multivit/Ca Carb/B Cmplx/FA/Prenat (Nephro-Ingris -) 1 tablet PO DAILY [facility] Last Admin: 08/29/17 09:33 Dose: 1 tablet Oxymetazoline HCl (Afrin -) 2 spray NS BID PRN PRN Reason: NASAL CONGESTION Last Admin: 08/29/17 09:31 Dose: 2 spray Pantoprazole Sodium (Protonix -) 40 mg PO DAILY [facility] Last Admin: 08/29/17 09:38 Dose: 40 mg Senna (Senna -) 1 tab PO [facility] Last Admin: 08/28/17 22:48 Dose: 1 tab Tamsulosin HCl (Flomax -) 0.4 mg PO HS [facility] Last Admin: 08/28/17 22:47 Dose: 0.4 mg Tramadol HCl (Ultram -) 50 mg PO Q8H PRN PRN Reason: PAIN Last Admin: 08/28/17 02:21 Dose: 50 mg Trazodone HCl (Desyrel -) 100 mg PO HS [facility] Last Admin: 08/28/17 22:47 Dose: 100 mg Constitutional: Yes: NAD, Obese Eyes: Yes: WNL HENT: Yes: WNL Neck: Yes: WNL Cardiovascular: Yes: Regular Rate and Rhythm, S1, S2 Respiratory: Yes: Diminished Gastrointestinal: Yes: Normal Bowel Sounds, Soft Extremities: Yes: Amputation (R BKA) Edema: Yes Labs: Laboratory Results - last 24 hr 08/28/17 08/28/17 08/28/17 09:30 11:59 16:07 WBC 12.2 H RBC 3.50 L Hgb 10.6 L Hct 33.1 L MCV 94.7 MCH 30.2 MCHC 31.9 L RDW 14.7 Plt Count 212 D MPV 8.3 POC Glucometer 178 300 08/28/17 08/28/17 08/29/17 17:27 22:02 05:54 WBC RBC Hgb Hct MCV MCH MCHC RDW Plt Count MPV POC Glucometer 237 171 122 Problem List - Problems (1) Acute hypoxemic respiratory failure Code(s): J96.01 - ACUTE RESPIRATORY FAILURE WITH HYPOXIA (2) Asthma exacerbation Code(s): J45.901 - UNSPECIFIED ASTHMA WITH (ACUTE) EXACERBATION (3) CAD (coronary artery disease) Code(s): I25.10 - ATHSCL HEART DISEASE OF [place] CORONARY ARTERY W/O ANG PCTRS (4) End stage chronic kidney disease Code(s): N18.6 - END STAGE RENAL DISEASE (5) HTN (hypertension) Code(s): I10 - ESSENTIAL (PRIMARY) HYPERTENSION Qualifiers: Hypertension type: unspecified Qualified Code(s): I10 - Essential (primary ) hypertension (6) Hyperkalemia Code(s): E87.5 - HYPERKALEMIA (7) Pulmonary edema Code(s): J81.1 - CHRONIC PULMONARY EDEMA Assessment/Plan IMP ACUTE HYPOXEMIC RESPIRATORY FAILURE IMPROVING ACUTE PULMONARY EDEMA ? 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
[2017-08-29] MEDS ORDERED: PT OWN MED DRAWER 7, Y5N ONE ×3 (16:53→22:52)
--- NOTE | 2017-08-29 18:30 | PN ---
Progress Note (short form) - Note Progress Note: discharge rescheduled esrd pvd Current Medications Acetaminophen (Tylenol -) 650 mg PO Q6H PRN PRN Reason: FEVER Artificial Tears (Artificial Tears) 1 drop OU BID [facility] Last Admin: 08/29/17 09:32 Dose: 1 drop Aspirin (Asa -) 81 mg PO DAILY [facility] Last Admin: 08/29/17 09:32 Dose: 81 mg Atorvastatin Calcium (Lipitor -) 40 mg PO HS [facility] Last Admin: 08/28/17 22:47 Dose: 40 mg Azithromycin (Zithromax -) 500 mg PO DAILY [facility] Stop: 08/31/17 10:01 Last Admin: 08/29/17 09:32 Dose: 500 mg Bacitracin (Bacitracin -) 1 applic TP DAILY [facility] Last Admin: 08/29/17 11:57 Dose: 1 applic Baclofen (Lioresal -) 10 mg PO TID PRN PRN Reason: SEVERE PAIN Last Admin: 08/27/17 09:34 Dose: 10 mg Benzocaine/Menthol (Cepacol Lozenge -) 1 each MM PRN PRN PRN Reason: SORE THROAT Benzocaine/Menthol (Cepacol Lozenge -) 1 each MM TID [facility] Last Admin: 08/29/17 14:03 Dose: 1 each Calcium Acetate (Phoslo -) 667 mg PO TIDCM [facility] Last Admin: 08/29/17 17:21 Dose: 667 mg Clopidogrel Bisulfate (Plavix -) 75 mg PO DAILY [facility] Last Admin: 08/29/17 09:32 Dose: 75 mg Dicyclomine HCl (Bentyl -) 20 mg PO BID [facility] Last Admin: 08/29/17 09:33 Dose: 20 mg Docusate Sodium (Colace -) 100 mg PO HS [facility] Last Admin: 08/28/17 22:46 Dose: 100 mg Folic Acid (Folic Acid -) 1 mg PO DAILY [facility] Last Admin: 08/29/17 09:32 Dose: 1 mg Gabapentin (Neurontin -) 200 mg PO HS [facility] Last Admin: 08/28/17 22:48 Dose: 200 mg Guaifenesin (Robitussin Dm -) 10 ml PO Q6H PRN PRN Reason: COUGH Last Admin: 08/29/17 16:56 Dose: 10 ml Heparin Sodium (Porcine) (Heparin -) 5,000 unit SQ BID [facility] Last Admin: 08/29/17 09:33 Dose: 5,000 unit Hydralazine HCl (Apresoline -) 25 mg PO Q6H [facility] Last Admin: 08/29/17 18:16 Dose: 25 mg Insulin Aspart (Novolog Vial Sliding Scale -) 1 vial SQ HS [facility] PRN Reason: Protocol Last Admin: 08/28/17 22:49 Dose: Not Given Insulin Aspart (Novolog Vial Sliding Scale -) 1 vial SQ TIDAC [facility] PRN Reason: Protocol Last Admin: 08/29/17 17:20 Dose: 2 units Insulin Detemir (Levemir Vial) 20 units SQ DAILY [facility] Last Admin: 08/29/17 09:18 Dose: 20 unit Loratadine (Claritin -) 10 mg PO DAILY [facility] Last Admin: 08/29/17 09:37 Dose: 10 mg Losartan Potassium (Cozaar -) 100 mg PO DAILY [facility] Last Admin: 08/29/17 09:38 Dose: 100 mg Metoprolol Tartrate (Lopressor -) 50 mg PO BID [facility] Last Admin: 08/29/17 09:38 Dose: 50 mg Multivit/Ca Carb/B Cmplx/FA/Prenat (Nephro-Ingris -) 1 tablet PO DAILY [facility] Last Admin: 08/29/17 09:33 Dose: 1 tablet Oxymetazoline HCl (Afrin -) 2 spray NS BID PRN PRN Reason: NASAL CONGESTION Last Admin: 08/29/17 09:31 Dose: 2 spray Pantoprazole Sodium (Protonix -) 40 mg PO DAILY [facility] Last Admin: 08/29/17 09:38 Dose: 40 mg Senna (Senna -) 1 tab PO [facility] Last Admin: 08/28/17 22:48 Dose: 1 tab Tamsulosin HCl (Flomax -) 0.4 mg PO [facility] Last Admin: 08/28/17 22:47 Dose: 0.4 mg Tramadol HCl (Ultram -) 50 mg PO Q8H PRN PRN Reason: PAIN Last Admin: 08/28/17 02:21 Dose: 50 mg Trazodone HCl (Desyrel -) 100 mg PO [facility] Last Admin: 08/28/17 22:47 Dose: 100 mg Last Vital Signs Temp Pulse Resp BP Pulse Ox 98.9 F 71 16 136/90 99 08/29/17 13:00 08/29/17 13:00 08/29/17 13:00 08/29/17 13:00 08/29/17 10:00 lungs clear heart reg rate and rhythm ext no edema CBC, BMP 08/28/17 09:30 08/28/17 09:30 IMP-esrd pvd no fluid overload waiting for d/c when snf bed available HD tomorrow
--- NOTE | 2017-08-29 20:28 | PN ---
Progress Note, Physician Chief Complaint: ESRD, Pulmonary congestion vs PNE, SOB History of Present Illness: NAD, in bed awaiting discharge - Current Medication List Current Medications: Active Medications Acetaminophen (Tylenol -) 650 mg PO Q6H PRN PRN Reason: FEVER Artificial Tears (Artificial Tears) 1 drop OU BID [facility] Last Admin: 08/29/17 09:32 Dose: 1 drop Aspirin (Asa -) 81 mg PO DAILY [facility] Last Admin: 08/29/17 09:32 Dose: 81 mg Atorvastatin Calcium (Lipitor -) 40 mg PO HS [facility] Last Admin: 08/28/17 22:47 Dose: 40 mg Azithromycin (Zithromax -) 500 mg PO DAILY [facility] Stop: 08/31/17 10:01 Last Admin: 08/29/17 09:32 Dose: 500 mg Bacitracin (Bacitracin -) 1 applic TP DAILY [facility] Last Admin: 08/29/17 11:57 Dose: 1 applic Baclofen (Lioresal -) 10 mg PO TID PRN PRN Reason: SEVERE PAIN Last Admin: 08/27/17 09:34 Dose: 10 mg Benzocaine/Menthol (Cepacol Lozenge -) 1 each MM PRN PRN PRN Reason: SORE THROAT Benzocaine/Menthol (Cepacol Lozenge -) 1 each MM TID [facility] Last Admin: 08/29/17 14:03 Dose: 1 each Calcium Acetate (Phoslo -) 667 mg PO TIDCM [facility] Last Admin: 08/29/17 17:21 Dose: 667 mg Clopidogrel Bisulfate (Plavix -) 75 mg PO DAILY [facility] Last Admin: 08/29/17 09:32 Dose: 75 mg Dicyclomine HCl (Bentyl -) 20 mg PO BID [facility] Last Admin: 08/29/17 09:33 Dose: 20 mg Docusate Sodium (Colace -) 100 mg PO HS [facility] Last Admin: 08/28/17 22:46 Dose: 100 mg Folic Acid (Folic Acid -) 1 mg PO DAILY [facility] Last Admin: 08/29/17 09:32 Dose: 1 mg Gabapentin (Neurontin -) 200 mg PO HS [facility] Last Admin: 08/28/17 22:48 Dose: 200 mg Guaifenesin (Robitussin Dm -) 10 ml PO Q6H PRN PRN Reason: COUGH Last Admin: 08/29/17 16:56 Dose: 10 ml Heparin Sodium (Porcine) (Heparin -) 5,000 unit SQ BID [facility] Last Admin: 08/29/17 09:33 Dose: 5,000 unit Hydralazine HCl (Apresoline -) 25 mg PO Q6H [facility] Last Admin: 08/29/17 18:16 Dose: 25 mg Insulin Aspart (Novolog Vial Sliding Scale -) 1 vial SQ HS [facility] PRN Reason: Protocol Last Admin: 08/28/17 22:49 Dose: Not Given Insulin Aspart (Novolog Vial Sliding Scale -) 1 vial SQ TIDAC [facility] PRN Reason: Protocol Last Admin: 08/29/17 17:20 Dose: 2 units Insulin Detemir (Levemir Vial) 20 units SQ DAILY [facility] Last Admin: 08/29/17 09:18 Dose: 20 unit Loratadine (Claritin -) 10 mg PO DAILY [facility] Last Admin: 08/29/17 09:37 Dose: 10 mg Losartan Potassium (Cozaar -) 100 mg PO DAILY [facility] Last Admin: 08/29/17 09:38 Dose: 100 mg Metoprolol Tartrate (Lopressor -) 50 mg PO BID [facility] Last Admin: 08/29/17 09:38 Dose: 50 mg Multivit/Ca Carb/B Cmplx/FA/Prenat (Nephro-Ingris -) 1 tablet PO DAILY [facility] Last Admin: 08/29/17 09:33 Dose: 1 tablet Oxymetazoline HCl (Afrin -) 2 spray NS BID PRN PRN Reason: NASAL CONGESTION Last Admin: 08/29/17 09:31 Dose: 2 spray Pantoprazole Sodium (Protonix -) 40 mg PO DAILY [facility] Last Admin: 08/29/17 09:38 Dose: 40 mg Senna (Senna -) 1 tab PO HS [facility] Last Admin: 08/28/17 22:48 Dose: 1 tab Tamsulosin HCl (Flomax -) 0.4 mg PO HS [facility] Last Admin: 08/28/17 22:47 Dose: 0.4 mg Tramadol HCl (Ultram -) 50 mg PO Q8H PRN PRN Reason: PAIN Last Admin: 08/28/17 02:21 Dose: 50 mg Trazodone HCl (Desyrel -) 100 mg PO HS [facility] Last Admin: 08/28/17 22:47 Dose: 100 mg - Objective Vital Signs: Vital Signs Temperature 98.9 F 08/29/17 13:00 Pulse Rate 71 08/29/17 13:00 Respiratory Rate 16 08/29/17 13:00 Blood Pressure 136/90 08/29/17 13:00 O2 Sat by Pulse Oximetry (%) 99 08/29/17 10:00 Constitutional: Yes: Well Nourished, No Distress, Calm Cardiovascular: Yes: Regular Rate and Rhythm Respiratory: Yes: Regular Gastrointestinal: Yes: WNL Musculoskeletal: Yes: WNL Extremities: Yes: Amputation (RLE) Edema: No Peripheral Pulses WNL: Yes Neurological: Yes: Alert, Oriented Psychiatric: Yes: Alert, Oriented Labs: CBC, BMP 08/28/17 09:30 08/28/17 09:30 INR, PTT INR 0.93 (0.82-1.09) 08/26/17 07:45 Problem List - Problems (1) Acute and chronic respiratory failure with hypoxia Assessment/Plan: -nasal o2 -neb tx -pulmonary consult appreciated Code(s): J96.21 - ACUTE AND CHRONIC RESPIRATORY FAILURE WITH HYPOXIA (2) CAD (coronary artery disease) Assessment/Plan: -cardiology consult appreciated -telemetry monitoring -Echo unremarkable Code(s): I25.10 - ATHSCL HEART DISEASE OF [place] CORONARY ARTERY W/O ANG PCTRS (3) COPD (chronic obstructive pulmonary disease) Assessment/Plan: nasal o2 -neb tx -Pulmonary consult appreciated Code(s): J44.9 - CHRONIC OBSTRUCTIVE PULMONARY DISEASE, UNSPECIFIED (4) Elevated troponin Assessment/Plan: -may not be true value in light of ESRD -cardiology consult appreciated -Echo unremarkable Code(s): R74.8 - ABNORMAL LEVELS OF OTHER SERUM ENZYMES (5) End stage chronic kidney disease Assessment/Plan: -Nephrology on board -Dialysis -continue to monitor Code(s): N18.6 - END STAGE RENAL DISEASE (6) HTN (hypertension) Assessment/Plan: fluctuating Code(s): I10 - ESSENTIAL (PRIMARY) HYPERTENSION Qualifiers: Hypertension type: unspecified Qualified Code(s): I10 - Essential (primary ) hypertension (7) Hyperkalemia Assessment/Plan: improved Code(s): E87.5 - HYPERKALEMIA (8) Leukocytosis Assessment/Plan: -ID consult appreciated -d/c on PO abx Code(s): D72.829 - ELEVATED WHITE BLOOD CELL COUNT, UNSPECIFIED Assessment/Plan see problem list awaiting discharge
[2017-08-29] MEDS: DOCUSATE SODIUM 100 MG CAPSULE (FP) PO SCH (22:56)
[2017-08-29] MEDS: traZODone HCL 50 MG TABLET (FP) PO SCH (22:56)
[2017-08-29] MEDS: TAMSULOSIN HCL 0.4 MG CAP.ER.24H (FP) PO SCH (22:56)
[2017-08-29] MEDS: GABAPENTIN 100 MG CAPSULE (FP) PO SCH (22:57)
[2017-08-29] MEDS: ATORVASTATIN CA 40 MG TABLET (FP) PO SCH (22:57)
[2017-08-29] MEDS: SENNOSIDES 8.6MG TABLET (FP) PO SCH (22:57)
[2017-08-30] MEDS: hydrALAZINE HCL 25 MG TABLET (FP) PO SCH ×4 (01:07→20:17)
[2017-08-30] MEDS ORDERED: PT OWN MED DRAWER 7, Y5N ONE ×7 (06:03→22:28)
[2017-08-30] MEDS: BENZOCAINE/MENTH/CETYLPYRD CL 1 EACH LOZENGE MM SCH ×3 (06:23→22:15)
[2017-08-30] MEDS ORDERED: INSULIN (NOVOLOG) ASPART 100 UNITS/ML 10ML VIAL ONE (06:25)
[2017-08-30] MEDS: INSULIN SLIDING SCALE (NOVOLOG) 1 VIAL SQ SCH ×4 (06:26→22:14)
[2017-08-30] MEDS: BACLOFEN 10 MG TABLET (FP) PO PRN (09:08)
[2017-08-30] MEDS: ARTIFICIAL TEARS (POLYVINYL ALCOHOL 1.4%) OPTH DROPS OU SCH ×2 (09:09→22:13)
[2017-08-30] MEDS: CALCIUM ACETATE 667 MG CAPSULE (FP) PO SCH ×3 (09:11→16:59)
[2017-08-30] MEDS: traMADol HCL 50 MG TABLET PO PRN (09:13)
[2017-08-30] MEDS: METOPROLOL TARTRATE 50 MG TABLET (FP) PO SCH ×2 (10:00→22:13)
[2017-08-30] MEDS: HEPARIN NA (PORCINE) 5,000 UNITS/ML 1ML VIAL SQ SCH ×2 (10:00→22:14)
--- NOTE | 2017-08-30 10:42 | PN ---
Progress Note (short form) - Note Progress Note: In HD. No acute events overnight. Intake & Output 08/27/17 08/28/17 08/29/17 08/30/17 23:59 23:59 23:59 23:59 Intake Total 180 320 240 Output Total 700 600 500 Balance -700 -420 320 -260 Weight 290 lb 282 lb 2 oz Last Vital Signs Temp Pulse Resp BP Pulse Ox 98.6 F 63 18 127/50 97 08/30/17 05:00 08/30/17 05:00 08/30/17 05:00 08/30/17 05:00 08/30/17 00:32 Active Medications Acetaminophen (Tylenol -) 650 mg PO Q6H PRN PRN Reason: FEVER Last Admin: 08/30/17 09:12 Dose: 650 mg Artificial Tears (Artificial Tears) [address] [facility] Last Admin: 08/30/17 09:09 Dose: 1 drop Aspirin (Asa -) [address] [facility] Last Admin: 08/29/17 09:32 Dose: 81 mg Atorvastatin Calcium (Lipitor -) [address] [facility] Last Admin: 08/29/17 22:57 Dose: 40 mg Azithromycin (Zithromax -) [address] [facility] Stop: 08/31/17 10:01 Last Admin: 08/29/17 09:32 Dose: 500 mg Bacitracin (Bacitracin -) [address] [facility] Last Admin: 08/29/17 11:57 Dose: 1 applic Baclofen (Lioresal -) 10 mg PO TID PRN PRN Reason: SEVERE PAIN Last Admin: 08/30/17 09:08 Dose: 10 mg Benzocaine/Menthol (Cepacol Lozenge -) 1 each MM PRN PRN PRN Reason: SORE THROAT Benzocaine/Menthol (Cepacol Lozenge -) [address] [facility] Last Admin: 08/30/17 06:23 Dose: Not Given Calcium Acetate (Phoslo -) [address] [facility] Last Admin: 08/30/17 09:11 Dose: 667 mg Clopidogrel Bisulfate (Plavix -) [address] [facility] Last Admin: 08/29/17 09:32 Dose: 75 mg Dicyclomine HCl (Bentyl -) [address] [facility] Last Admin: 08/29/17 22:56 Dose: 20 mg Docusate Sodium (Colace -) 100 mg PO [facility] Last Admin: 08/29/17 22:56 Dose: 100 mg Folic Acid (Folic Acid -) [address] [facility] Last Admin: 08/29/17 09:32 Dose: 1 mg Gabapentin (Neurontin -) [address] [facility] Last Admin: 08/29/17 22:57 Dose: 200 mg Guaifenesin (Robitussin Dm -) 10 ml PO Q6H PRN PRN Reason: COUGH Last Admin: 08/29/17 22:58 Dose: 10 ml Heparin Sodium (Porcine) (Heparin -) 5,[address] [facility] Last Admin: 08/29/17 22:56 Dose: 5,000 unit Hydralazine HCl (Apresoline -) [address] [facility] Last Admin: 08/30/17 06:24 Dose: 25 mg Insulin Aspart (Novolog Vial Sliding Scale -) 1 vial SQ [facility] PRN Reason: Protocol Last Admin: 08/29/17 22:57 Dose: Not Given Insulin Aspart (Novolog Vial Sliding Scale -) [address] [facility] PRN Reason: Protocol Last Admin: 08/30/17 06:26 Dose: 2 units Insulin Detemir (Levemir Vial) [address] [facility] Last Admin: 08/29/17 09:18 Dose: 20 unit Loratadine (Claritin -) [address] [facility] Last Admin: 08/29/17 09:37 Dose: 10 mg Losartan Potassium (Cozaar -) [address] [facility] Last Admin: 08/29/17 09:38 Dose: 100 mg Metoprolol Tartrate (Lopressor -) [address] [facility] Last Admin: 08/29/17 22:57 Dose: 50 mg Multivit/Ca Carb/B Cmplx/FA/Prenat (Nephro-Ingris -) [address] [facility] Last Admin: 08/29/17 09:33 Dose: 1 tablet Oxymetazoline HCl (Afrin -) 2 spray NS BID PRN PRN Reason: NASAL CONGESTION Last Admin: 08/29/17 22:58 Dose: 2 spray Pantoprazole Sodium (Protonix -) [address] [facility] Last Admin: 08/29/17 09:38 Dose: 40 mg Senna (Senna -) 1 tab PO [facility] Last Admin: 08/29/17 22:57 Dose: 1 tab Tamsulosin HCl (Flomax -) 0.4 mg PO [facility] Last Admin: 08/29/17 22:56 Dose: 0.4 mg Tramadol HCl (Ultram -) 50 mg PO Q8H PRN PRN Reason: PAIN Last Admin: 08/30/17 09:13 Dose: 50 mg Trazodone HCl (Desyrel -) 100 mg PO [facility] Last Admin: 08/29/17 22:56 Dose: 100 mg Constitutional: Yes: NAD, Obese Eyes: Yes: WNL HENT: Yes: WNL Neck: Yes: WNL Cardiovascular: Yes: Regular Rate and Rhythm, S1, S2 Respiratory: Yes: Diminished Gastrointestinal: Yes: Normal Bowel Sounds, Soft Extremities: Yes: Amputation (R BKA) Edema: Yes Labs: Laboratory Results - last 24 hr 08/29/17 08/29/17 08/29/17 11:52 17:07 20:49 POC Glucometer 238 137 176 08/30/17 05:58 POC Glucometer 125 Problem List - Problems (1) Acute hypoxemic respiratory failure Code(s): J96.01 - ACUTE RESPIRATORY FAILURE WITH HYPOXIA (2) Asthma exacerbation Code(s): J45.901 - UNSPECIFIED ASTHMA WITH (ACUTE) EXACERBATION (3) CAD (coronary artery disease) Code(s): I25.10 - ATHSCL HEART DISEASE OF [place] CORONARY ARTERY W/O ANG PCTRS (4) End stage chronic kidney disease Code(s): N18.6 - END STAGE RENAL DISEASE (5) HTN (hypertension) Code(s): I10 - ESSENTIAL (PRIMARY) HYPERTENSION Qualifiers: Hypertension type: unspecified Qualified Code(s): I10 - Essential (primary ) hypertension (6) Hyperkalemia Code(s): E87.5 - HYPERKALEMIA (7) Pulmonary edema Code(s): J81.1 - CHRONIC PULMONARY EDEMA Assessment/Plan IMP ACUTE HYPOXEMIC RESPIRATORY FAILURE IMPROVING ACUTE PULMONARY EDEMA ? 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
--- NOTE | 2017-08-30 11:16 | PN ---
Progress Note (short form) - Note Progress Note: Seen during HD Denies any complaints No SOB FS acceptable Vital Signs Period Temp Pulse Resp BP Sys/Quick Pulse Ox Last 24 Hr 98.4 F-98.9 F 63-71 16-18 127-160/50-90 97-97 PE: AOx3 Neck: Supple, No JVD HEENT: PERRL, EOMI Lungs: CTA CVS: S1S2 Abd: benign Ext: Rt BKA, Left leg stasis changes, +blister around 1.5 cm over [place] Neuro: No focal deficit CMP Sodium 142 mmol/L (136-145) 08/28/17 09:30 Potassium 4.5 mmol/L (3.5-5.1) 08/28/17 09:30 Chloride 104 mmol/L (98-107) 08/28/17 09:30 Carbon Dioxide 24 mmol/L (21-32) 08/28/17 09:30 Anion Gap 14 (8-16) 08/28/17 09:30 BUN 73 mg/dL (7-18) H D 08/28/17 09:30 Creatinine 8.3 mg/dL (0.7-1.3) H* D 08/28/17 09:30 Creat Clearance w eGFR 6.06 (>60) 08/26/17 07:45 POC Glucometer 125 UNITS (80-120) 08/30/17 05:58 Random Glucose 140 mg/dL (74-106) H 08/28/17 09:30 Hemoglobin A1c % 7.4 % (4.8-6.0) H 08/28/17 09:30 Calcium 8.6 mg/dL (8.5-10.1) 08/28/17 09:30 Magnesium 1.8 mg/dL (1.8-2.4) 08/26/17 07:45 Total Bilirubin 0.2 mg/dL (0.2-1.0) D 08/26/17 07:45 AST 22 U/L (15-37) D 08/26/17 07:45 ALT 25 U/L (12-78) D 08/26/17 07:45 Alkaline Phosphatase 103 U/L (45-117) 08/26/17 07:45 Creatine Kinase 287 IU/L (39-308) 08/26/17 07:45 Creatine Kinase Index 2.7 % (0.0-5.0) 08/26/17 07:45 CK-MB (CK-2) 7.939 ng/mL (0.5-3.6) H 08/26/17 07:45 Troponin I 0.19 ng/ml (0.00-0.05) H D 08/27/17 07:00 B-Natriuretic Peptide 12161.99 pg/ml (5-125) H 08/26/17 07:45 Total Protein 7.5 g/dl (6.4-8.2) 08/26/17 07:45 Albumin 3.5 g/dl (3.4-5.0) 08/26/17 07:45 Current Medications Generic Name Dose Route Start Last Admin Trade Name Freq PRN Reason Stop Dose Admin Acetaminophen 650 mg 08/26/17 18:49 08/30/17 09:12 Tylenol - PO 650 mg Q6H PRN Administration FEVER Artificial Tears 1 drop 08/27/17 22:00 08/30/17 09:09 Artificial Tears OU 1 drop BID [facility] Administration Aspirin 81 mg 08/27/17 10:00 08/29/17 09:32 Asa - PO 81 mg DAILY [facility] Administration Atorvastatin Calcium 40 mg 08/26/17 22:00 08/29/17 22:57 Lipitor - PO 40 mg HS [facility] Administration Azithromycin 500 mg 08/29/17 10:00 08/29/17 09:32 Zithromax - PO 08/31/17 10:01 500 mg DAILY [facility] Administration Bacitracin 1 applic 08/27/17 10:15 08/29/17 11:57 Bacitracin - TP 1 applic DAILY [facility] Administration Baclofen 10 mg 08/26/17 18:49 08/30/17 09:08 Lioresal - PO 10 mg TID PRN Administration SEVERE PAIN Benzocaine/Menthol 1 each 08/26/17 15:38 Cepacol Lozenge - MM PRN PRN SORE THROAT Benzocaine/Menthol 1 each 08/26/17 22:00 08/30/17 06:23 Cepacol Lozenge - MM Not Given TID [facility] Calcium Acetate 667 mg 08/27/17 12:00 08/30/17 09:11 Phoslo - PO 667 mg TIDCM [facility] Administration Clopidogrel Bisulfate 75 mg 08/27/17 10:00 12/30/17 09:32 Plavix - PO 75 mg DAILY [facility] Administration Dicyclomine HCl 20 mg 08/26/17 22:00 08/29/17 22:56 Bentyl - PO 20 mg BID [facility] Administration Docusate Sodium 100 mg 08/26/17 22:00 08/29/17 22:56 Colace - PO 100 mg HS [facility] Administration Folic Acid 1 mg 08/27/17 10:00 08/29/17 09:32 Folic Acid - PO 1 mg DAILY [facility] Administration Gabapentin 200 mg 08/26/17 22:00 08/29/17 22:57 Neurontin - PO 200 mg HS [facility] Administration Guaifenesin 10 ml 08/27/17 20:03 08/29/17 22:58 Robitussin Dm - PO 10 ml Q6H PRN Administration COUGH Heparin Sodium (Porcine) 5,000 unit 08/26/17 22:00 08/29/17 22:56 Heparin - SQ 5,000 unit BID [facility] Administration Hydralazine HCl 25 mg 08/26/17 19:00 08/30/17 06:24 Apresoline - PO 25 mg Q6H [facility] Administration Insulin Aspart 1 vial 08/27/17 22:00 08/29/17 22:57 Novolog Vial Sliding Scale - SQ Not Given HS [facility] Protocol Insulin Aspart 1 vial 08/28/17 13:12 08/30/17 06:26 Novolog Vial Sliding Scale - SQ 2 units TIDAC [facility] Administration Protocol Insulin Detemir 20 units 08/27/17 10:00 08/29/17 09:18 Levemir Vial SQ 20 unit DAILY [facility] Administration Loratadine 10 mg 08/27/17 10:00 08/29/17 09:37 Claritin - PO 10 mg DAILY [facility] Administration Losartan Potassium 100 mg 08/27/17 10:00 08/29/17 09:38 Cozaar - PO 100 mg DAILY [facility] Administration Metoprolol Tartrate 50 mg 08/26/17 22:00 08/29/17 22:57 Lopressor - PO 50 mg BID [facility] Administration Multivit/Ca Carb/B Cmplx/FA/Prenat 1 tablet 08/27/17 10:00 08/29/17 09:33 Nephro-Ingris - PO 1 tablet DAILY [facility] Administration Oxymetazoline HCl 2 spray 08/27/17 20:04 08/29/17 22:58 Afrin - NS 2 spray BID PRN Administration NASAL CONGESTION Pantoprazole Sodium 40 mg 08/27/17 10:00 08/29/17 09:38 Protonix - PO 40 mg DAILY [facility] Administration Senna 1 tab 08/26/17 22:00 08/29/17 22:57 Senna - PO 1 tab HS [facility] Administration Tamsulosin HCl 0.4 mg 08/26/17 22:00 08/29/17 22:56 Flomax - PO 0.4 mg HS [facility] Administration Tramadol HCl 50 mg 08/27/17 10:09 08/30/17 09:13 Ultram - PO 50 mg Q8H PRN Administration PAIN Trazodone HCl 100 mg 08/26/17 22:00 08/29/17 22:56 Desyrel - PO 100 mg HS [facility] Administration AP: COPD HTN T2DM PAD CAD S/p Rt BKA Left leg stasis changes with blister ESRD on HD BGM Q ACHS Levemir 20 units daily Novolog SS coverage, Novolog premeals to be given just before meals. Not to be given before food is in the room. Diet exercise discussed. Discussed need for diet control at [place]. Explained that he has needed only 2 to 6 units of premeal Insulin in the hospital as compared to 14 units with each meal in the [place]. The disparity in the Insulin requirement is most probably diet related. Pt verbalizes understanding. Diabetes education done. IV Abx
[2017-08-30] MEDS ORDERED: traMADol HCL 50 MG TABLET PO PRN (12:24)
--- NOTE | 2017-08-30 14:07 | PN ---
Progress Note (short form) - Note Progress Note: discharge rescheduled esrd Current Medications Acetaminophen (Tylenol -) 650 mg PO Q6H PRN PRN Reason: FEVER Last Admin: 08/30/17 09:12 Dose: 650 mg Artificial Tears (Artificial Tears) 1 drop OU BID [facility] Last Admin: 08/30/17 09:09 Dose: 1 drop Aspirin (Asa -) 81 mg PO DAILY [facility] Last Admin: 08/29/17 09:32 Dose: 81 mg Atorvastatin Calcium (Lipitor -) 40 mg PO HS [facility] Last Admin: 08/29/17 22:57 Dose: 40 mg Azithromycin (Zithromax -) 500 mg PO DAILY [facility] Stop: 08/31/17 10:01 Last Admin: 08/29/17 09:32 Dose: 500 mg Bacitracin (Bacitracin -) 1 applic TP DAILY [facility] Last Admin: 08/29/17 11:57 Dose: 1 applic Baclofen (Lioresal -) 10 mg PO TID PRN PRN Reason: SEVERE PAIN Last Admin: 08/30/17 09:08 Dose: 10 mg Benzocaine/Menthol (Cepacol Lozenge -) 1 each MM PRN PRN PRN Reason: SORE THROAT Benzocaine/Menthol (Cepacol Lozenge -) 1 each MM TID [facility] Last Admin: 08/30/17 06:23 Dose: Not Given Calcium Acetate (Phoslo -) 667 mg PO TIDCM [facility] Last Admin: 08/30/17 09:11 Dose: 667 mg Clopidogrel Bisulfate (Plavix -) 75 mg PO DAILY [facility] Last Admin: 08/29/17 09:32 Dose: 75 mg Dicyclomine HCl (Bentyl -) 20 mg PO BID [facility] Last Admin: 08/29/17 22:56 Dose: 20 mg Docusate Sodium (Colace -) 100 mg PO HS [facility] Last Admin: 08/29/17 22:56 Dose: 100 mg Folic Acid (Folic Acid -) 1 mg PO DAILY [facility] Last Admin: 08/29/17 09:32 Dose: 1 mg Gabapentin (Neurontin -) 200 mg PO HS [facility] Last Admin: 08/29/17 22:57 Dose: 200 mg Guaifenesin (Robitussin Dm -) 10 ml PO Q6H PRN PRN Reason: COUGH Last Admin: 08/29/17 22:58 Dose: 10 ml Heparin Sodium (Porcine) (Heparin -) 5,000 unit SQ BID [facility] Last Admin: 08/29/17 22:56 Dose: 5,000 unit Hydralazine HCl (Apresoline -) 25 mg PO Q6H [facility] Last Admin: 08/30/17 06:24 Dose: 25 mg Insulin Aspart (Novolog Vial Sliding Scale -) 1 vial SQ HS [facility] PRN Reason: Protocol Last Admin: 08/29/17 22:57 Dose: Not Given Insulin Aspart (Novolog Vial Sliding Scale -) 1 vial SQ TIDAC [facility] PRN Reason: Protocol Last Admin: 08/30/17 06:26 Dose: 2 units Insulin Detemir (Levemir Vial) 20 units SQ DAILY [facility] Last Admin: 08/29/17 09:18 Dose: 20 unit Loratadine (Claritin -) 10 mg PO DAILY [facility] Last Admin: 08/29/17 09:37 Dose: 10 mg Losartan Potassium (Cozaar -) 100 mg PO DAILY [facility] Last Admin: 08/29/17 09:38 Dose: 100 mg Metoprolol Tartrate (Lopressor -) 50 mg PO BID [facility] Last Admin: 08/29/17 22:57 Dose: 50 mg Multivit/Ca Carb/B Cmplx/FA/Prenat (Nephro-Ingris -) 1 tablet PO DAILY [facility] Last Admin: 08/29/17 09:33 Dose: 1 tablet Oxymetazoline HCl (Afrin -) 2 spray NS BID PRN PRN Reason: NASAL CONGESTION Last Admin: 08/29/17 22:58 Dose: 2 spray Pantoprazole Sodium (Protonix -) 40 mg PO DAILY [facility] Last Admin: 08/29/17 09:38 Dose: 40 mg Senna (Senna -) 1 tab PO HS [facility] Last Admin: 08/29/17 22:57 Dose: 1 tab Tamsulosin HCl (Flomax -) 0.4 mg PO HS [facility] Last Admin: 08/29/17 22:56 Dose: 0.4 mg Tramadol HCl (Ultram -) 100 mg PO Q8H PRN PRN Reason: PAIN Trazodone HCl (Desyrel -) 100 mg PO HS [facility] Last Admin: 08/29/17 22:56 Dose: 100 mg Last Vital Signs Temp Pulse Resp BP Pulse Ox 98.4 F 67 18 108/42 97 08/30/17 09:45 08/30/17 11:50 08/30/17 11:50 08/30/17 11:50 08/30/17 00:32 lungs clear heart reg rate abd soft nontender CBC, BMP 08/28/17 09:30 08/28/17 09:30 IMP- esrd stable on dialysis pvd ok for d/c from renal pov
[2017-08-30] MEDS: BACITRACIN 15 GM TUBE TOPICAL OINTMENT TP SCH (15:20)
[2017-08-30] MEDS: ASPIRIN 81 MG CHEWABLE TABLETS PO SCH (15:20)
[2017-08-30] MEDS: FOLIC ACID 1 MG TABLET (FP) PO SCH (15:22)
[2017-08-30] MEDS: LORATADINE 10 MG TABLET PO SCH (15:22)
[2017-08-30] MEDS: LOSARTAN POTASSIUM 50 MG TABLET (FP) PO SCH (15:23)
[2017-08-30] MEDS: AZITHROMYCIN 250 MG TABLET PO SCH (15:23)
[2017-08-30] MEDS: DICYCLOMINE HCL 10 MG CAPSULE PO SCH ×2 (15:25→22:14)
[2017-08-30] MEDS: PANTOPRAZOLE 40 MG TABLET (FP) PO SCH (15:27)
[2017-08-30] MEDS: VITAMIN B COMP W-C 1 EA TABLET PO SCH (15:28)
[2017-08-30] MEDS: CLOPIDOGREL BISULFATE 75 MG TABLET (FP) PO SCH (15:28)
[2017-08-30] MEDS ORDERED: INSULIN DETEMIR 100 UNITS/ML MDV SQ ONE (15:34)
[2017-08-30] MEDS: INSULIN DETEMIR 100 UNITS/ML MDV SQ SCH (15:40)
[2017-08-30] MEDS: guaiFENesin/D-METHORPHAN HB 10 ML UNIT-DOSE CUPS PO PRN (20:18)
[2017-08-30] MEDS: OXYMETAZOLINE 0.05% NASAL SOLUTION 15 ML BOTTLE NS PRN (20:20)
--- NOTE | 2017-08-30 21:20 | PN ---
Progress Note, Physician Chief Complaint: ESRD, Pulmonary congestion vs PNE, SOB History of Present Illness: NAD, in bed awaiting discharge - Current Medication List Current Medications: Active Medications Acetaminophen (Tylenol -) 650 mg PO Q6H PRN PRN Reason: FEVER Last Admin: 08/30/17 09:12 Dose: 650 mg Artificial Tears (Artificial Tears) 1 drop OU BID [facility] Last Admin: 08/30/17 09:09 Dose: 1 drop Aspirin (Asa -) 81 mg PO DAILY [facility] Last Admin: 08/30/17 15:20 Dose: 81 mg Atorvastatin Calcium (Lipitor -) 40 mg PO HS [facility] Last Admin: 08/29/17 22:57 Dose: 40 mg Azithromycin (Zithromax -) 500 mg PO DAILY [facility] Stop: 08/31/17 10:01 Last Admin: 08/30/17 15:23 Dose: 500 mg Bacitracin (Bacitracin -) 1 applic TP DAILY [facility] Last Admin: 08/30/17 15:20 Dose: 1 applic Baclofen (Lioresal -) 10 mg PO TID PRN PRN Reason: SEVERE PAIN Last Admin: 08/30/17 09:08 Dose: 10 mg Benzocaine/Menthol (Cepacol Lozenge -) 1 each MM PRN PRN PRN Reason: SORE THROAT Benzocaine/Menthol (Cepacol Lozenge -) 1 each MM TID [facility] Last Admin: 08/30/17 15:33 Dose: 1 each Calcium Acetate (Phoslo -) 667 mg PO TIDCM [facility] Last Admin: 08/30/17 16:59 Dose: 667 mg Clopidogrel Bisulfate (Plavix -) 75 mg PO DAILY [facility] Last Admin: 08/30/17 15:28 Dose: 75 mg Dicyclomine HCl (Bentyl -) 20 mg PO BID [facility] Last Admin: 08/30/17 15:25 Dose: 20 mg Docusate Sodium (Colace -) 100 mg PO HS [facility] Last Admin: 08/29/17 22:56 Dose: 100 mg Folic Acid (Folic Acid -) 1 mg PO DAILY [facility] Last Admin: 08/30/17 15:22 Dose: 1 mg Gabapentin (Neurontin -) 200 mg PO HS [facility] Last Admin: 08/29/17 22:57 Dose: 200 mg Guaifenesin (Robitussin Dm -) 10 ml PO Q6H PRN PRN Reason: COUGH Last Admin: 08/30/17 20:18 Dose: 10 ml Heparin Sodium (Porcine) (Heparin -) 5,000 unit SQ BID [facility] Last Admin: 08/30/17 10:00 Dose: Not Given Hydralazine HCl (Apresoline -) 25 mg PO Q6H [facility] Last Admin: 08/30/17 20:17 Dose: 25 mg Insulin Aspart (Novolog Vial Sliding Scale -) 1 vial SQ HS [facility] PRN Reason: Protocol Last Admin: 08/29/17 22:57 Dose: Not Given Insulin Aspart (Novolog Vial Sliding Scale -) 1 vial SQ TIDAC [facility] PRN Reason: Protocol Last Admin: 08/30/17 16:57 Dose: 8 units Insulin Detemir (Levemir Vial) 20 units SQ DAILY [facility] Last Admin: 08/30/17 15:40 Dose: 20 unit Loratadine (Claritin -) 10 mg PO DAILY [facility] Last Admin: 08/30/17 15:22 Dose: 10 mg Losartan Potassium (Cozaar -) 100 mg PO DAILY [facility] Last Admin: 08/30/17 15:23 Dose: 100 mg Metoprolol Tartrate (Lopressor -) 50 mg PO BID [facility] Last Admin: 08/30/17 10:00 Dose: Not Given Multivit/Ca Carb/B Cmplx/FA/Prenat (Nephro-Ingris -) 1 tablet PO DAILY [facility] Last Admin: 08/30/17 15:28 Dose: 1 tablet Oxymetazoline HCl (Afrin -) 2 spray NS BID PRN PRN Reason: NASAL CONGESTION Last Admin: 08/30/17 20:20 Dose: 2 spray Pantoprazole Sodium (Protonix -) 40 mg PO DAILY [facility] Last Admin: 08/30/17 15:27 Dose: 40 mg Senna (Senna -) 1 tab PO HS [facility] Last Admin: 08/29/17 22:57 Dose: 1 tab Tamsulosin HCl (Flomax -) 0.4 mg PO HS [facility] Last Admin: 08/29/17 22:56 Dose: 0.4 mg Tramadol HCl (Ultram -) 100 mg PO Q8H PRN PRN Reason: PAIN Trazodone HCl (Desyrel -) 100 mg PO HS [facility] Last Admin: 08/29/17 22:56 Dose: 100 mg - Objective Vital Signs: Vital Signs Temperature 98.4 F 08/30/17 17:00 Pulse Rate 69 08/30/17 17:00 Respiratory Rate 18 08/30/17 17:00 Blood Pressure 134/62 08/30/17 17:00 O2 Sat by Pulse Oximetry (%) 97 08/30/17 00:32 Constitutional: Yes: Well Nourished, No Distress, Calm Cardiovascular: Yes: Regular Rate and Rhythm Respiratory: Yes: Regular Musculoskeletal: Yes: WNL Extremities: Yes: Amputation (RLE) Edema: No Peripheral Pulses WNL: Yes Neurological: Yes: Alert, Oriented Psychiatric: Yes: Alert, Oriented Labs: CBC, BMP 08/28/17 09:30 08/28/17 09:30 INR, PTT INR 0.93 (0.82-1.09) 08/26/17 07:45 Problem List - Problems (1) Acute and chronic respiratory failure with hypoxia Assessment/Plan: -nasal o2 -neb tx -pulmonary consult appreciated Code(s): J96.21 - ACUTE AND CHRONIC RESPIRATORY FAILURE WITH HYPOXIA (2) CAD (coronary artery disease) Assessment/Plan: -cardiology consult appreciated -telemetry monitoring -Echo unremarkable Code(s): I25.10 - ATHSCL HEART DISEASE OF [place] CORONARY ARTERY W/O ANG PCTRS (3) COPD (chronic obstructive pulmonary disease) Assessment/Plan: nasal o2 -neb tx -Pulmonary consult appreciated Code(s): J44.9 - CHRONIC OBSTRUCTIVE PULMONARY DISEASE, UNSPECIFIED (4) Elevated troponin Assessment/Plan: -may not be true value in light of ESRD -cardiology consult appreciated -Echo unremarkable Code(s): R74.8 - ABNORMAL LEVELS OF OTHER SERUM ENZYMES (5) End stage chronic kidney disease Assessment/Plan: -Nephrology on board -Dialysis -continue to monitor Code(s): N18.6 - END STAGE RENAL DISEASE (6) HTN (hypertension) Assessment/Plan: fluctuating Code(s): I10 - ESSENTIAL (PRIMARY) HYPERTENSION Qualifiers: Hypertension type: unspecified Qualified Code(s): I10 - Essential (primary ) hypertension (7) Hyperkalemia Assessment/Plan: improved Code(s): E87.5 - HYPERKALEMIA (8) Leukocytosis Assessment/Plan: -ID consult appreciated -d/c on PO abx Code(s): D72.829 - ELEVATED WHITE BLOOD CELL COUNT, UNSPECIFIED Assessment/Plan see problem list awaiting discharge
[2017-08-30] MEDS: GABAPENTIN 100 MG CAPSULE (FP) PO SCH (22:13)
[2017-08-30] MEDS: traZODone HCL 50 MG TABLET (FP) PO SCH (22:13)
[2017-08-30] MEDS: SENNOSIDES 8.6MG TABLET (FP) PO SCH (22:13)
[2017-08-30] MEDS: ATORVASTATIN CA 40 MG TABLET (FP) PO SCH (22:13)
[2017-08-30] MEDS: DOCUSATE SODIUM 100 MG CAPSULE (FP) PO SCH (22:13)
[2017-08-30] MEDS: TAMSULOSIN HCL 0.4 MG CAP.ER.24H (FP) PO SCH (22:14)
[2017-08-31] MEDS: hydrALAZINE HCL 25 MG TABLET (FP) PO SCH ×4 (01:05→20:00)
[2017-08-31] MEDS ORDERED: INSULIN (NOVOLOG) ASPART 100 UNITS/ML 10ML VIAL ONE (06:50)
[2017-08-31] MEDS: INSULIN SLIDING SCALE (NOVOLOG) 1 VIAL SQ SCH ×4 (06:55→22:04)
[2017-08-31] MEDS: BENZOCAINE/MENTH/CETYLPYRD CL 1 EACH LOZENGE MM SCH ×3 (06:56→22:02)
[2017-08-31] MEDS ORDERED: PT OWN MED DRAWER 7, Y5N ONE ×3 (09:59→21:59)
[2017-08-31] MEDS: ASPIRIN 81 MG CHEWABLE TABLETS PO SCH (10:06)
[2017-08-31] MEDS: DICYCLOMINE HCL 10 MG CAPSULE PO SCH ×2 (10:07→22:02)
[2017-08-31] MEDS: LOSARTAN POTASSIUM 50 MG TABLET (FP) PO SCH (10:07)
[2017-08-31] MEDS: LORATADINE 10 MG TABLET PO SCH (10:07)
[2017-08-31] MEDS: CLOPIDOGREL BISULFATE 75 MG TABLET (FP) PO SCH (10:08)
[2017-08-31] MEDS: AZITHROMYCIN 250 MG TABLET PO SCH (10:08)
[2017-08-31] MEDS: BACLOFEN 10 MG TABLET (FP) PO PRN (10:08)
[2017-08-31] MEDS: PANTOPRAZOLE 40 MG TABLET (FP) PO SCH (10:08)
[2017-08-31] MEDS: VITAMIN B COMP W-C 1 EA TABLET PO SCH (10:08)
[2017-08-31] MEDS: METOPROLOL TARTRATE 50 MG TABLET (FP) PO SCH ×2 (10:08→22:04)
[2017-08-31] MEDS: HEPARIN NA (PORCINE) 5,000 UNITS/ML 1ML VIAL SQ SCH ×2 (10:10→22:03)
[2017-08-31] MEDS: INSULIN DETEMIR 100 UNITS/ML MDV SQ SCH (10:10)
[2017-08-31] MEDS: ARTIFICIAL TEARS (POLYVINYL ALCOHOL 1.4%) OPTH DROPS OU SCH ×2 (10:11→22:02)
[2017-08-31] MEDS: FOLIC ACID 1 MG TABLET (FP) PO SCH (10:11)
[2017-08-31] MEDS: CALCIUM ACETATE 667 MG CAPSULE (FP) PO SCH ×3 (10:12→17:16)
[2017-08-31] MEDS: guaiFENesin/D-METHORPHAN HB 10 ML UNIT-DOSE CUPS PO PRN ×2 (10:33→22:31)
[2017-08-31] MEDS: OXYMETAZOLINE 0.05% NASAL SOLUTION 15 ML BOTTLE NS PRN (10:33)
--- NOTE | 2017-08-31 11:25 | PN ---
Progress Note (short form) - Note Progress Note: Feels ok. Still with some sore throat/hoarseness and congested cough. (+) Post nasal drip. Breathing feels OK. Intake & Output 08/28/17 08/29/17 08/30/17 08/31/17 23:59 23:59 23:59 23:59 Intake Total 667 840 4079 120 Output Total 600 500 Balance -517 890 6969 120 Weight 282 lb 2 oz Last Vital Signs Temp Pulse Resp BP Pulse Ox 98.3 F 64 18 149/68 98 08/31/17 05:44 08/31/17 05:44 08/31/17 05:44 08/31/17 05:44 08/31/17 06:20 Active Medications Acetaminophen (Tylenol -) 650 mg PO Q6H PRN PRN Reason: FEVER Last Admin: 08/30/17 09:12 Dose: 650 mg Artificial Tears (Artificial Tears) 1 drop OU BID [facility] Last Admin: 08/31/17 10:11 Dose: 1 drop Aspirin (Asa -) 81 mg PO DAILY [facility] Last Admin: 08/31/17 10:06 Dose: 81 mg Atorvastatin Calcium (Lipitor -) 40 mg PO HS [facility] Last Admin: 08/30/17 22:13 Dose: 40 mg Bacitracin (Bacitracin -) 1 applic TP DAILY [facility] Last Admin: 08/30/17 15:20 Dose: 1 applic Baclofen (Lioresal -) 10 mg PO TID PRN PRN Reason: SEVERE PAIN Last Admin: 08/31/17 10:08 Dose: 10 mg Benzocaine/Menthol (Cepacol Lozenge -) 1 each MM PRN PRN PRN Reason: SORE THROAT Benzocaine/Menthol (Cepacol Lozenge -) 1 each MM TID [facility] Last Admin: 08/31/17 06:56 Dose: 1 each Calcium Acetate (Phoslo -) 667 mg PO TIDCM [facility] Last Admin: 08/31/17 10:12 Dose: Not Given Clopidogrel Bisulfate (Plavix -) 75 mg PO DAILY [facility] Last Admin: 08/31/17 10:08 Dose: 75 mg Dicyclomine HCl (Bentyl -) 20 mg PO BID [facility] Last Admin: 08/31/17 10:07 Dose: 20 mg Docusate Sodium (Colace -) 100 mg PO HS [facility] Last Admin: 08/30/17 22:13 Dose: 100 mg Folic Acid (Folic Acid -) 1 mg PO DAILY [facility] Last Admin: 08/31/17 10:11 Dose: 1 mg Gabapentin (Neurontin -) 200 mg PO HS [facility] Last Admin: 08/30/17 22:13 Dose: 200 mg Guaifenesin (Robitussin Dm -) 10 ml PO Q6H PRN PRN Reason: COUGH Last Admin: 08/31/17 10:33 Dose: 10 ml Heparin Sodium (Porcine) (Heparin -) 5,000 unit SQ BID [facility] Last Admin: 08/31/17 10:10 Dose: 5,000 unit Hydralazine HCl (Apresoline -) 25 mg PO Q6H [facility] Last Admin: 08/31/17 06:55 Dose: 25 mg Insulin Aspart (Novolog Vial Sliding Scale -) 1 vial SQ [facility] PRN Reason: Protocol Last Admin: 08/30/17 22:14 Dose: Not Given Insulin Aspart (Novolog Vial Sliding Scale -) 1 vial SQ TIDAC [facility] PRN Reason: Protocol Last Admin: 08/31/17 06:55 Dose: 4 units Insulin Detemir (Levemir Vial) 20 units SQ DAILY [facility] Last Admin: 08/31/17 10:10 Dose: 20 unit Loratadine (Claritin -) 10 mg PO DAILY [facility] Last Admin: 08/31/17 10:07 Dose: 10 mg Losartan Potassium (Cozaar -) 100 mg PO DAILY [facility] Last Admin: 08/31/17 10:07 Dose: 100 mg Metoprolol Tartrate (Lopressor -) 50 mg PO BID [facility] Last Admin: 08/31/17 10:08 Dose: 50 mg Multivit/Ca Carb/B Cmplx/FA/Prenat (Nephro-Ingris -) 1 tablet PO DAILY [facility] Last Admin: 08/31/17 10:08 Dose: 1 tablet Oxymetazoline HCl (Afrin -) 2 spray NS BID PRN PRN Reason: NASAL CONGESTION Last Admin: 08/31/17 10:33 Dose: 2 spray Pantoprazole Sodium (Protonix -) 40 mg PO DAILY [facility] Last Admin: 08/31/17 10:08 Dose: 40 mg Senna (Senna -) 1 tab PO [facility] Last Admin: 08/30/17 22:13 Dose: 1 tab Tamsulosin HCl (Flomax -) 0.4 mg PO [facility] Last Admin: 08/30/17 22:14 Dose: 0.4 mg Tramadol HCl (Ultram -) 100 mg PO Q8H PRN PRN Reason: PAIN Trazodone HCl (Desyrel -) 100 mg PO [facility] Last Admin: 08/30/17 22:13 Dose: 100 mg Constitutional: Yes: NAD, Obese Eyes: Yes: WNL HENT: Yes: WNL Neck: Yes: WNL Cardiovascular: Yes: Regular Rate and Rhythm, S1, S2 Respiratory: Yes: Diminished Gastrointestinal: Yes: Normal Bowel Sounds, Soft Extremities: Yes: Amputation (R BKA) Edema: Yes Labs: Laboratory Results - last 24 hr 08/30/17 08/30/17 08/30/17 15:18 16:28 22:10 POC Glucometer 147 259 150 08/31/17 05:47 POC Glucometer 160 Problem List - Problems (1) Acute hypoxemic respiratory failure Code(s): J96.01 - ACUTE RESPIRATORY FAILURE WITH HYPOXIA (2) Asthma exacerbation Code(s): J45.901 - UNSPECIFIED ASTHMA WITH (ACUTE) EXACERBATION (3) CAD (coronary artery disease) Code(s): I25.10 - ATHSCL HEART DISEASE OF [place] CORONARY ARTERY W/O ANG PCTRS (4) End stage chronic kidney disease Code(s): N18.6 - END STAGE RENAL DISEASE (5) HTN (hypertension) Code(s): I10 - ESSENTIAL (PRIMARY) HYPERTENSION Qualifiers: Hypertension type: unspecified Qualified Code(s): I10 - Essential (primary ) hypertension (6) Hyperkalemia Code(s): E87.5 - HYPERKALEMIA (7) Pulmonary edema Code(s): J81.1 - CHRONIC PULMONARY EDEMA Assessment/Plan IMP ACUTE HYPOXEMIC RESPIRATORY FAILURE IMPROVING ACUTE PULMONARY EDEMA ? PNEUMONIA/BRONCHITIS ESRD ON HD ASHD S/P CABG,S/P STENT COPD/ASTHMA PVD HTN PLAN HD PER RENAL ANTIBIOTICS PER ID WILL NEED REPEAT SLEEP WORKUP AFTER D/C INHALED BRONCHODILATORS PATIENT DEFERS NASAL STEROIDS FOR HIS PND DUE TO OCULAR ISSUES / NASAL SALINE ORDERED D/C PLANNING DR HUNTER
--- NOTE | 2017-08-31 12:31 | PN ---
Progress Note, Physician History of Present Illness: hoarseness breathing better - Current Medication List Current Medications: Active Medications Acetaminophen (Tylenol -) 650 mg PO Q6H PRN PRN Reason: FEVER Last Admin: 08/30/17 09:12 Dose: 650 mg Artificial Tears (Artificial Tears) 1 drop OU BID [facility] Last Admin: 08/31/17 10:11 Dose: 1 drop Aspirin (Asa -) 81 mg PO DAILY [facility] Last Admin: 08/31/17 10:06 Dose: 81 mg Atorvastatin Calcium (Lipitor -) 40 mg PO HS [facility] Last Admin: 08/30/17 22:13 Dose: 40 mg Bacitracin (Bacitracin -) 1 applic TP DAILY [facility] Last Admin: 08/30/17 15:20 Dose: 1 applic Baclofen (Lioresal -) 10 mg PO TID PRN PRN Reason: SEVERE PAIN Last Admin: 08/31/17 10:08 Dose: 10 mg Benzocaine/Menthol (Cepacol Lozenge -) 1 each MM PRN PRN PRN Reason: SORE THROAT Benzocaine/Menthol (Cepacol Lozenge -) 1 each MM TID [facility] Last Admin: 08/31/17 06:56 Dose: 1 each Calcium Acetate (Phoslo -) 667 mg PO TIDCM [facility] Last Admin: 08/31/17 11:52 Dose: 667 mg Clopidogrel Bisulfate (Plavix -) 75 mg PO DAILY [facility] Last Admin: 08/31/17 10:08 Dose: 75 mg Dicyclomine HCl (Bentyl -) 20 mg PO BID [facility] Last Admin: 08/31/17 10:07 Dose: 20 mg Docusate Sodium (Colace -) 100 mg PO HS [facility] Last Admin: 08/30/17 22:13 Dose: 100 mg Folic Acid (Folic Acid -) 1 mg PO DAILY [facility] Last Admin: 08/31/17 10:11 Dose: 1 mg Gabapentin (Neurontin -) 200 mg PO HS [facility] Last Admin: 08/30/17 22:13 Dose: 200 mg Guaifenesin (Robitussin Dm -) 10 ml PO Q6H PRN PRN Reason: COUGH Last Admin: 08/31/17 10:33 Dose: 10 ml Heparin Sodium (Porcine) (Heparin -) 5,000 unit SQ BID [facility] Last Admin: 08/31/17 10:10 Dose: 5,000 unit Hydralazine HCl (Apresoline -) 25 mg PO Q6H [facility] Last Admin: 08/31/17 06:55 Dose: 25 mg Insulin Aspart (Novolog Vial Sliding Scale -) 1 vial SQ HS [facility] PRN Reason: Protocol Last Admin: 08/30/17 22:14 Dose: Not Given Insulin Aspart (Novolog Vial Sliding Scale -) 1 vial SQ TIDAC [facility] PRN Reason: Protocol Last Admin: 08/31/17 11:53 Dose: 4 units Insulin Detemir (Levemir Vial) 20 units SQ DAILY [facility] Last Admin: 08/31/17 10:10 Dose: 20 unit Loratadine (Claritin -) 10 mg PO DAILY [facility] Last Admin: 08/31/17 10:07 Dose: 10 mg Losartan Potassium (Cozaar -) 100 mg PO DAILY [facility] Last Admin: 08/31/17 10:07 Dose: 100 mg Metoprolol Tartrate (Lopressor -) 50 mg PO BID [facility] Last Admin: 08/31/17 10:08 Dose: 50 mg Multivit/Ca Carb/B Cmplx/FA/Prenat (Nephro-Ingris -) 1 tablet PO DAILY [facility] Last Admin: 08/31/17 10:08 Dose: 1 tablet Oxymetazoline HCl (Afrin -) 2 spray NS BID PRN PRN Reason: NASAL CONGESTION Last Admin: 08/31/17 10:33 Dose: 2 spray Pantoprazole Sodium (Protonix -) 40 mg PO DAILY [facility] Last Admin: 08/31/17 10:08 Dose: 40 mg Senna (Senna -) 1 tab PO [facility] Last Admin: 08/30/17 22:13 Dose: 1 tab Tamsulosin HCl (Flomax -) 0.4 mg PO [facility] Last Admin: 08/30/17 22:14 Dose: 0.4 mg Tramadol HCl (Ultram -) 100 mg PO Q8H PRN PRN Reason: PAIN Trazodone HCl (Desyrel -) 100 mg PO [facility] Last Admin: 08/30/17 22:13 Dose: 100 mg - Objective Vital Signs: Vital Signs Temperature 97.8 F 08/31/17 10:00 Pulse Rate 65 08/31/17 10:00 Respiratory Rate 18 08/31/17 10:00 Blood Pressure 118/66 08/31/17 10:00 O2 Sat by Pulse Oximetry (%) 97 08/31/17 10:00 Cardiovascular: Yes: S1, S2 Respiratory: Yes: CTA Bilaterally. No: Wheezes Gastrointestinal: Yes: Normal Bowel Sounds, Soft Extremities: Yes: Amputation Labs: CBC, BMP 08/28/17 09:30 08/28/17 09:30 INR, PTT INR 0.93 (0.82-1.09) 08/26/17 07:45 Assessment/Plan - Problems (1) Acute and chronic respiratory failure with hypoxia Assessment/Plan: -nasal o2 -neb tx -pulmonary consult appreciated Code(s): J96.21 - ACUTE AND CHRONIC RESPIRATORY FAILURE WITH HYPOXIA (2) CAD (coronary artery disease) Assessment/Plan: -cardiology consult appreciated -telemetry monitoring -Echo unremarkable Code(s): I25.10 - ATHSCL HEART DISEASE OF [place] CORONARY ARTERY W/O ANG PCTRS (3) COPD (chronic obstructive pulmonary disease) Assessment/Plan: nasal o2 -neb tx -Pulmonary consult appreciated Code(s): J44.9 - CHRONIC OBSTRUCTIVE PULMONARY DISEASE, UNSPECIFIED (4) Elevated troponin Assessment/Plan: -may not be true value in light of ESRD -cardiology consult appreciated -Echo unremarkable Code(s): R74.8 - ABNORMAL LEVELS OF OTHER SERUM ENZYMES (5) End stage chronic kidney disease Assessment/Plan: -Nephrology on board -Dialysis -continue to monitor Code(s): N18.6 - END STAGE RENAL DISEASE (6) HTN (hypertension) Assessment/Plan: fluctuating Code(s): I10 - ESSENTIAL (PRIMARY) HYPERTENSION Qualifiers: Hypertension type: unspecified Qualified Code(s): I10 - Essential (primary ) hypertension (7) Hyperkalemia Assessment/Plan: improved Code(s): E87.5 - HYPERKALEMIA (8) Leukocytosis Assessment/Plan: -ID consult appreciated -d/c on PO abx Code(s): D72.829 - ELEVATED WHITE BLOOD CELL COUNT, UNSPECIFIED (9) Diabetes Assessment/Plan: continue with bgm insulin
[2017-08-31] MEDS: BACITRACIN 15 GM TUBE TOPICAL OINTMENT TP SCH (13:15)
--- NOTE | 2017-08-31 14:38 | PN ---
Progress Note, Physician History of Present Illness: Pt seen and examined at bedside. He is awake and alert. He denies shortness of breath. - Current Medication List Current Medications: Active Medications Acetaminophen (Tylenol -) 650 mg PO Q6H PRN PRN Reason: FEVER Last Admin: 08/30/17 09:12 Dose: 650 mg Artificial Tears (Artificial Tears) 1 drop OU BID [facility] Last Admin: 08/31/17 10:11 Dose: 1 drop Aspirin (Asa -) 81 mg PO DAILY [facility] Last Admin: 08/31/17 10:06 Dose: 81 mg Atorvastatin Calcium (Lipitor -) 40 mg PO HS [facility] Last Admin: 08/30/17 22:13 Dose: 40 mg Bacitracin (Bacitracin -) 1 applic TP DAILY [facility] Last Admin: 08/30/17 15:20 Dose: 1 applic Baclofen (Lioresal -) 10 mg PO TID PRN PRN Reason: SEVERE PAIN Last Admin: 08/31/17 10:08 Dose: 10 mg Benzocaine/Menthol (Cepacol Lozenge -) 1 each MM PRN PRN PRN Reason: SORE THROAT Benzocaine/Menthol (Cepacol Lozenge -) 1 each MM TID [facility] Last Admin: 08/31/17 13:28 Dose: 1 each Calcium Acetate (Phoslo -) 667 mg PO TIDCM [facility] Last Admin: 08/31/17 11:52 Dose: 667 mg Clopidogrel Bisulfate (Plavix -) 75 mg PO DAILY [facility] Last Admin: 08/31/17 10:08 Dose: 75 mg Dicyclomine HCl (Bentyl -) 20 mg PO BID [facility] Last Admin: 08/31/17 10:07 Dose: 20 mg Docusate Sodium (Colace -) 100 mg PO HS [facility] Last Admin: 08/30/17 22:13 Dose: 100 mg Folic Acid (Folic Acid -) 1 mg PO DAILY [facility] Last Admin: 08/31/17 10:11 Dose: 1 mg Gabapentin (Neurontin -) 200 mg PO HS [facility] Last Admin: 08/30/17 22:13 Dose: 200 mg Guaifenesin (Robitussin Dm -) 10 ml PO Q6H PRN PRN Reason: COUGH Last Admin: 08/31/17 10:33 Dose: 10 ml Heparin Sodium (Porcine) (Heparin -) 5,000 unit SQ BID [facility] Last Admin: 08/31/17 10:10 Dose: 5,000 unit Hydralazine HCl (Apresoline -) 25 mg PO Q6H [facility] Last Admin: 08/31/17 13:28 Dose: 25 mg Insulin Aspart (Novolog Vial Sliding Scale -) 1 vial SQ HS [facility] PRN Reason: Protocol Last Admin: 08/30/17 22:14 Dose: Not Given Insulin Aspart (Novolog Vial Sliding Scale -) 1 vial SQ TIDAC [facility] PRN Reason: Protocol Last Admin: 08/31/17 11:53 Dose: 4 units Insulin Detemir (Levemir Vial) 20 units SQ DAILY [facility] Last Admin: 08/31/17 10:10 Dose: 20 unit Loratadine (Claritin -) 10 mg PO DAILY [facility] Last Admin: 08/31/17 10:07 Dose: 10 mg Losartan Potassium (Cozaar -) 100 mg PO DAILY [facility] Last Admin: 08/31/17 10:07 Dose: 100 mg Metoprolol Tartrate (Lopressor -) 50 mg PO BID [facility] Last Admin: 08/31/17 10:08 Dose: 50 mg Multivit/Ca Carb/B Cmplx/FA/Prenat (Nephro-Ingris -) 1 tablet PO DAILY [facility] Last Admin: 08/31/17 10:08 Dose: 1 tablet Oxymetazoline HCl (Afrin -) 2 spray NS BID PRN PRN Reason: NASAL CONGESTION Last Admin: 08/31/17 10:33 Dose: 2 spray Pantoprazole Sodium (Protonix -) 40 mg PO DAILY [facility] Last Admin: 08/31/17 10:08 Dose: 40 mg Senna (Senna -) 1 tab PO [facility] Last Admin: 08/30/17 22:13 Dose: 1 tab Tamsulosin HCl (Flomax -) 0.4 mg PO [facility] Last Admin: 08/30/17 22:14 Dose: 0.4 mg Tramadol HCl (Ultram -) 100 mg PO Q8H PRN PRN Reason: PAIN Trazodone HCl (Desyrel -) 100 mg PO HS [facility] Last Admin: 08/30/17 22:13 Dose: 100 mg - Objective Vital Signs: Vital Signs Temperature 97.8 F 08/31/17 10:00 Pulse Rate 65 08/31/17 10:00 Respiratory Rate 18 08/31/17 10:00 Blood Pressure 118/66 08/31/17 10:00 O2 Sat by Pulse Oximetry (%) 97 08/31/17 10:00 Constitutional: Yes: Calm Eyes: Yes: Conjunctiva Clear HENT: Yes: Atraumatic Neck: Yes: Supple Cardiovascular: Yes: S1, S2 Respiratory: Yes: Wheezes Gastrointestinal: Yes: Soft, Abdomen, Obese Genitourinary: Yes: WNL Musculoskeletal: Yes: Other (bka) Edema: No Integumentary: Yes: Tattoos Neurological: Yes: Oriented Psychiatric: Yes: Oriented Labs: CBC, BMP 08/28/17 09:30 08/28/17 09:30 INR, PTT INR 0.93 (0.82-1.09) 08/26/17 07:45 Problem List - Problems (1) Acute and chronic respiratory failure with hypoxia Code(s): J96.21 - ACUTE AND CHRONIC RESPIRATORY FAILURE WITH HYPOXIA (2) Asthma exacerbation Code(s): J45.901 - UNSPECIFIED ASTHMA WITH (ACUTE) EXACERBATION (3) CAD (coronary artery disease) Code(s): I25.10 - ATHSCL HEART DISEASE OF [place] CORONARY ARTERY W/O ANG PCTRS (4) COPD (chronic obstructive pulmonary disease) Code(s): J44.9 - CHRONIC OBSTRUCTIVE PULMONARY DISEASE, UNSPECIFIED (5) Elevated troponin Code(s): R74.8 - ABNORMAL LEVELS OF OTHER SERUM ENZYMES (6) End stage chronic kidney disease Code(s): N18.6 - END STAGE RENAL DISEASE (7) HTN (hypertension) Code(s): I10 - ESSENTIAL (PRIMARY) HYPERTENSION Qualifiers: Hypertension type: unspecified Qualified Code(s): I10 - Essential (primary ) hypertension (8) Hyperkalemia Code(s): E87.5 - HYPERKALEMIA Assessment/Plan Current Medications Generic Name Dose Route Start Last Admin Trade Name Freq PRN Reason Stop Dose Admin Acetaminophen 650 mg 08/26/17 18:49 08/30/17 09:12 Tylenol - PO 650 mg Q6H PRN Administration FEVER Artificial Tears 1 drop 08/27/17 22:00 08/31/17 10:11 Artificial Tears OU 1 drop BID [facility] Administration Aspirin 81 mg 08/27/17 10:00 08/31/17 10:06 Asa - PO 81 mg DAILY [facility] Administration Atorvastatin Calcium 40 mg 12/27/17 22:00 08/30/17 22:13 Lipitor - PO 40 mg HS [facility] Administration Bacitracin 1 applic 08/27/17 10:15 08/30/17 15:20 Bacitracin - TP 1 applic DAILY [facility] Administration Baclofen 10 mg 08/26/17 18:49 08/31/17 10:08 Lioresal - PO 10 mg TID PRN Administration SEVERE PAIN Benzocaine/Menthol 1 each 08/26/17 15:38 Cepacol Lozenge - MM PRN PRN SORE THROAT Benzocaine/Menthol 1 each 08/26/17 22:00 08/31/17 13:28 Cepacol Lozenge - MM 1 each TID [facility] Administration Calcium Acetate 667 mg 08/27/17 12:00 08/31/17 11:52 Phoslo - PO 667 mg TIDCM [facility] Administration Clopidogrel Bisulfate 75 mg 08/27/17 10:00 08/31/17 10:08 Plavix - PO 75 mg DAILY [facility] Administration Dicyclomine HCl 20 mg 08/26/17 22:00 08/31/17 10:07 Bentyl - PO 20 mg BID [facility] Administration Docusate Sodium 100 mg 08/26/17 22:00 08/30/17 22:13 Colace - PO 100 mg HS [facility] Administration Folic Acid 1 mg 08/27/17 10:00 08/31/17 10:11 Folic Acid - PO 1 mg DAILY [facility] Administration Gabapentin 200 mg 08/26/17 22:00 08/30/17 22:13 Neurontin - PO 200 mg HS [facility] Administration Guaifenesin 10 ml 08/27/17 20:03 08/31/17 10:33 Robitussin Dm - PO 10 ml Q6H PRN Administration COUGH Heparin Sodium (Porcine) 5,000 unit 08/26/17 22:00 08/31/17 10:10 Heparin - SQ 5,000 unit BID [facility] Administration Hydralazine HCl 25 mg 08/26/17 19:00 08/31/17 13:28 Apresoline - PO 25 mg Q6H [facility] Administration Insulin Aspart 1 vial 08/27/17 22:00 08/30/17 22:14 Novolog Vial Sliding Scale - SQ Not Given HS [facility] Protocol Insulin Aspart 1 vial 08/28/17 13:12 08/31/17 11:53 Novolog Vial Sliding Scale - SQ 4 units TIDAC [facility] Administration Protocol Insulin Detemir 20 units 08/27/17 10:00 08/31/17 10:10 Levemir Vial SQ 20 unit DAILY [facility] Administration Loratadine 10 mg 08/27/17 10:00 08/31/17 10:07 Claritin - PO 10 mg DAILY [facility] Administration Losartan Potassium 100 mg 08/27/17 10:00 08/31/17 10:07 Cozaar - PO 100 mg DAILY [facility] Administration Metoprolol Tartrate 50 mg 08/26/17 22:00 08/31/17 10:08 Lopressor - PO 50 mg BID [facility] Administration Multivit/Ca Carb/B Cmplx/FA/Prenat 1 tablet 08/27/17 10:00 08/31/17 10:08 Nephro-Ingris - PO 1 tablet DAILY [facility] Administration Oxymetazoline HCl 2 spray 08/27/17 20:04 08/31/17 10:33 Afrin - NS 2 spray BID PRN Administration NASAL CONGESTION Pantoprazole Sodium 40 mg 08/27/17 10:00 08/31/17 10:08 Protonix - PO 40 mg DAILY [facility] Administration Senna 1 tab 08/26/17 22:00 08/30/17 22:13 Senna - PO 1 tab HS [facility] Administration Tamsulosin HCl 0.4 mg 08/26/17 22:00 08/30/17 22:14 Flomax - PO 0.4 mg HS [facility] Administration Tramadol HCl 100 mg 08/30/17 12:24 Ultram - PO Q8H PRN PAIN Trazodone HCl 100 mg 08/26/17 22:00 08/30/17 22:13 Desyrel - PO 100 mg HS [facility] Administration Impression 1. ESRD 2. hyperkalemia 3. copd 4. HTN 5. DM 6. dyspnea 7. acute resp failure requiring bipap 8. elevated troponin Plan - pt was dialyzed yesterday - next session on Thursday - cont current meds - renal diet - fluid restriction - bp stable - HD AVF 4:15, 2 k bath, 500 abg, heparin 6000 units, [id number] dialyzer
--- NOTE | 2017-08-31 16:40 | PN ---
Progress Note (short form) - Note Progress Note: Feels better but weak No SOB FS suboptimal No hypos Vital Signs Period Temp Pulse Resp BP Sys/Quick Pulse Ox Last 24 Hr 97.6 F-99.4 F 63-71 18-18 118-155/50-68 95-98 PE: AOx3 Neck: Supple, No JVD HEENT: PERRL, EOMI Lungs: CTA CVS: S1S2 Abd: benign Ext: Rt BKA, Left leg stasis changes, +blister around 1.5 cm over [place] Neuro: No focal deficit CMP Sodium 142 mmol/L (136-145) 08/28/17 09:30 Potassium 4.5 mmol/L (3.5-5.1) 08/28/17 09:30 Chloride 104 mmol/L (98-107) 08/28/17 09:30 Carbon Dioxide 24 mmol/L (21-32) 08/28/17 09:30 Anion Gap 14 (8-16) 08/28/17 09:30 BUN 73 mg/dL (7-18) H D 08/28/17 09:30 Creatinine 8.3 mg/dL (0.7-1.3) H* D 08/28/17 09:30 Creat Clearance w eGFR 6.06 (>60) 08/26/17 07:45 POC Glucometer 203 UNITS (80-120) 08/31/17 13:50 Random Glucose 140 mg/dL (74-106) H 08/28/17 09:30 Hemoglobin A1c % 7.4 % (4.8-6.0) H 08/28/17 09:30 Calcium 8.6 mg/dL (8.5-10.1) 08/28/17 09:30 Magnesium 1.8 mg/dL (1.8-2.4) 08/26/17 07:45 Total Bilirubin 0.2 mg/dL (0.2-1.0) D 08/26/17 07:45 AST 22 U/L (15-37) D 08/26/17 07:45 ALT 25 U/L (12-78) D 08/26/17 07:45 Alkaline Phosphatase 103 U/L (45-117) 08/26/17 07:45 Creatine Kinase 287 IU/L (39-308) 08/26/17 07:45 Creatine Kinase Index 2.7 % (0.0-5.0) 08/26/17 07:45 CK-MB (CK-2) 7.939 ng/mL (0.5-3.6) H 08/26/17 07:45 Troponin I 0.19 ng/ml (0.00-0.05) H D 08/27/17 07:00 B-Natriuretic Peptide 51280.99 pg/ml (5-125) H 08/26/17 07:45 Total Protein 7.5 g/dl (6.4-8.2) 08/26/17 07:45 Albumin 3.5 g/dl (3.4-5.0) 08/26/17 07:45 Current Medications Generic Name Dose Route Start Last Admin Trade Name Freq PRN Reason Stop Dose Admin Acetaminophen 650 mg 08/26/17 18:49 08/30/17 09:12 Tylenol - PO 650 mg Q6H PRN Administration FEVER Artificial Tears 1 drop 08/27/17 22:00 08/31/17 10:11 Artificial Tears OU 1 drop BID [facility] Administration Aspirin 81 mg 08/27/17 10:00 08/31/17 10:06 Asa - PO 81 mg DAILY [facility] Administration Atorvastatin Calcium 40 mg 08/26/17 22:00 08/30/17 22:13 Lipitor - PO 40 mg HS [facility] Administration Bacitracin 1 applic 08/27/17 10:15 08/30/17 15:20 Bacitracin - TP 1 applic DAILY [facility] Administration Baclofen 10 mg 08/26/17 18:49 08/31/17 10:08 Lioresal - PO 10 mg TID PRN Administration SEVERE PAIN Benzocaine/Menthol 1 each 08/26/17 15:38 Cepacol Lozenge - MM PRN PRN SORE THROAT Benzocaine/Menthol 1 each 08/26/17 22:00 08/31/17 13:28 Cepacol Lozenge - MM 1 each TID [facility] Administration Calcium Acetate 667 mg 08/27/17 12:00 08/31/17 11:52 Phoslo - PO 667 mg TIDCM [facility] Administration Clopidogrel Bisulfate 75 mg 08/27/17 10:00 08/31/17 10:08 Plavix - PO 75 mg DAILY [facility] Administration Dicyclomine HCl 20 mg 08/26/17 22:00 08/31/17 10:07 Bentyl - PO 20 mg BID [facility] Administration Docusate Sodium 100 mg 08/26/17 22:00 08/30/17 22:13 Colace - PO 100 mg HS [facility] Administration Folic Acid 1 mg 08/27/17 10:00 08/31/17 10:11 Folic Acid - PO 1 mg DAILY [facility] Administration Gabapentin 200 mg 08/26/17 22:00 08/30/17 22:13 Neurontin - PO 200 mg HS [facility] Administration Guaifenesin 10 ml 08/27/17 20:03 08/31/17 10:33 Robitussin Dm - PO 10 ml Q6H PRN Administration COUGH Heparin Sodium (Porcine) 5,000 unit 08/26/17 22:00 08/31/17 10:10 Heparin - SQ 5,000 unit BID [facility] Administration Hydralazine HCl 25 mg 08/26/17 19:00 08/31/17 13:28 Apresoline - PO 25 mg Q6H [facility] Administration Insulin Aspart 1 vial 08/27/17 22:00 08/30/17 22:14 Novolog Vial Sliding Scale - SQ Not Given HS [facility] Protocol Insulin Aspart 1 vial 08/28/17 13:12 08/31/17 11:53 Novolog Vial Sliding Scale - SQ 4 units TIDAC [facility] Administration Protocol Insulin Detemir 20 units 08/27/17 10:00 08/31/17 10:10 Levemir Vial SQ 20 unit DAILY [facility] Administration Loratadine 10 mg 08/27/17 10:00 08/31/17 10:07 Claritin - PO 10 mg DAILY [facility] Administration Losartan Potassium 100 mg 08/27/17 10:00 08/31/17 10:07 Cozaar - PO 100 mg DAILY [facility] Administration Metoprolol Tartrate 50 mg 08/26/17 22:00 08/31/17 10:08 Lopressor - PO 50 mg BID [facility] Administration Multivit/Ca Carb/B Cmplx/FA/Prenat 1 tablet 08/27/17 10:00 08/31/17 10:08 Nephro-Ingris - PO 1 tablet DAILY [facility] Administration Oxymetazoline HCl 2 spray 08/27/17 20:04 08/31/17 10:33 Afrin - NS 2 spray BID PRN Administration NASAL CONGESTION Pantoprazole Sodium 40 mg 08/27/17 10:00 08/31/17 10:08 Protonix - PO 40 mg DAILY [facility] Administration Senna 1 tab 08/26/17 22:00 08/30/17 22:13 Senna - PO 1 tab HS [facility] Administration Tamsulosin HCl 0.4 mg 08/26/17 22:00 08/30/17 22:14 Flomax - PO 0.4 mg HS [facility] Administration Tramadol HCl 100 mg 08/30/17 12:24 Ultram - PO Q8H PRN PAIN Trazodone HCl 100 mg 08/26/17 22:00 08/30/17 22:13 Desyrel - PO 100 mg HS [facility] Administration AP: COPD HTN T2DM PAD CAD S/p Rt BKA Left leg stasis changes with blister ESRD on HD BGM Q ACHS Levemir 20 units daily Increase Novolog SS coverage, Novolog premeals to be given just before meals. Not to be given before food is in the room.
[2017-08-31] MEDS: DOCUSATE SODIUM 100 MG CAPSULE (FP) PO SCH (22:02)
[2017-08-31] MEDS: traZODone HCL 50 MG TABLET (FP) PO SCH (22:02)
[2017-08-31] MEDS: ATORVASTATIN CA 40 MG TABLET (FP) PO SCH (22:03)
[2017-08-31] MEDS: TAMSULOSIN HCL 0.4 MG CAP.ER.24H (FP) PO SCH (22:03)
[2017-08-31] MEDS: BETAMETHASONE DIPR 0.05% CREAM 15 GM TUBE TP SCH ×2 (22:03→22:12)
[2017-08-31] MEDS: SENNOSIDES 8.6MG TABLET (FP) PO SCH (22:04)
[2017-08-31] MEDS: GABAPENTIN 100 MG CAPSULE (FP) PO SCH (22:04)
[2017-08-31] MEDS ORDERED: diphenhydrAMINE HCL 50 MG CAPSULE PO ONE (22:18)
[2017-08-31] MEDS ORDERED: diphenhydrAMINE HCL 25 MG CAPSULE (FP) PO ONE (22:30)
[2017-09-01] MEDS: hydrALAZINE HCL 25 MG TABLET (FP) PO SCH ×4 (01:11→21:13)
[2017-09-01] MEDS: BENZOCAINE/MENTH/CETYLPYRD CL 1 EACH LOZENGE MM SCH ×3 (06:56→21:13)
[2017-09-01] MEDS: INSULIN SLIDING SCALE (NOVOLOG) 1 VIAL SQ SCH ×4 (06:57→21:15)
[2017-09-01] MEDS ORDERED: PT OWN MED DRAWER 7, Y5N ONE ×3 (08:37→21:09)
[2017-09-01] MEDS: PANTOPRAZOLE 40 MG TABLET (FP) PO SCH (09:04)
[2017-09-01] MEDS: CALCIUM ACETATE 667 MG CAPSULE (FP) PO SCH ×3 (09:04→17:24)
[2017-09-01] MEDS: HEPARIN NA (PORCINE) 5,000 UNITS/ML 1ML VIAL SQ SCH ×2 (09:04→21:15)
[2017-09-01] MEDS: INSULIN DETEMIR 100 UNITS/ML MDV SQ SCH (09:05)
[2017-09-01] MEDS: LORATADINE 10 MG TABLET PO SCH (09:05)
[2017-09-01] MEDS: CLOPIDOGREL BISULFATE 75 MG TABLET (FP) PO SCH (09:05)
[2017-09-01] MEDS: LOSARTAN POTASSIUM 50 MG TABLET (FP) PO SCH (09:05)
[2017-09-01] MEDS: BACLOFEN 10 MG TABLET (FP) PO PRN (09:06)
[2017-09-01] MEDS: VITAMIN B COMP W-C 1 EA TABLET PO SCH (09:06)
[2017-09-01] MEDS: DICYCLOMINE HCL 10 MG CAPSULE PO SCH ×2 (09:06→21:13)
[2017-09-01] MEDS: METOPROLOL TARTRATE 50 MG TABLET (FP) PO SCH ×2 (09:06→21:15)
[2017-09-01] MEDS: ASPIRIN 81 MG CHEWABLE TABLETS PO SCH (09:06)
[2017-09-01] MEDS: FOLIC ACID 1 MG TABLET (FP) PO SCH (09:06)
[2017-09-01] MEDS: ARTIFICIAL TEARS (POLYVINYL ALCOHOL 1.4%) OPTH DROPS OU SCH ×2 (09:07→21:13)
[2017-09-01] MEDS: OXYMETAZOLINE 0.05% NASAL SOLUTION 15 ML BOTTLE NS PRN ×2 (09:07→21:19)
[2017-09-01] MEDS: BACITRACIN 15 GM TUBE TOPICAL OINTMENT TP SCH (09:12)
[2017-09-01] MEDS ORDERED: INSULIN (NOVOLOG) ASPART 100 UNITS/ML 10ML VIAL ONE (11:39)
--- NOTE | 2017-09-01 14:00 | PN ---
Progress Note (short form) - Note Progress Note: Feels ok. Still with some sore throat/hoarseness and congested cough. (+) Post nasal drip. Breathing feels OK. Intake & Output 08/29/17 08/30/17 08/31/17 09/01/17 23:59 23:59 23:59 23:59 Intake Total 320 1840 920 700 Output Total 500 400 400 Balance 320 1340 520 300 Weight 282 lb 2 oz Last Vital Signs Temp Pulse Resp BP Pulse Ox 99 F 66 18 129/61 95 09/01/17 09:00 09/01/17 09:00 09/01/17 09:00 09/01/17 09:00 09/01/17 09:00 Active Medications Acetaminophen (Tylenol -) 650 mg PO Q6H PRN PRN Reason: FEVER Last Admin: 08/30/17 09:12 Dose: 650 mg Artificial Tears (Artificial Tears) 1 drop OU BID [facility] Last Admin: 09/01/17 09:07 Dose: 1 drop Aspirin (Asa -) 81 mg PO DAILY [facility] Last Admin: 09/01/17 09:06 Dose: 81 mg Atorvastatin Calcium (Lipitor -) 40 mg PO HS [facility] Last Admin: 08/31/17 22:03 Dose: 40 mg Bacitracin (Bacitracin -) 1 applic TP DAILY [facility] Last Admin: 09/01/17 09:12 Dose: Not Given Baclofen (Lioresal -) 10 mg PO TID PRN PRN Reason: SEVERE PAIN Last Admin: 09/01/17 09:06 Dose: 10 mg Benzocaine/Menthol (Cepacol Lozenge -) 1 each MM PRN PRN PRN Reason: SORE THROAT Benzocaine/Menthol (Cepacol Lozenge -) 1 each MM TID [facility] Last Admin: 09/01/17 06:56 Dose: 1 each Calcium Acetate (Phoslo -) 667 mg PO TIDCM [facility] Last Admin: 09/01/17 11:54 Dose: 667 mg Clopidogrel Bisulfate (Plavix -) 75 mg PO DAILY [facility] Last Admin: 09/01/17 09:05 Dose: 75 mg Dicyclomine HCl (Bentyl -) 20 mg PO BID [facility] Last Admin: 09/01/17 09:06 Dose: 20 mg Docusate Sodium (Colace -) 100 mg PO HS [facility] Last Admin: 08/31/17 22:02 Dose: 100 mg Folic Acid (Folic Acid -) 1 mg PO DAILY [facility] Last Admin: 09/01/17 09:06 Dose: 1 mg Gabapentin (Neurontin -) 200 mg PO HS [facility] Last Admin: 08/31/17 22:04 Dose: 200 mg Guaifenesin (Robitussin Dm -) 10 ml PO Q6H PRN PRN Reason: COUGH Last Admin: 08/31/17 22:31 Dose: 10 ml Heparin Sodium (Porcine) (Heparin -) 5,000 unit SQ BID [facility] Last Admin: 09/01/17 09:04 Dose: 5,000 unit Hydralazine HCl (Apresoline -) 25 mg PO Q6H [facility] Last Admin: 09/01/17 06:56 Dose: 25 mg Insulin Aspart (Novolog Vial Sliding Scale -) 1 vial SQ HS [facility] PRN Reason: Protocol Last Admin: 08/31/17 22:04 Dose: 2 unit Insulin Aspart (Novolog Vial Sliding Scale -) 1 vial SQ TIDAC [facility] PRN Reason: Protocol Last Admin: 09/01/17 11:43 Dose: 6 units Insulin Detemir (Levemir Vial) 20 units SQ DAILY [facility] Last Admin: 09/01/17 09:05 Dose: 20 unit Loratadine (Claritin -) 10 mg PO DAILY [facility] Last Admin: 09/01/17 09:05 Dose: 10 mg Losartan Potassium (Cozaar -) 100 mg PO DAILY [facility] Last Admin: 09/01/17 09:05 Dose: 100 mg Metoprolol Tartrate (Lopressor -) 50 mg PO BID [facility] Last Admin: 09/01/17 09:06 Dose: 50 mg Multivit/Ca Carb/B Cmplx/FA/Prenat (Nephro-Ingris -) 1 tablet PO DAILY [facility] Last Admin: 09/01/17 09:06 Dose: 1 tablet Oxymetazoline HCl (Afrin -) 2 spray NS BID PRN PRN Reason: NASAL CONGESTION Last Admin: 09/01/17 09:07 Dose: 2 spray Pantoprazole Sodium (Protonix -) 40 mg PO DAILY [facility] Last Admin: 09/01/17 09:04 Dose: 40 mg Senna (Senna -) 1 tab PO [facility] Last Admin: 08/31/17 22:04 Dose: 1 tab Tamsulosin HCl (Flomax -) 0.4 mg PO [facility] Last Admin: 08/31/17 22:03 Dose: 0.4 mg Tramadol HCl (Ultram -) 100 mg PO Q8H PRN PRN Reason: PAIN Trazodone HCl (Desyrel -) 100 mg PO [facility] Last Admin: 08/31/17 22:02 Dose: 100 mg Constitutional: Yes: NAD, Obese Eyes: Yes: WNL HENT: Yes: WNL Neck: Yes: WNL Cardiovascular: Yes: Regular Rate and Rhythm, S1, S2 Respiratory: Yes: Diminished Gastrointestinal: Yes: Normal Bowel Sounds, Soft Extremities: Yes: Amputation (R BKA) Edema: Yes Labs: Laboratory Results - last 24 hr 08/27/17 08/31/17 08/31/17 17:20 13:50 17:12 POC Glucometer 166 203 189 08/31/17 09/01/17 09/01/17 21:47 06:27 11:42 POC Glucometer 206 142 177 Problem List - Problems (1) Acute hypoxemic respiratory failure Code(s): J96.01 - ACUTE RESPIRATORY FAILURE WITH HYPOXIA (2) Asthma exacerbation Code(s): J45.901 - UNSPECIFIED ASTHMA WITH (ACUTE) EXACERBATION (3) CAD (coronary artery disease) Code(s): I25.10 - ATHSCL HEART DISEASE OF [place] CORONARY ARTERY W/O ANG PCTRS (4) End stage chronic kidney disease Code(s): N18.6 - END STAGE RENAL DISEASE (5) HTN (hypertension) Code(s): I10 - ESSENTIAL (PRIMARY) HYPERTENSION Qualifiers: Hypertension type: unspecified Qualified Code(s): I10 - Essential (primary ) hypertension (6) Hyperkalemia Code(s): E87.5 - HYPERKALEMIA (7) Pulmonary edema Code(s): J81.1 - CHRONIC PULMONARY EDEMA Assessment/Plan IMP ACUTE HYPOXEMIC RESPIRATORY FAILURE IMPROVING ACUTE PULMONARY EDEMA ? PNEUMONIA/BRONCHITIS ESRD ON HD ASHD S/P CABG,S/P STENT COPD/ASTHMA PVD HTN PLAN HD PER RENAL ANTIBIOTICS PER ID WILL NEED REPEAT SLEEP WORKUP AFTER D/C INHALED BRONCHODILATORS PATIENT WILLING TO TRIAL NASAL STEROIDS FOR HIS PND (PREVIOUSLY REFUSED DUE TO OCULAR ISSUES) D/C PLANNING DR HUNTER
[2017-09-01] MEDS: guaiFENesin/D-METHORPHAN HB 10 ML UNIT-DOSE CUPS PO PRN ×2 (14:10→21:16)
--- NOTE | 2017-09-01 16:48 | PN ---
Progress Note, Physician History of Present Illness: Pt seen and examined at bedside. He is awake and alert. He denies shortness of breath. - Current Medication List Current Medications: Active Medications Acetaminophen (Tylenol -) 650 mg PO Q6H PRN PRN Reason: FEVER Last Admin: 08/30/17 09:12 Dose: 650 mg Artificial Tears (Artificial Tears) 1 drop OU BID [facility] Last Admin: 09/01/17 09:07 Dose: 1 drop Aspirin (Asa -) 81 mg PO DAILY [facility] Last Admin: 09/01/17 09:06 Dose: 81 mg Atorvastatin Calcium (Lipitor -) 40 mg PO HS [facility] Last Admin: 08/31/17 22:03 Dose: 40 mg Bacitracin (Bacitracin -) 1 applic TP DAILY [facility] Last Admin: 09/01/17 09:12 Dose: Not Given Baclofen (Lioresal -) 10 mg PO TID PRN PRN Reason: SEVERE PAIN Last Admin: 09/01/17 09:06 Dose: 10 mg Benzocaine/Menthol (Cepacol Lozenge -) 1 each MM PRN PRN PRN Reason: SORE THROAT Benzocaine/Menthol (Cepacol Lozenge -) 1 each MM TID [facility] Last Admin: 09/01/17 14:10 Dose: 1 each Calcium Acetate (Phoslo -) 667 mg PO TIDCM [facility] Last Admin: 09/01/17 11:54 Dose: 667 mg Clopidogrel Bisulfate (Plavix -) 75 mg PO DAILY [facility] Last Admin: 09/01/17 09:05 Dose: 75 mg Dicyclomine HCl (Bentyl -) 20 mg PO BID [facility] Last Admin: 09/01/17 09:06 Dose: 20 mg Docusate Sodium (Colace -) 100 mg PO HS [facility] Last Admin: 08/31/17 22:02 Dose: 100 mg Fluticasone Propionate (Flonase -) 2 spray NS DAILY [facility] Folic Acid (Folic Acid -) 1 mg PO DAILY [facility] Last Admin: 09/01/17 09:06 Dose: 1 mg Gabapentin (Neurontin -) 200 mg PO HS [facility] Last Admin: 08/31/17 22:04 Dose: 200 mg Guaifenesin (Robitussin Dm -) 10 ml PO Q6H PRN PRN Reason: COUGH Last Admin: 01/02/18 14:10 Dose: 10 ml Heparin Sodium (Porcine) (Heparin -) 5,000 unit SQ BID [facility] Last Admin: 09/01/17 09:04 Dose: 5,000 unit Hydralazine HCl (Apresoline -) 25 mg PO Q6H [facility] Last Admin: 09/01/17 14:10 Dose: 25 mg Insulin Aspart (Novolog Vial Sliding Scale -) 1 vial SQ HS [facility] PRN Reason: Protocol Last Admin: 08/31/17 22:04 Dose: 2 unit Insulin Aspart (Novolog Vial Sliding Scale -) 1 vial SQ TIDAC [facility] PRN Reason: Protocol Last Admin: 09/01/17 16:37 Dose: 6 units Insulin Detemir (Levemir Vial) 20 units SQ DAILY [facility] Last Admin: 09/01/17 09:05 Dose: 20 unit Loratadine (Claritin -) 10 mg PO DAILY [facility] Last Admin: 09/01/17 09:05 Dose: 10 mg Losartan Potassium (Cozaar -) 100 mg PO DAILY [facility] Last Admin: 09/01/17 09:05 Dose: 100 mg Metoprolol Tartrate (Lopressor -) 50 mg PO BID [facility] Last Admin: 09/01/17 09:06 Dose: 50 mg Multivit/Ca Carb/B Cmplx/FA/Prenat (Nephro-Ingris -) 1 tablet PO DAILY [facility] Last Admin: 09/01/17 09:06 Dose: 1 tablet Oxymetazoline HCl (Afrin -) 2 spray NS BID PRN PRN Reason: NASAL CONGESTION Last Admin: 09/01/17 09:07 Dose: 2 spray Pantoprazole Sodium (Protonix -) 40 mg PO DAILY [facility] Last Admin: 09/01/17 09:04 Dose: 40 mg Senna (Senna -) 1 tab PO HS [facility] Last Admin: 08/31/17 22:04 Dose: 1 tab Tamsulosin HCl (Flomax -) 0.4 mg PO HS [facility] Last Admin: 08/31/17 22:03 Dose: 0.4 mg Tramadol HCl (Ultram -) 100 mg PO Q8H PRN PRN Reason: PAIN Trazodone HCl (Desyrel -) 100 mg PO HS [facility] Last Admin: 08/31/17 22:02 Dose: 100 mg - Objective Vital Signs: Vital Signs Temperature 99 F 09/01/17 09:00 Pulse Rate 66 09/01/17 09:00 Respiratory Rate 18 09/01/17 09:00 Blood Pressure 129/61 09/01/17 09:00 O2 Sat by Pulse Oximetry (%) 95 09/01/17 09:00 Constitutional: Yes: Calm Eyes: Yes: Conjunctiva Clear HENT: Yes: Atraumatic Cardiovascular: Yes: S1, S2 Respiratory: Yes: CTA Bilaterally Gastrointestinal: Yes: Soft, Abdomen, Obese Genitourinary: Yes: WNL Extremities: Yes: Other (right bka) Integumentary: Yes: Tattoos Neurological: Yes: Oriented Psychiatric: Yes: Oriented Labs: CBC, BMP 08/28/17 09:30 08/28/17 09:30 INR, PTT INR 0.93 (0.82-1.09) 08/26/17 07:45 Problem List - Problems (1) Acute and chronic respiratory failure with hypoxia Code(s): J96.21 - ACUTE AND CHRONIC RESPIRATORY FAILURE WITH HYPOXIA (2) Asthma exacerbation Code(s): J45.901 - UNSPECIFIED ASTHMA WITH (ACUTE) EXACERBATION (3) CAD (coronary artery disease) Code(s): I25.10 - ATHSCL HEART DISEASE OF [place] CORONARY ARTERY W/O ANG PCTRS (4) COPD (chronic obstructive pulmonary disease) Code(s): J44.9 - CHRONIC OBSTRUCTIVE PULMONARY DISEASE, UNSPECIFIED (5) Elevated troponin Code(s): R74.8 - ABNORMAL LEVELS OF OTHER SERUM ENZYMES (6) End stage chronic kidney disease Code(s): N18.6 - END STAGE RENAL DISEASE (7) HTN (hypertension) Code(s): I10 - ESSENTIAL (PRIMARY) HYPERTENSION Qualifiers: Hypertension type: unspecified Qualified Code(s): I10 - Essential (primary ) hypertension (8) Hyperkalemia Code(s): E87.5 - HYPERKALEMIA Assessment/Plan Current Medications Generic Name Dose Route Start Last Admin Trade Name Freq PRN Reason Stop Dose Admin Acetaminophen 650 mg 08/26/17 18:49 08/30/17 09:12 Tylenol - PO 650 mg Q6H PRN Administration FEVER Artificial Tears 1 drop 08/27/17 22:00 09/01/17 09:07 Artificial Tears OU 1 drop BID [facility] Administration Aspirin 81 mg 08/27/17 10:00 01/02/18 09:06 Asa - PO 81 mg DAILY [facility] Administration Atorvastatin Calcium 40 mg 08/26/17 22:00 08/31/17 22:03 Lipitor - PO 40 mg HS [facility] Administration Bacitracin 1 applic 08/27/17 10:15 09/01/17 09:12 Bacitracin - TP Not Given DAILY [facility] Baclofen 10 mg 08/26/17 18:49 09/01/17 09:06 Lioresal - PO 10 mg TID PRN Administration SEVERE PAIN Benzocaine/Menthol 1 each 08/26/17 15:38 Cepacol Lozenge - MM PRN PRN SORE THROAT Benzocaine/Menthol 1 each 08/26/17 22:00 09/01/17 14:10 Cepacol Lozenge - MM 1 each TID [facility] Administration Calcium Acetate 667 mg 08/27/17 12:00 09/01/17 11:54 Phoslo - PO 667 mg TIDCM [facility] Administration Clopidogrel Bisulfate 75 mg 08/27/17 10:00 09/01/17 09:05 Plavix - PO 75 mg DAILY [facility] Administration Dicyclomine HCl 20 mg 08/26/17 22:00 09/01/17 09:06 Bentyl - PO 20 mg BID [facility] Administration Docusate Sodium 100 mg 08/26/17 22:00 08/31/17 22:02 Colace - PO 100 mg HS [facility] Administration Fluticasone Propionate 2 spray 09/01/17 15:00 Flonase - NS DAILY [facility] Folic Acid 1 mg 08/27/17 10:00 09/01/17 09:06 Folic Acid - PO 1 mg DAILY [facility] Administration Gabapentin 200 mg 08/26/17 22:00 08/31/17 22:04 Neurontin - PO 200 mg HS [facility] Administration Guaifenesin 10 ml 08/27/17 20:03 09/01/17 14:10 Robitussin Dm - PO 10 ml Q6H PRN Administration COUGH Heparin Sodium (Porcine) 5,000 unit 08/26/17 22:00 09/01/17 09:04 Heparin - SQ 5,000 unit BID [facility] Administration Hydralazine HCl 25 mg 08/26/17 19:00 09/01/17 14:10 Apresoline - PO 25 mg Q6H [facility] Administration Insulin Aspart 1 vial 08/27/17 22:00 08/31/17 22:04 Novolog Vial Sliding Scale - SQ 2 unit HS [facility] Administration Protocol Insulin Aspart 1 vial 08/31/17 16:40 09/01/17 16:37 Novolog Vial Sliding Scale - SQ 6 units TIDAC [facility] Administration Protocol Insulin Detemir 20 units 08/27/17 10:00 09/01/17 09:05 Levemir Vial SQ 20 unit DAILY [facility] Administration Loratadine 10 mg 08/27/17 10:00 09/01/17 09:05 Claritin - PO 10 mg DAILY [facility] Administration Losartan Potassium 100 mg 08/27/17 10:00 09/01/17 09:05 Cozaar - PO 100 mg DAILY [facility] Administration Metoprolol Tartrate 50 mg 08/26/17 22:00 09/01/17 09:06 Lopressor - PO 50 mg BID [facility] Administration Multivit/Ca Carb/B Cmplx/FA/Prenat 1 tablet 08/27/17 10:00 09/01/17 09:06 Nephro-Ingris - PO 1 tablet DAILY [facility] Administration Oxymetazoline HCl 2 spray 08/27/17 20:04 09/01/17 09:07 Afrin - NS 2 spray BID PRN Administration NASAL CONGESTION Pantoprazole Sodium 40 mg 08/27/17 10:00 09/01/17 09:04 Protonix - PO 40 mg DAILY [facility] Administration Senna 1 tab 08/26/17 22:00 08/31/17 22:04 Senna - PO 1 tab HS [facility] Administration Tamsulosin HCl 0.4 mg 08/26/17 22:00 08/31/17 22:03 Flomax - PO 0.4 mg HS [facility] Administration Tramadol HCl 100 mg 08/30/17 12:24 Ultram - PO Q8H PRN PAIN Trazodone HCl 100 mg 08/26/17 22:00 08/31/17 22:02 Desyrel - PO 100 mg HS [facility] Administration Impression 1. ESRD 2. hyperkalemia 3. copd 4. HTN 5. DM 6. dyspnea 7. acute resp failure requiring bipap 8. elevated troponin Plan - HD in am - cont current meds - d/c planning - renal diet - fluid restriction - HD AVF 4:15, 2 k bath, 500 abf, heparin 6000 units, [id number] dialyzer
[2017-09-01] MEDS: FLUTICASONE PROP 0.05% 16 GM NASAL SPRAY NS SCH (17:24)
[2017-09-01] MEDS: DOCUSATE SODIUM 100 MG CAPSULE (FP) PO SCH (21:13)
[2017-09-01] MEDS: TAMSULOSIN HCL 0.4 MG CAP.ER.24H (FP) PO SCH (21:14)
[2017-09-01] MEDS: traZODone HCL 50 MG TABLET (FP) PO SCH (21:14)
[2017-09-01] MEDS: GABAPENTIN 100 MG CAPSULE (FP) PO SCH (21:14)
[2017-09-01] MEDS: SENNOSIDES 8.6MG TABLET (FP) PO SCH (21:15)
[2017-09-01] MEDS: ATORVASTATIN CA 40 MG TABLET (FP) PO SCH (21:15)
[2017-09-02] MEDS: hydrALAZINE HCL 25 MG TABLET (FP) PO SCH ×3 (01:08→14:06)
[2017-09-02] MEDS: BENZOCAINE/MENTH/CETYLPYRD CL 1 EACH LOZENGE MM SCH ×2 (06:16→14:07)
[2017-09-02] MEDS: INSULIN SLIDING SCALE (NOVOLOG) 1 VIAL SQ SCH ×3 (06:20→17:13)
[2017-09-02] MEDS ORDERED: PT OWN MED DRAWER 7, Y5N ONE ×3 (08:15→14:02)
[2017-09-02] MEDS: LORATADINE 10 MG TABLET PO SCH ×2 (08:21→13:29)
[2017-09-02] MEDS: CALCIUM ACETATE 667 MG CAPSULE (FP) PO SCH ×3 (08:21→17:17)
[2017-09-02] MEDS: OXYMETAZOLINE 0.05% NASAL SOLUTION 15 ML BOTTLE NS PRN (08:21)
[2017-09-02] MEDS: ARTIFICIAL TEARS (POLYVINYL ALCOHOL 1.4%) OPTH DROPS OU SCH ×2 (08:21→13:28)
[2017-09-02] MEDS: BACLOFEN 10 MG TABLET (FP) PO PRN ×2 (08:22→14:07)
[2017-09-02] MEDS: guaiFENesin/D-METHORPHAN HB 10 ML UNIT-DOSE CUPS PO PRN (08:25)
--- NOTE | 2017-09-02 11:17 | PN ---
Progress Note, Physician Chief Complaint: PATIENT AWAKE AND STABLE DISCHARGING TODAY TO [facility] - Current Medication List Current Medications: Active Medications Acetaminophen (Tylenol -) 650 mg PO Q6H PRN PRN Reason: FEVER Last Admin: 08/30/17 09:12 Dose: 650 mg Artificial Tears (Artificial Tears) 1 drop OU BID [facility] Last Admin: 09/02/17 08:21 Dose: 1 drop Aspirin (Asa -) 81 mg PO DAILY [facility] Last Admin: 09/01/17 09:06 Dose: 81 mg Atorvastatin Calcium (Lipitor -) 40 mg PO HS [facility] Last Admin: 09/01/17 21:15 Dose: 40 mg Bacitracin (Bacitracin -) 1 applic TP DAILY [facility] Last Admin: 09/01/17 09:12 Dose: Not Given Baclofen (Lioresal -) 10 mg PO TID PRN PRN Reason: SEVERE PAIN Last Admin: 09/02/17 08:22 Dose: 10 mg Benzocaine/Menthol (Cepacol Lozenge -) 1 each MM PRN PRN PRN Reason: SORE THROAT Last Admin: 09/01/17 21:14 Dose: 1 each Benzocaine/Menthol (Cepacol Lozenge -) 1 each MM TID [facility] Last Admin: 09/02/17 06:16 Dose: 1 each Calcium Acetate (Phoslo -) 667 mg PO TIDCM [facility] Last Admin: 09/02/17 08:21 Dose: 667 mg Clopidogrel Bisulfate (Plavix -) 75 mg PO DAILY [facility] Last Admin: 09/01/17 09:05 Dose: 75 mg Dicyclomine HCl (Bentyl -) 20 mg PO BID [facility] Last Admin: 09/01/17 21:13 Dose: 20 mg Docusate Sodium (Colace -) 100 mg PO HS [facility] Last Admin: 09/01/17 21:13 Dose: 100 mg Fluticasone Propionate (Flonase -) 2 spray NS DAILY [facility] Last Admin: 09/01/17 17:24 Dose: 2 sprays Folic Acid (Folic Acid -) 1 mg PO DAILY [facility] Last Admin: 09/01/17 09:06 Dose: 1 mg Gabapentin (Neurontin -) 200 mg PO HS [facility] Last Admin: 09/01/17 21:14 Dose: 200 mg Guaifenesin (Robitussin Dm -) 10 ml PO Q6H PRN PRN Reason: COUGH Last Admin: 09/02/17 08:25 Dose: 10 ml Heparin Sodium (Porcine) (Heparin -) 5,000 unit SQ BID [facility] Last Admin: 09/01/17 21:15 Dose: 5,000 unit Heparin Sodium (Porcine) (Heparin -) 6,000 unit IVPUSH ONCE ONE Stop: 09/02/17 16:49 Hydralazine HCl (Apresoline -) 25 mg PO Q6H [facility] Last Admin: 09/02/17 06:16 Dose: 25 mg Insulin Aspart (Novolog Vial Sliding Scale -) 1 vial SQ HS [facility] PRN Reason: Protocol Last Admin: 09/01/17 21:15 Dose: 2 unit Insulin Aspart (Novolog Vial Sliding Scale -) 1 vial SQ TIDAC [facility] PRN Reason: Protocol Last Admin: 09/02/17 06:20 Dose: 4 units Insulin Detemir (Levemir Vial) 20 units SQ DAILY [facility] Last Admin: 09/01/17 09:05 Dose: 20 unit Loratadine (Claritin -) 10 mg PO DAILY [facility] Last Admin: 09/02/17 08:21 Dose: 10 mg Losartan Potassium (Cozaar -) 100 mg PO DAILY [facility] Last Admin: 09/01/17 09:05 Dose: 100 mg Metoprolol Tartrate (Lopressor -) 50 mg PO BID [facility] Last Admin: 09/01/17 21:15 Dose: 50 mg Multivit/Ca Carb/B Cmplx/FA/Prenat (Nephro-Ingris -) 1 tablet PO DAILY [facility] Last Admin: 09/01/17 09:06 Dose: 1 tablet Oxymetazoline HCl (Afrin -) 2 spray NS BID PRN PRN Reason: NASAL CONGESTION Last Admin: 09/02/17 08:21 Dose: 2 spray Pantoprazole Sodium (Protonix -) 40 mg PO DAILY [facility] Last Admin: 09/01/17 09:04 Dose: 40 mg Senna (Senna -) 1 tab PO HS [facility] Last Admin: 09/01/17 21:15 Dose: 1 tab Tamsulosin HCl (Flomax -) 0.4 mg PO HS [facility] Last Admin: 09/01/17 21:14 Dose: 0.4 mg Tramadol HCl (Ultram -) 100 mg PO Q8H PRN PRN Reason: PAIN Trazodone HCl (Desyrel -) 100 mg PO HS [facility] Last Admin: 09/01/17 21:14 Dose: 100 mg - Objective Vital Signs: Vital Signs Temperature 97.7 F 09/02/17 05:00 Pulse Rate 70 09/02/17 10:45 Respiratory Rate 17 09/02/17 10:45 Blood Pressure 116/44 09/02/17 10:45 O2 Sat by Pulse Oximetry (%) 98 09/02/17 00:15 Constitutional: Yes: No Distress Eyes: Yes: WNL HENT: Yes: WNL Neck: Yes: WNL Cardiovascular: Yes: WNL Respiratory: Yes: WNL Gastrointestinal: Yes: WNL Genitourinary: Yes: WNL Musculoskeletal: Yes: WNL Extremities: Yes: WNL Edema: Yes Peripheral Pulses WNL: Yes Integumentary: Yes: WNL Wound/Incision: Yes: Clean/Dry Neurological: Yes: WNL ...Motor Strength: WNL Psychiatric: Yes: WNL Labs: CBC, BMP 08/28/17 09:30 08/28/17 09:30 INR, PTT INR 0.93 (0.82-1.09) 08/26/17 07:45 Problem List - Problems (1) Acute and chronic respiratory failure with hypoxia Code(s): J96.21 - ACUTE AND CHRONIC RESPIRATORY FAILURE WITH HYPOXIA (2) Diabetes Code(s): E11.9 - TYPE 2 DIABETES MELLITUS WITHOUT COMPLICATIONS Qualifiers: Diabetes mellitus type: type 2 Chronic kidney disease stage: on chronic dialysis (3) ESRD (end stage renal disease) Code(s): N18.6 - END STAGE RENAL DISEASE Assessment/Plan DISCHARGE AUTH PENDING ESRD ON HD CONTINUE ABX AT [facility] RESP [facility]
--- NOTE | 2017-09-02 12:32 | PN ---
Progress Note, Physician History of Present Illness: pulmonary alert,on dialysis,c/o mild sob,+ cough,green sputum - Current Medication List Current Medications: Active Medications Acetaminophen (Tylenol -) 650 mg PO Q6H PRN PRN Reason: FEVER Last Admin: 08/30/17 09:12 Dose: 650 mg Artificial Tears (Artificial Tears) 1 drop OU BID [facility] Last Admin: 09/02/17 08:21 Dose: 1 drop Aspirin (Asa -) 81 mg PO DAILY [facility] Last Admin: 09/01/17 09:06 Dose: 81 mg Atorvastatin Calcium (Lipitor -) 40 mg PO HS [facility] Last Admin: 09/01/17 21:15 Dose: 40 mg Bacitracin (Bacitracin -) 1 applic TP DAILY [facility] Last Admin: 09/01/17 09:12 Dose: Not Given Baclofen (Lioresal -) 10 mg PO TID PRN PRN Reason: SEVERE PAIN Last Admin: 09/02/17 08:22 Dose: 10 mg Benzocaine/Menthol (Cepacol Lozenge -) 1 each MM PRN PRN PRN Reason: SORE THROAT Last Admin: 09/01/17 21:14 Dose: 1 each Benzocaine/Menthol (Cepacol Lozenge -) 1 each MM TID [facility] Last Admin: 09/02/17 06:16 Dose: 1 each Calcium Acetate (Phoslo -) 667 mg PO TIDCM [facility] Last Admin: 09/02/17 08:21 Dose: 667 mg Clopidogrel Bisulfate (Plavix -) 75 mg PO DAILY [facility] Last Admin: 09/01/17 09:05 Dose: 75 mg Dicyclomine HCl (Bentyl -) 20 mg PO BID [facility] Last Admin: 09/01/17 21:13 Dose: 20 mg Docusate Sodium (Colace -) 100 mg PO HS [facility] Last Admin: 09/01/17 21:13 Dose: 100 mg Fluticasone Propionate (Flonase -) 2 spray NS DAILY [facility] Last Admin: 09/01/17 17:24 Dose: 2 sprays Folic Acid (Folic Acid -) 1 mg PO DAILY [facility] Last Admin: 09/01/17 09:06 Dose: 1 mg Gabapentin (Neurontin -) 200 mg PO HS [facility] Last Admin: 09/01/17 21:14 Dose: 200 mg Guaifenesin (Robitussin Dm -) 10 ml PO Q6H PRN PRN Reason: COUGH Last Admin: 09/02/17 08:25 Dose: 10 ml Heparin Sodium (Porcine) (Heparin -) 5,000 unit SQ BID [facility] Last Admin: 09/01/17 21:15 Dose: 5,000 unit Heparin Sodium (Porcine) (Heparin -) 6,000 unit IVPUSH ONCE ONE Stop: 09/02/17 16:49 Last Admin: 09/02/17 08:40 Dose: 6,000 unit Hydralazine HCl (Apresoline -) 25 mg PO Q6H [facility] Last Admin: 09/02/17 06:16 Dose: 25 mg Insulin Aspart (Novolog Vial Sliding Scale -) 1 vial SQ HS [facility] PRN Reason: Protocol Last Admin: 09/01/17 21:15 Dose: 2 unit Insulin Aspart (Novolog Vial Sliding Scale -) 1 vial SQ TIDAC [facility] PRN Reason: Protocol Last Admin: 09/02/17 11:44 Dose: 6 units Insulin Detemir (Levemir Vial) 20 units SQ DAILY [facility] Last Admin: 09/01/17 09:05 Dose: 20 unit Loratadine (Claritin -) 10 mg PO DAILY [facility] Last Admin: 09/02/17 08:21 Dose: 10 mg Losartan Potassium (Cozaar -) 100 mg PO DAILY [facility] Last Admin: 09/01/17 09:05 Dose: 100 mg Metoprolol Tartrate (Lopressor -) 50 mg PO BID [facility] Last Admin: 09/01/17 21:15 Dose: 50 mg Multivit/Ca Carb/B Cmplx/FA/Prenat (Nephro-Ingris -) 1 tablet PO DAILY [facility] Last Admin: 09/01/17 09:06 Dose: 1 tablet Oxymetazoline HCl (Afrin -) 2 spray NS BID PRN PRN Reason: NASAL CONGESTION Last Admin: 09/02/17 08:21 Dose: 2 spray Pantoprazole Sodium (Protonix -) 40 mg PO DAILY [facility] Last Admin: 09/01/17 09:04 Dose: 40 mg Senna (Senna -) 1 tab PO HS [facility] Last Admin: 09/01/17 21:15 Dose: 1 tab Tamsulosin HCl (Flomax -) 0.4 mg PO HS [facility] Last Admin: 09/01/17 21:14 Dose: 0.4 mg Trazodone HCl (Desyrel -) 100 mg PO HS [facility] Last Admin: 09/01/17 21:14 Dose: 100 mg - Objective Vital Signs: Vital Signs Temperature 97.7 F 09/02/17 05:00 Pulse Rate 72 09/02/17 12:15 Respiratory Rate 18 09/02/17 12:15 Blood Pressure 118/58 09/02/17 12:15 O2 Sat by Pulse Oximetry (%) 94 L 09/02/17 11:38 Constitutional: Yes: Well Nourished, Calm Eyes: Yes: WNL HENT: Yes: WNL Neck: Yes: WNL Cardiovascular: Yes: Regular Rate and Rhythm, S1, S2 Respiratory: Yes: Diminished Gastrointestinal: Yes: Normal Bowel Sounds, Soft Extremities: Yes: WNL Edema: Yes Labs: CBC, BMP 08/28/17 09:30 08/28/17 09:30 INR, PTT INR 0.93 (0.82-1.09) 08/26/17 07:45 Problem List - Problems (1) Acute hypoxemic respiratory failure Code(s): J96.01 - ACUTE RESPIRATORY FAILURE WITH HYPOXIA (2) Asthma exacerbation Code(s): J45.901 - UNSPECIFIED ASTHMA WITH (ACUTE) EXACERBATION (3) CAD (coronary artery disease) Code(s): I25.10 - ATHSCL HEART DISEASE OF [place] CORONARY ARTERY W/O ANG PCTRS (4) End stage chronic kidney disease Code(s): N18.6 - END STAGE RENAL DISEASE (5) HTN (hypertension) Code(s): I10 - ESSENTIAL (PRIMARY) HYPERTENSION Qualifiers: Hypertension type: unspecified Qualified Code(s): I10 - Essential (primary ) hypertension (6) Hyperkalemia Code(s): E87.5 - HYPERKALEMIA (7) Pulmonary edema Code(s): J81.1 - CHRONIC PULMONARY EDEMA Assessment/Plan IMP ACUTE HYPOXEMIC RESPIRATORY FAILURE IMPROVING ACUTE PULMONARY EDEMA ? PNEUMONIA/BRONCHITIS ESRD ON HD ASHD S/P CABG,S/P STENT COPD/ASTHMA PVD HTN PLAN HD PER RENAL ANTIBIOTICS PER ID F/U CHEST X-RAY INHALED BRONCHODILATORS DR CUENCA Problem List - Problems (1) Acute hypoxemic respiratory failure Code(s): J96.01 - ACUTE RESPIRATORY FAILURE WITH HYPOXIA (2) Asthma exacerbation Code(s): J45.901 - UNSPECIFIED ASTHMA WITH (ACUTE) EXACERBATION (3) CAD (coronary artery disease) Code(s): I25.10 - ATHSCL HEART DISEASE OF [place] CORONARY ARTERY W/O ANG PCTRS (4) End stage chronic kidney disease Code(s): N18.6 - END STAGE RENAL DISEASE (5) HTN (hypertension) Code(s): I10 - ESSENTIAL (PRIMARY) HYPERTENSION Qualifiers: Hypertension type: unspecified Qualified Code(s): I10 - Essential (primary ) hypertension (6) Hyperkalemia Code(s): E87.5 - HYPERKALEMIA (7) Pulmonary edema Code(s): J81.1 - CHRONIC PULMONARY EDEMA
[2017-09-02] MEDS: BACITRACIN 15 GM TUBE TOPICAL OINTMENT TP SCH (13:28)
[2017-09-02] MEDS ORDERED: INSULIN DETEMIR 100 UNITS/ML MDV SQ ONE (14:00)
[2017-09-02] MEDS: HEPARIN NA (PORCINE) 5,000 UNITS/ML 1ML VIAL SQ SCH ×2 (14:04→14:19)
[2017-09-02] MEDS: CLOPIDOGREL BISULFATE 75 MG TABLET (FP) PO SCH (14:05)
[2017-09-02] MEDS: LOSARTAN POTASSIUM 50 MG TABLET (FP) PO SCH (14:05)
[2017-09-02] MEDS: ASPIRIN 81 MG CHEWABLE TABLETS PO SCH (14:05)
[2017-09-02] MEDS: FOLIC ACID 1 MG TABLET (FP) PO SCH (14:05)
[2017-09-02] MEDS: PANTOPRAZOLE 40 MG TABLET (FP) PO SCH (14:06)
[2017-09-02] MEDS: VITAMIN B COMP W-C 1 EA TABLET PO SCH (14:07)
[2017-09-02] MEDS: DICYCLOMINE HCL 10 MG CAPSULE PO SCH (14:07)
[2017-09-02] MEDS: INSULIN DETEMIR 100 UNITS/ML MDV SQ SCH (14:07)
[2017-09-02] MEDS: FLUTICASONE PROP 0.05% 16 GM NASAL SPRAY NS SCH (14:16)
--- NOTE | 2017-09-02 15:01 | PN ---
Progress Note, Physician History of Present Illness: Pt seen and examined at bedside. He is currently getting HD. - Current Medication List Current Medications: Active Medications Acetaminophen (Tylenol -) 650 mg PO Q6H PRN PRN Reason: FEVER Last Admin: 08/30/17 09:12 Dose: 650 mg Artificial Tears (Artificial Tears) 1 drop OU BID [facility] Last Admin: 09/02/17 13:28 Dose: Not Given Aspirin (Asa -) 81 mg PO DAILY [facility] Last Admin: 09/02/17 14:05 Dose: 81 mg Atorvastatin Calcium (Lipitor -) 40 mg PO HS [facility] Last Admin: 09/01/17 21:15 Dose: 40 mg Bacitracin (Bacitracin -) 1 applic TP DAILY [facility] Last Admin: 09/02/17 13:28 Dose: Not Given Baclofen (Lioresal -) 10 mg PO TID PRN PRN Reason: SEVERE PAIN Last Admin: 09/02/17 14:07 Dose: 10 mg Benzocaine/Menthol (Cepacol Lozenge -) 1 each MM PRN PRN PRN Reason: SORE THROAT Last Admin: 09/01/17 21:14 Dose: 1 each Benzocaine/Menthol (Cepacol Lozenge -) 1 each MM TID [facility] Last Admin: 09/02/17 14:07 Dose: 1 each Calcium Acetate (Phoslo -) 667 mg PO TIDCM [facility] Last Admin: 09/02/17 13:29 Dose: Not Given Clopidogrel Bisulfate (Plavix -) 75 mg PO DAILY [facility] Last Admin: 09/02/17 14:05 Dose: 75 mg Dicyclomine HCl (Bentyl -) 20 mg PO BID [facility] Last Admin: 09/02/17 14:07 Dose: 20 mg Docusate Sodium (Colace -) 100 mg PO HS [facility] Last Admin: 09/01/17 21:13 Dose: 100 mg Fluticasone Propionate (Flonase -) 2 spray NS DAILY [facility] Last Admin: 09/02/17 14:16 Dose: 2 sprays Folic Acid (Folic Acid -) 1 mg PO DAILY [facility] Last Admin: 09/02/17 14:05 Dose: 1 mg Gabapentin (Neurontin -) 200 mg PO HS [facility] Last Admin: 09/01/17 21:14 Dose: 200 mg Guaifenesin (Robitussin Dm -) 10 ml PO Q6H PRN PRN Reason: COUGH Last Admin: 09/02/17 08:25 Dose: 10 ml Heparin Sodium (Porcine) (Heparin -) 5,000 unit SQ BID [facility] Last Admin: 09/02/17 14:19 Dose: Not Given Heparin Sodium (Porcine) (Heparin -) 6,000 unit IVPUSH ONCE ONE Stop: 09/02/17 16:49 Last Admin: 09/02/17 08:40 Dose: 6,000 unit Hydralazine HCl (Apresoline -) 25 mg PO Q6H [facility] Last Admin: 09/02/17 14:06 Dose: 25 mg Insulin Aspart (Novolog Vial Sliding Scale -) 1 vial SQ HS [facility] PRN Reason: Protocol Last Admin: 09/01/17 21:15 Dose: 2 unit Insulin Aspart (Novolog Vial Sliding Scale -) 1 vial SQ TIDAC [facility] PRN Reason: Protocol Last Admin: 09/02/17 11:44 Dose: 6 units Insulin Detemir (Levemir Vial) 20 units SQ DAILY [facility] Last Admin: 09/02/17 14:07 Dose: 20 unit Loratadine (Claritin -) 10 mg PO DAILY [facility] Last Admin: 09/02/17 13:29 Dose: Not Given Losartan Potassium (Cozaar -) 100 mg PO DAILY [facility] Last Admin: 09/02/17 14:05 Dose: 100 mg Metoprolol Tartrate (Lopressor -) 50 mg PO BID [facility] Last Admin: 09/01/17 21:15 Dose: 50 mg Multivit/Ca Carb/B Cmplx/FA/Prenat (Nephro-Ingris -) 1 tablet PO DAILY [facility] Last Admin: 09/02/17 14:07 Dose: 1 tablet Oxymetazoline HCl (Afrin -) 2 spray NS BID PRN PRN Reason: NASAL CONGESTION Last Admin: 09/02/17 08:21 Dose: 2 spray Pantoprazole Sodium (Protonix -) 40 mg PO DAILY [facility] Last Admin: 09/02/17 14:06 Dose: 40 mg Senna (Senna -) 1 tab PO HS [facility] Last Admin: 09/01/17 21:15 Dose: 1 tab Tamsulosin HCl (Flomax -) 0.4 mg PO HS [facility] Last Admin: 09/01/17 21:14 Dose: 0.4 mg Trazodone HCl (Desyrel -) 100 mg PO HS [facility] Last Admin: 09/01/17 21:14 Dose: 100 mg - Objective Vital Signs: Vital Signs Temperature 97.7 F 09/02/17 05:00 Pulse Rate 77 09/02/17 13:00 Respiratory Rate 18 09/02/17 13:00 Blood Pressure 108/40 09/02/17 13:00 O2 Sat by Pulse Oximetry (%) 94 L 09/02/17 11:38 Constitutional: Yes: Calm Eyes: Yes: Conjunctiva Clear HENT: Yes: Atraumatic Neck: Yes: Supple Cardiovascular: Yes: S1, S2 Respiratory: Yes: CTA Bilaterally Gastrointestinal: Yes: Soft, Abdomen, Obese Genitourinary: Yes: WNL Musculoskeletal: Yes: Other (right bka) Edema: Yes Edema: RLE: 1+ Neurological: Yes: Oriented Psychiatric: Yes: Oriented Labs: CBC, BMP 08/28/17 09:30 08/28/17 09:30 INR, PTT INR 0.93 (0.82-1.09) 08/26/17 07:45 Problem List - Problems (1) Acute and chronic respiratory failure with hypoxia Code(s): J96.21 - ACUTE AND CHRONIC RESPIRATORY FAILURE WITH HYPOXIA (2) Asthma exacerbation Code(s): J45.901 - UNSPECIFIED ASTHMA WITH (ACUTE) EXACERBATION (3) CAD (coronary artery disease) Code(s): I25.10 - ATHSCL HEART DISEASE OF [place] CORONARY ARTERY W/O ANG PCTRS (4) COPD (chronic obstructive pulmonary disease) Code(s): J44.9 - CHRONIC OBSTRUCTIVE PULMONARY DISEASE, UNSPECIFIED (5) Elevated troponin Code(s): R74.8 - ABNORMAL LEVELS OF OTHER SERUM ENZYMES (6) End stage chronic kidney disease Code(s): N18.6 - END STAGE RENAL DISEASE (7) HTN (hypertension) Code(s): I10 - ESSENTIAL (PRIMARY) HYPERTENSION Qualifiers: Hypertension type: unspecified Qualified Code(s): I10 - Essential (primary ) hypertension (8) Hyperkalemia Code(s): E87.5 - HYPERKALEMIA Assessment/Plan Current Medications Generic Name Dose Route Start Last Admin Trade Name Freq PRN Reason Stop Dose Admin Acetaminophen 650 mg 08/26/17 18:49 08/30/17 09:12 Tylenol - PO 650 mg Q6H PRN Administration FEVER Artificial Tears 1 drop 08/27/17 22:00 09/02/17 13:28 Artificial Tears OU Not Given BID [facility] Aspirin 81 mg 08/27/17 10:00 09/02/17 14:05 Asa - PO 81 mg DAILY [facility] Administration Atorvastatin Calcium 40 mg 08/26/17 22:00 09/01/17 21:15 Lipitor - PO 40 mg HS [facility] Administration Bacitracin 1 applic 08/27/17 10:15 09/02/17 13:28 Bacitracin - TP Not Given DAILY [facility] Baclofen 10 mg 08/26/17 18:49 09/02/17 14:07 Lioresal - PO 10 mg TID PRN Administration SEVERE PAIN Benzocaine/Menthol 1 each 08/26/17 15:38 09/01/17 21:14 Cepacol Lozenge - MM 1 each PRN PRN Administration SORE THROAT Benzocaine/Menthol 1 each 08/26/17 22:00 09/02/17 14:07 Cepacol Lozenge - MM 1 each TID [facility] Administration Calcium Acetate 667 mg 08/27/17 12:00 09/02/17 13:29 Phoslo - PO Not Given TIDCM [facility] Clopidogrel Bisulfate 75 mg 08/27/17 10:00 09/02/17 14:05 Plavix - PO 75 mg DAILY [facility] Administration Dicyclomine HCl 20 mg 08/26/17 22:00 09/02/17 14:07 Bentyl - PO 20 mg BID [facility] Administration Docusate Sodium 100 mg 08/26/17 22:00 09/01/17 21:13 Colace - PO 100 mg HS [facility] Administration Fluticasone Propionate 2 spray 09/01/17 15:00 09/02/17 14:16 Flonase - NS 2 sprays DAILY [facility] Administration Folic Acid 1 mg 08/27/17 10:00 09/02/17 14:05 Folic Acid - PO 1 mg DAILY [facility] Administration Gabapentin 200 mg 08/26/17 22:00 09/01/17 21:14 Neurontin - PO 200 mg HS [facility] Administration Guaifenesin 10 ml 08/27/17 20:03 09/02/17 08:25 Robitussin Dm - PO 10 ml Q6H PRN Administration COUGH Heparin Sodium (Porcine) 5,000 unit 08/26/17 22:00 09/02/17 14:19 Heparin - SQ Not Given BID [facility] Heparin Sodium (Porcine) 6,000 unit 09/02/17 16:48 09/02/17 08:40 Heparin - IVPUSH 09/02/17 16:49 6,000 unit ONCE ONE Administration Hydralazine HCl 25 mg 08/26/17 19:00 09/02/17 14:06 Apresoline - PO 25 mg Q6H [facility] Administration Insulin Aspart 1 vial 08/27/17 22:00 09/01/17 21:15 Novolog Vial Sliding Scale - SQ 2 unit HS [facility] Administration Protocol Insulin Aspart 1 vial 08/31/17 16:40 09/02/17 11:44 Novolog Vial Sliding Scale - SQ 6 units TIDAC [facility] Administration Protocol Insulin Detemir 20 units 08/27/17 10:00 09/02/17 14:07 Levemir Vial SQ 20 unit DAILY [facility] Administration Loratadine 10 mg 08/27/17 10:00 09/02/17 13:29 Claritin - PO Not Given DAILY [facility] Losartan Potassium 100 mg 08/27/17 10:00 09/02/17 14:05 Cozaar - PO 100 mg DAILY [facility] Administration Metoprolol Tartrate 50 mg 08/26/17 22:00 09/01/17 21:15 Lopressor - PO 50 mg BID [facility] Administration Multivit/Ca Carb/B Cmplx/FA/Prenat 1 tablet 08/27/17 10:00 09/02/17 14:07 Nephro-Ingris - PO 1 tablet DAILY [facility] Administration Oxymetazoline HCl 2 spray 08/27/17 20:04 09/02/17 08:21 Afrin - NS 2 spray BID PRN Administration NASAL CONGESTION Pantoprazole Sodium 40 mg 08/27/17 10:00 09/02/17 14:06 Protonix - PO 40 mg DAILY [facility] Administration Senna 1 tab 08/26/17 22:00 09/01/17 21:15 Senna - PO 1 tab HS [facility] Administration Tamsulosin HCl 0.4 mg 08/26/17 22:00 09/01/17 21:14 Flomax - PO 0.4 mg HS [facility] Administration Trazodone HCl 100 mg 08/26/17 22:00 09/01/17 21:14 Desyrel - PO 100 mg HS [facility] Administration Impression 1. ESRD 2. hyperkalemia 3. copd 4. HTN 5. DM 6. dyspnea 7. acute resp failure requiring bipap 8. elevated troponin Plan - HD today - cont current meds - d/c planning - pt has HD set up as outpt - renal diet - fluid restriction - HD AVF 4:15, 2 k bath, 500 abf, heparin 6000 units, [id number] dialyzer
[2017-09-02 15:31] VITALS: BP 112/47; PULSE 76; TEMP 98.1
[2017-09-02] MEDS ORDERED: HEPARIN NA (PORCINE) 5,000 UNITS/ML 1ML VIAL IVPUSH ONE (16:48)
[2017-09-02] MEDS: METOPROLOL TARTRATE 50 MG TABLET (FP) PO SCH (16:55)
[2017-09-02] MEDS ORDERED: INSULIN (NOVOLOG) ASPART 100 UNITS/ML 10ML VIAL ONE (17:07)
== END 2017-09-02 18:56 | DRG 133 ==
LOC: JER 04:55 → JERBED 11:36 → J4S 16:33
PROVIDERS: ADMIT Family Medicine; ATTEND Family Medicine
PROC: 5A09557 Assistance with Respiratory Ventilation, Greater than 96 Consecutive Hours, Continuous Positive Airway Pressure (ICD-10-PCS; 2017-08-26)
PROC: 5A1D90Z Performance of Urinary Filtration, Continuous, Greater than 18 hours Per Day (ICD-10-PCS; principal; 2017-09-02)
DX: J96.21 Acute and chronic respiratory failure with hypoxia (principal); I25.10 Atherosclerotic heart disease of native coronary artery without angina pectoris; J44.9 Chronic obstructive pulmonary disease, unspecified; I12.0 Hypertensive chronic kidney disease with stage 5 chronic kidney disease or end stage renal disease; N18.6 End stage renal disease; E87.5 Hyperkalemia; D72.829 Elevated white blood cell count, unspecified; Z98.61 Coronary angioplasty status; Z95.1 Presence of aortocoronary bypass graft; I73.9 Peripheral vascular disease, unspecified; E11.22 Type 2 diabetes mellitus with diabetic chronic kidney disease; Z99.2 Dependence on renal dialysis; J45.901 Unspecified asthma with (acute) exacerbation; J44.1 Chronic obstructive pulmonary disease with (acute) exacerbation; J44.0 Chronic obstructive pulmonary disease with (acute) lower respiratory infection; E87.70 Fluid overload, unspecified; J18.9 Pneumonia, unspecified organism
CPT/HCPCS: 36415; 36600; 71010-TC; 71045-TC; 80048; 80053; 81003; 81015; 82375; 82550; 82553; 82803; 83036; 83050; 83735; 83880; 84484; 85025; 85027; 85610; 86704; 86706; 86708; 86803; 87040; 87070; 87086; 87340; 87430; 87804; 87899; 93005; 93010; 93306-TC; 94660; 97116-GP; 97161-GP; 99281-25; 99285-25; G0480; J0475; J1644

== ENCOUNTER 2017-10-22 22:43 | Emergency (ER) | payer OTHER ==
[2017-10-22 22:59] VITALS: BP 174/71; PULSE 72; TEMP 99.5; BMI 31.3
[2017-10-22] MEDS ORDERED: DIPHTH,PERTUSS(ACELL),TET 0.5 ML DISP.SYRIN IM ONE (23:10)
--- NOTE | 2017-10-22 23:10 | PDOC ---
History of Present Illness - General Chief Complaint: Laceration Stated Complaint: LACERATION Time Seen by Provider: 10/22/17 22:46 - History of Present Illness Initial Comments: 10/23/17 00:11 The patient is a 57 year old male with a history of COPD, HTN, HLD, DM, ESRD who presents for evaluation of a laceration to his left crabtree. The patient reports that he was moving to his wheelchair when he caught his leg on one of the pegs on the wheelchair and sustained a laceration. He reports that he has neuropathy in his lower extremity and does not have much sensation at baseline. He does not know when his last tetanus shot was as well. He otherwise denies any other injuries. Past History - Past Medical History Allergies/Adverse Reactions: Allergies Allergy/AdvReac Type Severity Reaction Status Date / Time tree nut Allergy Verified 10/22/17 22:54 eggplant Allergy Unknown Itching Uncoded 10/22/17 22:54 raw fruits Allergy Uncoded 10/22/17 22:54 Home Medications: Ambulatory Orders Aspirin [ASA -] 81 mg PO DAILY 05/18/17 Atorvastatin Ca [Lipitor] 40 mg PO HS 05/18/17 Azelastine HCl 137 mcg NS BID 05/18/17 Clopidogrel Bisulfate [Plavix -] 75 mg PO DAILY 05/18/17 Docusate Sodium [Colace -] 1 cap PO HS 05/18/17 Folic Acid 1 mg PO DAILY 05/18/17 Gabapentin 200 mg PO HS 05/18/17 Insulin Glargine,Hum.rec.anlog [Basaglar Kwikpen U-100] 20 unit SQ DAILY Insulin Lispro [Humalog] 10 unit SQ HS 05/18/17 Sennosides [Senna] 1 tab PO HS 05/18/17 Tamsulosin HCl [Flomax] 0.4 mg PO HS 05/18/17 Vitamin B Comp W-C [Nephro-Ingris -] 1 tablet PO DAILY 05/18/17 Calcium Carbonate - 650 mg PO DAILY #0 tablet 05/25/17 Metoprolol Succinate [Toprol Xl] 50 mg PO BID #30 tab.er.24h 05/28/17 Losartan Potassium [Cozaar -] 100 mg PO DAILY 06/04/17 Baclofen [Lioresal -] 10 mg PO TID PRN MDD 3 08/26/17 Bismuth Subsalicylate [Norman Bismuth] 525 mg PO DAILY PRN 08/26/17 Cetirizine HCl [Zyrtec -] 10 mg PO DAILY 08/26/17 Clonidine Patch [Catapres Tts Patch -] 0.1 mg TD WEEKLY 08/26/17 Dexlansoprazole [Dexilant] 60 mg PO DAILY 08/26/17 Dextromethorphan/Benzocaine [Cepacol Sorethroat-Cough Henrry] 3 each PO DAILY 08/26 Dicyclomine HCl [Bentyl -] 20 mg PO BID 08/26/17 Lifitegrast [Xiidra] 1 each OP BID 08/26/17 Metoprolol Tartrate [Lopressor -] 50 mg PO BID 08/26/17 Pantoprazole Sodium [Protonix -] 40 mg PO DAILY 08/26/17 Trazodone HCl 50 mg PO HS 08/26/17 hydrALAZINE HCL [Apresoline -] 25 mg PO Q6H 08/26/17 Bacitracin - [Bacitracin Topical Ointment -] 1 applic TP DAILY 08/27/17 Calcium Acetate [Phoslo -] 667 mg PO TIDCM 08/27/17 Polyethylene Glycol 3350 [Miralax 119 gm Btl -] 17 gm PO DAILY 08/27/17 Tramadol HCl 100 mg PO BID PRN 08/27/17 levoFLOXacin [Levaquin -] 500 mg PO DAILY #7 tablet 10/22/17 Anemia: Yes Cardiac Disorders: Yes (CAD) COPD: Yes Diabetes: Yes Dialysis: Yes ([facility]) GI Disorders: Yes (GERD) HTN: Yes Hypercholesterolemia: (DYSLIPIDEMIA) - Surgical History Orthopedic Surgery: Yes (RIGHT BKA) - Suicide/Smoking/Psychosocial Hx Smoking History: Unknown if ever smoked Have you smoked in the past 12 months: No Information on smoking cessation initiated: No Hx Alcohol Use: No Drug/Substance Use Hx: No Substance Use Type: None Review of Systems - Review of Systems Comments:: 10/23/17 00:15 Constitutional: No fevers, chills, fatigue, malaise HEENT: No Rhinorrhea, nasal congestion, visual changes Cardiovascular: No chest pain, syncope, palpitations, lightheadedness Respiratory: No Cough, SOB, Hemoptysis, Gastrointestinal: No Abdominal pain, Nausea, Vomiting, Constipation, Diarrhea, Melena Genitourinary: No Dysuria, Frequency, Urgency, Hesitancy, Hematuria, Flank pain Musculoskeletal: No Myalgia, arthralgia Skin: Laceration to the left lower extremity. No rashes, itching, bruising, pallor Neurologic: No Headache, Dizziness, Numbness, Weakness, or Tingling Psychiatric: No Hallucinations. No SI or HI *Physical Exam - Vital Signs Last Vital Signs Temp Pulse Resp BP Pulse Ox 99.5 F 72 20 174/71 98 10/22/17 22:54 10/22/17 22:54 10/22/17 22:54 10/22/17 22:54 10/22/17 22:54 - Physical Exam Comments: 10/23/17 00:16 General Appearance: Nourished. No Apparent Distress HEENT: No Pharyngeal Erythema, Tonsillar Exudate, Tonsillar Erythema Neck: No Cervical Lymphadenopathy Respiratory/Chest: Lungs Clear, Normal Breath Sounds. No Crackles, Rales, Rhonchi, Wheezing Cardiovascular: Regular Rhythm, Regular Rate. No Murmur, Gallops, Rubs Gastrointestinal/Abdominal: Normal Bowel Sounds, Soft. No Guarding, Rebound, Tenderness Musculoskeletal: No CVA Tenderness Extremity: Skin tears noted to the left crabtree with a notable 2-3cm superficial laceration to the left anterior crabtree. 3+ pitting edema with serous drainage from the wound site. Normal Capillary Refill Integumentary: Normal Color, Dry, Warm Neurologic: Fully Oriented, Alert, Normal Mood/Affect, Normal Response, Procedures - Laceration/Wound Repair Left Leg Wound Length: to 2.5 cm Wound Explored: clean, no foreign body present Wound's Depth, Shape: superficial, linear Irrigated w/ Saline: Yes Anesthesia: 1% Lidocaine Amount of Anesthetic (ccs): 4 Wound Repaired With: Sutures Suture Size/Type: 4:0, nylon Number of Sutures: 6 Layer Closure: Yes Sterile Dressing Applied: Yes Medical Decision Making - Medical Decision Making 10/23/17 00:23 The patient is a 57 year old male with a history of COPD, HTN, HLD, DM, ESRD who presents for evaluation of a laceration to his left crabtree. The patient's laceration was repaired with 6 4-0 nylon sutures with closure obtained. We will update the patient's tetanus and treat the patient with levaquin for antibiotic coverage given the patient's risk for infection with poor venous drainage in the leg and history of DM. We are comfortable discharging the patient home at this time with primary care provider follow up. We discussed wound care with the patient as well as return precautions and the patient voiced understanding and is agreeable. *DC/Admit/Observation/Transfer Diagnosis at time of Disposition: Laceration - Discharge Dispostion Disposition: HOME Condition at time of disposition: Good Admit: No - Prescriptions Prescriptions: levoFLOXacin [Levaquin -] 500 mg PO DAILY #7 tablet - Referrals - Patient Instructions Printed Discharge Instructions: DI for Laceration Repair Additional Instructions: Please return to the ER if you experience concerning or worsening symptoms including worsening pain, redness, warmth or swelling to the location of the wound. Your laceration was repaired with 6 sutures that need to be removed in 7 days. We have prescribed an antibiotic that you should take daily for the next 7 days as well. Please call to schedule a follow up appointment with your primary care provider to discuss your ER visit and to remove your sutures in 7 days. - Post Discharge Activity
--- NOTE | 2017-10-22 23:49 | PDOC ---
Attending Attestation - Resident Resident Name: Kin Dc - ED Attending Attestation I have performed the following: I have examined & evaluated the patient, The case was reviewed & discussed with the resident, I agree w/resident's findings & plan, Exceptions are as noted <Lew Pulido - Last Filed: 10/22/17 23:49> - HPI HPI: 10/22/17 23:52 The patient is a 57 year old male, with a significant past medical history of ESRD (dialysis M,W,F), diabetes, HTN, and CAD s/p stents who presents to the emergency department BIBA from [facility] s/p leg injury earlier this evening. The patient reports he was transferring from his bed to his wheelchair , when his left leg got caught on the georges of the wheelchair. Patient reports associated left leg laceration and pain to the crabtree. He denies any other injuries. He denies any head trauma, LOC, headache, dizziness, changes in vision , or lightheadedness. He denies any chest pain, shortness of breath, diaphoresis , or palpitations. He denies any fever or chills. He denies any recent travel or sick contacts. Allergies: NKDA - Medical Decision Making 10/22/17 23:52 Documentation prepared by Baldev Sanchez, acting as medical assembler for Lew Pulido DO. <Baldev Sanchez - Last Filed: 10/22/17 23:53>
== END 2017-10-23 01:06 | disposition home or self-care (01) ==
LOC: JER 22:43
PROC: 0HQLXZZ Repair Left Lower Leg Skin, External Approach (ICD-10-PCS; principal; 2017-10-22)
PROC: 3E0234Z Introduction of Serum, Toxoid and Vaccine into Muscle, Percutaneous Approach (ICD-10-PCS; 2017-10-22)
DX: S81.812A Laceration without foreign body, left lower leg, initial encounter (principal); W22.8XXA Striking against or struck by other objects, initial encounter; Y93.89 Activity, other specified; Y92.122 Bedroom in nursing home as the place of occurrence of the external cause; I12.0 Hypertensive chronic kidney disease with stage 5 chronic kidney disease or end stage renal disease; E11.22 Type 2 diabetes mellitus with diabetic chronic kidney disease; N18.6 End stage renal disease; N17.8 Other acute kidney failure; Z99.2 Dependence on renal dialysis; Z79.4 Long term (current) use of insulin; J44.9 Chronic obstructive pulmonary disease, unspecified; E78.00 Pure hypercholesterolemia, unspecified; G62.9 Polyneuropathy, unspecified; Z89.511 Acquired absence of right leg below knee; Z79.82 Long term (current) use of aspirin
CPT/HCPCS: 90715; 99281-25

== ENCOUNTER → 2018-05-13 | Day surgery (SDC) | payer OTHER ==
[2018-05-13 10:36] VITALS: BMI 42.3
--- NOTE | 2018-05-13 11:22 | PROC ---
Endoscopy Procedure Endoscopy procedure completed. Please see scanned procedure report.
[2018-05-13 11:35] VITALS: TEMP 98.3
[2018-05-13 13:54] VITALS: BP 141/57; PULSE 58
--- NOTE | 2018-05-14 09:54 | PATH ---
Surgical Pathology Report Patient Name: KERON SÁNCHEZ [facility]. Rec. #: [id number] /Age/Gender: 1960 (Age: 57) / M Account: [id number] Location: ASU-ENDOSCOPY Taken: 05/13/2018 Received: 05/13/2018 Reported: 05/14/2018 Physicians: Farhan Serna M.D. Specimen(s) Received BX TRANSVERSE COLON POLYP Clinical History Screening, abdominal pain Postoperative diagnosis: Colon polyp Final Diagnosis TRANSVERSE COLON, POLYP, BIOPSY: TUBULAR ADENOMA. Electronically Signed Tory Guerra M.D. Gross Description Received in formalin, labeled "polyp transverse colon" are 2 ennis, irregular portions of soft tissue measuring 0.3 and 0.6 cm. in greatest dimension. The specimens are submitted in toto in one cassette. 05/13/201805/13/2018
== END | disposition home or self-care (01) ==
LOC: JASU-ENDO 09:51
PROVIDERS: ATTEND Internal Medicine Gastroenterology
PROC: 0DBL8ZX Excision of Transverse Colon, Via Natural or Artificial Opening Endoscopic, Diagnostic (ICD-10-PCS; principal; 2018-05-13 10:45)
DX: R10.9 Unspecified abdominal pain (principal); D12.3 Benign neoplasm of transverse colon
CPT/HCPCS: 36415; 82962; 84132; 88305-TC

== ENCOUNTER 2019-03-04 13:31 | Emergency (ER) | payer OTHER ==
[2019-03-04 13:51] VITALS: BMI 47.6
[2019-03-04] MEDS ORDERED: TETRACAINE 0.5% HCL 0.6ML DROPPER.BOTTLE OS ONE (16:32)
[2019-03-04] MEDS ORDERED: FLUORESCEIN NA 1 EA STRIP OS ONE (16:32)
--- NOTE | 2019-03-04 16:34 | PDOC ---
History of Present Illness - General Chief Complaint: Eye Problem Stated Complaint: Eye Problem Time Seen by Provider: 03/04/19 16:00 History Source: Patient Exam Limitations: No Limitations - History of Present Illness Initial Comments: 03/04/19 16:35 58 yo male pmh COPD, HTN, HLD, DM, CHF, ESRD (dialysis MWF, had dialysis today) Diabetic macular degeneration (sees ophtho at [place], last appoint 3 weeks ago with reported normal exam. Receives VEG-f inhibitor injections, last injection 4 months ago) presents to the ED for 1 day of left eye pain and decreased visual acuity after accidentally rubbing it with a leg cream. Pt states he has had crust formation in the bilateral eye over the past 2 weeks (has had this in the past, self resolves) and accidentally rubbed it with a cream leading to decreased visual acuity, pain and a feeling of a white film over the eye. Denies KRISHNA, weakness or sensory changes on 1 side of his body, jaw pain, F/C/N/V , CP, SOB, abdominal pain or changes in bowel or bladder habits. Past History - Past Medical History Allergies/Adverse Reactions: Allergies Allergy/AdvReac Type Severity Reaction Status Date / Time tree nut Allergy Verified 03/04/19 13:49 eggplant Allergy Unknown Itching Uncoded 03/04/19 13:49 raw fruits Allergy Uncoded 03/04/19 13:49 Home Medications: Ambulatory Orders Aspirin [ASA -] 81 mg PO DAILY 05/18/17 Atorvastatin Ca [Lipitor] 40 mg PO HS 05/18/17 Azelastine HCl 137 mcg NS BID 05/18/17 Clopidogrel Bisulfate [Plavix -] 75 mg PO DAILY 05/18/17 Folic Acid 1 mg PO DAILY 05/18/17 Tamsulosin HCl [Flomax] 0.4 mg PO HS 05/18/17 Vitamin B Comp W-C [Nephro-Ingris -] 1 tablet PO DAILY 05/18/17 Losartan Potassium [Cozaar -] 100 mg PO DAILY 06/04/17 Cetirizine HCl [Zyrtec -] 10 mg PO DAILY 08/26/17 Metoprolol Tartrate [Lopressor -] 50 mg PO BID 08/26/17 Pantoprazole Sodium [Protonix -] 40 mg PO DAILY 08/26/17 hydrALAZINE HCL [Apresoline -] 25 mg PO Q6H 08/26/17 traZODone HCL [Trazodone HCl] 50 mg PO HS 08/26/17 Bacitracin - [Bacitracin Topical Ointment -] 1 applic TP DAILY 08/27/17 Calcium Acetate [Phoslo -] 667 mg PO TIDCM 08/27/17 Polyethylene Glycol 3350 [Miralax 119 gm Btl -] 17 gm PO DAILY 08/27/17 Tramadol HCl 100 mg PO BID PRN 08/27/17 Acetaminophen [Tylenol 8 Hour] 650 mg PO PRN 05/13/18 Albuterol Sulfate 0.5% [Ventolin 0.5% Nebulizing Soln. -] 1 neb IH Q6H PRN 05/13 Baclofen 10 mg PO ASDIR 05/13/18 Docusate Sodium [Colace] 200 mg PO HS 05/13/18 Insulin Glargine,Hum.rec.anlog [Toujeo Solostar] 51 unit SQ DAILY 05/13/18 Isosorbide Mononitrate [Imdur -] 30 mg PO DAILY 05/13/18 Polyvinyl Alcohol [Artificial Tears] 15 ml OP QID 05/13/18 Sennosides [Senna Laxative] 8.6 mg PO PRN PRN 05/13/18 Trolamine Salicylate [Aspercreme] 177.4 ml TP PRN PRN 05/13/18 Anemia: Yes Asthma: No Cardiac Disorders: Yes (CAD) CVA: No COPD: Yes CHF: No Dementia: No Diabetes: Yes Dialysis: Yes () GI Disorders: Yes (GERD, RODRIGUEZ'S ESOPHAGUS, GASTROPARESIS) Disorders: No HTN: Yes Hypercholesterolemia: (DYSLIPIDEMIA) Liver Disease: Yes (ENLARGED) Seizures: No Thyroid Disease: No - Surgical History Abdominal Surgery: No Appendectomy: No Cardiac Surgery: No Cholecystectomy: No Lung Surgery: No Neurologic Surgery: No Orthopedic Surgery: Yes (RIGHT BKA) - Suicide/Smoking/Psychosocial Hx Smoking History: Never smoked Have you smoked in the past 12 months: No Information on smoking cessation initiated: No Hx Alcohol Use: No Drug/Substance Use Hx: No Substance Use Type: None Review of Systems - Review of Systems Constitutional: No: Chills, Fever HEENTM: Yes: Eye Pain, Blurred Vision, Recent change in vision Respiratory: No: Shortness of Breath Cardiac (ROS): No: Chest Pain ABD/GI: No: Constipated, Diarrhea, Nausea, Vomiting : No: Burning, Dysuria Integumentary: No: Change in Color Neurological: No: Headache, Numbness, Tingling, Weakness, Dizziness *Physical Exam - Vital Signs Last Vital Signs Temp Pulse Resp BP Pulse Ox 99.3 F 80 16 110/50 L 97 03/04/19 13:44 03/04/19 13:44 03/04/19 13:44 03/04/19 13:44 03/04/19 13:44 - Physical Exam General Appearance: Yes: Nourished, Appropriately Dressed. No: Apparent Distress HEENT: positive: EOMI, ALEX, Other (white film over cornea of left eye noted on exam with decreased visual acuity ) Neck: positive: Supple. negative: Carotid bruit Respiratory/Chest: positive: Lungs Clear, Normal Breath Sounds. negative: Accessory Muscle Use, Rapid RR, Crackles, Rales, Rhonchi, Wheezing Cardiovascular: positive: Regular Rhythm, Regular Rate, S1, S2. negative: Edema , JVD, Murmur Vascular Pulses: Doralis-Pedis (L): 3+ Comments:: R lower limb amputated Gastrointestinal/Abdominal: positive: Flat, Soft. 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 negative: Sensory Deficit, Confused, Disoriented Medical Decision Making - Medical Decision Making 03/04/19 18:45 58 yo male presents to the ED with pain in th left eye and decreased visual acuity after rubbing dermaform cream (anti weaping cream for topical use) in his eye R eye at baseline has severe macular degeneration and reportedly worse visual acuity at baseline however on exam, left eye noted to have worse visual acuity by pt. Pt has poor visual acuity at baseline and snellen chart not able to assess acuity. From 3 feet, R eye able to correctly identify number of fingers in all 4 quadrants however left eye unable to do so in the bilateral upper quadrants Peripheral vision intact and equal bilateral eyes 1L NS through lovely lens, pt has amputated right leg can not stand at the eye wash station No Optho implementation coordinator at [facility], call placed to [place] to discuss case with implementation coordinator Optho there Spoke with Jeff Saucedo at [facility] who agrees pt should be transferred and assessed in the ED by Optho Dr. Colon accepts Pt to ED Pt understands and agrees to be transferred at this time. *DC/Admit/Observation/Transfer Diagnosis at time of Disposition: Blurry vision, left eye - Discharge Dispostion Disposition: TRANSFER ACUTE CARE/OTHER HOSP Condition at time of disposition: Stable Decision to Admit order: No - Referrals Referrals: Thiago Burroughs [Primary Care Provider] - - Patient Instructions - Post Discharge Activity
[2019-03-04] MEDS ORDERED: FLUORESCEIN NA 1 EA STRIP ONE ×2 (16:46→17:33)
[2019-03-04] MEDS ORDERED: TETRACAINE 0.5% OPHTH SOLN 2 ML BOTTLE ONE (16:46)
--- NOTE | 2019-03-04 17:55 | PDOC ---
Documentation entered by Tremaine Stanford SCRIBE, acting as scribe for Tc Blankenship MD. Tc Blankenship MD: This documentation has been prepared by the Hien ulloa Elijah, SCRIBE, under my direction and personally reviewed by me in its entirety. I confirm that the documentation accurately reflects all work, treatment, procedures, and medical decision making performed by me. Attending Attestation - Resident Resident Name: Anurag Canada - ED Attending Attestation I have performed the following: I have examined & evaluated the patient, The case was reviewed & discussed with the resident, I agree w/resident's findings & plan, Exceptions are as noted - HPI HPI: 03/04/19 16:51 Patient is a 58 year old male with a significant past medical history of COPD, HTN, HLD, DM, and ESRD (Dialysis M,W,F) who presents to the ED with a foreign body sensation in his L eye and blurred vision. Pt states that for a few days he has felt like he has sand in his L eye. Denies any injury to the eye. He notes that he has been rubbing his eye frequently because of this. Last night, after he applied a moisturizing ointment to his legs, he rubbed his eye and got some ointment into his eye. He notes that it has been "cloudy" since then. Denies any blurred vision or pain in the other eye. Allergies: Treenut, Eggplant, Raw Fruits PCP: Dr. Burroughs - Physicial Exam PE: 03/04/19 16:51 GENERAL: Awake, alert, and fully oriented, in no acute distress. HEAD: No signs of trauma EYES: + mild cloudiness to L cornea, + corneal abrasion on slit lamp exam w/ fluorescein, otherwise normal slit lamp exam, PERRLA, EOMI, sclera anicteric, conjunctiva clear ENT: Auricles normal inspection, hearing grossly normal, nares patent, oropharynx clear without exudates. Moist mucosa NECK: Nontender, no stepoffs, Normal ROM, supple, no lymphadenopathy, JVD, or masses LUNGS: Breath sounds equal, clear to auscultation bilaterally. No wheezes, and no crackles HEART: Regular rate and rhythm, normal S1 and S2, no murmurs, rubs or gallops ABDOMEN: Soft, nontender, normoactive bowel sounds. No guarding, no rebound. No masses EXTREMITIES: Normal range of motion, no edema. No clubbing or cyanosis. No cords, erythema, or tenderness NEUROLOGICAL: Cranial nerves II through XII intact. 5/5 strength and sensation in all extremities, Normal speech, normal gait, normal cerebellar function SKIN: Warm, Dry, normal turgor, no rashes or lesions noted. - Medical Decision Making 03/04/19 17:52 58 M with FB sensation in L eye and blurred vision. Exam notable for L corneal abrasion. Exam also notable for small amount of white film on L cornea, suspect this is pt's moisturizing ointment. Pt without evidence of iritis or other anterior chamber process. PH of eye tested to be normal. 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 Will call ophtho at [facility] for recs, possible txfer 03/04/19 18:36 Dr. Bauer, ophtho at [facility], recommending transfer Will consent pt for txfer
[2019-03-04 19:57] VITALS: BP 154/63; PULSE 63; TEMP 98.8
== END 2019-03-04 20:09 | disposition short-term general hospital (02) ==
LOC: JER 13:31
DX: S05.02XA Injury of conjunctiva and corneal abrasion without foreign body, left eye, initial encounter (principal); X58.XXXA Exposure to other specified factors, initial encounter; Y93.89 Activity, other specified; Y92.122 Bedroom in nursing home as the place of occurrence of the external cause; I12.0 Hypertensive chronic kidney disease with stage 5 chronic kidney disease or end stage renal disease; E11.22 Type 2 diabetes mellitus with diabetic chronic kidney disease; N18.6 End stage renal disease; N17.8 Other acute kidney failure; Z99.2 Dependence on renal dialysis; Z79.4 Long term (current) use of insulin; E78.00 Pure hypercholesterolemia, unspecified; E78.5 Hyperlipidemia, unspecified; J44.9 Chronic obstructive pulmonary disease, unspecified; H35.30 Unspecified macular degeneration; E11.319 Type 2 diabetes mellitus with unspecified diabetic retinopathy without macular edema
CPT/HCPCS: 99281-25

== ENCOUNTER 2019-04-29 11:08 | Emergency (ER) | payer OTHER ==
[2019-04-29 11:25] VITALS: BMI 28.5
--- NOTE | 2019-04-29 13:15 | PDOC ---
History of Present Illness - General Chief Complaint: Injury Stated Complaint: FALL Time Seen by Provider: 04/29/19 11:27 History Source: Patient Exam Limitations: No Limitations - History of Present Illness Initial Comments: 04/29/19 12:04 Darius Ceja is a 58M with PMH IDD, ESRD on MWF HD, hx spinal hardware, CHF, HTN, COPD presenting with witnessed fall from chair to ground. Patient was in HD today, completed HD and while transferring from HD chair to wheelchair slipped and fell onto ground. Denies prodromal sx including dizziness , nausea, chest pain, weakness, purely mechanical, was guided to floor by tech. Unsure of how he fell, but complains of lower back pain. Has history of chronic LBP on oxycodone, has hx back injury and is s/p hardware. High pain tolerance and diabetic neuropathy, says he does not feel pain well and is concerned. Denies LOC or head injury. Also has LLE cellulitis that is taken care of by Dr. Trujillo, last saw him in office last week and gets would care with [facility] wound care team 3 times per week. Denies f/c, n/v, abd pain, leg pain. Past History - Past Medical History Allergies/Adverse Reactions: Allergies Allergy/AdvReac Type Severity Reaction Status Date / Time tree nut Allergy Verified 04/29/19 11:25 eggplant Allergy Unknown Itching Uncoded 04/29/19 11:25 raw fruits Allergy Uncoded 04/29/19 11:25 Home Medications: Ambulatory Orders Aspirin [ASA -] 81 mg PO DAILY 05/18/17 Atorvastatin Ca [Lipitor] 40 mg PO HS 05/18/17 Azelastine HCl 137 mcg NS BID 05/18/17 Clopidogrel Bisulfate [Plavix -] 75 mg PO DAILY 05/18/17 Folic Acid 1 mg PO DAILY 05/18/17 Tamsulosin HCl [Flomax] 0.4 mg PO HS 05/18/17 Vitamin B Comp W-C [Nephro-Ingris -] 1 tablet PO DAILY 05/18/17 Losartan Potassium [Cozaar -] 100 mg PO DAILY 06/04/17 Metoprolol Tartrate [Lopressor -] 50 mg PO BID 08/26/17 Pantoprazole Sodium [Protonix -] 40 mg PO DAILY 08/26/17 hydrALAZINE HCL [Apresoline -] 100 mg PO ASDIR 08/26/17 traZODone HCL [Trazodone HCl] 150 mg PO HS 08/26/17 Bacitracin - [Bacitracin Topical Ointment -] 1 applic TP DAILY 08/27/17 Calcium Acetate [Phoslo -] 667 mg PO TIDCM 08/27/17 Polyethylene Glycol 3350 [Miralax 119 gm Btl -] 17 gm PO DAILY 08/27/17 Acetaminophen [Tylenol 8 Hour] 650 mg PO PRN 05/13/18 Albuterol Sulfate 0.5% [Ventolin 0.5% Nebulizing Soln. -] 1 neb IH Q6H PRN 05/13 Baclofen 10 mg PO ASDIR 05/13/18 Docusate Sodium [Colace] 200 mg PO HS 05/13/18 Isosorbide Mononitrate [Imdur -] 30 mg PO DAILY 05/13/18 Polyvinyl Alcohol [Artificial Tears] 15 ml OP QID 05/13/18 Sennosides [Senna Laxative] 8.6 mg PO PRN PRN 05/13/18 Trolamine Salicylate [Aspercreme] 177.4 ml TP PRN PRN 05/13/18 Famotidine 20 mg PO ASDIR 04/29/19 Insulin Lispro [Admelog] 100 units SQ ASDIR 04/29/19 Minoxidil [Lonitin -] 2.5 mg PO ASDIR 04/29/19 Anemia: Yes Asthma: No Cardiac Disorders: Yes (CAD) CVA: No COPD: Yes CHF: No Dementia: No Diabetes: Yes Dialysis: Yes () GI Disorders: Yes (GERD, RODRIGUEZ'S ESOPHAGUS, GASTROPARESIS) Disorders: No HTN: Yes Hypercholesterolemia: (DYSLIPIDEMIA) Liver Disease: Yes (ENLARGED) Seizures: No Thyroid Disease: No - Surgical History Abdominal Surgery: No Appendectomy: No Cardiac Surgery: No Cholecystectomy: No Lung Surgery: No Neurologic Surgery: No Orthopedic Surgery: Yes (RIGHT BKA) - Suicide/Smoking/Psychosocial Hx Smoking History: Unknown if ever smoked Have you smoked in the past 12 months: No Information on smoking cessation initiated: No Hx Alcohol Use: No Drug/Substance Use Hx: No Substance Use Type: None Review of Systems - Review of Systems Constitutional: No: Symptoms Reported HEENTM: No: Eye Pain, Blurred Vision, Mouth Pain Respiratory: No: Cough, Shortness of Breath Cardiac (ROS): No: Chest Pain, Edema, Palpitations, Syncope ABD/GI: No: Constipated, Diarrhea, Nausea, Vomiting : No: Burning, Dysuria, Discharge, Frequency, Flank Pain Musculoskeletal: Yes: Back Pain (middle back), Joint Pain, Muscle Pain Integumentary: Yes: Erythema (LLE) Neurological: Yes: Numbness (history DM neuropathy). No: Headache, Tingling, Tremors, Ataxia Endocrine: No: Symptoms Reported Hematologic/Lymphatic: No: Symptoms Reported All Other Systems: Reviewed and Negative *Physical Exam - Vital Signs Last Vital Signs Temp Pulse Resp BP Pulse Ox 97.4 F L 60 16 117/57 L 98 04/29/19 11:10 04/29/19 11:10 04/29/19 11:10 04/29/19 11:10 04/29/19 11:10 - Physical Exam General Appearance: Yes: Nourished, Appropriately Dressed, Mild Distress HEENT: positive: EOMI, ALEX, Normal ENT Inspection, Normal Voice, Symmetrical. negative: Pharynx Normal, Scleral Icterus (R), Scleral Icterus (L), Rhinorrhea Neck: positive: Trachea midline, Normal Thyroid, Supple. negative: Tender, Decreased range of motion, Lymphadenopathy (R), Lymphadenopathy (L) Respiratory/Chest: positive: Lungs Clear, Normal Breath Sounds. negative: Respiratory Distress Cardiovascular: positive: Regular Rhythm, Regular Rate. negative: Murmur Gastrointestinal/Abdominal: positive: Normal Bowel Sounds, Flat, Soft. negative : Tender, Guarding, Rebound Musculoskeletal: positive: Vertebral Tenderness (midline lumbar spine tenderness , no step offs or deformities). negative: CVA Tenderness Extremity: positive: Erythema, Other (RLE BKA. LLE erythema to anterior tibia with 8cm wound dressed in gauze with some yellow dicharge, R big toe with 2x2cm ulcer, no bleeding or discharge, pulses present, good ROM, sensation blunted to LT. LUE: pain with passive extension at shoulder, no obvious deformities or bony tenderness. BUE: 5/5 strength and full ROM at fingers, wrists, and elbows.) Integumentary: positive: Normal Color, Dry, Warm. negative: Jaundice, Mottled, Petechiae, Rash Neurologic: positive: corn grinder II-XII NML intact, Fully Oriented, Alert, Normal Mood/ Affect, Normal Response, Motor Strength 01/02 ED Treatment Course - LABORATORY CBC & Chemistry Diagram: 04/29/19 14:00 04/29/19 14:00 - ADDITIONAL ORDERS Additional order review: Laboratory Results 04/29/19 12:16 POC Glucometer 144 04/29/19 12:16 POC Glucometer 144 - RADIOLOGY Radiology Studies Ordered: Category Date Time Status CHEST X-RAY PORTABLE* [RAD] Stat Radiology 04/29/19 12:15 Taken SHOULDER-LEFT [RAD] Stat Radiology 04/29/19 12:14 Ordered SPINE-LUMBAR SACRAL [RAD] Stat Radiology 04/29/19 12:14 Ordered Medical Decision Making - Medical Decision Making 04/29/19 12:04 Darius Ceja is a 58M with PMH IDD, ESRD on MWF HD, hx spinal hardware, CHF, HTN, COPD presenting with witnessed fall from chair to ground. Patient unclear about how he fell, but exam shows pain with ROM to L shoulder as well as sharp lower back midline pain concerning for disruption of hardware vs. fracture. LLE appears erythematous with some discharge concerning for worsening cellulitis vs. osteo. Called Dr. Trujillo's office and they confirmed his wound was seen last week and has not changed significantly, wound care done by [facility] and bandages marked with yesterday's date. Will evaluate via CMP CBC XR LLE, chest, L shoulder 04/29/19 13:22 all XR shows no signs of acute pathology. Labs WNL, no hyperkalemia. Given 5mg oxycodone for pain, rejected lidocaine patch. 04/29/19 14:27 LLE XR shows no osteomyelitis. Patient good to return to [facility] since he has no acute fx and pain is likely [facility]K. Wound initially concerning but given that is similar to prior evaluation with Dr. Trujillo and has good f/u and [facility]. *DC/Admit/Observation/Transfer Diagnosis at time of Disposition: Cellulitis of left leg Lower back pain Qualifiers: Chronicity: acute Back pain laterality: midline Sciatica presence: without sciatica Qualified Code(s): M54.5 - Low back pain Fall Qualifiers: Encounter type: initial encounter Qualified Code(s): W19.XXXA - Unspecified fall, initial encounter - Discharge Dispostion Disposition: [facility] FACILITY Condition at time of disposition: Stable Decision to Admit order: No - Referrals Referrals: Thiago Burroughs [Primary Care Provider] - - Patient Instructions Printed Discharge Instructions: DI for Cellulitis -- Adult, DI for Prescription Opioid Use Additional Instructions: Today you were evaluated for back pain after a fall. We obtained X-rays of your back, shoulder, and chest to assess for any broken bones, and did not find any. Your pain is likely caused by muscle strain after the fall. We gave you some oxycodone to help with the pain. We were very concerned about the cellulitis in your left leg, but we contacted Dr. Trujillo's office and confirmed that your cellulitis is well-managed and not worsened from baseline. If you have worsening pain, yellow pus from your wounds, or any new concerning changes to the skin in your leg, please return to the emergency room immediately. Keep taking care of the wound with [facility] as you have been. We got an X-ray of your left leg out of concern for a bone infection, but non was seen. Please follow-up with your primary doctor in the next 3 days. If you experience worsening back pain, inability to move your leg, leg pain, headache, nausea, vomiting, abdominal pain, changes to your hearing or vision, or any other new or concerning symptoms, please return to the nearest emergency room. - Post Discharge Activity
[2019-04-29 14:14] LABS: BASO % 0.7 % (0-2.0); EOS % 2.6 % (0-4.5); HEMATOCRIT 36.5 % (35.4-49); HEMOGLOBIN 12.4 GM/dL (11.7-16.9); MCH 31.1 pg (25.7-33.7); MCHC 33.9 g/dl (32.0-35.9); MEAN CELL VOLUME 91.6 fl (80-96); MEAN PLT VOLUME 7.6 fl (7.5-11.1); MONO % 9.3 % (3.8-10.2); NEUT % 74.4 % (42.8-82.8); PLATELET COUNT 221 K/MM3 (134-434); RBC 3.99 M/mm3 (4.00-5.60); RDW 16.3 % (11.9-15.9); WHITE BLOOD COUNT 10.9 K/mm3 (4.0-10.0)
[2019-04-29] MEDS ORDERED: LIDOCAINE 5% TOPICAL PATCH TP ONE (14:29)
[2019-04-29] MEDS ORDERED: ACETAMINOPHEN 325 MG TABLET (FP) PO ONE (14:29)
--- NOTE | 2019-04-29 14:38 | PDOC ---
Documentation entered by Roxie Moya SCRIBE, acting as scribe for Dinorah Keller MD. Dinorah Keller MD: This documentation has been prepared by the scribe, Roxie Moya SCRIBE, under my direction and personally reviewed by me in its entirety. I confirm that the documentation accurately reflects all work, treatment, procedures, and medical decision making performed by me. Attending Attestation - Resident Resident Name: ChristieJavier - ED Attending Attestation I have performed the following: I have examined & evaluated the patient, The case was reviewed & discussed with the resident, I agree w/resident's findings & plan, Exceptions are as noted - HPI HPI: 04/29/19 13:34 The patient is a 58-year-old male from [facility], with a past medical history of COPD, HTN, HLD, IDDM, RT BKA, CHF, ESRD (HD MWF), spinal hardware, diabetic macular degeneration (sees ophtho at [place]), who presents to the ED s /p fall today while at HD center. Patient finished being dialyzed and in the process of being transferred from the HD chair to his wheelchair, he fell forward and onto his side. Denies any head trauma or loss of consciousness and is now complaining of lower back pain. He also reports increased redness of his LLE. He was placed on oral antibiotics by his PCP, but has been off of them for a week or two because the script was never sent to his pharmacy. Patient also has a draining wound to the LLE. The patient denies any fevers, chills, nausea, vomiting, diarrhea, or abdominal pain. Denies any chest pain or shortness of breath. Denies any headache, weakness, or dizziness. Allergies: NKDA, tree nut, eggplant, raw fruits. PCP: Dr. Thiago Burroughs. - Physicial Exam PE: 04/29/19 13:36 GENERAL: Awake, alert, and fully oriented, in no acute distress HEAD: No signs of trauma EYES: PERRLA, EOMI, sclera anicteric, conjunctiva clear ENT: Auricles normal inspection, hearing grossly normal, nares patent, oropharynx clear without exudates. Moist mucosa NECK: Normal ROM, supple, no lymphadenopathy, JVD, or masses LUNGS: Breath sounds equal, clear to auscultation bilaterally. No wheezes, and no crackles HEART: Regular rate and rhythm, normal S1 and S2, no murmurs, rubs or gallops ABDOMEN: Soft, nontender, normoactive bowel sounds. No guarding, no rebound. No masses EXTREMITIES: Normal range of motion, no edema. No clubbing or cyanosis. No cords, erythema, or tenderness NEUROLOGICAL: Cranial nerves II through XII grossly intact. Normal speech SKIN: Warm, Dry, normal turgor, no rashes or lesions noted. - Medical Decision Making 04/29/19 14:35 Pt presents to the ED after mechanical slip and fall today. COmplaining of lumbar back pain. Will check xray to evaluate for LS injury. Also has red lower extremity with open wound. Extremity is not warm or tender. Discussed with Dr. Hernandez' DELI CLERK, whose description of the wound during previous visits is similar to current appearance. Wound is closely followed by wound care in [place].
[2019-04-29 14:42] LABS: ALBUMIN 3.8 g/dl (3.4-5.0); BILIRUBIN,TOTAL 0.4 mg/dL (0.2-1); BLOOD UREA NITROGEN 29.9 mg/dL (7-18); CALCIUM 9.1 mg/dL (8.5-10.1); CREATININE 5.6 mg/dL (0.55-1.3); POTASSIUM 4.2 mmol/L (3.5-5.1); TOT PROT 7.6 g/dl (6.4-8.2)
[2019-04-29] MEDS ORDERED: oxyCODONE HCL 5 MG TABLET PO ONE (14:59)
[2019-04-29] MEDS ORDERED: oxyCODONE HCL 5 MG TABLET ONE (15:17)
[2019-04-29 17:06] VITALS: TEMP 98.3
[2019-04-29 20:29] VITALS: BP 137/69; PULSE 64
[2019-04-29] MEDS ORDERED: LIDOCAINE PATCH REMOVAL MC SCH (22:00)
--- NOTE | 2019-04-30 11:34 | EKG ---
Test Reason : Blood Pressure : / mmHG Vent. Rate : 058 BPM Atrial Rate : 058 BPM P-R Int : 250 ms QRS Dur : 104 ms QT Int : 474 ms P-R-T Axes : 044 019 106 degrees QTc Int : 465 ms POOR DATA QUALITY, INTERPRETATION MAY BE ADVERSELY AFFECTED SINUS BRADYCARDIA WITH 1ST DEGREE A-V BLOCK WITH PREMATURE ATRIAL COMPLEXES IN A PATTERN OF BIGEMINY T WAVE ABNORMALITY, CONSIDER LATERAL ISCHEMIA PROLONGED QT ABNORMAL ECG WHEN COMPARED WITH ECG OF 26-AUG-2017 08:52, PREMATURE ATRIAL COMPLEXES ARE NOW PRESENT T WAVE INVERSION NOW EVIDENT IN LATERAL LEADS Confirmed by OLYA BRIGGS, ROBERT ([id number]) on 04/30/2019 11:33:58 AM Referred By: Confirmed By:ROBERT DOBSON MD
== END 2019-04-29 20:21 ==
LOC: JER 11:08
DX: L53.8 Other specified erythematous conditions (principal); M54.5 Low back pain; L03.116 Cellulitis of left lower limb; I13.2 Hypertensive heart and chronic kidney disease with heart failure and with stage 5 chronic kidney disease, or end stage renal disease; N18.6 End stage renal disease; J44.9 Chronic obstructive pulmonary disease, unspecified; W05.0XXA Fall from non-moving wheelchair, initial encounter; Y93.89 Activity, other specified; Y92.099 Unspecified place in other non-institutional residence as the place of occurrence of the external cause
CPT/HCPCS: 36415; 71045-TC-FY; 72100-TC-FY; 73030-TC-LT-FY; 73590-TC-LT-FY; 73610-TC-LT-FY; 73630-TC-LT; 80053; 82962; 85025; 85651; 86140; 87070; 87077; 87186; 87205; 93005; 93010; 99284-25

== ENCOUNTER 2019-05-26 15:24 | Inpatient (IN) | payer OTHER ==
--- NOTE | 2019-05-26 15:56 | PDOC ---
History of Present Illness <Mayela Tovar - Last Filed: 05/26/19 18:44> - General History Source: Patient Exam Limitations: No Limitations - History of Present Illness Initial Comments: Darius Ceja is a 58 yo M w a hx of COPD, HTN, HLD, IDDM, CHF, ESRD (dialysis MWF, had dialysis today), Diabetic macular degeneration, Right leg BKA who presents to the [facility] er BIBEMS because Dr. Trujillo requested he come to the hospital to be admitted for his left leg cellulitis. The patient has pictures of his cellulitic and blister filled leg before Dr. Trujillo debrided it. He states that now he has fevers and chills and feels weak overall. He states his entire lower left leg is red, painful, and he believes it is infected. PCP: Thiago Burroughs Vascular: Dr. Trujillo Social Hx: Denies smoking, drinking, or other substance usage Allergies: tree nut, eggplant, raw fruits, NKDA <Alberto Rossi - Last Filed: 05/26/19 19:14> - General Chief Complaint: Redness To Affected Area Stated Complaint: FOOT INFECTION Time Seen by Provider: 05/26/19 15:47 Past History <Mayela Tovar - Last Filed: 05/26/19 18:44> - Past Medical History Anemia: Yes Asthma: No Cardiac Disorders: Yes (CAD) CVA: No COPD: Yes CHF: No Dementia: No Diabetes: Yes Dialysis: Yes ([facility]-) GI Disorders: Yes (GERD, RODRIGUEZ'S ESOPHAGUS, GASTROPARESIS) Disorders: No HTN: Yes Hypercholesterolemia: (DYSLIPIDEMIA) Liver Disease: Yes (ENLARGED) Seizures: No Thyroid Disease: No - Surgical History Abdominal Surgery: No Appendectomy: No Cardiac Surgery: No Cholecystectomy: No Lung Surgery: No Neurologic Surgery: No Orthopedic Surgery: Yes (RIGHT BKA) - Psycho Social/Smoking Cessation Hx Smoking History: Unknown if ever smoked Have you smoked in the past 12 months: No Hx Alcohol Use: No Drug/Substance Use Hx: No Substance Use Type: None <Alberto Rossi - Last Filed: 05/26/19 19:14> - Past Medical History Allergies/Adverse Reactions: Allergies Allergy/AdvReac Type Severity Reaction Status Date / Time tree nut Allergy Verified 04/29/19 11:25 eggplant Allergy Unknown Itching Uncoded 04/29/19 11:25 raw fruits Allergy Uncoded 04/29/19 11:25 Home Medications: Ambulatory Orders Aspirin [ASA -] 81 mg PO DAILY 05/18/17 Atorvastatin Ca [Lipitor] 40 mg PO HS 05/18/17 Azelastine HCl 137 mcg NS BID 05/18/17 Clopidogrel Bisulfate [Plavix -] 75 mg PO DAILY 05/18/17 Folic Acid 1 mg PO DAILY 05/18/17 Tamsulosin HCl [Flomax] 0.4 mg PO HS 05/18/17 Vitamin B Comp W-C [Nephro-Ingris -] 1 tablet PO DAILY 05/18/17 Losartan Potassium [Cozaar -] 100 mg PO DAILY 06/04/17 Metoprolol Tartrate [Lopressor -] 50 mg PO BID 08/26/17 Pantoprazole Sodium [Protonix -] 40 mg PO DAILY 08/26/17 hydrALAZINE HCL [Apresoline -] 100 mg PO ASDIR 08/26/17 traZODone HCL [Trazodone HCl] 150 mg PO HS 08/26/17 Bacitracin - [Bacitracin Topical Ointment -] 1 applic TP DAILY 08/27/17 Calcium Acetate [Phoslo -] 667 mg PO TIDCM 08/27/17 Polyethylene Glycol 3350 [Miralax 119 gm Btl -] 17 gm PO DAILY 08/27/17 Acetaminophen [Tylenol 8 Hour] 650 mg PO PRN 05/13/18 Albuterol Sulfate 0.5% [Ventolin 0.5% Nebulizing Soln. -] 1 neb IH Q6H PRN 05/13 Baclofen 10 mg PO ASDIR 05/13/18 Docusate Sodium [Colace] 200 mg PO HS 05/13/18 Isosorbide Mononitrate [Imdur -] 30 mg PO DAILY 05/13/18 Polyvinyl Alcohol [Artificial Tears] 15 ml OP QID 05/13/18 Sennosides [Senna Laxative] 8.6 mg PO PRN PRN 05/13/18 Trolamine Salicylate [Aspercreme] 177.4 ml TP PRN PRN 05/13/18 Famotidine 20 mg PO ASDIR 04/29/19 Insulin Lispro [Admelog] 100 units SQ ASDIR 04/29/19 Minoxidil [Lonitin -] 2.5 mg PO ASDIR 04/29/19 Review of Systems - Review of Systems Able to Perform ROS?: Yes Comments:: CONSTITUTIONAL: Present: Fever, chills, diaphoresis, generalized weakness, malaise Absent: loss of appetite HEENT: Absent: rhinorrhea, nasal congestion, throat pain, throat swelling, difficulty swallowing, mouth swelling, ear pain, eye pain, visual Changes CARDIOVASCULAR: Absent: chest pain, syncope, palpitations, irregular heart rate, lightheadedness , peripheral edema RESPIRATORY: Absent: cough, shortness of breath, dyspnea with exertion, orthopnea, wheezing, stridor, hemoptysis GASTROINTESTINAL: Absent: abdominal pain, abdominal distension, nausea, vomiting, diarrhea, constipation, melena, hematochezia GENITOURINARY: Absent: dysuria, frequency, urgency, hesitancy, hematuria, flank pain, genital pain MUSCULOSKELETAL: Absent: myalgia, arthralgia, joint swelling SKIN: Present: Rash Absent: itching, pallor HEMATOLOGIC/IMMUNOLOGIC: Absent: easy bleeding, easy bruising, lymphadenopathy, frequent infections ENDOCRINE: Absent: unexplained weight gain, unexplained weight loss, heat intolerance, cold intolerance NEUROLOGIC: Present: unsteady gait Absent: headache, focal weakness or paresthesias, dizziness, seizure, mental status changes, bladder or bowel incontinence PSYCHIATRIC: Absent: anxiety, depression, suicidal or homicidal ideation, hallucinations. <Alberto Rossi - Last Filed: 05/26/19 19:14> *Physical Exam - Vital Signs Last Vital Signs Temp Pulse Resp BP Pulse Ox 100.4 F H 73 18 146/54 L 95 05/26/19 15:38 05/26/19 15:38 05/26/19 15:38 05/26/19 15:38 05/26/19 15:38 <Mayela Tovar - Last Filed: 05/26/19 18:44> - Vital Signs Last Vital Signs Temp Pulse Resp BP Pulse Ox 100.4 F H 73 18 146/54 L 95 05/26/19 15:38 05/26/19 15:38 05/26/19 15:38 05/26/19 15:38 05/26/19 15:38 - Physical Exam Comments: GENERAL: Morbidly obese. Well developed, well nourished. Awake and alert. No acute distress. HEENT: Normocephalic, atraumatic. PERRLA, EOMI. No conjunctival pallor. Sclera are non- icteric. Moist mucous membranes. Oropharynx is clear. NECK: Supple. Full ROM. CARDIOVASCULAR: Tachycardic rate and regular rhythm. 2+ left leg pulses. PULMONARY: No evidence of respiratory distress. Lungs clear to auscultation bilaterally. No wheezing, rales or rhonchi. ABDOMINAL: Soft. Non-tender. Non-distended. No rebound or guarding. No organomegaly. Normoactive bowel sounds. MUSCULOSKELETAL Normal range of motion at all joints. No bony deformities or tenderness. No CVA tenderness. EXTREMITIES: Right leg BKA. Left upper extremity fistula. No cyanosis. No clubbing. No edema. No calf tenderness. SKIN: The left leg is erythematous, warm, TTP, and has blisters. Normal capillary refill. No jaundice. NEUROLOGICAL: Alert, awake, appropriate. Normal speech. PSYCHIATRIC: Cooperative. Good eye contact. Appropriate mood and affect. <Alberto Rossi - Last Filed: 05/26/19 19:14> Procedures - Bedside Ultrasound Other: VASCULAR ACCESS Remarks: US guided line 20 gauge placed by me in right AC bc patient states he is an impossible stick. - No complications - Good flush - Still images taken <Alberto Rossi - Last Filed: 05/26/19 19:14> Heart Score/ECG Review #1 ECG reviewed & interpreted by me at: 18:40 General ECG Interpretation: Sinus Rhythm, Normal Rate, Normal Intervals Compared to previous ECG there are: No significant change <Mayela Tovar - Last Filed: 05/26/19 18:44> ED Treatment Course - LABORATORY CBC & Chemistry Diagram: 05/26/19 16:42 05/26/19 16:42 - ADDITIONAL ORDERS Additional order review: Laboratory Results 05/26/19 05/26/19 05/26/19 16:42 16:42 16:42 PT with INR 12.40 INR 1.05 PTT (Actin FS) 30.5 Sodium 136 Potassium 4.7 Chloride 101 Carbon Dioxide 26 Anion Gap 9 BUN 55.8 H Creatinine 8.1 H* Est GFR (CKD-EPI)AfAm 7.53 Est GFR (CKD-EPI)NonAf 6.49 Random Glucose 145 H Lactic Acid 1.0 Calcium 8.7 Total Bilirubin 0.5 AST 9 L ALT 14 Alkaline Phosphatase 46 Troponin I Total Protein 7.0 Albumin 3.3 L 05/26/19 16:42 PT with INR INR PTT (Actin FS) Sodium Potassium Chloride Carbon Dioxide Anion Gap BUN Creatinine Est GFR (CKD-EPI)AfAm Est GFR (CKD-EPI)NonAf Random Glucose Lactic Acid Calcium Total Bilirubin AST ALT Alkaline Phosphatase Troponin I 0.03 Total Protein Albumin 05/26/19 16:42 RBC 3.27 L MCV 93.7 MCHC 32.3 RDW 16.6 H MPV 7.8 Neutrophils % 78.9 Lymphocytes % 6.7 L D Monocytes % 11.0 H Eosinophils % 2.7 Basophils % 0.7 - Medications Given in the ED: ED Medications Discontinued Medications Generic Name Dose Route Start Last Admin Trade Name Freq PRN Reason Stop Dose Admin Acetaminophen 1,000 mg 05/26/19 16:06 05/26/19 17:35 Ofirmev Injection - IVPB 05/26/19 16:07 1,000 mg ONCE ONE Administration Piperacillin Sod/Tazobactam 100 mls @ 200 mls/hr 05/26/19 16:07 05/26/19 17: 36 Sod 4.5 gm/ Dextrose IVPB 05/26/19 16:36 200 mls/hr ONCE ONE Administration Protocol <Mayela Tovar - Last Filed: 05/26/19 18:44> - LABORATORY CBC & Chemistry Diagram: 05/26/19 16:42 05/26/19 16:42 <Alberto Rossi - Last Filed: 05/26/19 19:14> Medical Decision Making - Medical Decision Making Darius Ceja is a 58 yo M w a hx of COPD, HTN, HLD, IDDM, CHF, ESRD (dialysis MWF, had dialysis today), Diabetic macular degeneration, Right leg BKA who presents to the [facility] er BIBEMS because Dr. Trujillo requested he come to the hospital to be admitted for his left leg cellulitis. The patient has pictures of his cellulitic and blister filled leg before Dr. Trujillo debrided it. He states that now he has fevers and chills and feels weak overall. He states his entire lower left leg is red, painful, and he believes it is infected. Vital Signs Temp Pulse Resp BP Pulse Ox 100.4 F H 73 18 146/54 L 95 05/26/19 15:38 05/26/19 15:38 05/26/19 15:38 05/26/19 15:38 05/26/19 15:38 DDx IBNLT: Cellulitis vs erysipelas, Sepsis, Nec Fasciitis, systemic infection Plan: ED adult sepsis workup, Abx, leg XR, Vascular consult, Admit to hospital EKG: NS rate of 67, narrow complex, normal axis, no hypertrophy, no ST elevations or depressions, TWI in aVL, no Q waves Labs: CBC,CMP WBC 11.3 K/mm3 (4.0-10.0) H 05/26/19 16:42 RBC 3.27 M/mm3 (4.00-5.60) L 05/26/19 16:42 Hgb 9.9 GM/dL (11.7-16.9) L 05/26/19 16:42 Hct 30.6 % (35.4-49) L D 05/26/19 16:42 MCV 93.7 fl (80-96) 05/26/19 16:42 MCH 30.2 pg (25.7-33.7) 05/26/19 16:42 MCHC 32.3 g/dl (32.0-35.9) 05/26/19 16:42 RDW 16.6 % (11.9-15.9) H 05/26/19 16:42 Plt Count 228 K/MM3 (134-434) 05/26/19 16:42 MPV 7.8 fl (7.5-11.1) 05/26/19 16:42 Absolute Neuts (auto) 9.0 K/mm3 (1.5-8.0) H 05/26/19 16:42 Neutrophils % 78.9 % (42.8-82.8) 05/26/19 16:42 Lymphocytes % 6.7 % (8-40) L D 05/26/19 16:42 Monocytes % 11.0 % (3.8-10.2) H 05/26/19 16:42 Eosinophils % 2.7 % (0-4.5) 05/26/19 16:42 Basophils % 0.7 % (0-2.0) 05/26/19 16:42 Nucleated RBC % 0 % (0-0) 05/26/19 16:42 Sodium 136 mmol/L (136-145) 05/26/19 16:42 Potassium 4.7 mmol/L (3.5-5.1) 05/26/19 16:42 Chloride 101 mmol/L (98-107) 05/26/19 16:42 Carbon Dioxide 26 mmol/L (21-32) 05/26/19 16:42 Anion Gap 9 MMOL/L (8-16) 05/26/19 16:42 BUN 55.8 mg/dL (7-18) H 05/26/19 16:42 Creatinine 8.1 mg/dL (0.55-1.3) H* 05/26/19 16:42 Est GFR (CKD-EPI)AfAm 7.53 05/26/19 16:42 Est GFR (CKD-EPI)NonAf 6.49 05/26/19 16:42 Random Glucose 145 mg/dL (74-106) H 05/26/19 16:42 Lactic Acid 1.0 mmol/L (0.4-2.0) 05/26/19 16:42 Calcium 8.7 mg/dL (8.5-10.1) 05/26/19 16:42 Total Bilirubin 0.5 mg/dL (0.2-1) 05/26/19 16:42 AST 9 U/L (15-37) L 05/26/19 16:42 ALT 14 U/L (13-61) 05/26/19 16:42 Alkaline Phosphatase 46 U/L (45-117) 05/26/19 16:42 Troponin I 0.03 ng/ml (0.00-0.05) 05/26/19 16:42 Total Protein 7.0 g/dl (6.4-8.2) 05/26/19 16:42 Albumin 3.3 g/dl (3.4-5.0) L 05/26/19 16:42 XR: Unremarkable Disposition: Admit to hospital <Alberto Rossi - Last Filed: 05/26/19 19:14> Discharge <Mayela Tovar - Last Filed: 05/26/19 18:44> - Discharge Information Problems reviewed: Yes - Admission Yes <Alberto Rossi - Last Filed: 05/26/19 19:14> - Discharge Information Clinical Impression/Diagnosis: End stage chronic kidney disease, Cellulitis of left leg Condition: Stable - Follow up/Referral Referrals: Thiago Burroughs [Primary Care Provider] - - Patient Discharge Instructions - Post Discharge Activity
[2019-05-26] MEDS ORDERED: VANCOMYCIN 1,000 MG in DEXTROSE 5%-WATER - 250 ML IVPB ONE (16:06)
[2019-05-26] MEDS ORDERED: ACETAMINOPHEN 1000 MG/100 ML VIAL (NON FORMULARY) IVPB ONE (16:06)
[2019-05-26] MEDS ORDERED: PIPERACILLIN/TAZOB 4.5 GM 4.5 GM in DEXTROSE 5%-WATER 100 ML IVPB ONE (16:07)
--- NOTE | 2019-05-26 16:57 | PDOC ---
Attending Attestation - Resident Resident Name: Alberto Rossi - ED Attending Attestation I have performed the following: I have examined & evaluated the patient, The case was reviewed & discussed with the resident, I agree w/resident's findings & plan - HPI HPI: 05/26/19 16:56 Darius Ceja is a 58 yo M w a hx of COPD, HTN, HLD, IDDM, CHF, ESRD (dialysis MWF, had dialysis today), Diabetic macular degeneration, Right leg BKA who presents [facility] er BIBEMS because Dr. Trujillo requested he come to the hospital to be admitted for his left leg cellulitis. +intermittent f/c for the past week. - Physicial Exam PE: 05/26/19 17:45 Agree with the resident's HPI and PE as documented in the electronic medical record. NAD, well appearing, EOMI, PERRL, nl conjunctiva, anicteric; neck supple. lungs clear, RRR, abdomen soft nontender, obese. PEREIRA x4, no focal neuro deficits. + peripheral edema. normal color for ethnicity, WWP. rt BKA left lower extremity with erythema and ulcerations with purulent discharge, dry skin. - Medical Decision Making 05/26/19 16:56 Vital Signs Temp Pulse Resp BP Pulse Ox 100.4 F H 73 18 146/54 L 95 05/26/19 15:38 05/26/19 15:38 05/26/19 15:38 05/26/19 15:38 05/26/19 15:38 VS reviewed, +fever, normotensive IVF, antipyretics. IV zosyn and vancomycin for LLE cellulitis chronic wounds, with prior wound debridement. cultures pending, infectious workup. Dr Trujillo consultation, wound care admit for medical management of LLE cellulitis 05/26/19 17:45
[2019-05-26 17:07] LABS: BASO % 0.7 % (0-2.0); EOS % 2.7 % (0-4.5); HEMATOCRIT 30.6 % (35.4-49); HEMOGLOBIN 9.9 GM/dL (11.7-16.9); LYMPH % 6.7 % (8-40); MCH 30.2 pg (25.7-33.7); MCHC 32.3 g/dl (32.0-35.9); MEAN CELL VOLUME 93.7 fl (80-96); MEAN PLT VOLUME 7.8 fl (7.5-11.1); NEUT % 78.9 % (42.8-82.8); PLATELET COUNT 228 K/MM3 (134-434); RBC 3.27 M/mm3 (4.00-5.60); RDW 16.6 % (11.9-15.9); WHITE BLOOD COUNT 11.3 K/mm3 (4.0-10.0)
[2019-05-26 17:20] LABS: ACTIVATED PTT 30.5 SECONDS (25.2-36.5)
[2019-05-26] MEDS ORDERED: PIPERACILLIN/TAZOB 4.5 GM 4.5 GM/100 ML BAG IVPB ONE (17:26)
[2019-05-26] MEDS ORDERED: VANCOMYCIN 1 GRAM (PRE-DOCKED) 1,000 MG/250 ML BAG IVPB ONE (17:26)
[2019-05-26] MEDS ORDERED: ACETAMINOPHEN INJECTION 100 ML IVPB ONE (17:26)
[2019-05-26 17:40] LABS: ALBUMIN 3.3 g/dl (3.4-5.0); BILIRUBIN,TOTAL 0.5 mg/dL (0.2-1); BLOOD UREA NITROGEN 55.8 mg/dL (7-18); CALCIUM 8.7 mg/dL (8.5-10.1); POTASSIUM 4.7 mmol/L (3.5-5.1)
[2019-05-26 17:42] LABS: INR 1.05 (0.83-1.09); PROTHROMBIN TIME (PATIENT) 12.4 SEC (9.7-13.0)
[2019-05-26 17:54] LABS: CREATININE 8.1 mg/dL (0.55-1.3)
--- NOTE | 2019-05-26 20:10 | HP ---
Admitting History and Physical - Primary Care Physician PCP: Dr. Good - Admission Chief Complaint: Left leg wound History of Present Illness: 58-year-old male from [facility], with a past medical history of COPD, HTN, HLD, IDDM, RT BKA, CHF, ESRD (HD MWF), spinal hardware, diabetic macular degeneration who presents to the [facility] ER as referred by Dr. Dr. Trujillo for left leg cellulitis. Dressing in place from Vascular, pictures shown by patient of left lower leg (cellulitic changes,blister and greenish discharge - Ronnie debrided in office). patient states feels feverish with chills, nausea and constipated. Lower left leg is red, painful around the calf. Patient denies acute CP/SOB, dizziness, headache, diarrhea. History Source: Patient Limitations to Obtaining History: No Limitations - Past Medical History Cardiovascular: Yes: CAD, CHF, HTN, Hyperlipdemia Pulmonary: Yes: COPD, Other (allergies , seasonal) Gastrointestinal: Yes: Constipation, GERD Renal/: Yes: BPH, Hemodialysis, Other (ESRD) Heme/Onc: Yes: Anemia Endocrine: Yes: Diabetes Mellitus - Past Surgical History Past Surgical History: Yes: Amputation (Rt BKA) - Smoking History Smoking history: Former smoker Have you smoked in the past 12 months: No If you are a former smoker, when did you quit?: quite 15 years ago - Alcohol/Substance Use Hx Alcohol Use: Yes (quite 10 years ago) History of Substance Use: reports: None - Social History Usual Living Arrangement: Yes: [facility] ADL: Support Services History of Recent Travel: No Home Medications - Allergies Allergies/Adverse Reactions: Allergies Allergy/AdvReac Type Severity Reaction Status Date / Time tree nut Allergy Verified 04/29/19 11:25 eggplant Allergy Unknown Itching Uncoded 04/29/19 11:25 raw fruits Allergy Uncoded 04/29/19 11:25 - Home Medications Home Medications: Ambulatory Orders Aspirin [ASA -] 81 mg PO DAILY 05/18/17 Atorvastatin Ca [Lipitor] 40 mg PO HS 05/18/17 Azelastine HCl 137 mcg NS BID 05/18/17 Clopidogrel Bisulfate [Plavix -] 75 mg PO DAILY 05/18/17 Folic Acid 1 mg PO DAILY 05/18/17 Tamsulosin HCl [Flomax] 0.4 mg PO HS 05/18/17 Vitamin B Comp W-C [Nephro-Ingris -] 1 tablet PO DAILY 05/18/17 Losartan Potassium [Cozaar -] 100 mg PO DAILY 06/04/17 Metoprolol Tartrate [Lopressor -] 50 mg PO BID 08/26/17 Pantoprazole Sodium [Protonix -] 40 mg PO DAILY 08/26/17 hydrALAZINE HCL [Apresoline -] 100 mg PO ASDIR 08/26/17 traZODone HCL [Trazodone HCl] 150 mg PO HS 08/26/17 Bacitracin - [Bacitracin Topical Ointment -] 1 applic TP DAILY 08/27/17 Calcium Acetate [Phoslo -] 667 mg PO TIDCM 08/27/17 Polyethylene Glycol 3350 [Miralax 119 gm Btl -] 17 gm PO DAILY 08/27/17 Acetaminophen [Tylenol 8 Hour] 650 mg PO PRN 05/13/18 Albuterol Sulfate 0.5% [Ventolin 0.5% Nebulizing Soln. -] 1 neb IH Q6H PRN 05/13 Baclofen 10 mg PO ASDIR 05/13/18 Docusate Sodium [Colace] 200 mg PO HS 05/13/18 Isosorbide Mononitrate [Imdur -] 30 mg PO DAILY 05/13/18 Polyvinyl Alcohol [Artificial Tears] 15 ml OP QID 05/13/18 Sennosides [Senna Laxative] 8.6 mg PO PRN PRN 05/13/18 Trolamine Salicylate [Aspercreme] 177.4 ml TP PRN PRN 05/13/18 Famotidine 20 mg PO ASDIR 04/29/19 Insulin Lispro [Admelog] 100 units SQ ASDIR 04/29/19 Minoxidil [Lonitin -] 2.5 mg PO ASDIR 04/29/19 Family Medical History Family Hx Cardiac Disorders: Mother (HTN) Family Hx Diabetes: Mother Family Hx Renal Disease: Mother (ESRD ON HD) Family Hx Nuerologic Problems: Father (Parkinson's disease ) Review of Systems - Review of Systems Constitutional: reports: Chills, Fever, Weakness Eyes: reports: No Symptoms HENT: reports: No Symptoms Neck: reports: No Symptoms Cardiovascular: reports: No Symptoms Respiratory: reports: No Symptoms Gastrointestinal: reports: Constipation Genitourinary: reports: No Symptoms Musculoskeletal: reports: Extremity Pain (Left lower extremity) Integumentary: reports: Erythema (Left lower leg), Wound Neurological: reports: No Symptoms Endocrine: reports: No Symptoms Hematology/Lymphatic: reports: No Symptoms Psychiatric: reports: No Symptoms Physical Examination Vital Signs: Vital Signs Temperature 100.4 F H 05/26/19 15:38 Pulse Rate 73 05/26/19 15:38 Respiratory Rate 18 05/26/19 15:38 Blood Pressure 146/54 L 05/26/19 15:38 O2 Sat by Pulse Oximetry (%) 95 05/26/19 15:38 Constitutional: Yes: No Distress, Calm Eyes: Yes: Conjunctiva Clear, EOM Intact HENT: Yes: Atraumatic, Normocephalic Neck: Yes: Supple, Trachea Midline Cardiovascular: Yes: Regular Rate and Rhythm, Tachycardia Respiratory: Yes: Regular, CTA Bilaterally Gastrointestinal: Yes: Normal Bowel Sounds, Soft Musculoskeletal: Yes: WNL Extremities: Yes: Other (Right leg BKA, Left lower extremity + dressing in place ( noted with erythema, warm, TTP, and blisters)) Edema: Yes Peripheral Pulses WNL: Yes Integumentary: Yes: Erythema (left leg is erythematous, warm, tender to touch, and has blisters) Neurological: Yes: Alert, Oriented Psychiatric: Yes: Alert, Oriented Labs: CBC, BMP 05/26/19 16:42 05/26/19 16:42 Imaging - Results Chest X-ray: Report Reviewed (no acute disease) X-ray: Report Reviewed (left leg: soft tissue swelling) EKG: Report Reviewed (NSR @rate 67) Problem List - Problems (1) Cellulitis of left leg Code(s): L03.116 - CELLULITIS OF LEFT LOWER LIMB (2) HLD (hyperlipidemia) Code(s): E78.5 - HYPERLIPIDEMIA, UNSPECIFIED (3) CHF (congestive heart failure) Code(s): I50.9 - HEART FAILURE, UNSPECIFIED (4) ESRD on hemodialysis Code(s): N18.6 - END STAGE RENAL DISEASE; Z99.2 - DEPENDENCE ON RENAL DIALYSIS (5) Hx of right BKA Code(s): Z89.511 - ACQUIRED ABSENCE OF RIGHT LEG BELOW KNEE (6) GERD (gastroesophageal reflux disease) Code(s): K21.9 - GASTRO-ESOPHAGEAL REFLUX DISEASE WITHOUT ESOPHAGITIS (7) Constipation Code(s): K59.00 - CONSTIPATION, UNSPECIFIED (8) CAD (coronary artery disease) Code(s): I25.10 - ATHSCL HEART DISEASE OF [place] CORONARY ARTERY W/O ANG PCTRS (9) COPD (chronic obstructive pulmonary disease) Code(s): J44.9 - CHRONIC OBSTRUCTIVE PULMONARY DISEASE, UNSPECIFIED (10) Diabetes Code(s): E11.9 - TYPE 2 DIABETES MELLITUS WITHOUT COMPLICATIONS Qualifiers: Diabetes mellitus type: type 2 Chronic kidney disease stage: on chronic dialysis (11) ESRD (end stage renal disease) Code(s): N18.6 - END STAGE RENAL DISEASE (12) HTN (hypertension) Code(s): I10 - ESSENTIAL (PRIMARY) HYPERTENSION Qualifiers: Hypertension type: unspecified Qualified Code(s): I10 - Essential (primary ) hypertension Assessment/Plan 58-year-old male from [facility], with a past medical history of COPD, HTN, HLD, IDDM, RT BKA, CHF, ESRD (HD MWF), spinal hardware, diabetic macular degeneration who presents to the [facility] ER as referred by Dr. Dr. Trujillo for left leg cellulitis. # Lower left leg cellulitis ED work up: CXR: no acute disease EKG: NSR, no acute s/t changes Left leg XR: soft tissue swelling wbc: 11.3, lactic level: 1.0 - pending duplex study Given: IVF, antipyretics, IV zosyn &vancomycin x1 - follow up blood cultures - follow up Dr Trujillo consult & wound care - continue with zosyn q8 hours - follow up ID in AM - repeat cbc, BMP in AM - Pain management - Local wound care # HTN, HLD, CAD, CHF -Clopidogrel Bisulfate 75 mg PO DAILY -Atorvastatin Ca 40 mg PO HS -Losartan Potassium 100 mg PO DAILY -Metoprolol Tartrate 50 mg PO BID -Isosorbide Mononitrate 30 mg PO DAILY # ESRD On HD ( --) - dialysis per schedule - Calcium Acetate 667 mg PO TID # DM - monitor FSBS AC TID - Novolog sliding scale in place # GERD, Constipation - Docusate Sodium 200 mg PO HS - Polyethylene Glycol 3350 17 gm PO DAILY - Famotidine 20 mg PO daily #COPD - stable -Nebs q6 hours PRN Visit type - Emergency Visit Emergency Visit: Yes ED Registration Date: 05/26/19 Care time: The patient presented to the Emergency Department on the above date and was hospitalized for further evaluation of their emergent condition. - New Patient This patient is new to me today: Yes Date on this admission: 05/26/19 - Critical Care Critical Care patient: No
[2019-05-26] MEDS ORDERED: ACETAMINOPHEN 325 MG TABLET (FP) PO PRN (20:42)
[2019-05-26] MEDS: DOCUSATE SODIUM 100 MG CAPSULE (FP) PO SCH (23:00)
[2019-05-26] MEDS: METOPROLOL TARTRATE 50 MG TABLET (FP) PO SCH (23:01)
[2019-05-26] MEDS: ATORVASTATIN CA 40 MG TABLET (FP) PO SCH (23:01)
[2019-05-26] MEDS: HEPARIN NA (PORCINE) 5,000 UNITS/ML 1ML VIAL SQ SCH ×2 (23:01→23:23)
[2019-05-27] MEDS: METOPROLOL TARTRATE 50 MG TABLET (FP) PO SCH ×2 (05:06→10:31)
[2019-05-27] MEDS: INSULIN SLIDING SCALE (NOVOLOG) 1 VIAL SQ SCH ×3 (06:00→18:43)
[2019-05-27 07:57] LABS: MCHC 33.3 g/dl (32.0-35.9); MEAN CELL VOLUME 93.3 fl (80-96); MEAN PLT VOLUME 7.8 fl (7.5-11.1); PLATELET COUNT 233 K/MM3 (134-434); RBC 3.22 M/mm3 (4.00-5.60); RDW 16.5 % (11.9-15.9); WHITE BLOOD COUNT 11.7 K/mm3 (4.0-10.0)
[2019-05-27 07:59] LABS: BLOOD UREA NITROGEN 66.9 mg/dL (7-18); CALCIUM 8.8 mg/dL (8.5-10.1); POTASSIUM 4.8 mmol/L (3.5-5.1)
[2019-05-27 08:23] LABS: CREATININE 9.7 mg/dL (0.55-1.3)
[2019-05-27] MEDS: CALCIUM ACETATE 667 MG CAPSULE (FP) PO SCH ×3 (08:41→18:37)
[2019-05-27] MEDS: ISOSORBIDE MONONITRATE 30 MG TAB.SR.24H (FP) PO SCH (10:31)
[2019-05-27] MEDS: CLOPIDOGREL BISULFATE 75 MG TABLET (FP) PO SCH (10:32)
[2019-05-27] MEDS: LOSARTAN POTASSIUM 50 MG TABLET (FP) PO SCH (10:32)
[2019-05-27] MEDS: HEPARIN NA (PORCINE) 5,000 UNITS/ML 1ML VIAL SQ SCH (10:33)
[2019-05-27] MEDS: RANITIDINE HCL 150 MG TABLET (FP) PO SCH (10:34)
[2019-05-27] MEDS: POLYETHYLENE GLYCOL 3350 119 GM BTL PO SCH (10:34)
--- NOTE | 2019-05-27 11:23 | PN ---
Progress Note (short form) - Note Progress Note: ID consult dictated
--- NOTE | 2019-05-27 11:35 | PN ---
Progress Note (short form) - Note Progress Note: ID consult dictated imp/reccd cellulitis venous stasis esrd/hd obesity vanco with HD based on levels [id number] Problem List - Problems (1) Cellulitis of left leg Code(s): L03.116 - CELLULITIS OF LEFT LOWER LIMB (2) ESRD on hemodialysis Code(s): N18.6 - END STAGE RENAL DISEASE; Z99.2 - DEPENDENCE ON RENAL DIALYSIS (3) Obesity Code(s): E66.9 - OBESITY, UNSPECIFIED (4) Venous stasis Code(s): I87.8 - OTHER SPECIFIED DISORDERS OF VEINS
[2019-05-27] MEDS ORDERED: PIPERACILLIN/TAZOBACTAM 2.25 GM VIAL IVPB ONE ×2 (11:57→18:21)
[2019-05-27] MEDS ORDERED: DEXTROSE 5%-WATER - 50 ML IVPB ONE ×2 (11:57→18:21)
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
--- NOTE | 2019-05-27 13:58 | CONSULT ---
- Consultation REQUESTING PROVIDER: CONSULT REQUEST: We have been asked to surgically evaluate this patient for Left LE wounds PCP:Poppy Good HISTORY OF PRESENT ILLNESS: 58-year-old male from [facility], with a past medical history of COPD, HTN, HLD, IDDM, RT BKA, CHF, ESRD (HD MWF), spinal hardware, diabetic macular degeneration who presents to the [facility] as referred by Dr. Dr. Trujillo for left leg cellulitis. Dressing in place from Vascular, pictures shown by patient of left lower leg (cellulitic changes,blister and greenish discharge - Ronnie debrided in office). patient states feels feverish with chills, nausea and constipated. Lower left leg is red, painful around the calf. Patient denies acute CP/SOB, dizziness, Vomiting, headache, or diarrhea. History Source: Patient Limitations to Obtaining History: No Limitations - Past Medical History Cardiovascular: Yes: CAD, CHF, HTN, Hyperlipdemia Pulmonary: Yes: COPD, Other (allergies , seasonal) Gastrointestinal: Yes: Constipation, GERD Renal/: Yes: BPH, Hemodialysis, Other (ESRD) Heme/Onc: Yes: Anemia Endocrine: Yes: Diabetes Mellitus - Past Surgical History Past Surgical History: Yes: Amputation (Rt BKA) - Smoking History Smoking history: Former smoker Have you smoked in the past 12 months: No If you are a former smoker, when did you quit?: quite 15 years ago - Alcohol/Substance Use Hx Alcohol Use: Yes (quite 10 years ago) History of Substance Use: reports: None - Social History Usual Living Arrangement: Yes: [facility] ADL: Support Services History of Recent Travel: No Home Medications - Allergies Allergies/Adverse Reactions: Allergies Allergy/AdvReac Type Severity Reaction Status Date / Time tree nut Allergy Verified 04/29/19 11:25 eggplant Allergy Unknown Itching Uncoded 04/29/19 11:25 raw fruits Allergy Uncoded 04/29/19 11:25 - Home Medications Home Medications: Ambulatory Orders Aspirin [ASA -] 81 mg PO DAILY 05/18/17 Atorvastatin Ca [Lipitor] 40 mg PO HS 05/18/17 Azelastine HCl 137 mcg NS BID 05/18/17 Clopidogrel Bisulfate [Plavix -] 75 mg PO DAILY 05/18/17 Folic Acid 1 mg PO DAILY 05/18/17 Tamsulosin HCl [Flomax] 0.4 mg PO HS 05/18/17 Vitamin B Comp W-C [Nephro-Ingris -] 1 tablet PO DAILY 05/18/17 Losartan Potassium [Cozaar -] 100 mg PO DAILY 06/04/17 Metoprolol Tartrate [Lopressor -] 50 mg PO BID 08/26/17 Pantoprazole Sodium [Protonix -] 40 mg PO DAILY 08/26/17 hydrALAZINE HCL [Apresoline -] 100 mg PO ASDIR 08/26/17 traZODone HCL [Trazodone HCl] 150 mg PO HS 08/26/17 Bacitracin - [Bacitracin Topical Ointment -] 1 applic TP DAILY 08/27/17 Calcium Acetate [Phoslo -] 667 mg PO TIDCM 08/27/17 Polyethylene Glycol 3350 [Miralax 119 gm Btl -] 17 gm PO DAILY 08/27/17 Acetaminophen [Tylenol 8 Hour] 650 mg PO PRN 05/13/18 Albuterol Sulfate 0.5% [Ventolin 0.5% Nebulizing Soln. -] 1 neb IH Q6H PRN 05/13 Baclofen 10 mg PO ASDIR 05/13/18 Docusate Sodium [Colace] 200 mg PO HS 05/13/18 Isosorbide Mononitrate [Imdur -] 30 mg PO DAILY 05/13/18 Polyvinyl Alcohol [Artificial Tears] 15 ml OP QID 05/13/18 Sennosides [Senna Laxative] 8.6 mg PO PRN PRN 05/13/18 Trolamine Salicylate [Aspercreme] 177.4 ml TP PRN PRN 05/13/18 Famotidine 20 mg PO ASDIR 04/29/19 Insulin Lispro [Admelog] 100 units SQ ASDIR 04/29/19 Minoxidil [Lonitin -] 2.5 mg PO ASDIR 04/29/19 Family Medical History Family Hx Cardiac Disorders: Mother (HTN) Family Hx Diabetes: Mother Family Hx Renal Disease: Mother (ESRD ON HD) Family Hx Nuerologic Problems: Father (Parkinson's disease ) Review of Systems - Review of Systems Constitutional: reports: Chills, Fever, Weakness Eyes: reports: macular degeneration HENT: reports: No Symptoms Neck: reports: No Symptoms Cardiovascular: reports: No Symptoms Respiratory: reports: dyspnea on exertion Gastrointestinal: reports: Constipation Genitourinary: reports: No Symptoms Musculoskeletal: reports: Extremity Pain (Left lower extremity) Integumentary: reports: Erythema (Left lower leg), Wound Neurological: reports: No Symptoms Endocrine: reports: No Symptoms Hematology/Lymphatic: reports: No Symptoms Psychiatric: reports: No Symptoms Physical Examination Vital Signs: Vital Signs Temperature 100.4 F H 05/26/19 15:38 Pulse Rate 73 05/26/19 15:38 Respiratory Rate 18 05/26/19 15:38 Blood Pressure 146/54 L 05/26/19 15:38 O2 Sat by Pulse Oximetry (%) 95 05/26/19 15:38 Constitutional: A&Ox3, NAD Eyes: Yes: Conjunctiva Clear, HENT: Yes: Atraumatic, Normocephalic Cardiovascular: Yes: Regular Rate and Rhythm, Respiratory: Unlabored resp on RA Extremities: Yes: Other Right leg BKA, Left lower extremity large wound over crabtree well defined @[id number] with beefy red base and clean margins. minimal fibrinous exudate seen, surrounding tissue grossly intact with some erythema, no evidence of tracking, Chronic venous stasis and skin changes seen throughout. Left great toe over MTP at medial boarder @1x1cm well circumscribed with fibrinous base, some scaling of surrounding tissue but grossly intact. no foul odor or d/c, +2 DP pulse. LE compartments tense but supple, tenderness to palpation throughout Edema: Yes Peripheral Pulses WNL: Yes Integumentary: Yes: Erythema (left leg is erythematous, warm, tender to touch, and has blisters) chronic skin changes throughout. Neurological: Yes: Alert, Oriented Psychiatric: Yes: Alert, Oriented Labs: 05/27/19 07:15 05/27/19 07:15 US/Duplex of Left LE : no evidence of DVT Problem List - Problems (1) Cellulitis of left leg Assessment/Plan: 58 yo male with multiple-comorbidities and left LE venous stasis ulcers s/p debridement in the office yesterday. -Clacium Algenate Kurlix and Coban to Left LE daily -Bacitracin to left Toe wound daily -Elevate Left LE with pillows and elevate bottom of bed when in bed -ABX per ID -Encourage daily IS Evaluation and plan discussed with Dr Trujillo. Code(s): L03.116 - CELLULITIS OF LEFT LOWER LIMB (2) ESRD on hemodialysis Code(s): N18.6 - END STAGE RENAL DISEASE; Z99.2 - DEPENDENCE ON RENAL DIALYSIS (3) Venous stasis Code(s): I87.8 - OTHER SPECIFIED DISORDERS OF VEINS
--- NOTE | 2019-05-27 14:10 | EKG ---
Test Reason : Blood Pressure : / mmHG Vent. Rate : 067 BPM Atrial Rate : 067 BPM P-R Int : 184 ms QRS Dur : 100 ms QT Int : 452 ms P-R-T Axes : 023 003 078 degrees QTc Int : 477 ms NORMAL SINUS RHYTHM NONSPECIFIC T WAVE ABNORMALITY NON-SPECIFIC INTRA-VENTRICULAR CONDUCTION DELAY POOR R WAVE PROGRESSION Confirmed by SEJAL ALVA MD ([id number]) on 05/27/2019 2:09:47 PM Referred By: Confirmed By:SEJAL ALVA MD
[2019-05-27] MEDS ORDERED: BACITRACIN 15 GM TUBE TOPICAL OINTMENT TP SCH (14:30)
[2019-05-27] MEDS: oxyCODONE HCL 5 MG TABLET PO PRN ×2 (14:36→23:59)
[2019-05-27] MEDS: PIPERACILLIN/TAZOB 2.25 GM 2.25 GM in DEXTROSE 5%-WATER - 50 ML IVPB SCH ×2 (14:36→18:37)
[2019-05-27] MEDS ORDERED: HEPARIN NA (PORCINE) 5,000 UNITS/ML 1ML VIAL IVPUSH ONE (15:08)
[2019-05-27] MEDS ORDERED: SODIUM CHLORIDE 250 ML IV PRN (15:08)
--- NOTE | 2019-05-27 15:08 | CONSULT ---
Consult Consult Specialty:: Nephrology Reason for Consultation:: ESRD - History of Present Illness Chief Complaint: sent in for left leg cellulitis History of Present Illness: Pt is a 58 year old male with pmhx of esrd, copd, htn, hld, DM, and CHF who was sent in for left leg cellulitis. HE was sent in from vascular surgery. He does complain of fevers and chills. I was called to evaluate him as he is on HD. He last went to HD on Thursday. He denies shortness of breath. He denies chest pain or palpitations. - History Source History Provided By: Patient, Medical Record - Past Medical History Cardio/Vascular: Yes: CAD, CHF, HTN, Hyperlipdemia Pulmonary: Yes: COPD, Other (allergies , seasonal) Gastrointestinal: Yes: Constipation, GERD Renal/: Yes: BPH, Hemodialysis, Other (ESRD) Endocrine: Yes: Diabetes Mellitus - Past Surgical History Past Surgical History: Yes: Amputation (Rt BKA) - Alcohol/Substance Use Hx Alcohol Use: Yes (quite 10 years ago) History of Substance Use: reports: None - Smoking History Smoking history: Former smoker Have you smoked in the past 12 months: No If you are a former smoker, when did you quit?: quite 15 years ago - Social History ADL: Support Services History of Recent Travel: No Home Medications - Allergies Allergies/Adverse Reactions: Allergies Allergy/AdvReac Type Severity Reaction Status Date / Time tree nut Allergy Verified 04/29/19 11:25 eggplant Allergy Unknown Itching Uncoded 04/29/19 11:25 raw apples Allergy Unknown Difficulty Uncoded 05/27/19 13:35 Breathing raw peaches Allergy Unknown Difficulty Uncoded 05/27/19 13:34 Breathing raw pears Allergy Unknown Difficulty Uncoded 05/27/19 13:36 Breathing raw plums Allergy Unknown Difficulty Uncoded 05/27/19 13:35 Breathing - Home Medications Home Medications: Ambulatory Orders RX: Aspirin [ASA -] 81 mg PO DAILY 05/18/17 RX: Atorvastatin Ca [Lipitor] 40 mg PO HS 05/18/17 RX: Clopidogrel Bisulfate [Plavix -] 75 mg PO DAILY 05/18/17 RX: Folic Acid 1 mg PO DAILY 05/18/17 RX: Tamsulosin HCl [Flomax] 0.8 mg PO HS 05/18/17 RX: Metoprolol Tartrate [Lopressor -] 100 mg PO BID 08/26/17 RX: hydrALAZINE HCL [Apresoline -] 100 mg PO TID 08/26/17 RX: Bacitracin - [Bacitracin Topical Ointment -] 1 applic TP DAILY 08/27/17 RX: Calcium Acetate [Phoslo -] 667 mg PO TIDCM 08/27/17 RX: Polyethylene Glycol 3350 [Miralax 119 gm Btl -] 17 gm PO DAILY 08/27/17 RX: Acetaminophen [Tylenol 8 Hour] 650 mg PO PRN 05/13/18 RX: Albuterol Sulfate 0.5% [Ventolin 0.5% Nebulizing Soln. -] 1 neb IH Q6H PRN 05/13/18 RX: Polyvinyl Alcohol [Artificial Tears] 15 ml OP QID 05/13/18 RX: Sennosides [Senna Laxative] 17.2 mg PO HS 05/13/18 Insulin Lispro [Admelog] 100 units SQ ASDIR 04/29/19 Gabapentin [Neurontin -] 300 mg PO Q8H 05/27/19 RX: Famotidine [Acid Controller] 20 mg PO BID 05/27/19 RX: Furosemide [Lasix] 80 mg PO DAILY 05/27/19 RX: Montelukast Sodium [Singulair] 10 mg PO HS 05/27/19 RX: Oxycodone HCl 5 mg PO PRN 05/27/19 RX: Spironolactone [Aldactone] 50 mg PO DAILY 05/27/19 Sevelamer Carbonate [Renvela -] 800 mg PO TID 05/27/19 Family Medical History Family History: Denies Review of Systems - Review of Systems Constitutional: reports: Malaise Eyes: reports: No Symptoms HENT: reports: No Symptoms Neck: reports: No Symptoms Cardiovascular: reports: No Symptoms Respiratory: reports: No Symptoms Gastrointestinal: reports: No Symptoms Genitourinary: reports: No Symptoms Musculoskeletal: reports: No Symptoms Integumentary: reports: Erythema, Other (left leg cellulitis) Neurological: reports: No Symptoms Endocrine: reports: No Symptoms Hematology/Lymphatic: reports: No Symptoms Psychiatric: reports: No Symptoms Physical Exam Vital Signs: Vital Signs Temperature 98.3 F 05/27/19 14:39 Pulse Rate 66 05/27/19 14:40 Respiratory Rate 18 05/27/19 14:40 Blood Pressure 177/62 H 05/27/19 14:40 O2 Sat by Pulse Oximetry (%) 95 05/26/19 23:00 Constitutional: Yes: Calm Eyes: Yes: Conjunctiva Clear HENT: Yes: Atraumatic Neck: Yes: Supple Cardiovascular: Yes: S1, S2 Respiratory: Yes: CTA Bilaterally Gastrointestinal: Yes: Soft, Abdomen, Obese Renal/: Yes: Anuria Extremities: Yes: Other (right leg amputation) Edema: No Wound/Incision: Yes: Dressing Dry and Intact Neurological: Yes: Oriented Psychiatric: Yes: Oriented Labs: CBC, BMP 05/27/19 07:15 05/27/19 07:15 Imaging - Results X-ray: Report Reviewed Problem List - Problems (1) Cellulitis of left leg Code(s): L03.116 - CELLULITIS OF LEFT LOWER LIMB (2) ESRD on hemodialysis Code(s): N18.6 - END STAGE RENAL DISEASE; Z99.2 - DEPENDENCE ON RENAL DIALYSIS Assessment/Plan Current Medications Generic Name Dose Route Start Last Admin Trade Name Freq PRN Reason Stop Dose Admin Acetaminophen 650 mg 05/26/19 20:42 Tylenol - PO Q4H PRN PAIN OR FEVER Albuterol Sulfate 1 amp 05/26/19 20:42 Ventolin 0.083% Nebulizer Soln - NEB Q6H PRN SHORT OF BREATH/WHEEZING Atorvastatin Calcium 40 mg 05/26/19 22:00 05/26/19 23:01 Lipitor - PO 40 mg HS [facility] Administration Bacitracin 1 applic 05/27/19 14:30 Bacitracin - TP DAILY [facility] Calcium Acetate 667 mg 05/27/19 08:00 05/27/19 12:01 Phoslo - PO 667 mg TIDCM [facility] Administration Clopidogrel Bisulfate 75 mg 05/27/19 10:00 05/27/19 10:32 Plavix - PO 75 mg DAILY [facility] Administration Docusate Sodium 200 mg 05/26/19 22:00 05/26/19 23:00 Colace - PO 200 mg HS [facility] Administration Heparin Sodium (Porcine) 5,000 unit 05/26/19 22:00 05/27/19 10:33 Heparin - SQ Not Given BID [facility] Piperacillin Sod/Tazobactam 50 mls @ 100 mls/hr 05/27/19 11:30 05/27/19 14:36 Sod 2.25 gm/ Dextrose IVPB Not Given Q8H-IV [facility] Protocol Insulin Aspart 1 vial 05/27/19 07:00 05/27/19 11:47 Novolog Vial Sliding Scale - SQ Not Given TIDAC [facility] Protocol Ipratropium [place] 1 amp 05/26/19 20:42 Atrovent 0.02% Nebulizer - NEB Q6H PRN WHEEZING Isosorbide Mononitrate 30 mg 05/27/19 10:00 05/27/19 10:31 Imdur - PO Not Given DAILY [facility] Losartan Potassium 100 mg 05/27/19 10:00 05/27/19 10:32 Cozaar - PO Not Given DAILY [facility] Metoprolol Tartrate 50 mg 05/26/19 22:00 05/27/19 10:31 Lopressor - PO Not Given BID [facility] Oxycodone HCl 5 mg 05/26/19 22:50 05/27/19 14:36 Roxicodone - PO 05/28/19 23:59 5 mg Q8H PRN Administration PAIN LEVEL 6-10 Polyethylene Glycol 17 gm 05/27/19 10:00 05/27/19 10:34 Miralax (For Daily Use) - PO Not Given DAILY [facility] Ranitidine HCl 150 mg 05/27/19 10:00 05/27/19 10:34 Zantac - PO 150 mg BID [facility] Administration Impression 1. ESRD 2. cellulitis 3. copd 4. HTN 5. DM 6. right BKA Plan - HD today - cont current meds - abx per ID - renal diet - fluid restriction - HD AVF 4:15, 2 k bath, 500 abf, heparin 7000 units bolus and 3000 mid, [id number] dialyzer
[2019-05-27] MEDS ORDERED: VANCOMYCIN 1 GRAM (PRE-DOCKED) 1,000 MG/250 ML BAG IVPB ONE (15:15)
--- NOTE | 2019-05-27 17:21 | PN ---
Progress Note, Physician Chief Complaint: LLE Cellulitis ESRD on HD History of Present Illness: Previous notes and events reviewed awake and alert NAD getting dialysis on examination complain of pain to LLE denies chest pain or SOB - Current Medication List Current Medications: Active Medications Acetaminophen (Tylenol -) 650 mg PO Q4H PRN PRN Reason: PAIN OR FEVER Albuterol Sulfate (Ventolin 0.083% Nebulizer Soln -) 1 amp NEB Q6H PRN PRN Reason: SHORT OF BREATH/WHEEZING Atorvastatin Calcium (Lipitor -) 40 mg PO HS [facility] Last Admin: 05/26/19 23:01 Dose: 40 mg Bacitracin (Bacitracin -) 1 applic TP DAILY [facility] Calcium Acetate (Phoslo -) 667 mg PO TIDCM [facility] Last Admin: 05/27/19 12:01 Dose: 667 mg Clopidogrel Bisulfate (Plavix -) 75 mg PO DAILY [facility] Last Admin: 05/27/19 10:32 Dose: 75 mg Docusate Sodium (Colace -) 200 mg PO HS [facility] Last Admin: 05/26/19 23:00 Dose: 200 mg Heparin Sodium (Porcine) (Heparin -) 5,000 unit SQ BID [facility] Last Admin: 05/27/19 10:33 Dose: Not Given Piperacillin Sod/Tazobactam (Sod 2.25 gm/ Dextrose) 50 mls @ 100 mls/hr IVPB Q8H-IV [facility]; Protocol Last Admin: 05/27/19 14:36 Dose: Not Given Sodium Chloride (Normal Saline -) 250 mls @ 3,000 mls/hr IV PRN PRN PRN Reason: Hypotension during Dialysis Stop: 05/28/19 15:08 Insulin Aspart (Novolog Vial Sliding Scale -) 1 vial SQ TIDAC [facility]; Protocol Last Admin: 05/27/19 11:47 Dose: Not Given Ipratropium [place] (Atrovent 0.02% Nebulizer -) 1 amp NEB Q6H PRN PRN Reason: WHEEZING Isosorbide Mononitrate (Imdur -) 30 mg PO DAILY [facility] Last Admin: 05/27/19 10:31 Dose: Not Given Losartan Potassium (Cozaar -) 100 mg PO DAILY [facility] Last Admin: 05/27/19 10:32 Dose: Not Given Metoprolol Tartrate (Lopressor -) 50 mg PO BID [facility] Last Admin: 05/27/19 10:31 Dose: Not Given Oxycodone HCl (Roxicodone -) 5 mg PO Q8H PRN PRN Reason: PAIN LEVEL 6-10 Stop: 05/28/19 23:59 Last Admin: 05/27/19 14:36 Dose: 5 mg Polyethylene Glycol (Miralax (For Daily Use) -) 17 gm PO DAILY [facility] Last Admin: 05/27/19 10:34 Dose: Not Given Ranitidine HCl (Zantac -) 150 mg PO BID [facility] Last Admin: 05/27/19 10:34 Dose: 150 mg - Objective Vital Signs: Vital Signs Temperature 98.3 F 05/27/19 14:39 Pulse Rate 73 05/27/19 16:30 Respiratory Rate 18 05/27/19 16:30 Blood Pressure 188/98 H 05/27/19 16:30 O2 Sat by Pulse Oximetry (%) 95 05/26/19 23:00 Constitutional: Yes: No Distress, Calm Eyes: Yes: Conjunctiva Clear HENT: Yes: Atraumatic Cardiovascular: Yes: Regular Rate and Rhythm Respiratory: Yes: Regular, CTA Bilaterally Gastrointestinal: Yes: Normal Bowel Sounds, Soft, Abdomen, Obese, Tenderness ( llq) Musculoskeletal: Yes: Muscle Weakness Extremities: Yes: Other (R BKA) Wound/Incision: Yes: Dressing Dry and Intact Neurological: Yes: Alert, Oriented Psychiatric: Yes: Alert, Oriented Labs: CBC, BMP 05/27/19 07:15 05/27/19 07:15 INR, PTT INR 1.05 (0.83-1.09) 05/26/19 16:42 Microbiology 05/26/19 16:42 Blood - Peripheral Venous Blood Culture - Preliminary NO GROWTH OBTAINED AFTER 24 HOURS, INCUBATION TO CONTINUE FOR 4 DAYS. 05/26/19 16:42 Blood - Peripheral Venous Blood Culture - Preliminary NO GROWTH OBTAINED AFTER 24 HOURS, INCUBATION TO CONTINUE FOR 4 DAYS. Problem List - Problems (1) CHF (congestive heart failure) Assessment/Plan: -1L fluid restriction -daily weights -low Na diet Code(s): I50.9 - HEART FAILURE, UNSPECIFIED (2) Cellulitis of left leg Assessment/Plan: -ID on board -Vascular on board -Leukocytosis~WBC 11.7 -Zosyn renally dose -daily dressing changes -keep LLE elevated -BC neg Code(s): L03.116 - CELLULITIS OF LEFT LOWER LIMB (3) ESRD on hemodialysis Assessment/Plan: -renal on board -continue HD on scheduled days -BUN/Cr 66.9/9.7 -renal diet Code(s): N18.6 - END STAGE RENAL DISEASE; Z99.2 - DEPENDENCE ON RENAL DIALYSIS (4) GERD (gastroesophageal reflux disease) Assessment/Plan: -Rantidine Code(s): K21.9 - GASTRO-ESOPHAGEAL REFLUX DISEASE WITHOUT ESOPHAGITIS (5) HLD (hyperlipidemia) Assessment/Plan: -Atorvastatin Code(s): E78.5 - HYPERLIPIDEMIA, UNSPECIFIED (6) COPD (chronic obstructive pulmonary disease) Assessment/Plan: -Bronchodilators -keep SpO2 >90% -O2 via NC Code(s): J44.9 - CHRONIC OBSTRUCTIVE PULMONARY DISEASE, UNSPECIFIED (7) Diabetes Assessment/Plan: -BGM ACHS -ISS -diabetic diet Code(s): E11.9 - TYPE 2 DIABETES MELLITUS WITHOUT COMPLICATIONS Qualifiers: Diabetes mellitus type: type 2 Chronic kidney disease stage: on chronic dialysis (8) HTN (hypertension) Assessment/Plan: -Losartan, Isosorbide, Metoprolol -low Na diet Code(s): I10 - ESSENTIAL (PRIMARY) HYPERTENSION Qualifiers: Hypertension type: unspecified Qualified Code(s): I10 - Essential (primary ) hypertension Assessment/Plan see problem list dvt ppx
[2019-05-27] MEDS ORDERED: ARTIFICIAL TEARS (POLYVINYL ALCOHOL) OPTH DROPS OU PRN (17:37)
--- NOTE | 2019-05-27 21:46 | HOSP ---
Subjective - Review of Symptoms Events since last encounter: Hospitalist Encounter Notified by the RN that the patient reports SOB Was asked to come up to assess. Arrived to bedside patient is awake, alert and oriented. Patient reports request for "jock itch" cream. Denies SOB at present Order placed Other Systems: Integumentary- groin rash Physical Examination Vital Signs: Vital Signs Temperature 98.3 F 05/27/19 20:47 Pulse Rate 84 05/27/19 20:47 Respiratory Rate 18 05/27/19 20:47 Blood Pressure 173/114 H 05/27/19 20:47 O2 Sat by Pulse Oximetry (%) 96 05/27/19 09:00 Constitutional: Yes: Well Nourished, Anxious, Obese Eyes: Yes: WNL, Conjunctiva Clear, EOM Intact, PERRL HENT: Yes: WNL, Atraumatic, Normocephalic Neck: Yes: WNL, Supple, Trachea Midline Cardiovascular: Yes: WNL, Regular Rate and Rhythm, S2, S3 Respiratory: Yes: Diminished, On Nasal O2 Gastrointestinal: Yes: WNL, Normal Bowel Sounds, Soft, Abdomen, Obese Extremities: Yes: Amputation (R- BKA) Integumentary: Yes: Erythema, Rash, Venous Stasis Changes Wound/Incision: Yes: Other (dressing with elastic bandage to LLE) Neurological: Yes: WNL, Alert, Oriented Psychiatric: Yes: WNL, Alert, Oriented Labs: CBC, BMP 05/27/19 07:15 05/27/19 07:15 Laboratory Results - last 24 hr 05/27/19 05/27/19 05/27/19 05:27 07:15 07:15 WBC 11.7 H RBC 3.22 L Hgb 10.0 L Hct 30.0 L MCV 93.3 MCH 31.0 MCHC 33.3 RDW 16.5 H Plt Count 233 MPV 7.8 Sodium 137 Potassium 4.8 Chloride 103 Carbon Dioxide 24 Anion Gap 11 BUN 66.9 H Creatinine 9.7 H* Est GFR (CKD-EPI)AfAm 6.05 Est GFR (CKD-EPI)NonAf 5.22 POC Glucometer 141 Random Glucose 112 H Calcium 8.8 05/27/19 05/27/19 11:44 17:08 WBC RBC Hgb Hct MCV MCH MCHC RDW Plt Count MPV Sodium Potassium Chloride Carbon Dioxide Anion Gap BUN Creatinine Est GFR (CKD-EPI)AfAm Est GFR (CKD-EPI)NonAf POC Glucometer 139 219 Random Glucose Calcium Intake & Output 05/24/19 05/25/19 05/26/19 05/27/19 23:59 23:59 23:59 23:59 Intake Total 1300 Output Total 5000 Balance -3700 Weight 137.013 kg 138 kg Current Medications Generic Name Dose Route Start Last Admin Trade Name Freq PRN Reason Stop Dose Admin Acetaminophen 650 mg 05/26/19 20:42 Tylenol - PO Q4H PRN PAIN OR FEVER Albuterol Sulfate 1 amp 05/26/19 20:42 Ventolin 0.083% Nebulizer Soln - NEB Q6H PRN SHORT OF BREATH/WHEEZING Artificial Tears 1 drop 05/27/19 17:37 Artificial Tears OU QID PRN DRY EYES Aspirin 81 mg 05/28/19 10:00 Ecotrin - PO DAILY [facility] Atorvastatin Calcium 40 mg 05/26/19 22:00 05/26/19 23:01 Lipitor - PO 40 mg HS [facility] Administration Bacitracin 1 applic 05/27/19 20:00 Bacitracin - TP DAILY [facility] Calcium Acetate 667 mg 05/27/19 08:00 05/27/19 18:37 Phoslo - PO 667 mg TIDCM [facility] Administration Clopidogrel Bisulfate 75 mg 05/27/19 10:00 05/27/19 10:32 Plavix - PO 75 mg DAILY [facility] Administration Docusate Sodium 200 mg 05/26/19 22:00 05/26/19 23:00 Colace - PO 200 mg HS [facility] Administration Folic Acid 1 mg 05/28/19 10:00 Folic Acid - PO DAILY [facility] Furosemide 80 mg 05/28/19 10:00 Lasix - PO DAILY [facility] Gabapentin 300 mg 05/27/19 22:00 Neurontin - PO TID [facility] Heparin Sodium (Porcine) 5,000 unit 05/26/19 22:00 05/27/19 10:33 Heparin - SQ Not Given BID [facility] Hydralazine HCl 100 mg 05/27/19 22:00 Apresoline - PO TID [facility] Piperacillin Sod/Tazobactam 50 mls @ 100 mls/hr 05/27/19 11:30 05/27/19 18:37 Sod 2.25 gm/ Dextrose IVPB 100 mls/hr Q8H-IV [facility] Administration Protocol Sodium Chloride 250 mls @ 3,000 mls/hr 05/27/19 15:08 Normal Saline - IV 05/28/19 15:08 PRN PRN Hypotension during Dialysis Insulin Aspart 1 vial 05/27/19 07:00 05/27/19 18:43 Novolog Vial Sliding Scale - SQ 4 units TIDAC [facility] Administration Protocol Ipratropium [place] 1 amp 05/26/19 20:42 Atrovent 0.02% Nebulizer - NEB Q6H PRN WHEEZING Isosorbide Mononitrate 30 mg 05/27/19 10:00 05/27/19 10:31 Imdur - PO Not Given DAILY [facility] Losartan Potassium 100 mg 05/27/19 10:00 05/27/19 10:32 Cozaar - PO Not Given DAILY [facility] Metoprolol Tartrate 50 mg 05/26/19 22:00 05/27/19 10:31 Lopressor - PO Not Given BID [facility] Minoxidil 2.5 mg 05/28/19 10:00 Lonitin - PO DAILY [facility] Montelukast Sodium 10 mg 05/27/19 22:00 Singulair - PO HS [facility] Nystatin 1 applic 05/27/19 22:00 Mycostatin Cream - TP BID [facility] Oxycodone HCl 5 mg 05/26/19 22:50 05/27/19 14:36 Roxicodone - PO 05/28/19 23:59 5 mg Q8H PRN Administration PAIN LEVEL 6-10 Polyethylene Glycol 17 gm 05/27/19 10:00 05/27/19 10:34 Miralax (For Daily Use) - PO Not Given DAILY [facility] Ranitidine HCl 150 mg 05/27/19 10:00 05/27/19 10:34 Zantac - PO 150 mg BID [facility] Administration Senna 2 tab 05/27/19 22:00 Senna - PO HS [facility] Sevelamer Carbonate 800 mg 05/28/19 08:00 Renvela - PO TIDCM [facility] Spironolactone 25 mg 05/28/19 10:00 Aldactone - PO DAILY [facility] Tamsulosin HCl 0.8 mg 05/28/19 08:30 Flomax - PO DAILY@0830 [facility] Trazodone HCl 300 mg 05/27/19 22:00 Desyrel - PO [facility] Hospitalist Encounter Outcome: Per RN, she is still awaiting MARs and BIPAP settings for [place] from the [place] Bipap settings placed per Sleep Study recommendations -01/05/19
[2019-05-27] MEDS: BACITRACIN 15 GM TUBE TOPICAL OINTMENT TP SCH (23:57)
[2019-05-27] MEDS: hydrALAZINE HCL 50 MG TABLET (FP) PO SCH (23:58)
[2019-05-27] MEDS: MONTELUKAST NA 10 MG TABLET PO SCH (23:59)
[2019-05-28] MEDS: METOPROLOL TARTRATE 50 MG TABLET (FP) PO SCH ×3 (00:01→21:50)
[2019-05-28] MEDS: traZODone HCL 150 MG TABLET PO SCH ×2 (00:01→21:49)
[2019-05-28] MEDS: DOCUSATE SODIUM 100 MG CAPSULE (FP) PO SCH ×2 (00:01→21:50)
[2019-05-28] MEDS: NYSTATIN 100,000 UNIT/GM TOPICAL CREAM 15 GM TUBE TP SCH ×3 (00:05→21:51)
[2019-05-28] MEDS: SENNOSIDES 8.6MG TABLET (FP) PO SCH ×2 (00:13→21:51)
[2019-05-28] MEDS ORDERED: PIPERACILLIN/TAZOBACTAM 2.25 GM VIAL IVPB ONE ×3 (01:36→17:50)
[2019-05-28] MEDS ORDERED: DEXTROSE 5%-WATER - 50 ML IVPB ONE ×3 (01:37→17:50)
[2019-05-28] MEDS: PIPERACILLIN/TAZOB 2.25 GM 2.25 GM in DEXTROSE 5%-WATER - 50 ML IVPB SCH ×3 (01:41→18:23)
[2019-05-28] MEDS: hydrALAZINE HCL 50 MG TABLET (FP) PO SCH ×3 (07:01→21:50)
[2019-05-28] MEDS: GABAPENTIN 300 MG CAPSULE (FP) PO SCH ×4 (07:01→21:51)
[2019-05-28] MEDS: INSULIN SLIDING SCALE (NOVOLOG) 1 VIAL SQ SCH ×3 (07:11→17:37)
[2019-05-28] MEDS ORDERED: PT OWN MED DRAWER 7, Y5N ONE ×3 (08:09→21:43)
[2019-05-28] MEDS: SEVELAMER CARBONATE 800 MG TAB (FP) PO SCH ×3 (08:12→17:53)
[2019-05-28] MEDS: CALCIUM ACETATE 667 MG CAPSULE (FP) PO SCH ×3 (08:12→17:53)
[2019-05-28] MEDS: TAMSULOSIN HCL 0.4 MG CAP PO SCH (08:12)
[2019-05-28 09:05] LABS: HEMATOCRIT 29.5 % (35.4-49); HEMOGLOBIN 9.8 GM/dL (11.7-16.9); MCH 30.6 pg (25.7-33.7); MCHC 33.1 g/dl (32.0-35.9); MEAN CELL VOLUME 92.4 fl (80-96); MEAN PLT VOLUME 7.7 fl (7.5-11.1); PLATELET COUNT 230 K/MM3 (134-434); RBC 3.19 M/mm3 (4.00-5.60); RDW 15.9 % (11.9-15.9); WHITE BLOOD COUNT 11.8 K/mm3 (4.0-10.0)
[2019-05-28 09:26] LABS: ALBUMIN 3.2 g/dl (3.4-5.0); BILIRUBIN,TOTAL 0.5 mg/dL (0.2-1); BLOOD UREA NITROGEN 45.8 mg/dL (7-18); CALCIUM 8.6 mg/dL (8.5-10.1); POTASSIUM 4.3 mmol/L (3.5-5.1); TOT PROT 6.7 g/dl (6.4-8.2)
[2019-05-28 10:02] LABS: CREATININE 7.4 mg/dL (0.55-1.3)
[2019-05-28] MEDS: HEPARIN NA (PORCINE) 5,000 UNITS/ML 1ML VIAL SQ SCH ×3 (11:27→21:52)
[2019-05-28] MEDS: ISOSORBIDE MONONITRATE 30 MG TAB.SR.24H (FP) PO SCH (11:31)
[2019-05-28] MEDS: SPIRONOLACTONE 25 MG TABLET (FP) PO SCH (11:34)
[2019-05-28] MEDS: CLOPIDOGREL BISULFATE 75 MG TABLET (FP) PO SCH (11:34)
[2019-05-28] MEDS: FOLIC ACID 1 MG TABLET (FP) PO SCH (11:35)
[2019-05-28] MEDS: LOSARTAN POTASSIUM 50 MG TABLET (FP) PO SCH (11:36)
[2019-05-28] MEDS: RANITIDINE HCL 150 MG TABLET (FP) PO SCH ×3 (11:36→21:51)
[2019-05-28] MEDS: ASPIRIN COATED 81 MG TABLET.EC PO SCH (11:37)
[2019-05-28] MEDS: MINOXIDIL 2.5 MG TABLET PO SCH (11:37)
[2019-05-28] MEDS: FUROSEMIDE 40 MG TABLET (FP) PO SCH (11:37)
[2019-05-28] MEDS: POLYETHYLENE GLYCOL 3350 119 GM BTL PO SCH (11:38)
--- NOTE | 2019-05-28 14:07 | PN ---
Progress Note, Physician Chief Complaint: LLE Cellulitis ESRD on HD History of Present Illness: Previous notes and events reviewed awake and alert NAD complain of nasal congestion and sorethroat denies chest pain or SOB - Current Medication List Current Medications: Active Medications Acetaminophen (Tylenol -) 650 mg PO Q4H PRN PRN Reason: PAIN OR FEVER Albuterol Sulfate (Ventolin 0.083% Nebulizer Soln -) 1 amp NEB Q6H PRN PRN Reason: SHORT OF BREATH/WHEEZING Artificial Tears (Artificial Tears) 1 drop OU QID PRN PRN Reason: DRY EYES Aspirin (Ecotrin -) 81 mg PO DAILY [facility] Last Admin: 05/28/19 11:37 Dose: 81 mg Atorvastatin Calcium (Lipitor -) 40 mg PO HS [facility] Last Admin: 05/28/19 00:00 Dose: 40 mg Bacitracin (Bacitracin -) 1 applic TP DAILY [facility] Last Admin: 05/27/19 23:57 Dose: Not Given Calcium Acetate (Phoslo -) 667 mg PO TIDCM [facility] Last Admin: 05/28/19 08:12 Dose: 667 mg Clopidogrel Bisulfate (Plavix -) 75 mg PO DAILY [facility] Last Admin: 05/28/19 11:34 Dose: 75 mg Docusate Sodium (Colace -) 200 mg PO HS [facility] Last Admin: 05/28/19 00:01 Dose: 200 mg Folic Acid (Folic Acid -) 1 mg PO DAILY [facility] Last Admin: 05/28/19 11:35 Dose: 1 mg Furosemide (Lasix -) 80 mg PO DAILY [facility] Last Admin: 05/28/19 11:37 Dose: Not Given Gabapentin (Neurontin -) 300 mg PO TID [facility] Last Admin: 05/28/19 07:01 Dose: 300 mg Heparin Sodium (Porcine) (Heparin -) 5,000 unit SQ BID [facility] Last Admin: 05/28/19 11:27 Dose: Not Given Hydralazine HCl (Apresoline -) 100 mg PO TID [facility] Last Admin: 05/28/19 07:01 Dose: 100 mg Piperacillin Sod/Tazobactam (Sod 2.25 gm/ Dextrose) 50 mls @ 100 mls/hr IVPB Q8H-IV [facility]; Protocol Last Admin: 05/28/19 11:38 Dose: 100 mls/hr Sodium Chloride (Normal Saline -) 250 mls @ 3,000 mls/hr IV PRN PRN PRN Reason: Hypotension during Dialysis Stop: 05/28/19 15:08 Insulin Aspart (Novolog Vial Sliding Scale -) 1 vial SQ TIDAC [facility]; Protocol Last Admin: 05/28/19 12:08 Dose: 2 units Ipratropium [place] (Atrovent 0.02% Nebulizer -) 1 amp NEB Q6H PRN PRN Reason: WHEEZING Isosorbide Mononitrate (Imdur -) 30 mg PO DAILY [facility] Last Admin: 05/28/19 11:31 Dose: Not Given Losartan Potassium (Cozaar -) 100 mg PO DAILY [facility] Last Admin: 05/28/19 11:36 Dose: Not Given Metoprolol Tartrate (Lopressor -) 50 mg PO BID [facility] Last Admin: 05/28/19 11:37 Dose: 50 mg Minoxidil (Lonitin -) 2.5 mg PO DAILY [facility] Last Admin: 05/28/19 11:37 Dose: Not Given Montelukast Sodium (Singulair -) 10 mg PO [facility] Last Admin: 05/27/19 23:59 Dose: 10 mg Nystatin (Mycostatin Cream -) 1 applic TP BID [facility] Last Admin: 05/28/19 00:05 Dose: 1 applic Oxycodone HCl (Roxicodone -) 5 mg PO Q8H PRN PRN Reason: PAIN LEVEL 6-10 Stop: 05/28/19 23:59 Last Admin: 05/27/19 23:59 Dose: 5 mg Polyethylene Glycol (Miralax (For Daily Use) -) 17 gm PO DAILY [facility] Last Admin: 05/28/19 11:38 Dose: Not Given Ranitidine HCl (Zantac -) 150 mg PO BID [facility] Last Admin: 05/28/19 11:36 Dose: 150 mg Senna (Senna -) 2 tab PO HS [facility] Last Admin: 05/28/19 00:13 Dose: 2 tab Sevelamer Carbonate (Renvela -) 800 mg PO TIDCM [facility] Last Admin: 05/28/19 11:32 Dose: 800 mg Spironolactone (Aldactone -) 25 mg PO DAILY [facility] Last Admin: 05/28/19 11:34 Dose: 25 mg Tamsulosin HCl (Flomax -) 0.8 mg PO DAILY@0830 [facility] Last Admin: 05/28/19 08:12 Dose: 0.8 mg Trazodone HCl (Desyrel -) 300 mg PO HS [facility] Last Admin: 05/28/19 00:01 Dose: 300 mg - Objective Vital Signs: Vital Signs Temperature 99.5 F 05/28/19 06:00 Pulse Rate 63 05/28/19 06:00 Respiratory Rate 18 05/28/19 06:00 Blood Pressure 157/61 05/28/19 06:00 O2 Sat by Pulse Oximetry (%) 97 05/28/19 08:02 Constitutional: Yes: No Distress, Calm, Obese Eyes: Yes: Conjunctiva Clear HENT: Yes: Atraumatic Cardiovascular: Yes: Regular Rate and Rhythm Respiratory: Yes: Regular, Diminished Gastrointestinal: Yes: Normal Bowel Sounds, Soft, Abdomen, Obese, Tenderness ( lower abdomen) Musculoskeletal: Yes: Muscle Weakness Extremities: Yes: Other (R BKA) Edema: No Wound/Incision: Yes: Dressing Dry and Intact Neurological: Yes: Alert, Oriented Psychiatric: Yes: Alert, Oriented Labs: CBC, BMP 05/28/19 07:55 05/28/19 07:55 INR, PTT INR 1.05 (0.83-1.09) 05/26/19 16:42 Microbiology 05/26/19 16:42 Blood - Peripheral Venous Blood Culture - Preliminary NO GROWTH OBTAINED AFTER 24 HOURS, INCUBATION TO CONTINUE FOR 4 DAYS. 05/26/19 16:42 Blood - Peripheral Venous Blood Culture - Preliminary NO GROWTH OBTAINED AFTER 24 HOURS, INCUBATION TO CONTINUE FOR 4 DAYS. Problem List - Problems (1) CHF (congestive heart failure) Assessment/Plan: -1L fluid restriction -daily weights -low Na diet Code(s): I50.9 - HEART FAILURE, UNSPECIFIED (2) Cellulitis of left leg Assessment/Plan: -ID on board -Vascular on board -Leukocytosis~WBC 11.8 -Zosyn renally dose -daily dressing changes -keep LLE elevated -BC neg Code(s): L03.116 - CELLULITIS OF LEFT LOWER LIMB (3) ESRD on hemodialysis Assessment/Plan: -renal on board -continue HD on scheduled days -BUN/Cr 45.8/7.4 -renal diet Code(s): N18.6 - END STAGE RENAL DISEASE; Z99.2 - DEPENDENCE ON RENAL DIALYSIS (4) GERD (gastroesophageal reflux disease) Assessment/Plan: -Rantidine Code(s): K21.9 - GASTRO-ESOPHAGEAL REFLUX DISEASE WITHOUT ESOPHAGITIS (5) HLD (hyperlipidemia) Assessment/Plan: -Atorvastatin Code(s): E78.5 - HYPERLIPIDEMIA, UNSPECIFIED (6) COPD (chronic obstructive pulmonary disease) Assessment/Plan: -Bronchodilators -keep SpO2 >90% -O2 via [place] -Bipap HS Code(s): J44.9 - CHRONIC OBSTRUCTIVE PULMONARY DISEASE, UNSPECIFIED (7) Diabetes Assessment/Plan: -BGM ACHS -ISS -diabetic diet Code(s): E11.9 - TYPE 2 DIABETES MELLITUS WITHOUT COMPLICATIONS Qualifiers: Diabetes mellitus type: type 2 Chronic kidney disease stage: on chronic dialysis (8) HTN (hypertension) Assessment/Plan: -Losartan, Isosorbide, Metoprolol -low Na diet Code(s): I10 - ESSENTIAL (PRIMARY) HYPERTENSION Qualifiers: Hypertension type: unspecified Qualified Code(s): I10 - Essential (primary ) hypertension Assessment/Plan see problem list dvt ppx
[2019-05-28] MEDS: LORATADINE 10 MG TABLET PO SCH (14:44)
--- NOTE | 2019-05-28 18:08 | PN ---
Progress Note (short form) - Note Progress Note: COVERING DR [place] PROBLEMS 1. ESRD 2. cellulitis 3. copd 4. HTN 5. DM 6. right BKA Current Medications Acetaminophen (Tylenol -) 650 mg PO Q4H PRN PRN Reason: PAIN OR FEVER Albuterol Sulfate (Ventolin 0.083% Nebulizer Soln -) 1 amp NEB Q6H PRN PRN Reason: SHORT OF BREATH/WHEEZING Artificial Tears (Artificial Tears) 1 drop OU QID PRN PRN Reason: DRY EYES Aspirin (Ecotrin -) 81 mg PO DAILY [facility] Last Admin: 05/28/19 11:37 Dose: 81 mg Atorvastatin Calcium (Lipitor -) 40 mg PO HS [facility] Last Admin: 05/28/19 00:00 Dose: 40 mg Bacitracin (Bacitracin -) 1 applic TP DAILY [facility] Last Admin: 05/27/19 23:57 Dose: Not Given Calcium Acetate (Phoslo -) 667 mg PO TIDCM [facility] Last Admin: 05/28/19 17:53 Dose: 667 mg Clopidogrel Bisulfate (Plavix -) 75 mg PO DAILY [facility] Last Admin: 05/28/19 11:34 Dose: 75 mg Docusate Sodium (Colace -) 200 mg PO HS [facility] Last Admin: 05/28/19 00:01 Dose: 200 mg Folic Acid (Folic Acid -) 1 mg PO DAILY [facility] Last Admin: 05/28/19 11:35 Dose: 1 mg Furosemide (Lasix -) 80 mg PO DAILY [facility] Last Admin: 05/28/19 11:37 Dose: Not Given Gabapentin (Neurontin -) 300 mg PO TID [facility] Last Admin: 05/28/19 14:41 Dose: 300 mg Heparin Sodium (Porcine) (Heparin -) 5,000 unit SQ BID [facility] Last Admin: 05/28/19 11:27 Dose: Not Given Hydralazine HCl (Apresoline -) 100 mg PO TID [facility] Last Admin: 05/28/19 14:44 Dose: 100 mg Piperacillin Sod/Tazobactam (Sod 2.25 gm/ Dextrose) 50 mls @ 100 mls/hr IVPB Q8H-IV [facility]; Protocol Last Admin: 05/28/19 11:38 Dose: 100 mls/hr Insulin Aspart (Novolog Vial Sliding Scale -) 1 vial SQ TIDAC [facility]; Protocol Last Admin: 05/28/19 17:37 Dose: Not Given Ipratropium [place] (Atrovent 0.02% Nebulizer -) 1 amp NEB Q6H PRN PRN Reason: WHEEZING Isosorbide Mononitrate (Imdur -) 30 mg PO DAILY [facility] Last Admin: 05/28/19 11:31 Dose: Not Given Loratadine (Claritin -) 10 mg PO DAILY [facility] Last Admin: 05/28/19 14:44 Dose: 10 mg Losartan Potassium (Cozaar -) 100 mg PO DAILY [facility] Last Admin: 05/28/19 11:36 Dose: Not Given Metoprolol Tartrate (Lopressor -) 50 mg PO BID [facility] Last Admin: 05/28/19 11:37 Dose: 50 mg Minoxidil (Lonitin -) 2.5 mg PO DAILY [facility] Last Admin: 05/28/19 11:37 Dose: Not Given Montelukast Sodium (Singulair -) 10 mg PO [facility] Last Admin: 05/27/19 23:59 Dose: 10 mg Nystatin (Mycostatin Cream -) 1 applic TP BID [facility] Last Admin: 05/28/19 00:05 Dose: 1 applic Oxycodone HCl (Roxicodone -) 5 mg PO Q8H PRN PRN Reason: PAIN LEVEL 6-10 Stop: 05/28/19 23:59 Last Admin: 05/27/19 23:59 Dose: 5 mg Polyethylene Glycol (Miralax (For Daily Use) -) 17 gm PO DAILY [facility] Last Admin: 05/28/19 11:38 Dose: Not Given Ranitidine HCl (Zantac -) 150 mg PO BID [facility] Last Admin: 05/28/19 11:36 Dose: 150 mg Senna (Senna -) 2 tab PO HS [facility] Last Admin: 05/28/19 00:13 Dose: 2 tab Sevelamer Carbonate (Renvela -) 800 mg PO TIDCM [facility] Last Admin: 05/28/19 17:53 Dose: 800 mg Spironolactone (Aldactone -) 25 mg PO DAILY [facility] Last Admin: 05/28/19 11:34 Dose: 25 mg Tamsulosin HCl (Flomax -) 0.8 mg PO DAILY@0830 [facility] Last Admin: 05/28/19 08:12 Dose: 0.8 mg Trazodone HCl (Desyrel -) 300 mg PO HS [facility] Last Admin: 05/28/19 00:01 Dose: 300 mg Last Vital Signs Temp Pulse Resp BP Pulse Ox 98.7 F 65 20 155/87 97 05/28/19 14:48 05/28/19 14:48 05/28/19 14:48 05/28/19 14:48 05/28/19 16:48 CBC, BMP 05/28/19 07:55 05/28/19 07:55 IMP- ESRD
[2019-05-28 18:25] VITALS: BMI 41.2
[2019-05-28] MEDS: BACITRACIN 15 GM TUBE TOPICAL OINTMENT TP SCH (18:39)
[2019-05-28] MEDS: IPRATROPIUM BR 0.02% 0.5 MG/2.5 ML VIAL.NEB. NEB PRN (20:58)
[2019-05-28] MEDS: ALBUTEROL SO4 0.083% IH SOL 2.5 MG/3 ML VIAL.NEB. NEB PRN (20:59)
[2019-05-28] MEDS: ATORVASTATIN CA 40 MG TABLET (FP) PO SCH ×2 (21:50)
[2019-05-28] MEDS: MONTELUKAST NA 10 MG TABLET PO SCH (21:50)
[2019-05-28] MEDS: oxyCODONE HCL 5 MG TABLET PO PRN (21:56)
[2019-05-29] MEDS ORDERED: PIPERACILLIN/TAZOBACTAM 2.25 GM VIAL IVPB ONE ×3 (00:39→17:21)
[2019-05-29] MEDS ORDERED: DEXTROSE 5%-WATER - 50 ML IVPB ONE ×3 (00:40→17:21)
[2019-05-29] MEDS: PIPERACILLIN/TAZOB 2.25 GM 2.25 GM in DEXTROSE 5%-WATER - 50 ML IVPB SCH ×3 (01:51→17:29)
[2019-05-29] MEDS: hydrALAZINE HCL 50 MG TABLET (FP) PO SCH ×3 (06:51→21:52)
[2019-05-29] MEDS: INSULIN SLIDING SCALE (NOVOLOG) 1 VIAL SQ SCH ×3 (06:51→17:29)
[2019-05-29] MEDS: GABAPENTIN 300 MG CAPSULE (FP) PO SCH ×3 (06:51→21:54)
[2019-05-29 07:22] LABS: HEMATOCRIT 32.8 % (35.4-49); HEMOGLOBIN 10.7 GM/dL (11.7-16.9); MCH 30.7 pg (25.7-33.7); MCHC 32.5 g/dl (32.0-35.9); MEAN CELL VOLUME 94.5 fl (80-96); MEAN PLT VOLUME 7.5 fl (7.5-11.1); PLATELET COUNT 239 K/MM3 (134-434); RBC 3.47 M/mm3 (4.00-5.60); RDW 16.3 % (11.9-15.9); WHITE BLOOD COUNT 10.8 K/mm3 (4.0-10.0)
[2019-05-29 07:57] LABS: ALBUMIN 3.3 g/dl (3.4-5.0); BILIRUBIN,TOTAL 0.4 mg/dL (0.2-1); BLOOD UREA NITROGEN 66.2 mg/dL (7-18); POTASSIUM 4.8 mmol/L (3.5-5.1); TOT PROT 7.1 g/dl (6.4-8.2)
[2019-05-29 08:06] LABS: CREATININE 9.8 mg/dL (0.55-1.3)
[2019-05-29] MEDS ORDERED: PT OWN MED DRAWER 7, Y5N ONE ×2 (09:12→21:35)
[2019-05-29] MEDS: CALCIUM ACETATE 667 MG CAPSULE (FP) PO SCH ×3 (09:16→17:29)
[2019-05-29] MEDS: SEVELAMER CARBONATE 800 MG TAB (FP) PO SCH ×3 (09:16→17:29)
[2019-05-29] MEDS: FUROSEMIDE 40 MG TABLET (FP) PO SCH (09:18)
[2019-05-29] MEDS: CLOPIDOGREL BISULFATE 75 MG TABLET (FP) PO SCH (09:18)
[2019-05-29] MEDS: TAMSULOSIN HCL 0.4 MG CAP PO SCH (09:19)
[2019-05-29] MEDS: LORATADINE 10 MG TABLET PO SCH (09:19)
[2019-05-29] MEDS: ASPIRIN COATED 81 MG TABLET.EC PO SCH (09:20)
[2019-05-29] MEDS: SPIRONOLACTONE 25 MG TABLET (FP) PO SCH (09:20)
[2019-05-29] MEDS: LOSARTAN POTASSIUM 50 MG TABLET (FP) PO SCH (09:20)
[2019-05-29] MEDS: HEPARIN NA (PORCINE) 5,000 UNITS/ML 1ML VIAL SQ SCH ×2 (09:21→21:53)
[2019-05-29] MEDS: METOPROLOL TARTRATE 50 MG TABLET (FP) PO SCH ×2 (09:21→21:54)
[2019-05-29] MEDS: MINOXIDIL 2.5 MG TABLET PO SCH (09:21)
[2019-05-29] MEDS: ISOSORBIDE MONONITRATE 30 MG TAB.SR.24H (FP) PO SCH (09:21)
[2019-05-29] MEDS: FOLIC ACID 1 MG TABLET (FP) PO SCH (09:21)
[2019-05-29] MEDS: RANITIDINE HCL 150 MG TABLET (FP) PO SCH ×2 (09:22→21:55)
[2019-05-29] MEDS: POLYETHYLENE GLYCOL 3350 119 GM BTL PO SCH (09:22)
[2019-05-29] MEDS ORDERED: BENZOCAINE/MENTH/CETYLPYRD CL 1 EACH LOZENGE MM PRN (12:10)
--- NOTE | 2019-05-29 12:17 | PN ---
Progress Note, Physician Chief Complaint: LLE Cellulitis ESRD on HD History of Present Illness: Previous notes and events reviewed awake and alert NAD complain of nasal congestion and sorethroat denies chest pain or SOB - Current Medication List Current Medications: Active Medications Acetaminophen (Tylenol -) 650 mg PO Q4H PRN PRN Reason: PAIN OR FEVER Albuterol Sulfate (Ventolin 0.083% Nebulizer Soln -) 1 amp NEB Q6H PRN PRN Reason: SHORT OF BREATH/WHEEZING Last Admin: 05/28/19 20:59 Dose: 1 amp Artificial Tears (Artificial Tears) 1 drop OU QID PRN PRN Reason: DRY EYES Aspirin (Ecotrin -) 81 mg PO DAILY [facility] Last Admin: 05/29/19 09:20 Dose: 81 mg Atorvastatin Calcium (Lipitor -) 40 mg PO HS [facility] Last Admin: 05/28/19 21:50 Dose: 40 mg Bacitracin (Bacitracin -) 1 applic TP DAILY [facility] Last Admin: 05/28/19 18:39 Dose: 1 applic Benzocaine/Menthol (Cepacol Lozenge -) 1 each MM PRN PRN PRN Reason: SORE THROAT Calcium Acetate (Phoslo -) 667 mg PO TIDCM [facility] Last Admin: 05/29/19 09:16 Dose: 667 mg Clopidogrel Bisulfate (Plavix -) 75 mg PO DAILY [facility] Last Admin: 05/29/19 09:18 Dose: 75 mg Docusate Sodium (Colace -) 200 mg PO HS [facility] Last Admin: 05/28/19 21:50 Dose: 200 mg Folic Acid (Folic Acid -) 1 mg PO DAILY [facility] Last Admin: 05/29/19 09:21 Dose: 1 mg Furosemide (Lasix -) 80 mg PO DAILY [facility] Last Admin: 05/29/19 09:18 Dose: 80 mg Gabapentin (Neurontin -) 300 mg PO TID [facility] Last Admin: 05/29/19 06:51 Dose: 300 mg Heparin Sodium (Porcine) (Heparin -) 5,000 unit SQ BID [facility] Last Admin: 05/29/19 09:21 Dose: Not Given Hydralazine HCl (Apresoline -) 100 mg PO TID [facility] Last Admin: 05/29/19 06:51 Dose: 100 mg Piperacillin Sod/Tazobactam (Sod 2.25 gm/ Dextrose) 50 mls @ 100 mls/hr IVPB Q8H-IV [facility]; Protocol Last Admin: 05/29/19 09:22 Dose: 100 mls/hr Insulin Aspart (Novolog Vial Sliding Scale -) 1 vial SQ TIDAC [facility]; Protocol Last Admin: 05/29/19 11:43 Dose: 2 units Ipratropium [place] (Atrovent 0.02% Nebulizer -) 1 amp NEB Q6H PRN PRN Reason: WHEEZING Last Admin: 05/28/19 20:58 Dose: 1 amp Isosorbide Mononitrate (Imdur -) 30 mg PO DAILY [facility] Last Admin: 05/29/19 09:21 Dose: Not Given Loratadine (Claritin -) 10 mg PO DAILY [facility] Last Admin: 05/29/19 09:19 Dose: 10 mg Losartan Potassium (Cozaar -) 100 mg PO DAILY [facility] Last Admin: 05/29/19 09:20 Dose: Not Given Metoprolol Tartrate (Lopressor -) 50 mg PO BID [facility] Last Admin: 05/29/19 09:21 Dose: 50 mg Minoxidil (Lonitin -) 2.5 mg PO DAILY [facility] Last Admin: 05/29/19 09:21 Dose: Not Given Montelukast Sodium (Singulair -) 10 mg PO HS [facility] Last Admin: 05/28/19 21:50 Dose: 10 mg Nystatin (Mycostatin Cream -) 1 applic TP BID [facility] Last Admin: 05/28/19 21:51 Dose: 1 applic Polyethylene Glycol (Miralax (For Daily Use) -) 17 gm PO DAILY [facility] Last Admin: 05/29/19 09:22 Dose: Not Given Ranitidine HCl (Zantac -) 150 mg PO BID [facility] Last Admin: 05/29/19 09:22 Dose: 150 mg Senna (Senna -) 2 tab PO HS [facility] Last Admin: 05/28/19 21:51 Dose: 2 tab Sevelamer Carbonate (Renvela -) 800 mg PO TIDCM [facility] Last Admin: 05/29/19 09:16 Dose: 800 mg Sodium Chloride ([place]al [place] -) 2 spray NS BID PRN PRN Reason: NASAL CONGESTION Spironolactone (Aldactone -) 25 mg PO DAILY [facility] Last Admin: 05/29/19 09:20 Dose: 25 mg Tamsulosin HCl (Flomax -) 0.8 mg PO DAILY@0830 [facility] Last Admin: 05/29/19 09:19 Dose: 0.8 mg Trazodone HCl (Desyrel -) 300 mg PO HS [facility] Last Admin: 05/28/19 21:49 Dose: 300 mg - Objective Vital Signs: Vital Signs Temperature 97.6 F 05/29/19 06:00 Pulse Rate 62 05/29/19 06:00 Respiratory Rate 18 05/29/19 06:00 Blood Pressure 119/79 05/29/19 06:00 O2 Sat by Pulse Oximetry (%) 95 05/29/19 08:08 Constitutional: Yes: No Distress, Calm, Obese Eyes: Yes: Conjunctiva Clear HENT: Yes: Atraumatic Cardiovascular: Yes: Regular Rate and Rhythm Respiratory: Yes: Regular, CTA Bilaterally Gastrointestinal: Yes: Normal Bowel Sounds, Soft, Abdomen, Obese, Tenderness ( lower abdomen) Musculoskeletal: Yes: WNL Extremities: Yes: Other (R BKA) Edema: No Wound/Incision: Yes: Dressing Dry and Intact Neurological: Yes: Alert, Oriented Psychiatric: Yes: Alert, Oriented Labs: CBC, BMP 05/29/19 07:00 05/29/19 07:00 INR, PTT INR 1.05 (0.83-1.09) 05/26/19 16:42 Microbiology 05/26/19 16:42 Blood - Peripheral Venous Blood Culture - Preliminary NO GROWTH OBTAINED AFTER 48 HOURS, INCUBATION TO CONTINUE FOR 3 DAYS. 05/26/19 16:42 Blood - Peripheral Venous Blood Culture - Preliminary NO GROWTH OBTAINED AFTER 48 HOURS, INCUBATION TO CONTINUE FOR 3 DAYS. Problem List - Problems (1) CHF (congestive heart failure) Assessment/Plan: -1L fluid restriction -daily weights -low Na diet Code(s): I50.9 - HEART FAILURE, UNSPECIFIED (2) Cellulitis of left leg Assessment/Plan: -ID on board -Vascular on board -Leukocytosis~WBC 10.8 -Zosyn renally dose -daily dressing changes -keep LLE elevated -BC neg Code(s): L03.116 - CELLULITIS OF LEFT LOWER LIMB (3) ESRD on hemodialysis Assessment/Plan: -renal on board -continue HD on scheduled days -BUN/Cr 66.2/9.8 -renal diet Code(s): N18.6 - END STAGE RENAL DISEASE; Z99.2 - DEPENDENCE ON RENAL DIALYSIS (4) GERD (gastroesophageal reflux disease) Assessment/Plan: -Rantidine Code(s): K21.9 - GASTRO-ESOPHAGEAL REFLUX DISEASE WITHOUT ESOPHAGITIS (5) HLD (hyperlipidemia) Assessment/Plan: -Atorvastatin Code(s): E78.5 - HYPERLIPIDEMIA, UNSPECIFIED (6) COPD (chronic obstructive pulmonary disease) Assessment/Plan: -Bronchodilators -keep SpO2 >90% -O2 via NC -Bipap HS Code(s): J44.9 - CHRONIC OBSTRUCTIVE PULMONARY DISEASE, UNSPECIFIED (7) Diabetes Assessment/Plan: -[facility] ACHS -ISS -diabetic diet Code(s): E11.9 - TYPE 2 DIABETES MELLITUS WITHOUT COMPLICATIONS Qualifiers: Diabetes mellitus type: type 2 Chronic kidney disease stage: on chronic dialysis (8) HTN (hypertension) Assessment/Plan: -Losartan, Isosorbide, Metoprolol -low Na diet Code(s): I10 - ESSENTIAL (PRIMARY) HYPERTENSION Qualifiers: Hypertension type: unspecified Qualified Code(s): I10 - Essential (primary ) hypertension (9) Abdominal pain Assessment/Plan: -GI consult -Abdominal US shows fatty enlarged liver, slightly enlarged spleen, cholelithiasis Code(s): R10.9 - UNSPECIFIED ABDOMINAL PAIN Assessment/Plan see problem list dvt ppx
[2019-05-29] MEDS: BACITRACIN 15 GM TUBE TOPICAL OINTMENT TP SCH ×2 (13:53→14:37)
[2019-05-29] MEDS: NYSTATIN 100,000 UNIT/GM TOPICAL CREAM 15 GM TUBE TP SCH ×3 (13:53→22:01)
[2019-05-29] MEDS: SODIUM CHLORIDE NASAL SPRAY 44 ML BOTTLE NS PRN (14:34)
[2019-05-29] MEDS ORDERED: PATIENT'S OWN MEDICATION (NON-FORMULARY) (Oxycodone Hcl [Oxycodone Hcl] 5 MG) PO SCH (15:30)
[2019-05-29] MEDS ORDERED: VANCOMYCIN 1 GRAM (PRE-DOCKED) 1,000 MG/250 ML BAG IVPB ONE (17:13)
--- NOTE | 2019-05-29 17:17 | PN ---
Progress Note, Physician History of Present Illness: NO C/O LEG PAIN AFEBRILE WBC MILDLY ELEVATED - Current Medication List Current Medications: Active Medications Acetaminophen (Tylenol -) 650 mg PO Q4H PRN PRN Reason: PAIN OR FEVER Albuterol Sulfate (Ventolin 0.083% Nebulizer Soln -) 1 amp NEB Q6H PRN PRN Reason: SHORT OF BREATH/WHEEZING Last Admin: 05/28/19 20:59 Dose: 1 amp Artificial Tears (Artificial Tears) 1 drop OU QID PRN PRN Reason: DRY EYES Aspirin (Ecotrin -) 81 mg PO DAILY [facility] Last Admin: 05/29/19 09:20 Dose: 81 mg Atorvastatin Calcium (Lipitor -) 40 mg PO HS [facility] Last Admin: 05/28/19 21:50 Dose: 40 mg Bacitracin (Bacitracin -) 1 applic TP DAILY [facility] Last Admin: 05/29/19 14:37 Dose: 1 applic Benzocaine/Menthol (Cepacol Lozenge -) 1 each MM PRN PRN PRN Reason: SORE THROAT Calcium Acetate (Phoslo -) 667 mg PO TIDCM [facility] Last Admin: 05/29/19 12:31 Dose: 667 mg Clopidogrel Bisulfate (Plavix -) 75 mg PO DAILY [facility] Last Admin: 05/29/19 09:18 Dose: 75 mg Docusate Sodium (Colace -) 200 mg PO HS [facility] Last Admin: 05/28/19 21:50 Dose: 200 mg Folic Acid (Folic Acid -) 1 mg PO DAILY [facility] Last Admin: 05/29/19 09:21 Dose: 1 mg Furosemide (Lasix -) 80 mg PO DAILY [facility] Last Admin: 05/29/19 09:18 Dose: 80 mg Gabapentin (Neurontin -) 300 mg PO TID [facility] Last Admin: 05/29/19 14:34 Dose: 300 mg Heparin Sodium (Porcine) (Heparin -) 5,000 unit SQ BID [facility] Last Admin: 05/29/19 09:21 Dose: Not Given Hydralazine HCl (Apresoline -) 100 mg PO TID [facility] Last Admin: 05/29/19 14:34 Dose: 100 mg Piperacillin Sod/Tazobactam (Sod 2.25 gm/ Dextrose) 50 mls @ 100 mls/hr IVPB Q8H-IV [facility]; Protocol Last Admin: 05/29/19 09:22 Dose: 100 mls/hr Vancomycin HCl 1,000 mg/ (Dextrose) 250 mls @ 166.667 mls/hr IVPB ONCE ONE; Protocol Stop: 05/29/19 18:42 Insulin Aspart (Novolog Vial Sliding Scale -) 1 vial SQ TIDAC [facility]; Protocol Last Admin: 05/29/19 11:43 Dose: 2 units Ipratropium [place] (Atrovent 0.02% Nebulizer -) 1 amp NEB Q6H PRN PRN Reason: WHEEZING Last Admin: 05/28/19 20:58 Dose: 1 amp Isosorbide Mononitrate (Imdur -) 30 mg PO DAILY [facility] Last Admin: 05/29/19 09:21 Dose: Not Given Loratadine (Claritin -) 10 mg PO DAILY [facility] Last Admin: 05/29/19 09:19 Dose: 10 mg Losartan Potassium (Cozaar -) 100 mg PO DAILY [facility] Last Admin: 05/29/19 09:20 Dose: Not Given Metoprolol Tartrate (Lopressor -) 50 mg PO BID [facility] Last Admin: 05/29/19 09:21 Dose: 50 mg Minoxidil (Lonitin -) 2.5 mg PO DAILY [facility] Last Admin: 05/29/19 09:21 Dose: Not Given Montelukast Sodium (Singulair -) 10 mg PO [facility] Last Admin: 05/28/19 21:50 Dose: 10 mg Nystatin (Mycostatin Cream -) 1 applic TP BID [facility] Last Admin: 05/29/19 14:36 Dose: 1 applic Oxycodone HCl (Roxicodone -) 5 mg PO Q6H PRN PRN Reason: PAIN LEVEL 6-10 Polyethylene Glycol (Miralax (For Daily Use) -) 17 gm PO DAILY [facility] Last Admin: 05/29/19 09:22 Dose: Not Given Ranitidine HCl (Zantac -) 150 mg PO BID [facility] Last Admin: 05/29/19 09:22 Dose: 150 mg Senna (Senna -) 2 tab PO HS [facility] Last Admin: 05/28/19 21:51 Dose: 2 tab Sevelamer Carbonate (Renvela -) 800 mg PO TIDCM [facility] Last Admin: 05/29/19 12:31 Dose: 800 mg Sodium Chloride ([place] Nasal Ophiem -) 2 spray NS BID PRN PRN Reason: NASAL CONGESTION Last Admin: 05/29/19 14:34 Dose: 2 spr Spironolactone (Aldactone -) 25 mg PO DAILY [facility] Last Admin: 05/29/19 09:20 Dose: 25 mg Tamsulosin HCl (Flomax -) 0.8 mg PO DAILY@0830 [facility] Last Admin: 05/29/19 09:19 Dose: 0.8 mg Trazodone HCl (Desyrel -) 300 mg PO HS [facility] Last Admin: 05/28/19 21:49 Dose: 300 mg - Objective Vital Signs: Vital Signs Temperature 98.9 F 05/29/19 13:58 Pulse Rate 63 05/29/19 13:58 Respiratory Rate 18 05/29/19 13:58 Blood Pressure 115/42 L 05/29/19 13:58 O2 Sat by Pulse Oximetry (%) 97 05/29/19 16:32 Constitutional: Yes: No Distress, Obese Cardiovascular: Yes: Regular Rate and Rhythm, S1, S2 Respiratory: Yes: CTA Bilaterally Gastrointestinal: Yes: Normal Bowel Sounds, Soft. No: Tenderness Extremities: Yes: Other (LARGE SHALLOW BASED ULCER L PRETIBIAL AREA NO DRAINAGE CHRONIC VENOUS STASIS DERMATITIS MINIMAL ERYTHEMA) Labs: CBC, BMP 05/29/19 07:00 05/29/19 07:00 INR, PTT INR 1.05 (0.83-1.09) 05/26/19 16:42 Assessment/Plan CELLULITIS L LE ESRD CONTINUE ZOSYN/ VANCO ADJUSTED FOR RENAL FAILURE LOCAL WOUND CARE
[2019-05-29] MEDS: oxyCODONE HCL 5 MG TABLET PO PRN (17:30)
--- NOTE | 2019-05-29 17:45 | CONS ---
GASTROINTESTINAL CONSULTATION DATE OF CONSULTATION: DATE OF DICTATION: 05/29/2019 HISTORY: Patient is a 58-year-old man from [facility] past medical history of COPD, hypertension, hyperlipidemia, diabetes, right BKA, CHF, end-stage renal disease on hemodialysis, spinal hardware, diabetic macular degeneration who was sent to the emergency room by Dr. Trujillo for a left leg cellulitis. As per the patient, prior to admission, he was feverish with chills and nausea. Also with chronic constipation. He states that he chronically has suprapubic abdominal discomfort, however, only when he is palpated or touched in that area. He denies any upper abdominal pain, nausea, or vomiting at this time, hematemesis, melena, or hematochezia. He does admit to intermittent constipation and also a history of having an endoscopy, which revealed Fernandes esophagus and also question of gastroparesis. A colonoscopy was performed in 2018, which revealed a sessile polyp, which was removed, otherwise, normal. There is no upper endoscopy report in our system. He also had a gallbladder scan, HIDA scan, in 2017, which was within normal limits except for a questionable spasm as a result of opioid pain medication. PAST MEDICAL HISTORY: As listed in the HPI. PAST SURGICAL HISTORY: As listed in the HPI. ALLERGIES: TREE NUT, EGGPLANT, RAW APPLES, RAW PEACHES, RAW PEARS, RAW PLUMS. SOCIAL HISTORY: Former smoker. Quit 15 years ago. Used to drink alcohol. Quit 10 years ago. No intravenous drug abuse at this time. FAMILY HISTORY: Noncontributory. HOME MEDICATIONS: Reviewed and include aspirin, atorvastatin, clopidogrel, folic acid, Flomax, vitamin B, losartan, metoprolol, pantoprazole, hydralazine, trazodone, MiraLAX, albuterol, baclofen, Colace, Imdur, Artificial Tears, Senna, famotidine, insulin, lispro, and Minoxidil. REVIEW OF SYSTEMS: As per the HPI. PHYSICAL EXAMINATION: Vital Signs: Temperature 98, pulse 63, blood pressure 115/42, respiratory rate 12, oxygen saturation 95% on room air. General: In no acute distress. HEENT: Anicteric sclerae. Cardiovascular: S1, S2. Regular rate and rhythm. Lungs: Bilaterally clear to auscultation. Abdomen: Obese, nontender. Normal bowel sounds. Extremities: Right BKA. Left lower extremity cellulitis is dressed and dressing is clean. LABORATORIES: White blood cell count 10.8, hemoglobin 10, hematocrit 32, MCV 94, platelet count 239, INR 1. Sodium 141, potassium 4.8, BUN 66, creatinine 9.8, glucose 122, total bilirubin 0.4, AST 18, ALT 14, alkaline phosphatase 46. Cultures are negative so far. Patient had an abdominal ultrasound, which revealed steatosis, a slightly enlarged spleen, and cholelithiasis. The gallbladder was without any wall thickening, and there was no biliary ductal dilatation. IMPRESSION: Cholelithiasis without sign of acute cholecystitis. Also with vague suprapubic abdominal discomfort only to palpation, which has been chronic. This has been secondary to his underlying constipation. RECOMMENDATION: Diet as tolerated. Would put him on a bowel rest. He can have MiraLAX b.i.d. and cleansing tap water enemas as needed. Low-fat diet. For completeness, would also obtain a surgery evaluation. If he were to develop right upper quadrant abdominal pain, would recommend a HIDA scan for further evaluation. Trend his liver tests daily while hospitalized. Antibiotics as per primary medical team for lower extremity cellulitis. This patient would also benefit at some point from a diagnostic upper endoscopy considering he gives a history of Fernandes esophagus; however, there is no record in our system of this. This can be done as an outpatient once the acute process has resolved. This patient will be followed by the GI service. DO LENNY [id number]
[2019-05-29] MEDS: IPRATROPIUM BR 0.02% 0.5 MG/2.5 ML VIAL.NEB. NEB PRN (20:54)
[2019-05-29] MEDS: ALBUTEROL SO4 0.083% IH SOL 2.5 MG/3 ML VIAL.NEB. NEB PRN (20:55)
[2019-05-29] MEDS ORDERED: SODIUM CHLORIDE 250 ML IV PRN (21:22)
--- NOTE | 2019-05-29 21:29 | PN ---
Progress Note (short form) - Note Progress Note: COVERING DR MCLAUGHLIN PROBLEMS 1. ESRD 2. cellulitis 3. copd 4. HTN 5. DM 6. right BKA Current Medications Acetaminophen (Tylenol -) 650 mg PO Q4H PRN PRN Reason: PAIN OR FEVER Albuterol Sulfate (Ventolin 0.083% Nebulizer Soln -) 1 amp NEB Q6H PRN PRN Reason: SHORT OF BREATH/WHEEZING Last Admin: 05/29/19 20:55 Dose: 1 amp Artificial Tears (Artificial Tears) 1 drop OU QID PRN PRN Reason: DRY EYES Aspirin (Ecotrin -) 81 mg PO DAILY [facility] Last Admin: 05/29/19 09:20 Dose: 81 mg Atorvastatin Calcium (Lipitor -) 40 mg PO HS [facility] Last Admin: 05/28/19 21:50 Dose: 40 mg Bacitracin (Bacitracin -) 1 applic TP DAILY [facility] Last Admin: 05/29/19 14:37 Dose: 1 applic Benzocaine/Menthol (Cepacol Lozenge -) 1 each MM PRN PRN PRN Reason: SORE THROAT Calcium Acetate (Phoslo -) 667 mg PO TIDCM [facility] Last Admin: 05/29/19 17:29 Dose: 667 mg Clopidogrel Bisulfate (Plavix -) 75 mg PO DAILY [facility] Last Admin: 05/29/19 09:18 Dose: 75 mg Docusate Sodium (Colace -) 200 mg PO HS [facility] Last Admin: 05/28/19 21:50 Dose: 200 mg Folic Acid (Folic Acid -) 1 mg PO DAILY [facility] Last Admin: 05/29/19 09:21 Dose: 1 mg Furosemide (Lasix -) 80 mg PO DAILY [facility] Last Admin: 05/29/19 09:18 Dose: 80 mg Gabapentin (Neurontin -) 300 mg PO TID [facility] Last Admin: 05/29/19 14:34 Dose: 300 mg Heparin Sodium (Porcine) (Heparin -) 5,000 unit SQ BID [facility] Last Admin: 05/29/19 09:21 Dose: Not Given Hydralazine HCl (Apresoline -) 100 mg PO TID [facility] Last Admin: 05/29/19 14:34 Dose: 100 mg Piperacillin Sod/Tazobactam (Sod 2.25 gm/ Dextrose) 50 mls @ 100 mls/hr IVPB Q8H-IV [facility]; Protocol Last Admin: 05/29/19 17:29 Dose: 100 mls/hr Sodium Chloride (Normal Saline -) 250 mls @ 3,000 mls/hr IV PRN PRN PRN Reason: Hypotension during Dialysis Stop: 05/30/19 21:23 Insulin Aspart (Novolog Vial Sliding Scale -) 1 vial SQ TIDAC [facility]; Protocol Last Admin: 05/29/19 17:29 Dose: Not Given Ipratropium [place] (Atrovent 0.02% Nebulizer -) 1 amp NEB Q6H PRN PRN Reason: WHEEZING Last Admin: 05/29/19 20:54 Dose: 1 amp Isosorbide Mononitrate (Imdur -) 30 mg PO DAILY [facility] Last Admin: 05/29/19 09:21 Dose: Not Given Loratadine (Claritin -) 10 mg PO DAILY [facility] Last Admin: 05/29/19 09:19 Dose: 10 mg Losartan Potassium (Cozaar -) 100 mg PO DAILY [facility] Last Admin: 05/29/19 09:20 Dose: Not Given Metoprolol Tartrate (Lopressor -) 50 mg PO BID [facility] Last Admin: 05/29/19 09:21 Dose: 50 mg Minoxidil (Lonitin -) 2.5 mg PO DAILY [facility] Last Admin: 05/29/19 09:21 Dose: Not Given Montelukast Sodium (Singulair -) 10 mg PO HS [facility] Last Admin: 05/28/19 21:50 Dose: 10 mg Nystatin (Mycostatin Cream -) 1 applic TP BID [facility] Last Admin: 05/29/19 14:36 Dose: 1 applic Oxycodone HCl (Roxicodone -) 5 mg PO Q6H PRN PRN Reason: PAIN LEVEL 6-10 Last Admin: 05/29/19 17:30 Dose: 5 mg Polyethylene Glycol (Miralax (For Daily Use) -) 17 gm PO DAILY [facility] Last Admin: 05/29/19 09:22 Dose: Not Given Ranitidine HCl (Zantac -) 150 mg PO BID [facility] Last Admin: 05/29/19 09:22 Dose: 150 mg Senna (Senna -) 2 tab PO HS [facility] Last Admin: 05/28/19 21:51 Dose: 2 tab Sevelamer Carbonate (Renvela -) 800 mg PO TIDCM [facility] Last Admin: 05/29/19 17:29 Dose: 800 mg Sodium Chloride ([place] Nasal [place] -) 2 spray NS BID PRN PRN Reason: NASAL CONGESTION Last Admin: 05/29/19 14:34 Dose: 2 spr Spironolactone (Aldactone -) 25 mg PO DAILY [facility] Last Admin: 05/29/19 09:20 Dose: 25 mg Tamsulosin HCl (Flomax -) 0.8 mg PO DAILY@0830 [facility] Last Admin: 05/29/19 09:19 Dose: 0.8 mg Trazodone HCl (Desyrel -) 300 mg PO HS [facility] Last Admin: 05/28/19 21:49 Dose: 300 mg Last Vital Signs Temp Pulse Resp BP Pulse Ox 98.9 F 63 18 115/42 L 97 05/29/19 13:58 05/29/19 13:58 05/29/19 13:58 05/29/19 13:58 05/29/19 16:32 Lungs clear Heart reg Abd soft Ext chronic edema, wrapped CBC, [facility] 05/29/19 07:00 05/29/19 07:00 CBC, [facility] 05/28/19 07:55 05/28/19 07:55 IMP- ESRD on HD MWF Plan- HD tomorrow
[2019-05-29] MEDS: traZODone HCL 150 MG TABLET PO SCH (21:51)
[2019-05-29] MEDS: DOCUSATE SODIUM 100 MG CAPSULE (FP) PO SCH (21:52)
[2019-05-29] MEDS: ATORVASTATIN CA 40 MG TABLET (FP) PO SCH (21:54)
[2019-05-29] MEDS: MONTELUKAST NA 10 MG TABLET PO SCH (21:55)
[2019-05-29] MEDS: SENNOSIDES 8.6MG TABLET (FP) PO SCH (21:55)
[2019-05-30] MEDS: PIPERACILLIN/TAZOB 2.25 GM 2.25 GM in DEXTROSE 5%-WATER - 50 ML IVPB SCH ×3 (01:56→17:39)
--- NOTE | 2019-05-30 05:17 | FALL ---
Fall Exam - Event Witnessed fall: No Location of Fall: Patient Room Fall from: Bed - Pre-Fall Mental Status: Alert Current Medications: Current Medications Generic Name Dose Route Start Last Admin Trade Name Freq PRN Reason Stop Dose Admin Acetaminophen 650 mg 05/26/19 20:42 Tylenol - PO Q4H PRN PAIN OR FEVER Albuterol Sulfate 1 amp 05/26/19 20:42 05/29/19 20:55 Ventolin 0.083% Nebulizer Soln - NEB 1 amp Q6H PRN Administration SHORT OF BREATH/WHEEZING Artificial Tears 1 drop 05/27/19 17:37 Artificial Tears OU QID PRN DRY EYES Aspirin 81 mg 05/28/19 10:00 05/29/19 09:20 Ecotrin - PO 81 mg DAILY [facility] Administration Atorvastatin Calcium 40 mg 05/26/19 22:00 05/29/19 21:54 Lipitor - PO 40 mg HS [facility] Administration Bacitracin 1 applic 05/27/19 20:00 05/29/19 14:37 Bacitracin - TP 1 applic DAILY [facility] Administration Benzocaine/Menthol 1 each 05/29/19 12:10 Cepacol Lozenge - MM PRN PRN SORE THROAT Calcium Acetate 667 mg 05/27/19 08:00 05/29/19 17:29 Phoslo - PO 667 mg TIDCM [facility] Administration Clopidogrel Bisulfate 75 mg 05/27/19 10:00 05/29/19 09:18 Plavix - PO 75 mg DAILY [facility] Administration Docusate Sodium 200 mg 05/26/19 22:00 05/29/19 21:52 Colace - PO 100 mg HS [facility] Administration Folic Acid 1 mg 05/28/19 10:00 05/29/19 09:21 Folic Acid - PO 1 mg DAILY [facility] Administration Furosemide 80 mg 05/28/19 10:00 05/29/19 09:18 Lasix - PO 80 mg DAILY [facility] Administration Gabapentin 300 mg 05/27/19 22:00 05/29/19 21:54 Neurontin - PO 300 mg TID [facility] Administration Heparin Sodium (Porcine) 5,000 unit 05/26/19 22:00 05/29/19 21:53 Heparin - SQ Not Given BID [facility] Hydralazine HCl 100 mg 05/27/19 22:00 05/29/19 21:52 Apresoline - PO 100 mg TID [facility] Administration Piperacillin Sod/Tazobactam 50 mls @ 100 mls/hr 05/27/19 11:30 05/30/19 01:56 Sod 2.25 gm/ Dextrose IVPB 100 mls/hr Q8H-IV [facility] Administration Protocol Sodium Chloride 250 mls @ 3,000 mls/hr 05/29/19 21:22 Normal Saline - IV 05/30/19 21:23 PRN PRN Hypotension during Dialysis Insulin Aspart 1 vial 05/27/19 07:00 05/29/19 17:29 Novolog Vial Sliding Scale - SQ Not Given TIDAC [facility] Protocol Ipratropium [place] 1 amp 05/26/19 20:42 05/29/19 20:54 Atrovent 0.02% Nebulizer - NEB 1 amp Q6H PRN Administration WHEEZING Isosorbide Mononitrate 30 mg 05/27/19 10:00 05/29/19 09:21 Imdur - PO Not Given DAILY [facility] Loratadine 10 mg 05/28/19 14:15 05/29/19 09:19 Claritin - PO 10 mg DAILY [facility] Administration Losartan Potassium 100 mg 05/27/19 10:00 05/29/19 09:20 Cozaar - PO Not Given DAILY [facility] Metoprolol Tartrate 50 mg 05/26/19 22:00 05/29/19 21:54 Lopressor - PO 50 mg BID [facility] Administration Minoxidil 2.5 mg 05/28/19 10:00 05/29/19 09:21 Lonitin - PO Not Given DAILY [facility] Montelukast Sodium 10 mg 05/27/19 22:00 05/29/19 21:55 Singulair - PO 10 mg HS [facility] Administration Nystatin 1 applic 05/27/19 22:00 05/29/19 22:01 Mycostatin Cream - TP Not Given BID [facility] Oxycodone HCl 5 mg 05/29/19 15:18 05/29/19 17:30 Roxicodone - PO 5 mg Q6H PRN Administration PAIN LEVEL 6-10 Polyethylene Glycol 17 gm 05/27/19 10:00 05/29/19 09:22 Miralax (For Daily Use) - PO Not Given DAILY [facility] Ranitidine HCl 150 mg 05/27/19 10:00 05/29/19 21:55 Zantac - PO 150 mg BID [facility] Administration Senna 2 tab 05/27/19 22:00 05/29/19 21:55 Senna - PO 2 tab HS [facility] Administration Sevelamer Carbonate 800 mg 05/28/19 08:00 05/29/19 17:29 Renvela - PO 800 mg TIDCM [facility] Administration Sodium Chloride 2 spray 05/29/19 12:10 05/29/19 14:34 [place] Nasal [place] - NS 2 spr BID PRN Administration NASAL CONGESTION Spironolactone 25 mg 05/28/19 10:00 05/29/19 09:20 Aldactone - PO 25 mg DAILY [facility] Administration Tamsulosin HCl 0.8 mg 05/28/19 08:30 05/29/19 09:19 Flomax - PO 0.8 mg DAILY@0830 [facility] Administration Trazodone HCl 300 mg 05/27/19 22:00 05/29/19 21:51 Desyrel - PO 300 mg HS [facility] Administration - Post-Fall Patient Outcome: Pain Only (right shoulder, right elbow) Exam Findings: AAOx3, Head- Atraumatic, Normocephalic, Heart- S1, S2, RRR, Lungs - CTAB, Musculoskeletal- TN to R- Shoulder, R- Elbow, non- TN spinal process. Abdomen- Obese, Soft, non-tender, BS present, Hip/Pelvis- nontender, no obvious deformity. Extremities- R- BKA, LLE bandage, Integumentary- abrasions to R- elbow Treatment: Ice Pack Vital Signs: Vital Signs Temperature 98.9 F 05/30/19 02:00 Pulse Rate 87 05/30/19 02:00 Respiratory Rate 18 05/30/19 02:00 Blood Pressure 156/69 05/30/19 02:00 O2 Sat by Pulse Oximetry (%) 97 05/29/19 16:32 LOC Post-Fall: Unchanged Identify factors for HIGH RISK for Head Injury: Pt on anticoagulant
[2019-05-30] MEDS: INSULIN SLIDING SCALE (NOVOLOG) 1 VIAL SQ SCH ×3 (06:34→17:38)
[2019-05-30] MEDS: hydrALAZINE HCL 50 MG TABLET (FP) PO SCH ×3 (06:34→22:57)
[2019-05-30] MEDS: GABAPENTIN 300 MG CAPSULE (FP) PO SCH ×3 (06:34→23:06)
[2019-05-30] MEDS: CALCIUM ACETATE 667 MG CAPSULE (FP) PO SCH ×3 (08:45→17:38)
[2019-05-30] MEDS: TAMSULOSIN HCL 0.4 MG CAP PO SCH (08:45)
[2019-05-30] MEDS: SEVELAMER CARBONATE 800 MG TAB (FP) PO SCH ×3 (08:45→17:39)
--- NOTE | 2019-05-30 08:47 | CON.GI ---
Consult Consult Specialty:: GI Referred by:: JAMIN Abarca Reason for Consultation:: Lower abdominal pain - History of Present Illness History of Present Illness: Patient is a 58 y/o male with past medical history of COPD, HTN, HLD, IDDM, R BKA, CHF, ESRD on HD (MWF), spinal hardware, diabetic macular degeneration. Consult was placed due to patient experiencing lower abdominal pain. Patient states that for "a couple of months" he has been experiencing lower abdominal pain that is non-radiating and exacerbated with palpation. States that abdominal pain is accompanied with non-bloody diarrhea with occasional night awakenings. Complains of nausea and heartburn that is exacerbated with eating, taking Ranitidine without relief. Abdominal US done and shows fatty enlarged liver, slightly enlarged spleen, cholelithiasis. - History Source History Provided By: Patient Limitations to Obtaining History: No Limitations - Past Medical History Cardio/Vascular: Yes: CAD, CHF, HTN, Hyperlipdemia Pulmonary: Yes: COPD, Other (allergies , seasonal) Gastrointestinal: Yes: Constipation, GERD Renal/: Yes: BPH, Hemodialysis, Other (ESRD) Endocrine: Yes: Diabetes Mellitus - Past Surgical History Past Surgical History: Yes: Amputation (Rt BKA) - Alcohol/Substance Use Hx Alcohol Use: Yes (quite 10 years ago) History of Substance Use: reports: None - Smoking History Smoking history: Former smoker Have you smoked in the past 12 months: No If you are a former smoker, when did you quit?: quite 15 years ago - Social History Usual Living Arrangement: Assisted ADL: Support Services History of Recent Travel: No Home Medications - Allergies Allergies/Adverse Reactions: Allergies Allergy/AdvReac Type Severity Reaction Status Date / Time tree nut Allergy Verified 04/29/19 11:25 eggplant Allergy Unknown Itching Uncoded 04/29/19 11:25 raw apples Allergy Unknown Difficulty Uncoded 05/27/19 13:35 Breathing raw peaches Allergy Unknown Difficulty Uncoded 05/27/19 13:34 Breathing raw pears Allergy Unknown Difficulty Uncoded 05/27/19 13:36 Breathing raw plums Allergy Unknown Difficulty Uncoded 05/27/19 13:35 Breathing - Home Medications Home Medications: Ambulatory Orders Aspirin [ASA -] 81 mg PO DAILY 05/18/17 Atorvastatin Ca [Lipitor] 40 mg PO HS 05/18/17 Clopidogrel Bisulfate [Plavix -] 75 mg PO DAILY 05/18/17 Folic Acid 1 mg PO DAILY 05/18/17 Tamsulosin HCl [Flomax] 0.8 mg PO HS 05/18/17 Metoprolol Tartrate [Lopressor -] 100 mg PO BID 08/26/17 hydrALAZINE HCL [Apresoline -] 100 mg PO TID 08/26/17 Bacitracin - [Bacitracin Topical Ointment -] 1 applic TP DAILY 08/27/17 Calcium Acetate [Phoslo -] 667 mg PO TIDCM 08/27/17 Polyethylene Glycol 3350 [Miralax 119 gm Btl -] 17 gm PO DAILY 08/27/17 Acetaminophen [Tylenol 8 Hour] 650 mg PO PRN 05/13/18 Albuterol Sulfate 0.5% [Ventolin 0.5% Nebulizing Soln. -] 1 neb IH Q6H PRN 05/13 Polyvinyl Alcohol [Artificial Tears] 15 ml OP QID 05/13/18 Sennosides [Senna Laxative] 17.2 mg PO HS 05/13/18 Insulin Lispro [Admelog] 100 units SQ ASDIR 04/29/19 Famotidine [Acid Controller] 20 mg PO BID 05/27/19 Furosemide [Lasix] 80 mg PO DAILY 05/27/19 Gabapentin [Neurontin -] 300 mg PO Q8H 05/27/19 Montelukast Sodium [Singulair] 10 mg PO HS 05/27/19 Oxycodone HCl 5 mg PO PRN 05/27/19 Sevelamer Carbonate [Renvela -] 800 mg PO TID 05/27/19 Spironolactone [Aldactone] 50 mg PO DAILY 05/27/19 Review of Systems - Review of Systems Constitutional: reports: No Symptoms Eyes: reports: No Symptoms HENT: reports: No Symptoms Neck: reports: No Symptoms Cardiovascular: reports: No Symptoms Respiratory: reports: No Symptoms Gastrointestinal: reports: Abdominal Pain, Diarrhea, Nausea Genitourinary: reports: No Symptoms Breasts: reports: No Symptoms Reported Musculoskeletal: reports: No Symptoms Integumentary: reports: No Symptoms Neurological: reports: No Symptoms Endocrine: reports: No Symptoms Hematology/Lymphatic: reports: No Symptoms Psychiatric: reports: No Symptoms Physical Exam-GI Vital Signs: Vital Signs Temperature 98.1 F 05/30/19 07:05 Pulse Rate 60 05/30/19 08:21 Respiratory Rate 20 05/30/19 07:05 Blood Pressure 159/76 05/30/19 07:05 O2 Sat by Pulse Oximetry (%) 97 05/30/19 08:21 Constitutional: Yes: No Distress, Calm, Obese Eyes: Yes: Conjunctiva Clear HENT: Yes: Atraumatic Cardiovascular: Yes: Regular Rate and Rhythm Respiratory: Yes: Regular, CTA Bilaterally Gastrointestinal Inspection: Yes: WNL. No: Ascites, Distention, Hernia, Scars, Other ...Auscultate: Yes: Normoactive Bowel Sounds. No: Hyperactive Bowel Sounds, Hypoactive Bowel Sounds, No Bowel Sounds, Other ...Palpate: Yes: Soft, Tenderness (lower abdomen). No: Firm/Rigid, Guarding, Hepatomegaly, Mass, Pulsatile Mass, Splenomegaly, Tenderness, Epigastium, Tenderness, Rebound, Other ...Percussion: Yes: Tympanitic. No: Dullness, Fluid Wave, Other Wound/Incision: Yes: Unapproximated Neurological: Yes: Oriented Psychiatric: Yes: Alert, Oriented Labs: CBC, BMP 05/29/19 07:00 05/29/19 07:00 INR, PTT INR 1.05 (0.83-1.09) 05/26/19 16:42 Active Medications Generic Name Dose Route Start Last Admin Trade Name Freq PRN Reason Stop Dose Admin Acetaminophen 650 mg 05/26/19 20:42 Tylenol - PO Q4H PRN PAIN OR FEVER Albuterol Sulfate 1 amp 05/26/19 20:42 05/29/19 20:55 Ventolin 0.083% Nebulizer Soln - NEB 1 amp Q6H PRN Administration SHORT OF BREATH/WHEEZING Artificial Tears 1 drop 05/27/19 17:37 Artificial Tears OU QID PRN DRY EYES Aspirin 81 mg 05/28/19 10:00 05/29/19 09:20 Ecotrin - PO 81 mg DAILY [facility] Administration Atorvastatin Calcium 40 mg 05/26/19 22:00 05/29/19 21:54 Lipitor - PO 40 mg HS [facility] Administration Bacitracin 1 applic 05/27/19 20:00 05/29/19 14:37 Bacitracin - TP 1 applic DAILY [facility] Administration Benzocaine/Menthol 1 each 05/29/19 12:10 Cepacol Lozenge - MM PRN PRN SORE THROAT Calcium Acetate 667 mg 05/27/19 08:00 05/30/19 08:45 Phoslo - PO 667 mg TIDCM [facility] Administration Clopidogrel Bisulfate 75 mg 05/27/19 10:00 05/29/19 09:18 Plavix - PO 75 mg DAILY [facility] Administration Docusate Sodium 200 mg 05/26/19 22:00 05/29/19 21:52 Colace - PO 100 mg HS [facility] Administration Folic Acid 1 mg 05/28/19 10:00 05/29/19 09:21 Folic Acid - PO 1 mg DAILY [facility] Administration Furosemide 80 mg 05/28/19 10:00 05/29/19 09:18 Lasix - PO 80 mg DAILY [facility] Administration Gabapentin 300 mg 05/27/19 22:00 05/30/19 06:34 Neurontin - PO 300 mg TID [facility] Administration Heparin Sodium (Porcine) 5,000 unit 05/26/19 22:00 05/29/19 21:53 Heparin - SQ Not Given BID [facility] Hydralazine HCl 100 mg 05/27/19 22:00 05/30/19 06:34 Apresoline - PO Not Given TID [facility] Piperacillin Sod/Tazobactam 50 mls @ 100 mls/hr 05/27/19 11:30 05/30/19 01:56 Sod 2.25 gm/ Dextrose IVPB 100 mls/hr Q8H-IV [facility] Administration Protocol Sodium Chloride 250 mls @ 3,000 mls/hr 05/29/19 21:22 Normal Saline - IV 05/30/19 21:23 PRN PRN Hypotension during Dialysis Insulin Aspart 1 vial 05/27/19 07:00 05/30/19 06:34 Novolog Vial Sliding Scale - SQ Not Given TIDAC [facility] Protocol Ipratropium [place] 1 amp 05/26/19 20:42 05/29/19 20:54 Atrovent 0.02% Nebulizer - NEB 1 amp Q6H PRN Administration WHEEZING Isosorbide Mononitrate 30 mg 05/27/19 10:00 05/29/19 09:21 Imdur - PO Not Given DAILY [facility] Loratadine 10 mg 05/28/19 14:15 05/29/19 09:19 Claritin - PO 10 mg DAILY [facility] Administration Losartan Potassium 100 mg 05/27/19 10:00 05/29/19 09:20 Cozaar - PO Not Given DAILY [facility] Metoprolol Tartrate 50 mg 05/26/19 22:00 05/29/19 21:54 Lopressor - PO 50 mg BID [facility] Administration Minoxidil 2.5 mg 05/28/19 10:00 05/29/19 09:21 Lonitin - PO Not Given DAILY [facility] Montelukast Sodium 10 mg 05/27/19 22:00 05/29/19 21:55 Singulair - PO 10 mg HS [facility] Administration Nystatin 1 applic 05/27/19 22:00 05/29/19 22:01 Mycostatin Cream - TP Not Given BID [facility] Oxycodone HCl 5 mg 05/29/19 15:18 05/29/19 17:30 Roxicodone - PO 5 mg Q6H PRN Administration PAIN LEVEL 6-10 Polyethylene Glycol 17 gm 05/27/19 10:00 05/29/19 09:22 Miralax (For Daily Use) - PO Not Given DAILY [facility] Ranitidine HCl 150 mg 05/27/19 10:00 05/29/19 21:55 Zantac - PO 150 mg BID [facility] Administration Senna 2 tab 05/27/19 22:00 05/29/19 21:55 Senna - PO 2 tab HS [facility] Administration Sevelamer Carbonate 800 mg 05/28/19 08:00 05/30/19 08:45 Renvela - PO 800 mg TIDCM [facility] Administration Sodium Chloride 2 spray 05/29/19 12:10 05/29/19 14:34 [place] Nasal [place] - NS 2 spr BID PRN Administration NASAL CONGESTION Spironolactone 25 mg 05/28/19 10:00 05/29/19 09:20 Aldactone - PO 25 mg DAILY [facility] Administration Tamsulosin HCl 0.8 mg 05/28/19 08:30 05/30/19 08:45 Flomax - PO 0.8 mg DAILY@0830 [facility] Administration Tetanus/Diphtheria Toxoids Adsorbed 0.5 ml 05/30/19 05:17 Decavac IM 05/30/19 05:18 .ONCE ONE Trazodone HCl 300 mg 05/27/19 22:00 05/29/19 21:51 Desyrel - PO 300 mg HS [facility] Administration Imaging - Results Ultrasound: Report Reviewed Problem List - Problems (1) Diarrhea Assessment/Plan: -Flagyl IV -Stool Culture, O&P, Stool WBC, Calpoprectin Code(s): R19.7 - DIARRHEA, UNSPECIFIED (2) Abdominal pain Assessment/Plan: -Abdominal US reviewed -CEA, AFP, CA 19-9 -will need colonoscopy when medically cleared and given pmhx will need cardiology and pulm clearance Code(s): R10.9 - UNSPECIFIED ABDOMINAL PAIN
--- NOTE | 2019-05-30 10:04 | PN ---
Progress Note, Physician Chief Complaint: LLE Cellulitis ESRD on HD History of Present Illness: Previous notes and events reviewed sleepy on exam but arouseable to verbal stimuli NAD patient s/p fall early this morning~patient states he was bending over to reach for something and fell, denies hitting his head, denies LOC denies chest pain or SOB complain of itching to his back - Current Medication List Current Medications: Active Medications Acetaminophen (Tylenol -) 650 mg PO Q4H PRN PRN Reason: PAIN OR FEVER Albuterol Sulfate (Ventolin 0.083% Nebulizer Soln -) 1 amp NEB Q6H PRN PRN Reason: SHORT OF BREATH/WHEEZING Last Admin: 05/29/19 20:55 Dose: 1 amp Artificial Tears (Artificial Tears) 1 drop OU QID PRN PRN Reason: DRY EYES Aspirin (Ecotrin -) 81 mg PO DAILY [facility] Last Admin: 05/29/19 09:20 Dose: 81 mg Atorvastatin Calcium (Lipitor -) 40 mg PO HS [facility] Last Admin: 05/29/19 21:54 Dose: 40 mg Bacitracin (Bacitracin -) 1 applic TP DAILY [facility] Last Admin: 05/29/19 14:37 Dose: 1 applic Benzocaine/Menthol (Cepacol Lozenge -) 1 each MM PRN PRN PRN Reason: SORE THROAT Calcium Acetate (Phoslo -) 667 mg PO TIDCM [facility] Last Admin: 05/30/19 08:45 Dose: 667 mg Clopidogrel Bisulfate (Plavix -) 75 mg PO DAILY [facility] Last Admin: 05/29/19 09:18 Dose: 75 mg Docusate Sodium (Colace -) 200 mg PO [facility] Last Admin: 05/29/19 21:52 Dose: 100 mg Folic Acid (Folic Acid -) 1 mg PO DAILY [facility] Last Admin: 05/29/19 09:21 Dose: 1 mg Furosemide (Lasix -) 80 mg PO DAILY [facility] Last Admin: 05/29/19 09:18 Dose: 80 mg Gabapentin (Neurontin -) 300 mg PO TID [facility] Last Admin: 05/30/19 06:34 Dose: 300 mg Heparin Sodium (Porcine) (Heparin -) 5,000 unit SQ BID [facility] Last Admin: 05/29/19 21:53 Dose: Not Given Hydralazine HCl (Apresoline -) 100 mg PO TID [facility] Last Admin: 05/30/19 06:34 Dose: Not Given Piperacillin Sod/Tazobactam (Sod 2.25 gm/ Dextrose) 50 mls @ 100 mls/hr IVPB Q8H-IV [facility]; Protocol Last Admin: 05/30/19 01:56 Dose: 100 mls/hr Sodium Chloride (Normal Saline -) 250 mls @ 3,000 mls/hr IV PRN PRN PRN Reason: Hypotension during Dialysis Stop: 05/30/19 21:23 Metronidazole (Flagyl 500mg Premixed Ivpb -) 500 mg in 100 mls @ 100 mls/hr IVPB Q8H-IV [facility] Insulin Aspart (Novolog Vial Sliding Scale -) 1 vial SQ TIDAC [facility]; Protocol Last Admin: 05/30/19 06:34 Dose: Not Given Ipratropium [place] (Atrovent 0.02% Nebulizer -) 1 amp NEB Q6H PRN PRN Reason: WHEEZING Last Admin: 05/29/19 20:54 Dose: 1 amp Isosorbide Mononitrate (Imdur -) 30 mg PO DAILY [facility] Last Admin: 05/29/19 09:21 Dose: Not Given Loratadine (Claritin -) 10 mg PO DAILY [facility] Last Admin: 05/29/19 09:19 Dose: 10 mg Losartan Potassium (Cozaar -) 100 mg PO DAILY [facility] Last Admin: 05/29/19 09:20 Dose: Not Given Metoprolol Tartrate (Lopressor -) 50 mg PO BID [facility] Last Admin: 05/29/19 21:54 Dose: 50 mg Minoxidil (Lonitin -) 2.5 mg PO DAILY [facility] Last Admin: 05/29/19 09:21 Dose: Not Given Montelukast Sodium (Singulair -) 10 mg PO HS [facility] Last Admin: 05/29/19 21:55 Dose: 10 mg Nystatin (Mycostatin Cream -) 1 applic TP BID [facility] Last Admin: 05/29/19 22:01 Dose: Not Given Oxycodone HCl (Roxicodone -) 5 mg PO Q6H PRN PRN Reason: PAIN LEVEL 6-10 Last Admin: 05/29/19 17:30 Dose: 5 mg Polyethylene Glycol (Miralax (For Daily Use) -) 17 gm PO DAILY [facility] Last Admin: 05/29/19 09:22 Dose: Not Given Ranitidine HCl (Zantac -) 150 mg PO BID [facility] Last Admin: 05/29/19 21:55 Dose: 150 mg Senna (Senna -) 2 tab PO [facility] Last Admin: 05/29/19 21:55 Dose: 2 tab Sevelamer Carbonate (Renvela -) 800 mg PO TIDCM [facility] Last Admin: 05/30/19 08:45 Dose: 800 mg Sodium Chloride ([place] Nasal [place] -) 2 spray NS BID PRN PRN Reason: NASAL CONGESTION Last Admin: 05/29/19 14:34 Dose: 2 spr Spironolactone (Aldactone -) 25 mg PO DAILY [facility] Last Admin: 05/29/19 09:20 Dose: 25 mg Tamsulosin HCl (Flomax -) 0.8 mg PO DAILY@0830 [facility] Last Admin: 05/30/19 08:45 Dose: 0.8 mg Tetanus/Diphtheria Toxoids Adsorbed (Decavac) 0.5 ml IM .ONCE ONE Stop: 05/30/19 05:18 Trazodone HCl (Desyrel -) 300 mg PO [facility] Last Admin: 05/29/19 21:51 Dose: 300 mg - Objective Vital Signs: Vital Signs Temperature 98.2 F 05/30/19 09:10 Pulse Rate 58 L 05/30/19 09:20 Respiratory Rate 18 05/30/19 09:20 Blood Pressure 153/61 05/30/19 09:20 O2 Sat by Pulse Oximetry (%) 97 05/30/19 08:21 Constitutional: Yes: No Distress, Calm Eyes: Yes: Conjunctiva Clear HENT: Yes: Atraumatic Cardiovascular: Yes: Regular Rate and Rhythm Respiratory: Yes: Regular, Diminished Gastrointestinal: Yes: Normal Bowel Sounds, Soft, Abdomen, Obese, Tenderness ( lower abdomen) Musculoskeletal: Yes: Muscle Weakness Extremities: Yes: Other (R BKA) Edema: No Neurological: Yes: Alert, Oriented Psychiatric: Yes: Alert, Oriented Labs: CBC, BMP 05/29/19 07:00 05/29/19 07:00 INR, PTT INR 1.05 (0.83-1.09) 05/26/19 16:42 Microbiology 05/26/19 16:42 Blood - Peripheral Venous Blood Culture - Preliminary NO GROWTH OBTAINED AFTER 72 HOURS, INCUBATION TO CONTINUE FOR 2 DAYS. 05/26/19 16:42 Blood - Peripheral Venous Blood Culture - Preliminary NO GROWTH OBTAINED AFTER 72 HOURS, INCUBATION TO CONTINUE FOR 2 DAYS. Problem List - Problems (1) CHF (congestive heart failure) Assessment/Plan: -1L fluid restriction -daily weights -low Na diet Code(s): I50.9 - HEART FAILURE, UNSPECIFIED (2) Cellulitis of left leg Assessment/Plan: -ID on board -Vascular on board -Leukocytosis~WBC 10.8 -Zosyn renally dose -daily dressing changes -keep LLE elevated -BC neg -daily dressing changes with calcium algenate, kerlex and cobin to LLE Code(s): L03.116 - CELLULITIS OF LEFT LOWER LIMB (3) ESRD on hemodialysis Assessment/Plan: -renal on board -continue HD on scheduled days -BUN/Cr 66.2/9.8 -renal diet Code(s): N18.6 - END STAGE RENAL DISEASE; Z99.2 - DEPENDENCE ON RENAL DIALYSIS (4) GERD (gastroesophageal reflux disease) Assessment/Plan: -Rantidine Code(s): K21.9 - GASTRO-ESOPHAGEAL REFLUX DISEASE WITHOUT ESOPHAGITIS (5) HLD (hyperlipidemia) Assessment/Plan: -Atorvastatin Code(s): E78.5 - HYPERLIPIDEMIA, UNSPECIFIED (6) COPD (chronic obstructive pulmonary disease) Assessment/Plan: -Bronchodilators -keep SpO2 >90% -O2 via NC -Bipap HS -Pulm consult Code(s): J44.9 - CHRONIC OBSTRUCTIVE PULMONARY DISEASE, UNSPECIFIED (7) Diabetes Assessment/Plan: -BGM ACHS -ISS -diabetic diet Code(s): E11.9 - TYPE 2 DIABETES MELLITUS WITHOUT COMPLICATIONS Qualifiers: Diabetes mellitus type: type 2 Chronic kidney disease stage: on chronic dialysis (8) HTN (hypertension) Assessment/Plan: -Losartan, Isosorbide, Metoprolol -low Na diet Code(s): I10 - ESSENTIAL (PRIMARY) HYPERTENSION Qualifiers: Hypertension type: unspecified Qualified Code(s): I10 - Essential (primary ) hypertension (9) Abdominal pain Assessment/Plan: -GI on board -Tumor markers -Flagyl IVPB -Abdominal US shows fatty enlarged liver, slightly enlarged spleen, cholelithiasis Code(s): R10.9 - UNSPECIFIED ABDOMINAL PAIN (10) Diarrhea Assessment/Plan: -Stool Culture, O&P, stool WBC, Calpoprectin -Flagyl Code(s): R19.7 - DIARRHEA, UNSPECIFIED (11) Fall Assessment/Plan: -Fall Precaution -Head CT scan shows no evidence of acute intracranial hemorrhage, no CT evidence acute territorial/acute transcortical infarct, perivascular space vs lacunar infarct superioraspect of right basal ganglia -Shoulder/Elbow Xray unremarkable -neuro checks Code(s): W19.XXXA - UNSPECIFIED FALL, INITIAL ENCOUNTER Qualifiers: Encounter type: initial encounter Qualified Code(s): W19.XXXA - Unspecified fall, initial encounter Assessment/Plan see problem list dvt ppx
--- NOTE | 2019-05-30 13:16 | PN ---
Progress Note, Physician History of Present Illness: Pt seen and examined at bedside. He is awake and alert. He is tolerating HD. - Current Medication List Current Medications: Active Medications Acetaminophen (Tylenol -) 650 mg PO Q4H PRN PRN Reason: PAIN OR FEVER Albuterol Sulfate (Ventolin 0.083% Nebulizer Soln -) 1 amp NEB Q6H PRN PRN Reason: SHORT OF BREATH/WHEEZING Last Admin: 05/29/19 20:55 Dose: 1 amp Artificial Tears (Artificial Tears) 1 drop OU QID PRN PRN Reason: DRY EYES Aspirin (Ecotrin -) 81 mg PO DAILY [facility] Last Admin: 05/29/19 09:20 Dose: 81 mg Atorvastatin Calcium (Lipitor -) 40 mg PO HS [facility] Last Admin: 05/29/19 21:54 Dose: 40 mg Bacitracin (Bacitracin -) 1 applic TP DAILY [facility] Last Admin: 05/29/19 14:37 Dose: 1 applic Benzocaine/Menthol (Cepacol Lozenge -) 1 each MM PRN PRN PRN Reason: SORE THROAT Calcium Acetate (Phoslo -) 667 mg PO TIDCM [facility] Last Admin: 05/30/19 08:45 Dose: 667 mg Clopidogrel Bisulfate (Plavix -) 75 mg PO DAILY [facility] Last Admin: 05/29/19 09:18 Dose: 75 mg Docusate Sodium (Colace -) 200 mg PO HS [facility] Last Admin: 05/29/19 21:52 Dose: 100 mg Folic Acid (Folic Acid -) 1 mg PO DAILY [facility] Last Admin: 05/29/19 09:21 Dose: 1 mg Furosemide (Lasix -) 80 mg PO DAILY [facility] Last Admin: 05/29/19 09:18 Dose: 80 mg Gabapentin (Neurontin -) 300 mg PO TID [facility] Last Admin: 05/30/19 06:34 Dose: 300 mg Heparin Sodium (Porcine) (Heparin -) 5,000 unit SQ BID [facility] Last Admin: 05/29/19 21:53 Dose: Not Given Hydralazine HCl (Apresoline -) 100 mg PO TID [facility] Last Admin: 05/30/19 06:34 Dose: Not Given Piperacillin Sod/Tazobactam (Sod 2.25 gm/ Dextrose) 50 mls @ 100 mls/hr IVPB Q8H-IV [facility]; Protocol Last Admin: 05/30/19 01:56 Dose: 100 mls/hr Sodium Chloride (Normal Saline -) 250 mls @ 3,000 mls/hr IV PRN PRN PRN Reason: Hypotension during Dialysis Stop: 05/30/19 21:23 Metronidazole (Flagyl 500mg Premixed Ivpb -) 500 mg in 100 mls @ 100 mls/hr IVPB Q8H-IV [facility] Insulin Aspart (Novolog Vial Sliding Scale -) 1 vial SQ TIDAC [facility]; Protocol Last Admin: 05/30/19 06:34 Dose: Not Given Ipratropium [place] (Atrovent 0.02% Nebulizer -) 1 amp NEB Q6H PRN PRN Reason: WHEEZING Last Admin: 05/29/19 20:54 Dose: 1 amp Isosorbide Mononitrate (Imdur -) 30 mg PO DAILY [facility] Last Admin: 05/29/19 09:21 Dose: Not Given Loratadine (Claritin -) 10 mg PO DAILY [facility] Last Admin: 05/29/19 09:19 Dose: 10 mg Losartan Potassium (Cozaar -) 100 mg PO DAILY [facility] Last Admin: 05/29/19 09:20 Dose: Not Given Metoprolol Tartrate (Lopressor -) 50 mg PO BID [facility] Last Admin: 05/29/19 21:54 Dose: 50 mg Minoxidil (Lonitin -) 2.5 mg PO DAILY [facility] Last Admin: 05/29/19 09:21 Dose: Not Given Montelukast Sodium (Singulair -) 10 mg PO [facility] Last Admin: 05/29/19 21:55 Dose: 10 mg Nystatin (Mycostatin Cream -) 1 applic TP BID [facility] Last Admin: 05/29/19 22:01 Dose: Not Given Oxycodone HCl (Roxicodone -) 5 mg PO Q6H PRN PRN Reason: PAIN LEVEL 6-10 Last Admin: 05/29/19 17:30 Dose: 5 mg Polyethylene Glycol (Miralax (For Daily Use) -) 17 gm PO DAILY [facility] Last Admin: 05/29/19 09:22 Dose: Not Given Ranitidine HCl (Zantac -) 150 mg PO BID [facility] Last Admin: 05/29/19 21:55 Dose: 150 mg Senna (Senna -) 2 tab PO [facility] Last Admin: 05/29/19 21:55 Dose: 2 tab Sevelamer Carbonate (Renvela -) 800 mg PO TIDCM [facility] Last Admin: 05/30/19 08:45 Dose: 800 mg Sodium Chloride ([place]al [place] -) 2 spray NS BID PRN PRN Reason: NASAL CONGESTION Last Admin: 05/29/19 14:34 Dose: 2 spr Spironolactone (Aldactone -) 25 mg PO DAILY [facility] Last Admin: 05/29/19 09:20 Dose: 25 mg Tamsulosin HCl (Flomax -) 0.8 mg PO DAILY@829 [facility] Last Admin: 05/30/19 08:45 Dose: 0.8 mg Tetanus/Diphtheria Toxoids Adsorbed (Decavac) 0.5 ml IM .ONCE ONE Stop: 05/30/19 05:18 Trazodone HCl (Desyrel -) 300 mg PO [facility] Last Admin: 05/29/19 21:51 Dose: 300 mg - Objective Vital Signs: Vital Signs Temperature 98 F 05/30/19 11:05 Pulse Rate 61 05/30/19 12:50 Respiratory Rate 18 05/30/19 12:50 Blood Pressure 169/97 05/30/19 12:50 O2 Sat by Pulse Oximetry (%) 97 05/30/19 08:21 Constitutional: Yes: Calm Eyes: Yes: Conjunctiva Clear HENT: Yes: Atraumatic Neck: Yes: Supple Cardiovascular: Yes: S1, S2 Respiratory: Yes: CTA Bilaterally Gastrointestinal: Yes: Soft Genitourinary: Yes: WNL Extremities: Yes: Other (bka) Edema: No Integumentary: Yes: Tattoos Neurological: Yes: Oriented Psychiatric: Yes: Oriented Labs: CBC, BMP 05/29/19 07:00 05/29/19 07:00 INR, PTT INR 1.05 (0.83-1.09) 05/26/19 16:42 Problem List - Problems (1) Cellulitis of left leg Code(s): L03.116 - CELLULITIS OF LEFT LOWER LIMB (2) ESRD on hemodialysis Code(s): N18.6 - END STAGE RENAL DISEASE; Z99.2 - DEPENDENCE ON RENAL DIALYSIS Assessment/Plan Current Medications Generic Name Dose Route Start Last Admin Trade Name Freq PRN Reason Stop Dose Admin Acetaminophen 650 mg 05/26/19 20:42 Tylenol - PO Q4H PRN PAIN OR FEVER Albuterol Sulfate 1 amp 05/26/19 20:42 05/29/19 20:55 Ventolin 0.083% Nebulizer Soln - NEB 1 amp Q6H PRN Administration SHORT OF BREATH/WHEEZING Artificial Tears 1 drop 05/27/19 17:37 Artificial Tears OU QID PRN DRY EYES Aspirin 81 mg 05/28/19 10:00 05/29/19 09:20 Ecotrin - PO 81 mg DAILY [facility] Administration Atorvastatin Calcium 40 mg 05/26/19 22:00 05/29/19 21:54 Lipitor - PO 40 mg HS [facility] Administration Bacitracin 1 applic 05/27/19 20:00 05/29/19 14:37 Bacitracin - TP 1 applic DAILY [facility] Administration Benzocaine/Menthol 1 each 05/29/19 12:10 Cepacol Lozenge - MM PRN PRN SORE THROAT Calcium Acetate 667 mg 05/27/19 08:00 05/30/19 08:45 Phoslo - PO 667 mg TIDCM [facility] Administration Clopidogrel Bisulfate 75 mg 05/27/19 10:00 05/29/19 09:18 Plavix - PO 75 mg DAILY [facility] Administration Docusate Sodium 200 mg 05/26/19 22:00 05/29/19 21:52 Colace - PO 100 mg HS [facility] Administration Folic Acid 1 mg 05/28/19 10:00 05/29/19 09:21 Folic Acid - PO 1 mg DAILY [facility] Administration Furosemide 80 mg 05/28/19 10:00 05/29/19 09:18 Lasix - PO 80 mg DAILY [facility] Administration Gabapentin 300 mg 05/27/19 22:00 05/30/19 06:34 Neurontin - PO 300 mg TID [facility] Administration Heparin Sodium (Porcine) 5,000 unit 05/26/19 22:00 05/29/19 21:53 Heparin - SQ Not Given BID [facility] Hydralazine HCl 100 mg 05/27/19 22:00 05/30/19 06:34 Apresoline - PO Not Given TID [facility] Piperacillin Sod/Tazobactam 50 mls @ 100 mls/hr 05/27/19 11:30 05/30/19 01:56 Sod 2.25 gm/ Dextrose IVPB 100 mls/hr Q8H-IV [facility] Administration Protocol Sodium Chloride 250 mls @ 3,000 mls/hr 05/29/19 21:22 Normal Saline - IV 05/30/19 21:23 PRN PRN Hypotension during Dialysis Metronidazole 500 mg in 100 mls @ 100 mls/hr 05/30/19 10:00 Flagyl 500mg Premixed Ivpb - IVPB Q8H-IV [facility] Insulin Aspart 1 vial 05/27/19 07:00 05/30/19 06:34 Novolog Vial Sliding Scale - SQ Not Given TIDAC [facility] Protocol Ipratropium [place] 1 amp 05/26/19 20:42 05/29/19 20:54 Atrovent 0.02% Nebulizer - NEB 1 amp Q6H PRN Administration WHEEZING Isosorbide Mononitrate 30 mg 05/27/19 10:00 05/29/19 09:21 Imdur - PO Not Given DAILY [facility] Loratadine 10 mg 05/28/19 14:15 05/29/19 09:19 Claritin - PO 10 mg DAILY [facility] Administration Losartan Potassium 100 mg 05/27/19 10:00 05/29/19 09:20 Cozaar - PO Not Given DAILY [facility] Metoprolol Tartrate 50 mg 05/26/19 22:00 05/29/19 21:54 Lopressor - PO 50 mg BID [facility] Administration Minoxidil 2.5 mg 05/28/19 10:00 05/29/19 09:21 Lonitin - PO Not Given DAILY [facility] Montelukast Sodium 10 mg 05/27/19 22:00 05/29/19 21:55 Singulair - PO 10 mg HS [facility] Administration Nystatin 1 applic 05/27/19 22:00 05/29/19 22:01 Mycostatin Cream - TP Not Given BID [facility] Oxycodone HCl 5 mg 05/29/19 15:18 05/29/19 17:30 Roxicodone - PO 5 mg Q6H PRN Administration PAIN LEVEL 6-10 Polyethylene Glycol 17 gm 05/27/19 10:00 05/29/19 09:22 Miralax (For Daily Use) - PO Not Given DAILY [facility] Ranitidine HCl 150 mg 05/27/19 10:00 05/29/19 21:55 Zantac - PO 150 mg BID [facility] Administration Senna 2 tab 05/27/19 22:00 05/29/19 21:55 Senna - PO 2 tab HS [facility] Administration Sevelamer Carbonate 800 mg 05/28/19 08:00 05/30/19 08:45 Renvela - PO 800 mg TIDCM [facility] Administration Sodium Chloride 2 spray 05/29/19 12:10 05/29/19 14:34 [place] Nasal [place] - NS 2 spr BID PRN Administration NASAL CONGESTION Spironolactone 25 mg 05/28/19 10:00 05/29/19 09:20 Aldactone - PO 25 mg DAILY [facility] Administration Tamsulosin HCl 0.8 mg 05/28/19 08:30 05/30/19 08:45 Flomax - PO 0.8 mg DAILY@0830 [facility] Administration Tetanus/Diphtheria Toxoids Adsorbed 0.5 ml 05/30/19 05:17 Decavac IM 05/30/19 05:18 .ONCE ONE Trazodone HCl 300 mg 05/27/19 22:00 05/29/19 21:51 Desyrel - PO 300 mg HS [facility] Administration Impression 1. ESRD 2. cellulitis 3. copd 4. HTN 5. DM 6. right BKA Plan - pt tolerating HD - abx per ID - renal diet - fluid restriction - HD AVF 4:15, 2 k bath, 500 abf, heparin 7000 units bolus and 3000 mid, [id number] dialyzer
[2019-05-30] MEDS ORDERED: DEXTROSE 5%-WATER - 50 ML IVPB ONE (14:01)
[2019-05-30] MEDS ORDERED: PIPERACILLIN/TAZOBACTAM 2.25 GM VIAL IVPB ONE (14:01)
[2019-05-30] MEDS: FOLIC ACID 1 MG TABLET (FP) PO SCH (14:16)
[2019-05-30] MEDS: RANITIDINE HCL 150 MG TABLET (FP) PO SCH ×2 (14:16→23:07)
[2019-05-30] MEDS: NYSTATIN 100,000 UNIT/GM TOPICAL CREAM 15 GM TUBE TP SCH ×2 (14:16→23:05)
[2019-05-30] MEDS: POLYETHYLENE GLYCOL 3350 119 GM BTL PO SCH (14:17)
[2019-05-30] MEDS: BACITRACIN 15 GM TUBE TOPICAL OINTMENT TP SCH (14:17)
[2019-05-30] MEDS: SPIRONOLACTONE 25 MG TABLET (FP) PO SCH (14:17)
[2019-05-30] MEDS: LOSARTAN POTASSIUM 50 MG TABLET (FP) PO SCH (14:18)
[2019-05-30] MEDS: CLOPIDOGREL BISULFATE 75 MG TABLET (FP) PO SCH (14:18)
[2019-05-30] MEDS: LORATADINE 10 MG TABLET PO SCH (14:18)
[2019-05-30] MEDS: ASPIRIN COATED 81 MG TABLET.EC PO SCH (14:24)
[2019-05-30] MEDS: HEPARIN NA (PORCINE) 5,000 UNITS/ML 1ML VIAL SQ SCH ×2 (14:24→23:00)
[2019-05-30] MEDS: FUROSEMIDE 40 MG TABLET (FP) PO SCH (14:24)
[2019-05-30] MEDS: MINOXIDIL 2.5 MG TABLET PO SCH (14:24)
[2019-05-30] MEDS: ISOSORBIDE MONONITRATE 30 MG TAB.SR.24H (FP) PO SCH (14:24)
[2019-05-30] MEDS: METOPROLOL TARTRATE 50 MG TABLET (FP) PO SCH ×2 (14:24→23:02)
--- NOTE | 2019-05-30 14:56 | PN ---
Progress Note (short form) - Note Progress Note: no longer with abdominal pain or nausea ate lunch without problems denies diarrhea- has occasionally mushy stools, never multiple, in fact often constipated Vital Signs Period Temp Pulse Resp BP Sys/Quick Pulse Ox Last 24 Hr 98 F-98.9 F 58-87 18-20 153-187/53-97 97-97 cor-rrr lungs clear abd soft,nt ext decreased erythema of the LLE- ulcer is shallow and clean, toe ulcer shallow and clean right BKA CBC, BMP 05/29/19 07:00 05/29/19 07:00 Microbiology 05/26/19 16:42 Blood - Peripheral Venous Blood Culture - Preliminary NO GROWTH OBTAINED AFTER 72 HOURS, INCUBATION TO CONTINUE FOR 2 DAYS. 05/26/19 16:42 Blood - Peripheral Venous Blood Culture - Preliminary NO GROWTH OBTAINED AFTER 72 HOURS, INCUBATION TO CONTINUE FOR 2 DAYS. a/p cellulitis LLE- improving received vancomycin yesterday remains on zosyn - to continue another 24 hours venous stasis should be ready for d/c in next 24 to 48 hours leg is improving not clear why he is on flagyl esrd/hd check vanco trough in am Problem List - Problems (1) Cellulitis of left leg Code(s): L03.116 - CELLULITIS OF LEFT LOWER LIMB (2) ESRD on hemodialysis Code(s): N18.6 - END STAGE RENAL DISEASE; Z99.2 - DEPENDENCE ON RENAL DIALYSIS (3) Obesity Code(s): E66.9 - OBESITY, UNSPECIFIED (4) Venous stasis Code(s): I87.8 - OTHER SPECIFIED DISORDERS OF VEINS
[2019-05-30] MEDS ORDERED: TETANUS AND DIPHTHERIA TOXOID 0.5 ML DISP.SYRIN IM ONE (18:00)
[2019-05-30] MEDS: HYDROCORTISONE 0.5% TOPICAL CREAM 30 GM TUBE TP PRN ×2 (18:29→22:53)
[2019-05-30] MEDS: DOCUSATE SODIUM 100 MG CAPSULE (FP) PO SCH (22:58)
[2019-05-30] MEDS: traZODone HCL 150 MG TABLET PO SCH (22:59)
[2019-05-30] MEDS: ATORVASTATIN CA 40 MG TABLET (FP) PO SCH (23:01)
[2019-05-30] MEDS: SENNOSIDES 8.6MG TABLET (FP) PO SCH (23:06)
[2019-05-30] MEDS: MONTELUKAST NA 10 MG TABLET PO SCH (23:07)
[2019-05-31] MEDS ORDERED: DEXTROSE 5%-WATER - 50 ML IVPB ONE ×2 (02:35→09:03)
[2019-05-31] MEDS ORDERED: PIPERACILLIN/TAZOBACTAM 2.25 GM VIAL IVPB ONE ×2 (02:35→09:03)
[2019-05-31] MEDS: oxyCODONE HCL 5 MG TABLET PO PRN (02:45)
[2019-05-31] MEDS: PIPERACILLIN/TAZOB 2.25 GM 2.25 GM in DEXTROSE 5%-WATER - 50 ML IVPB SCH ×3 (02:45→18:11)
[2019-05-31 05:06] LABS: CARCINOEMBRYONIC ANTIGEN 5.2 ng/mL (0.0-4.7)
[2019-05-31] MEDS: hydrALAZINE HCL 50 MG TABLET (FP) PO SCH ×2 (06:36→14:57)
[2019-05-31] MEDS: GABAPENTIN 300 MG CAPSULE (FP) PO SCH ×2 (06:37→14:57)
[2019-05-31] MEDS: INSULIN SLIDING SCALE (NOVOLOG) 1 VIAL SQ SCH ×3 (06:38→17:03)
--- NOTE | 2019-05-31 07:35 | PN.GI ---
GI Progress Note Subjective: Patient states having constipation x 4 days, denies rectal bleeding. Complains of nausea but denies vomiting. Continue with lower abdominal pain on palpation right greater than left. Labs show elevated CEA 5.2. - Objective Vital Signs: Vital Signs Temperature 98.6 F 05/31/19 03:05 Pulse Rate 69 05/31/19 03:05 Respiratory Rate 18 05/31/19 03:05 Blood Pressure 145/69 05/31/19 03:05 O2 Sat by Pulse Oximetry (%) 95 05/30/19 21:25 Constitutional: No Distress, Calm Eyes: Yes: Conjunctiva Clear HENT: Yes: Atraumatic Cardiovascular: Yes: Regular Rate and Rhythm Respiratory: Yes: Regular, Diminished Gastrointestinal Inspection: Yes: WNL. No: Ascites, Distention, Hernia, Scars, Other ...Auscultate: Yes: Hypoactive Bowel Sounds. No: Normoactive Bowel Sounds, Hyperactive Bowel Sounds, No Bowel Sounds, Other ...Palpate: Yes: Soft, Tenderness (RLQ greater than LLQ). No: Firm/Rigid, Guarding, Hepatomegaly, Mass, Pulsatile Mass, Splenomegaly, Tenderness, Epigastium, Tenderness, Rebound, Other ...Percussion: Yes: Tympanitic Neurological: Yes: Alert, Oriented Psychiatric: Yes: Alert, Oriented Labs: CBC, BMP 05/29/19 07:00 05/29/19 07:00 INR, PTT INR 1.05 (0.83-1.09) 05/26/19 16:42 Home Medication List Medication Instructions Recorded Confirmed Type Aspirin [ASA -] 81 mg PO DAILY 05/18/17 05/27/19 History Atorvastatin Ca [Lipitor] 40 mg PO HS 05/18/17 05/27/19 History Clopidogrel Bisulfate [Plavix -] 75 mg PO DAILY 05/18/17 05/27/19 History Folic Acid 1 mg PO DAILY 05/18/17 05/27/19 History Tamsulosin HCl [Flomax] 0.8 mg PO HS 05/18/17 05/27/19 History Metoprolol Tartrate [Lopressor -] 100 mg PO BID 08/26/17 05/27/19 History hydrALAZINE HCL [Apresoline -] 100 mg PO TID 08/26/17 05/27/19 History Bacitracin - [Bacitracin Topical 1 applic TP DAILY 08/27/17 05/27/19 History Ointment -] Calcium Acetate [Phoslo -] 667 mg PO TIDCM 08/27/17 05/27/19 History Polyethylene Glycol 3350 [Miralax 17 gm PO DAILY 08/27/17 05/27/19 History 119 gm Btl -] Acetaminophen [Tylenol 8 Hour] 650 mg PO PRN 05/13/18 05/27/19 History Albuterol Sulfate 0.5% [Ventolin 1 neb IH Q6H PRN 05/13/18 05/27/19 History 0.5% Nebulizing Soln. -] Polyvinyl Alcohol [Artificial 15 ml OP QID 05/13/18 05/27/19 History Tears] Sennosides [Senna Laxative] 17.2 mg PO HS 05/13/18 05/27/19 History Insulin Lispro [Admelog] 100 units SQ ASDIR 04/29/19 05/27/19 History Famotidine [Acid Controller] 20 mg PO BID 05/27/19 05/27/19 History Furosemide [Lasix] 80 mg PO DAILY 05/27/19 05/27/19 History Gabapentin [Neurontin -] 300 mg PO Q8H 05/27/19 05/27/19 History Montelukast Sodium [Singulair] 10 mg PO HS 05/27/19 05/27/19 History Oxycodone HCl 5 mg PO PRN 05/27/19 05/27/19 History Sevelamer Carbonate [Renvela -] 800 mg PO TID 05/27/19 05/27/19 History Spironolactone [Aldactone] 50 mg PO DAILY 05/27/19 05/27/19 History Active Medications Generic Name Dose Route Start Last Admin Trade Name Freq PRN Reason Stop Dose Admin Acetaminophen 650 mg 05/26/19 20:42 Tylenol - PO Q4H PRN PAIN OR FEVER Albuterol Sulfate 1 amp 05/26/19 20:42 05/29/19 20:55 Ventolin 0.083% Nebulizer Soln - NEB 1 amp Q6H PRN Administration SHORT OF BREATH/WHEEZING Artificial Tears 1 drop 05/27/19 17:37 Artificial Tears OU QID PRN DRY EYES Aspirin 81 mg 05/28/19 10:00 05/30/19 14:24 Ecotrin - PO Not Given DAILY [facility] Atorvastatin Calcium 40 mg 05/26/19 22:00 05/30/19 23:01 Lipitor - PO 40 mg HS [facility] Administration Bacitracin 1 applic 05/27/19 20:00 05/30/19 14:17 Bacitracin - TP 1 applic DAILY [facility] Administration Benzocaine/Menthol 1 each 05/29/19 12:10 Cepacol Lozenge - MM PRN PRN SORE THROAT Calcium Acetate 667 mg 05/27/19 08:00 05/30/19 17:38 Phoslo - PO 667 mg TIDCM [facility] Administration Clopidogrel Bisulfate 75 mg 05/27/19 10:00 05/30/19 14:18 Plavix - PO 75 mg DAILY [facility] Administration Docusate Sodium 200 mg 05/26/19 22:00 05/30/19 22:58 Colace - PO 200 mg HS [facility] Administration Folic Acid 1 mg 05/28/19 10:00 05/30/19 14:16 Folic Acid - PO 1 mg DAILY [facility] Administration Furosemide 80 mg 05/28/19 10:00 05/30/19 14:24 Lasix - PO Not Given DAILY [facility] Gabapentin 300 mg 05/27/19 22:00 05/31/19 06:37 Neurontin - PO 300 mg TID [facility] Administration Heparin Sodium (Porcine) 5,000 unit 05/26/19 22:00 05/30/19 23:00 Heparin - SQ Not Given BID [facility] Hydralazine HCl 100 mg 05/27/19 22:00 05/31/19 06:36 Apresoline - PO 100 mg TID [facility] Administration Hydrocortisone 1 applic 05/30/19 15:57 05/30/19 22:53 Hytone 0.5% Cream - TP 1 applic Q12H PRN Administration FOR ITCHING Piperacillin Sod/Tazobactam 50 mls @ 100 mls/hr 05/27/19 11:30 05/31/19 02:45 Sod 2.25 gm/ Dextrose IVPB 100 mls/hr Q8H-IV [facility] Administration Protocol Sodium Chloride 250 mls @ 3,000 mls/hr 05/29/19 21:22 Normal Saline - IV 05/30/19 21:23 PRN PRN Hypotension during Dialysis Insulin Aspart 1 vial 05/27/19 07:00 05/31/19 06:38 Novolog Vial Sliding Scale - SQ Not Given TIDAC [facility] Protocol Ipratropium [place] 1 amp 05/26/19 20:42 05/29/19 20:54 Atrovent 0.02% Nebulizer - NEB 1 amp Q6H PRN Administration WHEEZING Isosorbide Mononitrate 30 mg 05/27/19 10:00 05/30/19 14:24 Imdur - PO Not Given DAILY [facility] Loratadine 10 mg 05/28/19 14:15 05/30/19 14:18 Claritin - PO 10 mg DAILY [facility] Administration Losartan Potassium 100 mg 05/27/19 10:00 05/30/19 14:18 Cozaar - PO Not Given DAILY [facility] Metoprolol Tartrate 50 mg 05/26/19 22:00 05/30/19 23:02 Lopressor - PO 25 mg BID [facility] Administration Minoxidil 2.5 mg 05/28/19 10:00 05/30/19 14:24 Lonitin - PO Not Given DAILY [facility] Montelukast Sodium 10 mg 05/27/19 22:00 05/30/19 23:07 Singulair - PO 10 mg HS [facility] Administration Nystatin 1 applic 05/27/19 22:00 05/30/19 23:05 Mycostatin Cream - TP 1 applic BID [facility] Administration Oxycodone HCl 5 mg 05/29/19 15:18 05/31/19 02:45 Roxicodone - PO 5 mg Q6H PRN Administration PAIN LEVEL 6-10 Polyethylene Glycol 17 gm 05/27/19 10:00 05/30/19 14:17 Miralax (For Daily Use) - PO Not Given DAILY [facility] Ranitidine HCl 150 mg 05/27/19 10:00 05/30/19 23:07 Zantac - PO 150 mg BID [facility] Administration Senna 2 tab 05/27/19 22:00 05/30/19 23:06 Senna - PO 2 tab HS [facility] Administration Sevelamer Carbonate 800 mg 05/28/19 08:00 05/30/19 17:39 Renvela - PO 800 mg TIDCM [facility] Administration Sodium Chloride 2 spray 05/29/19 12:10 05/29/19 14:34 [place] Nasal [place] - NS 2 spr BID PRN Administration NASAL CONGESTION Spironolactone 25 mg 05/28/19 10:00 05/30/19 14:17 Aldactone - PO Not Given DAILY [facility] Tamsulosin HCl 0.8 mg 05/28/19 08:30 05/30/19 08:45 Flomax - PO 0.8 mg DAILY@0830 [facility] Administration Trazodone HCl 300 mg 05/31/19 22:00 Desyrel - PO [facility] Problem List - Problems (1) Diarrhea Assessment/Plan: -Stool Culture, O&P, Stool WBC, Calpoprectin Code(s): R19.7 - DIARRHEA, UNSPECIFIED (2) Abdominal pain Assessment/Plan: -Abdominal US reviewed -CEA 5.2 AFP 0.9 -CA 19-9 pending -will need colonoscopy when medically cleared and given pmhx will need cardiology and pulm clearance Code(s): R10.9 - UNSPECIFIED ABDOMINAL PAIN
[2019-05-31 08:39] LABS: HEMATOCRIT 29.3 % (35.4-49); HEMOGLOBIN 9.9 GM/dL (11.7-16.9); MCH 31.5 pg (25.7-33.7); MCHC 33.8 g/dl (32.0-35.9); MEAN CELL VOLUME 93.1 fl (80-96); MEAN PLT VOLUME 7.5 fl (7.5-11.1); PLATELET COUNT 257 K/MM3 (134-434); RBC 3.15 M/mm3 (4.00-5.60); RDW 16.3 % (11.9-15.9); WHITE BLOOD COUNT 10.1 K/mm3 (4.0-10.0)
[2019-05-31 09:05] LABS: ALBUMIN 3.2 g/dl (3.4-5.0); BILIRUBIN,TOTAL 0.5 mg/dL (0.2-1); BLOOD UREA NITROGEN 52.9 mg/dL (7-18); CALCIUM 8.2 mg/dL (8.5-10.1); POTASSIUM 4.5 mmol/L (3.5-5.1)
[2019-05-31 09:14] LABS: CREATININE 7.9 mg/dL (0.55-1.3)
[2019-05-31] MEDS: ASPIRIN COATED 81 MG TABLET.EC PO SCH (09:33)
[2019-05-31] MEDS: TAMSULOSIN HCL 0.4 MG CAP PO SCH (09:33)
[2019-05-31] MEDS: CLOPIDOGREL BISULFATE 75 MG TABLET (FP) PO SCH (09:33)
[2019-05-31] MEDS: CALCIUM ACETATE 667 MG CAPSULE (FP) PO SCH ×3 (09:34→17:00)
[2019-05-31] MEDS: SEVELAMER CARBONATE 800 MG TAB (FP) PO SCH ×3 (09:37→17:00)
[2019-05-31] MEDS: FUROSEMIDE 40 MG TABLET (FP) PO SCH (09:38)
[2019-05-31] MEDS: FOLIC ACID 1 MG TABLET (FP) PO SCH (09:38)
[2019-05-31] MEDS: LORATADINE 10 MG TABLET PO SCH (09:38)
[2019-05-31] MEDS: LOSARTAN POTASSIUM 50 MG TABLET (FP) PO SCH (09:38)
[2019-05-31] MEDS: RANITIDINE HCL 150 MG TABLET (FP) PO SCH (09:39)
[2019-05-31] MEDS: METOPROLOL TARTRATE 50 MG TABLET (FP) PO SCH (09:39)
[2019-05-31] MEDS: SPIRONOLACTONE 25 MG TABLET (FP) PO SCH (09:39)
[2019-05-31] MEDS: ISOSORBIDE MONONITRATE 30 MG TAB.SR.24H (FP) PO SCH (09:40)
[2019-05-31] MEDS: HEPARIN NA (PORCINE) 5,000 UNITS/ML 1ML VIAL SQ SCH (09:40)
[2019-05-31] MEDS: MINOXIDIL 2.5 MG TABLET PO SCH (09:41)
[2019-05-31] MEDS: BACITRACIN 15 GM TUBE TOPICAL OINTMENT TP SCH (09:42)
[2019-05-31] MEDS: HYDROCORTISONE 0.5% TOPICAL CREAM 30 GM TUBE TP PRN (09:43)
[2019-05-31] MEDS: POLYETHYLENE GLYCOL 3350 119 GM BTL PO SCH (09:47)
--- NOTE | 2019-05-31 11:24 | CON.PULM ---
Consult Consult Specialty:: PULM/CCM Referred by:: HILTON Reason for Consultation:: SOB / OSAS - History of Present Illness Chief Complaint: Left leg cellulitis History of Present Illness: 58 M, known to me from the outpatient setting. Severe OSAS diagnosed in 2017. RDI was 79 events per hour. Lowest oxygen desaturation to 83%. He was titrated on BiLevel ST @ 18/12 with improvement of the RDI to 11.4 events per hour. Additional history of ERSD on ND, COPD, HTN, HPL, and CHF. He was intially prescribed a BiLevel device and was changed to a TRilogy when he was at [facility]. Due to multiple insurance issues he has not received the device. Apparently it was approved for 05/31. Admitted due to worsening LLE cellulitis. Denies SOB or CP. CXR: no acute process - History Source History Provided By: Patient Limitations to Obtaining History: No Limitations - Past Medical History Cardio/Vascular: Yes: CAD, CHF, HTN, Hyperlipdemia Pulmonary: Yes: Bronchitis, COPD, Pneumonia, Sleep Apnea, Other (allergies , seasonal). No: Asthma, Cancer, O2 Dependent, Previously Intubated, Pulmonary Embolus, Pulmonary Fibrosis Gastrointestinal: Yes: Constipation, GERD Renal/: Yes: BPH, Hemodialysis, Other (ESRD) Endocrine: Yes: Diabetes Mellitus - Past Surgical History Past Surgical History: Yes: Amputation (Rt BKA) - Alcohol/Substance Use Hx Alcohol Use: Yes (quite 10 years ago) History of Substance Use: reports: None - Smoking History Smoking history: Former smoker Have you smoked in the past 12 months: No If you are a former smoker, when did you quit?: quite 15 years ago - Social History Usual Living Arrangement: Longterm ADL: Support Services History of Recent Travel: No Home Medications - Allergies Allergies/Adverse Reactions: Allergies Allergy/AdvReac Type Severity Reaction Status Date / Time tree nut Allergy Verified 04/29/19 11:25 eggplant Allergy Unknown Itching Uncoded 04/29/19 11:25 raw apples Allergy Unknown Difficulty Uncoded 05/27/19 13:35 Breathing raw peaches Allergy Unknown Difficulty Uncoded 05/27/19 13:34 Breathing raw pears Allergy Unknown Difficulty Uncoded 05/27/19 13:36 Breathing raw plums Allergy Unknown Difficulty Uncoded 05/27/19 13:35 Breathing - Home Medications Home Medications: Ambulatory Orders Aspirin [ASA -] 81 mg PO DAILY 05/18/17 Atorvastatin Ca [Lipitor] 40 mg PO HS 05/18/17 Clopidogrel Bisulfate [Plavix -] 75 mg PO DAILY 05/18/17 Folic Acid 1 mg PO DAILY 05/18/17 Tamsulosin HCl [Flomax] 0.8 mg PO HS 05/18/17 Metoprolol Tartrate [Lopressor -] 100 mg PO BID 08/26/17 hydrALAZINE HCL [Apresoline -] 100 mg PO TID 08/26/17 Bacitracin - [Bacitracin Topical Ointment -] 1 applic TP DAILY 08/27/17 Calcium Acetate [Phoslo -] 667 mg PO TIDCM 08/27/17 Polyethylene Glycol 3350 [Miralax 119 gm Btl -] 17 gm PO DAILY 08/27/17 Acetaminophen [Tylenol 8 Hour] 650 mg PO PRN 05/13/18 Albuterol Sulfate 0.5% [Ventolin 0.5% Nebulizing Soln. -] 1 neb IH Q6H PRN 05/13 Polyvinyl Alcohol [Artificial Tears] 15 ml OP QID 05/13/18 Sennosides [Senna Laxative] 17.2 mg PO HS 05/13/18 Insulin Lispro [Admelog] 100 units SQ ASDIR 04/29/19 Famotidine [Acid Controller] 20 mg PO BID 05/27/19 Furosemide [Lasix] 80 mg PO DAILY 05/27/19 Gabapentin [Neurontin -] 300 mg PO Q8H 05/27/19 Montelukast Sodium [Singulair] 10 mg PO HS 05/27/19 Oxycodone HCl 5 mg PO PRN 05/27/19 Sevelamer Carbonate [Renvela -] 800 mg PO TID 05/27/19 Spironolactone [Aldactone] 50 mg PO DAILY 05/27/19 Review of Systems - Review of Systems Constitutional: reports: Malaise. denies: Chills, Fever, Night Sweats Eyes: reports: No Symptoms HENT: reports: No Symptoms Neck: reports: No Symptoms Cardiovascular: denies: Chest Pain, Edema, Palpitations, Shortness of Breath Respiratory: reports: Cough, Snoring, SOB on Exertion. denies: Hemoptysis, Orthopnea, PND, SOB, Wheezing Gastrointestinal: reports: No Symptoms Genitourinary: reports: No Symptoms Musculoskeletal: reports: Back Pain, Extremity Pain, Joint Pain, Joint Swelling , Muscle Cramps, Muscle Weakness Integumentary: reports: Change in Color, Erythema, Pruritis Neurological: reports: No Symptoms Endocrine: reports: No Symptoms Hematology/Lymphatic: reports: No Symptoms Psychiatric: reports: No Symptoms Physical Exam Vital Sings: Vital Signs Temperature 98.4 F 05/31/19 09:59 Pulse Rate 67 05/31/19 09:59 Respiratory Rate 18 05/31/19 09:59 Blood Pressure 129/58 L 05/31/19 09:59 O2 Sat by Pulse Oximetry (%) 98 05/31/19 08:23 Constitutional: Yes: No Distress, Obese Eyes: Yes: Conjunctiva Clear, EOM Intact HENT: Yes: Atraumatic, Normocephalic Neck: Yes: Supple, Trachea Midline Cardiovascular: Yes: Regular Rate and Rhythm Respiratory: Yes: Diminished, SOB on Exertion. No: Accessory Muscle Use, Rales , Rhonchi, SOB, Stridor, Tachypnea, Wheezes ...Inspection: Yes: WNL ...Clubbing: No Gastrointestinal: Yes: Normal Bowel Sounds, Soft, Abdomen, Obese Renal/: Yes: WNL Musculoskeletal: Yes: Other (Right AKA with prosthetic in place. ) Edema: Yes Peripheral Pulses WNL: Yes Integumentary: Yes: Erythema, Venous Stasis Changes Neurological: Yes: Alert, Oriented ...Motor Strength: WNL Psychiatric: Yes: WNL, Alert, Oriented Labs: CBC, BMP 05/31/19 08:00 05/31/19 08:00 Imaging - Results Chest X-ray: Report Reviewed, Image Reviewed Problem List - Problems (1) Sleep apnea Code(s): G47.30 - SLEEP APNEA, UNSPECIFIED (2) Morbid obesity Code(s): E66.01 - MORBID (SEVERE) OBESITY DUE TO EXCESS CALORIES (3) CHF (congestive heart failure) Code(s): I50.9 - HEART FAILURE, UNSPECIFIED (4) Cellulitis of left leg Code(s): L03.116 - CELLULITIS OF LEFT LOWER LIMB (5) Constipation Code(s): K59.00 - CONSTIPATION, UNSPECIFIED (6) ESRD on hemodialysis Code(s): N18.6 - END STAGE RENAL DISEASE; Z99.2 - DEPENDENCE ON RENAL DIALYSIS (7) End stage chronic kidney disease Code(s): N18.6 - END STAGE RENAL DISEASE (8) GERD (gastroesophageal reflux disease) Code(s): K21.9 - GASTRO-ESOPHAGEAL REFLUX DISEASE WITHOUT ESOPHAGITIS (9) HLD (hyperlipidemia) Code(s): E78.5 - HYPERLIPIDEMIA, UNSPECIFIED (10) Hx of right BKA Code(s): Z89.511 - ACQUIRED ABSENCE OF RIGHT LEG BELOW KNEE (11) Venous stasis Code(s): I87.8 - OTHER SPECIFIED DISORDERS OF VEINS (12) CAD (coronary artery disease) Code(s): I25.10 - ATHSCL HEART DISEASE OF [place] CORONARY ARTERY W/O ANG PCTRS (13) COPD (chronic obstructive pulmonary disease) Code(s): J44.9 - CHRONIC OBSTRUCTIVE PULMONARY DISEASE, UNSPECIFIED (14) Diabetes Code(s): E11.9 - TYPE 2 DIABETES MELLITUS WITHOUT COMPLICATIONS Qualifiers: Diabetes mellitus type: type 2 Chronic kidney disease stage: on chronic dialysis (15) HTN (hypertension) Code(s): I10 - ESSENTIAL (PRIMARY) HYPERTENSION Qualifiers: Hypertension type: unspecified Qualified Code(s): I10 - Essential (primary ) hypertension (16) Lower back pain Code(s): M54.5 - LOW BACK PAIN Qualifiers: Chronicity: acute Back pain laterality: midline Sciatica presence: without sciatica Qualified Code(s): M54.5 - Low back pain Assessment/Plan Noted patient with elevated CEA. Anticipate Endoscopic evaluation. Due to his Severe OSAS and COPD he is an at increased but reasonable risk for anesthesia and intervention as there is a concern for malignancy. NIPPV ordered: , RR 16, FiO2 30%. Will need to follow with [facility] for the status of his Trilogy device. O2 as needed No indication for systemic steroids as he in not in AE BD TX PRN Local wound care per surgery No smoking counseled VTE prophylaxis Singulair daily Check baseline ABG on RA Will follow Thank you. Dr Prieto
[2019-05-31] MEDS: NYSTATIN 100,000 UNIT/GM TOPICAL CREAM 15 GM TUBE TP SCH (11:29)
[2019-05-31] MEDS: SODIUM CHLORIDE NASAL SPRAY 44 ML BOTTLE NS PRN (11:35)
--- NOTE | 2019-05-31 12:13 | PN ---
Progress Note (short form) - Note Progress Note: Left leg edema improved with less erythema. Calf wound exudate less adherent, toe wound clean I would continue current daily wound care and leg elevation IV abx as per medicine.
[2019-05-31 12:45] LABS: ARTERIAL BLD GAS O2 SATURATION 94.4 % (95-98); ARTERIAL BLOOD GAS BASE EXCESS 2.5 meq/l (-2-2); ARTERIAL BLOOD GAS PCO2 45.7 mmHg (35-45); ARTERIAL BLOOD GAS PO2 95.7 mmHg (80-100); ARTERIAL BLOOD GAS pH 7.39 (7.35-7.45)
[2019-05-31 12:46] LABS: ALLENS TEST POSITIVE
--- NOTE | 2019-05-31 13:40 | PN ---
Progress Note (short form) - Note Progress Note: Patient is high risk foe gi procedures at this time because of multiple co morbidities, will need transfer to tertiary center, for further evaluation. Problem List - Problems (1) Diarrhea Code(s): R19.7 - DIARRHEA, UNSPECIFIED (2) Abdominal pain Code(s): R10.9 - UNSPECIFIED ABDOMINAL PAIN
[2019-05-31] MEDS ORDERED: SODIUM CHLORIDE 250 ML IV PRN (14:05)
--- NOTE | 2019-05-31 14:05 | PN ---
Progress Note, Physician History of Present Illness: Pt seen and examined at bedside. He is awake and alert. He has no complaints. - Current Medication List Current Medications: Active Medications Acetaminophen (Tylenol -) 650 mg PO Q4H PRN PRN Reason: PAIN OR FEVER Albuterol Sulfate (Ventolin 0.083% Nebulizer Soln -) 1 amp NEB Q6H PRN PRN Reason: SHORT OF BREATH/WHEEZING Last Admin: 05/29/19 20:55 Dose: 1 amp Artificial Tears (Artificial Tears) 1 drop OU QID PRN PRN Reason: DRY EYES Aspirin (Ecotrin -) 81 mg PO DAILY [facility] Last Admin: 05/31/19 09:33 Dose: 81 mg Atorvastatin Calcium (Lipitor -) 40 mg PO HS [facility] Last Admin: 05/30/19 23:01 Dose: 40 mg Bacitracin (Bacitracin -) 1 applic TP DAILY [facility] Last Admin: 05/31/19 09:42 Dose: 1 applic Benzocaine/Menthol (Cepacol Lozenge -) 1 each MM PRN PRN PRN Reason: SORE THROAT Calcium Acetate (Phoslo -) 667 mg PO TIDCM [facility] Last Admin: 05/31/19 12:26 Dose: 667 mg Clopidogrel Bisulfate (Plavix -) 75 mg PO DAILY [facility] Last Admin: 05/31/19 09:33 Dose: 75 mg Docusate Sodium (Colace -) 200 mg PO HS [facility] Last Admin: 05/30/19 22:58 Dose: 200 mg Folic Acid (Folic Acid -) 1 mg PO DAILY [facility] Last Admin: 05/31/19 09:38 Dose: 1 mg Furosemide (Lasix -) 80 mg PO DAILY [facility] Last Admin: 05/31/19 09:38 Dose: 80 mg Gabapentin (Neurontin -) 300 mg PO TID [facility] Last Admin: 05/31/19 06:37 Dose: 300 mg Heparin Sodium (Porcine) (Heparin -) 5,000 unit SQ BID [facility] Last Admin: 05/31/19 09:40 Dose: Not Given Hydralazine HCl (Apresoline -) 100 mg PO TID [facility] Last Admin: 05/31/19 06:36 Dose: 100 mg Hydrocortisone (Hytone 0.5% Cream -) 1 applic TP Q12H PRN PRN Reason: FOR ITCHING Last Admin: 05/31/19 09:43 Dose: 1 applic Piperacillin Sod/Tazobactam (Sod 2.25 gm/ Dextrose) 50 mls @ 100 mls/hr IVPB Q8H-IV [facility]; Protocol Last Admin: 05/31/19 09:33 Dose: 100 mls/hr Sodium Chloride (Normal Saline -) 250 mls @ 3,000 mls/hr IV PRN PRN PRN Reason: Hypotension during Dialysis Stop: 05/30/19 21:23 Insulin Aspart (Novolog Vial Sliding Scale -) 1 vial SQ TIDAC [facility]; Protocol Last Admin: 05/31/19 11:32 Dose: 2 units Ipratropium [place] (Atrovent 0.02% Nebulizer -) 1 amp NEB Q6H PRN PRN Reason: WHEEZING Last Admin: 05/29/19 20:54 Dose: 1 amp Isosorbide Mononitrate (Imdur -) 30 mg PO DAILY [facility] Last Admin: 05/31/19 09:40 Dose: Not Given Loratadine (Claritin -) 10 mg PO DAILY [facility] Last Admin: 05/31/19 09:38 Dose: 10 mg Losartan Potassium (Cozaar -) 100 mg PO DAILY [facility] Last Admin: 05/31/19 09:38 Dose: Not Given Metoprolol Tartrate (Lopressor -) 50 mg PO BID [facility] Last Admin: 05/31/19 09:39 Dose: 50 mg Minoxidil (Lonitin -) 2.5 mg PO DAILY [facility] Last Admin: 05/31/19 09:41 Dose: Not Given Montelukast Sodium (Singulair -) 10 mg PO HS [facility] Last Admin: 05/30/19 23:07 Dose: 10 mg Nystatin (Mycostatin Cream -) 1 applic TP BID [facility] Last Admin: 05/31/19 11:29 Dose: 1 applic Oxycodone HCl (Roxicodone -) 5 mg PO Q6H PRN PRN Reason: PAIN LEVEL 6-10 Last Admin: 05/31/19 02:45 Dose: 5 mg Polyethylene Glycol (Miralax (For Daily Use) -) 17 gm PO DAILY [facility] Last Admin: 05/31/19 09:47 Dose: 17 grams Ranitidine HCl (Zantac -) 150 mg PO BID [facility] Last Admin: 05/31/19 09:39 Dose: 150 mg Senna (Senna -) 2 tab PO HS [facility] Last Admin: 05/30/19 23:06 Dose: 2 tab Sevelamer Carbonate (Renvela -) 800 mg PO TIDCM [facility] Last Admin: 05/31/19 12:26 Dose: 800 mg Sodium Chloride ([place] Nasal [place] -) 2 spray NS BID PRN PRN Reason: NASAL CONGESTION Last Admin: 05/31/19 11:35 Dose: 2 spr Spironolactone (Aldactone -) 25 mg PO DAILY [facility] Last Admin: 05/31/19 09:39 Dose: 25 mg Tamsulosin HCl (Flomax -) 0.8 mg PO DAILY@0830 [facility] Last Admin: 05/31/19 09:33 Dose: 0.8 mg Trazodone HCl (Desyrel -) 300 mg PO [facility] - Objective Vital Signs: Vital Signs Temperature 98.4 F 05/31/19 09:59 Pulse Rate 67 05/31/19 09:59 Respiratory Rate 18 05/31/19 09:59 Blood Pressure 129/58 L 05/31/19 09:59 O2 Sat by Pulse Oximetry (%) 98 05/31/19 08:23 Constitutional: Yes: Calm Eyes: Yes: Conjunctiva Clear HENT: Yes: Atraumatic Neck: Yes: Supple Cardiovascular: Yes: S1, S2 Respiratory: Yes: CTA Bilaterally Gastrointestinal: Yes: Soft, Abdomen, Obese Genitourinary: Yes: WNL Musculoskeletal: Yes: Other (right bka) Edema: No Wound/Incision: Yes: Dressing Dry and Intact Neurological: Yes: Oriented Labs: CBC, BMP 05/31/19 08:00 05/31/19 08:00 INR, PTT INR 1.05 (0.83-1.09) 05/26/19 16:42 Problem List - Problems (1) Cellulitis of left leg Code(s): L03.116 - CELLULITIS OF LEFT LOWER LIMB (2) ESRD on hemodialysis Code(s): N18.6 - END STAGE RENAL DISEASE; Z99.2 - DEPENDENCE ON RENAL DIALYSIS Assessment/Plan Current Medications Generic Name Dose Route Start Last Admin Trade Name Freq PRN Reason Stop Dose Admin Acetaminophen 650 mg 05/26/19 20:42 Tylenol - PO Q4H PRN PAIN OR FEVER Albuterol Sulfate 1 amp 05/26/19 20:42 05/29/19 20:55 Ventolin 0.083% Nebulizer Soln - NEB 1 amp Q6H PRN Administration SHORT OF BREATH/WHEEZING Artificial Tears 1 drop 05/27/19 17:37 Artificial Tears OU QID PRN DRY EYES Aspirin 81 mg 05/28/19 10:00 05/31/19 09:33 Ecotrin - PO 81 mg DAILY [facility] Administration Atorvastatin Calcium 40 mg 05/26/19 22:00 05/30/19 23:01 Lipitor - PO 40 mg HS [facility] Administration Bacitracin 1 applic 05/27/19 20:00 05/31/19 09:42 Bacitracin - TP 1 applic DAILY [facility] Administration Benzocaine/Menthol 1 each 05/29/19 12:10 Cepacol Lozenge - MM PRN PRN SORE THROAT Calcium Acetate 667 mg 05/27/19 08:00 05/31/19 12:26 Phoslo - PO 667 mg TIDCM [facility] Administration Clopidogrel Bisulfate 75 mg 05/27/19 10:00 05/31/19 09:33 Plavix - PO 75 mg DAILY [facility] Administration Docusate Sodium 200 mg 05/26/19 22:00 05/30/19 22:58 Colace - PO 200 mg HS [facility] Administration Folic Acid 1 mg 05/28/19 10:00 05/31/19 09:38 Folic Acid - PO 1 mg DAILY [facility] Administration Furosemide 80 mg 05/28/19 10:00 05/31/19 09:38 Lasix - PO 80 mg DAILY [facility] Administration Gabapentin 300 mg 05/27/19 22:00 05/31/19 06:37 Neurontin - PO 300 mg TID [facility] Administration Heparin Sodium (Porcine) 5,000 unit 05/26/19 22:00 05/31/19 09:40 Heparin - SQ Not Given BID [facility] Hydralazine HCl 100 mg 05/27/19 22:00 05/31/19 06:36 Apresoline - PO 100 mg TID [facility] Administration Hydrocortisone 1 applic 05/30/19 15:57 05/31/19 09:43 Hytone 0.5% Cream - TP 1 applic Q12H PRN Administration FOR ITCHING Piperacillin Sod/Tazobactam 50 mls @ 100 mls/hr 05/27/19 11:30 05/31/19 09:33 Sod 2.25 gm/ Dextrose IVPB 100 mls/hr Q8H-IV [facility] Administration Protocol Sodium Chloride 250 mls @ 3,000 mls/hr 05/29/19 21:22 Normal Saline - IV 05/30/19 21:23 PRN PRN Hypotension during Dialysis Insulin Aspart 1 vial 05/27/19 07:00 05/31/19 11:32 Novolog Vial Sliding Scale - SQ 2 units TIDAC [facility] Administration Protocol Ipratropium [place] 1 amp 05/26/19 20:42 05/29/19 20:54 Atrovent 0.02% Nebulizer - NEB 1 amp Q6H PRN Administration WHEEZING Isosorbide Mononitrate 30 mg 05/27/19 10:00 05/31/19 09:40 Imdur - PO Not Given DAILY [facility] Loratadine 10 mg 05/28/19 14:15 05/31/19 09:38 Claritin - PO 10 mg DAILY [facility] Administration Losartan Potassium 100 mg 05/27/19 10:00 05/31/19 09:38 Cozaar - PO Not Given DAILY [facility] Metoprolol Tartrate 50 mg 05/26/19 22:00 05/31/19 09:39 Lopressor - PO 50 mg BID [facility] Administration Minoxidil 2.5 mg 05/28/19 10:00 05/31/19 09:41 Lonitin - PO Not Given DAILY [facility] Montelukast Sodium 10 mg 05/27/19 22:00 05/30/19 23:07 Singulair - PO 10 mg HS [facility] Administration Nystatin 1 applic 05/27/19 22:00 05/31/19 11:29 Mycostatin Cream - TP 1 applic BID [facility] Administration Oxycodone HCl 5 mg 05/29/19 15:18 05/31/19 02:45 Roxicodone - PO 5 mg Q6H PRN Administration PAIN LEVEL 6-10 Polyethylene Glycol 17 gm 05/27/19 10:00 05/31/19 09:47 Miralax (For Daily Use) - PO 17 grams DAILY [facility] Administration Ranitidine HCl 150 mg 05/27/19 10:00 05/31/19 09:39 Zantac - PO 150 mg BID [facility] Administration Senna 2 tab 05/27/19 22:00 05/30/19 23:06 Senna - PO 2 tab HS [facility] Administration Sevelamer Carbonate 800 mg 05/28/19 08:00 05/31/19 12:26 Renvela - PO 800 mg TIDCM [facility] Administration Sodium Chloride 2 spray 05/29/19 12:10 05/31/19 11:35 [place] Nasal [place] - NS 2 spr BID PRN Administration NASAL CONGESTION Spironolactone 25 mg 05/28/19 10:00 05/31/19 09:39 Aldactone - PO 25 mg DAILY [facility] Administration Tamsulosin HCl 0.8 mg 05/28/19 08:30 05/31/19 09:33 Flomax - PO 0.8 mg DAILY@0830 [facility] Administration Trazodone HCl 300 mg 05/31/19 22:00 Desyrel - PO HS [facility] Impression 1. ESRD 2. cellulitis 3. copd 4. HTN 5. DM 6. right BKA Plan - HD tomorrow - cont wound care - abx per ID - renal diet - fluid restriction - HD AVF 4:15, 2 k bath, 500 abf, heparin 7000 units bolus and 3000 mid, [id number] dialyzer
[2019-05-31] MEDS ORDERED: HEPARIN NA (PORCINE) 5,000 UNITS/ML 1ML VIAL IVPUSH SCH (14:15)
--- NOTE | 2019-05-31 15:54 | DS ---
Physical Examination Vital Signs: Vital Signs Temperature 99.2 F 05/31/19 13:00 Pulse Rate 64 05/31/19 13:00 Respiratory Rate 18 05/31/19 13:00 Blood Pressure 139/66 05/31/19 13:00 O2 Sat by Pulse Oximetry (%) 98 05/31/19 08:23 Findings/Remarks: Laboratory Tests 05/26/19 05/26/19 05/26/19 16:42 16:42 16:42 WBC 11.3 H RBC 3.27 L Hgb 9.9 L Hct 30.6 L D MCV 93.7 MCH 30.2 MCHC 32.3 RDW 16.6 H Plt Count 228 MPV 7.8 Absolute Neuts (auto) 9.0 H Neutrophils % 78.9 Lymphocytes % 6.7 L D Monocytes % 11.0 H Eosinophils % 2.7 Basophils % 0.7 Nucleated RBC % 0 PT with INR 12.40 INR 1.05 PTT (Actin FS) 30.5 Anticoagulation Therapy Puncture Site ABG pH ABG pCO2 at Pt Temp ABG pO2 at Pt Temp ABG HCO3 ABG O2 Sat (Measured) ABG O2 Content ABG Base Excess Cristopher Test O2 Delivery Device Oxygen Flow Rate Vent Mode Vent Rate Mechanical Rate Pressure Support Vent Sodium Potassium Chloride Carbon Dioxide Anion Gap BUN Creatinine Est GFR (CKD-EPI)AfAm Est GFR (CKD-EPI)NonAf POC Glucometer Random Glucose Lactic Acid Calcium Total Bilirubin AST ALT Alkaline Phosphatase Troponin I 0.03 Total Protein Albumin Tumor Marker AFP Carcinoembryonic Ag Random Vancomycin Hep Bs Antigen Hep C Ab Diagnostic 05/26/19 05/26/19 05/27/19 16:42 16:42 05:27 WBC RBC Hgb Hct MCV MCH MCHC RDW Plt Count MPV Absolute Neuts (auto) Neutrophils % Lymphocytes % Monocytes % Eosinophils % Basophils % Nucleated RBC % PT with INR INR PTT (Actin FS) Anticoagulation Therapy Puncture Site ABG pH ABG pCO2 at Pt Temp ABG pO2 at Pt Temp ABG HCO3 ABG O2 Sat (Measured) ABG O2 Content ABG Base Excess Cristopher Test O2 Delivery Device Oxygen Flow Rate Vent Mode Vent Rate Mechanical Rate Pressure Support Vent Sodium 136 Potassium 4.7 Chloride 101 Carbon Dioxide 26 Anion Gap 9 BUN 55.8 H Creatinine 8.1 H* Est GFR (CKD-EPI)AfAm 7.53 Est GFR (CKD-EPI)NonAf 6.49 POC Glucometer 141 Random Glucose 145 H Lactic Acid 1.0 Calcium 8.7 Total Bilirubin 0.5 AST 9 L ALT 14 Alkaline Phosphatase 46 Troponin I Total Protein 7.0 Albumin 3.3 L Tumor Marker AFP Carcinoembryonic Ag Random Vancomycin Hep Bs Antigen Hep C Ab Diagnostic 05/27/19 05/27/19 05/27/19 07:15 07:15 11:44 WBC 11.7 H RBC 3.22 L Hgb 10.0 L Hct 30.0 L MCV 93.3 MCH 31.0 MCHC 33.3 RDW 16.5 H Plt Count 233 MPV 7.8 Absolute Neuts (auto) Neutrophils % Lymphocytes % Monocytes % Eosinophils % Basophils % Nucleated RBC % PT with INR INR PTT (Actin FS) Anticoagulation Therapy Puncture Site ABG pH ABG pCO2 at Pt Temp ABG pO2 at Pt Temp ABG HCO3 ABG O2 Sat (Measured) ABG O2 Content ABG Base Excess Cristopher Test O2 Delivery Device Oxygen Flow Rate Vent Mode Vent Rate Mechanical Rate Pressure Support Vent Sodium 137 Potassium 4.8 Chloride 103 Carbon Dioxide 24 Anion Gap 11 BUN 66.9 H Creatinine 9.7 H* Est GFR (CKD-EPI)AfAm 6.05 Est GFR (CKD-EPI)NonAf 5.22 POC Glucometer 139 Random Glucose 112 H Lactic Acid Calcium 8.8 Total Bilirubin AST ALT Alkaline Phosphatase Troponin I Total Protein Albumin Tumor Marker AFP Carcinoembryonic Ag Random Vancomycin Hep Bs Antigen Hep C Ab Diagnostic 05/27/19 05/27/19 05/28/19 14:40 17:08 06:00 WBC RBC Hgb Hct MCV MCH MCHC RDW Plt Count MPV Absolute Neuts (auto) Neutrophils % Lymphocytes % Monocytes % Eosinophils % Basophils % Nucleated RBC % PT with INR INR PTT (Actin FS) Anticoagulation Therapy Puncture Site ABG pH ABG pCO2 at Pt Temp ABG pO2 at Pt Temp ABG HCO3 ABG O2 Sat (Measured) ABG O2 Content ABG Base Excess Cristopher Test O2 Delivery Device Oxygen Flow Rate Vent Mode Vent Rate Mechanical Rate Pressure Support Vent Sodium Potassium Chloride Carbon Dioxide Anion Gap BUN Creatinine Est GFR (CKD-EPI)AfAm Est GFR (CKD-EPI)NonAf POC Glucometer 219 Random Glucose Lactic Acid Calcium Total Bilirubin AST ALT Alkaline Phosphatase Troponin I Total Protein Albumin Tumor Marker AFP Carcinoembryonic Ag Random Vancomycin 5.4 L Hep Bs Antigen Negative Hep C Ab Diagnostic 0.1 05/28/19 05/28/19 05/28/19 07:08 07:55 07:55 WBC 11.8 H RBC 3.19 L Hgb 9.8 L Hct 29.5 L MCV 92.4 MCH 30.6 MCHC 33.1 RDW 15.9 Plt Count 230 MPV 7.7 Absolute Neuts (auto) Neutrophils % Lymphocytes % Monocytes % Eosinophils % Basophils % Nucleated RBC % PT with INR INR PTT (Actin FS) Anticoagulation Therapy Puncture Site ABG pH ABG pCO2 at Pt Temp ABG pO2 at Pt Temp ABG HCO3 ABG O2 Sat (Measured) ABG O2 Content ABG Base Excess Cristopher Test O2 Delivery Device Oxygen Flow Rate Vent Mode Vent Rate Mechanical Rate Pressure Support Vent Sodium 141 Potassium 4.3 Chloride 103 Carbon Dioxide 29 Anion Gap 9 BUN 45.8 H Creatinine 7.4 H* Est GFR (CKD-EPI)AfAm 8.40 Est GFR (CKD-EPI)NonAf 7.24 POC Glucometer 101 Random Glucose 104 Lactic Acid Calcium 8.6 Total Bilirubin 0.5 AST 10 L ALT 14 Alkaline Phosphatase 45 Troponin I Total Protein 6.7 Albumin 3.2 L Tumor Marker AFP Carcinoembryonic Ag Random Vancomycin Hep Bs Antigen Hep C Ab Diagnostic 05/28/19 05/28/19 05/29/19 12:05 17:35 06:14 WBC RBC Hgb Hct MCV MCH MCHC RDW Plt Count MPV Absolute Neuts (auto) Neutrophils % Lymphocytes % Monocytes % Eosinophils % Basophils % Nucleated RBC % PT with INR INR PTT (Actin FS) Anticoagulation Therapy Puncture Site ABG pH ABG pCO2 at Pt Temp ABG pO2 at Pt Temp ABG HCO3 ABG O2 Sat (Measured) ABG O2 Content ABG Base Excess Cristopher Test O2 Delivery Device Oxygen Flow Rate Vent Mode Vent Rate Mechanical Rate Pressure Support Vent Sodium Potassium Chloride Carbon Dioxide Anion Gap BUN Creatinine Est GFR (CKD-EPI)AfAm Est GFR (CKD-EPI)NonAf POC Glucometer 176 148 129 Random Glucose Lactic Acid Calcium Total Bilirubin AST ALT Alkaline Phosphatase Troponin I Total Protein Albumin Tumor Marker AFP Carcinoembryonic Ag Random Vancomycin Hep Bs Antigen Hep C Ab Diagnostic 05/29/19 05/29/19 05/29/19 07:00 07:00 11:39 WBC 10.8 H RBC 3.47 L Hgb 10.7 L Hct 32.8 L MCV 94.5 MCH 30.7 MCHC 32.5 RDW 16.3 H Plt Count 239 MPV 7.5 Absolute Neuts (auto) Neutrophils % Lymphocytes % Monocytes % Eosinophils % Basophils % Nucleated RBC % PT with INR INR PTT (Actin FS) Anticoagulation Therapy Puncture Site ABG pH ABG pCO2 at Pt Temp ABG pO2 at Pt Temp ABG HCO3 ABG O2 Sat (Measured) ABG O2 Content ABG Base Excess Cristopher Test O2 Delivery Device Oxygen Flow Rate Vent Mode Vent Rate Mechanical Rate Pressure Support Vent Sodium 141 Potassium 4.8 Chloride 103 Carbon Dioxide 27 Anion Gap 11 BUN 66.2 H Creatinine 9.8 H* Est GFR (CKD-EPI)AfAm 5.98 Est GFR (CKD-EPI)NonAf 5.16 POC Glucometer 173 Random Glucose 122 H Lactic Acid Calcium 9.0 Total Bilirubin 0.4 AST 18 ALT 14 Alkaline Phosphatase 46 Troponin I Total Protein 7.1 Albumin 3.3 L Tumor Marker AFP Carcinoembryonic Ag Random Vancomycin Hep Bs Antigen Hep C Ab Diagnostic 05/29/19 05/29/19 05/30/19 11:43 17:16 06:23 WBC RBC Hgb Hct MCV MCH MCHC RDW Plt Count MPV Absolute Neuts (auto) Neutrophils % Lymphocytes % Monocytes % Eosinophils % Basophils % Nucleated RBC % PT with INR INR PTT (Actin FS) Anticoagulation Therapy Puncture Site ABG pH ABG pCO2 at Pt Temp ABG pO2 at Pt Temp ABG HCO3 ABG O2 Sat (Measured) ABG O2 Content ABG Base Excess Cristopher Test O2 Delivery Device Oxygen Flow Rate Vent Mode Vent Rate Mechanical Rate Pressure Support Vent Sodium Potassium Chloride Carbon Dioxide Anion Gap BUN Creatinine Est GFR (CKD-EPI)AfAm Est GFR (CKD-EPI)NonAf POC Glucometer 154 134 139 Random Glucose Lactic Acid Calcium Total Bilirubin AST ALT Alkaline Phosphatase Troponin I Total Protein Albumin Tumor Marker AFP Carcinoembryonic Ag Random Vancomycin Hep Bs Antigen Hep C Ab Diagnostic 05/30/19 05/30/19 05/30/19 10:00 12:14 17:30 WBC RBC Hgb Hct MCV MCH MCHC RDW Plt Count MPV Absolute Neuts (auto) Neutrophils % Lymphocytes % Monocytes % Eosinophils % Basophils % Nucleated RBC % PT with INR INR PTT (Actin FS) Anticoagulation Therapy Puncture Site ABG pH ABG pCO2 at Pt Temp ABG pO2 at Pt Temp ABG HCO3 ABG O2 Sat (Measured) ABG O2 Content ABG Base Excess Cristopher Test O2 Delivery Device Oxygen Flow Rate Vent Mode Vent Rate Mechanical Rate Pressure Support Vent Sodium Potassium Chloride Carbon Dioxide Anion Gap BUN Creatinine Est GFR (CKD-EPI)AfAm Est GFR (CKD-EPI)NonAf POC Glucometer 242 204 Random Glucose Lactic Acid Calcium Total Bilirubin AST ALT Alkaline Phosphatase Troponin I Total Protein Albumin Tumor Marker AFP 0.9 Carcinoembryonic Ag 5.2 H Random Vancomycin Hep Bs Antigen Hep C Ab Diagnostic 05/30/19 05/31/19 05/31/19 22:50 06:27 08:00 WBC RBC Hgb Hct MCV MCH MCHC RDW Plt Count MPV Absolute Neuts (auto) Neutrophils % Lymphocytes % Monocytes % Eosinophils % Basophils % Nucleated RBC % PT with INR INR PTT (Actin FS) Anticoagulation Therapy Puncture Site ABG pH ABG pCO2 at Pt Temp ABG pO2 at Pt Temp ABG HCO3 ABG O2 Sat (Measured) ABG O2 Content ABG Base Excess Cristopher Test O2 Delivery Device Oxygen Flow Rate Vent Mode Vent Rate Mechanical Rate Pressure Support Vent Sodium Potassium Chloride Carbon Dioxide Anion Gap BUN Creatinine Est GFR (CKD-EPI)AfAm Est GFR (CKD-EPI)NonAf POC Glucometer 153 133 Random Glucose Lactic Acid Calcium Total Bilirubin AST ALT Alkaline Phosphatase Troponin I Total Protein Albumin Tumor Marker AFP Carcinoembryonic Ag Random Vancomycin 10.2 L Hep Bs Antigen Hep C Ab Diagnostic 05/31/19 05/31/19 05/31/19 08:00 08:00 11:31 WBC 10.1 H RBC 3.15 L Hgb 9.9 L Hct 29.3 L MCV 93.1 MCH 31.5 MCHC 33.8 RDW 16.3 H Plt Count 257 MPV 7.5 Absolute Neuts (auto) Neutrophils % Lymphocytes % Monocytes % Eosinophils % Basophils % Nucleated RBC % PT with INR INR PTT (Actin FS) Anticoagulation Therapy Puncture Site ABG pH ABG pCO2 at Pt Temp ABG pO2 at Pt Temp ABG HCO3 ABG O2 Sat (Measured) ABG O2 Content ABG Base Excess Cristopher Test O2 Delivery Device Oxygen Flow Rate Vent Mode Vent Rate Mechanical Rate Pressure Support Vent Sodium 139 Potassium 4.5 Chloride 103 Carbon Dioxide 29 Anion Gap 8 BUN 52.9 H Creatinine 7.9 H* Est GFR (CKD-EPI)AfAm 7.76 Est GFR (CKD-EPI)NonAf 6.69 POC Glucometer 154 Random Glucose 129 H Lactic Acid Calcium 8.2 L Total Bilirubin 0.5 AST 15 ALT 16 Alkaline Phosphatase 48 Troponin I Total Protein 7.0 Albumin 3.2 L Tumor Marker AFP Carcinoembryonic Ag Random Vancomycin Hep Bs Antigen Hep C Ab Diagnostic 05/31/19 12:15 WBC RBC Hgb Hct MCV MCH MCHC RDW Plt Count MPV Absolute Neuts (auto) Neutrophils % Lymphocytes % Monocytes % Eosinophils % Basophils % Nucleated RBC % PT with INR INR PTT (Actin FS) Anticoagulation Therapy No Result Required. Puncture Site Right radial ABG pH 7.39 ABG pCO2 at Pt Temp 45.7 H ABG pO2 at Pt Temp 95.7 ABG HCO3 27.3 H ABG O2 Sat (Measured) 94.4 L ABG O2 Content 94.4 ABG Base Excess 2.5 H Cristopher Test Positive O2 Delivery Device Room air Oxygen Flow Rate 21 Vent Mode No Result Required. Vent Rate No Result Required. Mechanical Rate No Result Required. Pressure Support Vent No Result Required. Sodium Potassium Chloride Carbon Dioxide Anion Gap BUN Creatinine Est GFR (CKD-EPI)AfAm Est GFR (CKD-EPI)NonAf POC Glucometer Random Glucose Lactic Acid Calcium Total Bilirubin AST ALT Alkaline Phosphatase Troponin I Total Protein Albumin Tumor Marker AFP Carcinoembryonic Ag Random Vancomycin Hep Bs Antigen Hep C Ab Diagnostic Active Medications Generic Name Dose Route Start Last Admin Trade Name Freq PRN Reason Stop Dose Admin Acetaminophen 650 mg 05/26/19 20:42 Tylenol - PO Q4H PRN PAIN OR FEVER Albuterol Sulfate 1 amp 05/26/19 20:42 05/29/19 20:55 Ventolin 0.083% Nebulizer Soln - NEB 1 amp Q6H PRN Administration SHORT OF BREATH/WHEEZING Artificial Tears 1 drop 05/27/19 17:37 Artificial Tears OU QID PRN DRY EYES Aspirin 81 mg 05/28/19 10:00 05/31/19 09:33 Ecotrin - PO 81 mg DAILY L[facility]U Administration Atorvastatin Calcium 40 mg 05/26/19 22:00 05/30/19 23:01 Lipitor - PO 40 mg HS LULU Administration Bacitracin 1 applic 05/27/19 20:00 05/31/19 09:42 Bacitracin - TP 1 applic DAILY LULU Administration Benzocaine/Menthol 1 each 05/29/19 12:10 Cepacol Lozenge - MM PRN PRN SORE THROAT Calcium Acetate 667 mg 05/27/19 08:00 05/31/19 12:26 Phoslo - PO 667 mg TIDCM LULU Administration Clopidogrel Bisulfate 75 mg 05/27/19 10:00 05/31/19 09:33 Plavix - PO 75 mg DAILY LULU Administration Docusate Sodium 200 mg 05/26/19 22:00 05/30/19 22:58 Colace - PO 200 mg HS LULU Administration Epoetin Tyrese 5,000 unit 06/01/19 14:05 Epogen - IVPUSH 06/01/19 14:06 ONCE ONE Folic Acid 1 mg 05/28/19 10:00 05/31/19 09:38 Folic Acid - PO 1 mg DAILY LULU Administration Furosemide 80 mg 05/28/19 10:00 05/31/19 09:38 Lasix - PO 80 mg DAILY LULU Administration Gabapentin 300 mg 05/27/19 22:00 05/31/19 14:57 Neurontin - PO 300 mg TID LULU Administration Heparin Sodium (Porcine) 5,000 unit 05/26/19 22:00 05/31/19 09:40 Heparin - SQ Not Given BID LULU Heparin Sodium (Porcine) 6,000 unit 06/01/19 14:05 Heparin - IVPUSH 06/01/19 14:06 ONCE ONE Heparin Sodium (Porcine) 500 unit 05/31/19 14:15 Heparin - IVPUSH 05/31/19 16:16 Q1H LULU Hydralazine HCl 100 mg 05/27/19 22:00 05/31/19 14:57 Apresoline - PO 100 mg TID LULU Administration Hydrocortisone 1 applic 05/30/19 15:57 05/31/19 09:43 Hytone 0.5% Cream - TP 1 applic Q12H PRN Administration FOR ITCHING Piperacillin Sod/Tazobactam 50 mls @ 100 mls/hr 05/27/19 11:30 05/31/19 09:33 Sod 2.25 gm/ Dextrose IVPB 100 mls/hr Q8H-IV L[facility]U Administration Protocol Sodium Chloride 250 mls @ 3,000 mls/hr 05/29/19 21:22 Normal Saline - IV 05/30/19 21:23 PRN PRN Hypotension during Dialysis Sodium Chloride 250 mls @ 3,000 mls/hr 05/31/19 14:05 Normal Saline - IV 06/01/19 14:05 PRN PRN Hypotension during Dialysis Insulin Aspart 1 vial 05/27/19 07:00 05/31/19 11:32 Novolog Vial Sliding Scale - SQ 2 units TIDAC LULU Administration Protocol Ipratropium [place] 1 amp 05/26/19 20:42 05/29/19 20:54 Atrovent 0.02% Nebulizer - NEB 1 amp Q6H PRN Administration WHEEZING Isosorbide Mononitrate 30 mg 05/27/19 10:00 05/31/19 09:40 Imdur - PO Not Given DAILY LULU Loratadine 10 mg 05/28/19 14:15 05/31/19 09:38 Claritin - PO 10 mg DAILY LULU Administration Losartan Potassium 100 mg 05/27/19 10:00 05/31/19 09:38 Cozaar - PO Not Given DAILY LULU Metoprolol Tartrate 50 mg 05/26/19 22:00 05/31/19 09:39 Lopressor - PO 50 mg BID LULU Administration Minoxidil 2.5 mg 05/28/19 10:00 05/31/19 09:41 Lonitin - PO Not Given DAILY LULU Montelukast Sodium 10 mg 05/27/19 22:00 05/30/19 23:07 Singulair - PO 10 mg HS LULU Administration Nystatin 1 applic 05/27/19 22:00 05/31/19 11:29 Mycostatin Cream - TP 1 applic BID L[facility]U Administration Oxycodone HCl 5 mg 05/29/19 15:18 05/31/19 02:45 Roxicodone - PO 5 mg Q6H PRN Administration PAIN LEVEL 6-10 Polyethylene Glycol 17 gm 05/27/19 10:00 05/31/19 09:47 Miralax (For Daily Use) - PO 17 grams DAILY LULU Administration Ranitidine HCl 150 mg 05/27/19 10:00 05/31/19 09:39 Zantac - PO 150 mg BID LULU Administration Senna 2 tab 05/27/19 22:00 05/30/19 23:06 Senna - PO 2 tab HS LULU Administration Sevelamer Carbonate 800 mg 05/28/19 08:00 05/31/19 12:26 Renvela - PO 800 mg TIDCM LULU Administration Sodium Chloride 2 spray 05/29/19 12:10 05/31/19 11:35 [place] Nasal [place] - NS 2 spr BID PRN Administration NASAL CONGESTION Spironolactone 25 mg 05/28/19 10:00 05/31/19 09:39 Aldactone - PO 25 mg DAILY LULU Administration Tamsulosin HCl 0.8 mg 05/28/19 08:30 05/31/19 09:33 Flomax - PO 0.8 mg DAILY@0830 L[facility]U Administration Trazodone HCl 300 mg 05/31/19 22:00 Desyrel - PO HS LULU Microbiology 05/26/19 16:42 Blood - Peripheral Venous Blood Culture - Preliminary NO GROWTH OBTAINED AFTER 96 HOURS, INCUBATION TO CONTINUE FOR 1 DAYS. 05/26/19 16:42 Blood - Peripheral Venous Blood Culture - Preliminary NO GROWTH OBTAINED AFTER 96 HOURS, INCUBATION TO CONTINUE FOR 1 DAYS. Constitutional: Yes: No Distress, Anxious Eyes: Yes: Conjunctiva Clear HENT: Yes: Atraumatic Cardiovascular: Yes: Regular Rate and Rhythm Respiratory: Yes: Regular, CTA Bilaterally Gastrointestinal: Yes: Normal Bowel Sounds, Soft, Abdomen, Obese, Tenderness ( lower abdomen) Musculoskeletal: Yes: Muscle Weakness Extremities: Yes: WNL Edema: No Neurological: Yes: Alert, Oriented Psychiatric: Yes: Alert, Oriented Labs: CBC, BMP 05/31/19 08:00 05/31/19 08:00 Discharge Summary Reason For Visit: CELLULITIS OF LEFT LOWER EXTREMITY Current Active Problems CHF (congestive heart failure) (Acute) Cellulitis of left leg (Acute) Constipation (Acute) Diarrhea (Acute) ESRD on hemodialysis (Acute) End stage chronic kidney disease (Acute) GERD (gastroesophageal reflux disease) (Acute) HLD (hyperlipidemia) (Acute) Hx of right BKA (Acute) Morbid obesity (Acute) Obesity (Acute) Sleep apnea (Acute) Venous stasis (Acute) Hospital Course: 58-year-old male from [facility], with a past medical history of COPD, HTN, HLD, IDDM, RT BKA, CHF, ESRD (HD MWF), spinal hardware, diabetic macular degeneration who presents to the [facility] ER as referred by Dr. Dr. Trujillo for left leg cellulitis. Dressing in place from [facility], pictures shown by patient of left lower leg (cellulitic changes,blister and greenish discharge - Ronnie debrided in office). patient states feels feverish with chills, nausea and constipated. Lower left leg is red, painful around the calf. Patient denies acute CP/SOB, dizziness, headache, diarrhea. While in patient treated with IV antibiotic therapy for cellulitis of LLE. Patient complain of lower abdominal pain and GI consulted. Labs show elevated CEA. Patient would need colonoscopy but due to medical conditions would need to have it performed at tertiary care center. Condition: Stable - Instructions Disposition: TRANSFER ACUTE CARE/OTHER HOSP - Home Medications Comprehensive Discharge Medication List: Ambulatory Orders Aspirin [ASA -] 81 mg PO DAILY 05/18/17 Atorvastatin Ca [Lipitor] 40 mg PO HS 05/18/17 Clopidogrel Bisulfate [Plavix -] 75 mg PO DAILY 05/18/17 Folic Acid 1 mg PO DAILY 05/18/17 Tamsulosin HCl [Flomax] 0.8 mg PO HS 05/18/17 Metoprolol Tartrate [Lopressor -] 100 mg PO BID 08/26/17 hydrALAZINE HCL [Apresoline -] 100 mg PO TID 08/26/17 Bacitracin - [Bacitracin Topical Ointment -] 1 applic TP DAILY 08/27/17 Calcium Acetate [Phoslo -] 667 mg PO TIDCM 08/27/17 Polyethylene Glycol 3350 [Miralax 119 gm Btl -] 17 gm PO DAILY 08/27/17 Acetaminophen [Tylenol 8 Hour] 650 mg PO PRN 05/13/18 Albuterol Sulfate 0.5% [Ventolin 0.5% Nebulizing Soln. -] 1 neb IH Q6H PRN 05/13 Polyvinyl Alcohol [Artificial Tears] 15 ml OP QID 05/13/18 Sennosides [Senna Laxative] 17.2 mg PO HS 05/13/18 Insulin Lispro [Admelog] 100 units SQ ASDIR 04/29/19 Famotidine [Acid Controller] 20 mg PO BID 05/27/19 Furosemide [Lasix] 80 mg PO DAILY 05/27/19 Gabapentin [Neurontin -] 300 mg PO Q8H 05/27/19 Montelukast Sodium [Singulair] 10 mg PO HS 05/27/19 Oxycodone HCl 5 mg PO PRN 05/27/19 Sevelamer Carbonate [Renvela -] 800 mg PO TID 05/27/19 Spironolactone [Aldactone] 50 mg PO DAILY 05/27/19
[2019-05-31 17:28] VITALS: BP 126/64; PULSE 65; TEMP 98.8
[2019-05-31] MEDS ORDERED: traZODone HCL 100 MG TABLET (FP) PO SCH (22:00)
[2019-06-01] MEDS ORDERED: EPOETIN ALFA 2,000 UNIT/1 ML VIAL IVPUSH ONE (14:05)
[2019-06-01] MEDS ORDERED: HEPARIN NA (PORCINE) 5,000 UNITS/ML 1ML VIAL IVPUSH ONE (14:05)
== END 2019-05-31 18:21 | disposition short-term general hospital (02) | DRG 383 ==
LOC: JER 15:24 → JERBED 19:14 → J5S 21:54
PROVIDERS: ADMIT Family Medicine; ATTEND Family Medicine
PROC: 5A1D70Z Performance of Urinary Filtration, Intermittent, Less than 6 Hours Per Day (ICD-10-PCS; principal; 2019-05-30)
PROC: 5A09357 Assistance with Respiratory Ventilation, Less than 24 Consecutive Hours, Continuous Positive Airway Pressure (ICD-10-PCS; 2019-05-30)
DX: L03.116 Cellulitis of left lower limb (principal); K59.00 Constipation, unspecified; R19.7 Diarrhea, unspecified; E66.01 Morbid (severe) obesity due to excess calories; Z68.41 Body mass index [BMI] 40.0-44.9, adult; N18.6 End stage renal disease; Z99.2 Dependence on renal dialysis; I87.8 Other specified disorders of veins; E78.5 Hyperlipidemia, unspecified; E11.22 Type 2 diabetes mellitus with diabetic chronic kidney disease; G47.33 Obstructive sleep apnea (adult) (pediatric); I13.2 Hypertensive heart and chronic kidney disease with heart failure and with stage 5 chronic kidney disease, or end stage renal disease; I50.9 Heart failure, unspecified; J44.9 Chronic obstructive pulmonary disease, unspecified; K21.9 Gastro-esophageal reflux disease without esophagitis; I25.10 Atherosclerotic heart disease of native coronary artery without angina pectoris; R10.9 Unspecified abdominal pain; Z89.511 Acquired absence of right leg below knee; K76.0 Fatty (change of) liver, not elsewhere classified
CPT/HCPCS: 36415; 36600; 70450-TC; 71045-TC-FY; 73030-TC-RT-FY; 73070-TC-RT-FY; 73590-TC-LT-FY; 76700-TC; 80048; 80053; 82105; 82378; 82803; 82962; 83605; 84484; 85025; 85027; 85610; 85730; 86301; 86803; 87040; 87340; 93005; 93010; 93971-TC; 94640; 94660; 99282-25; G0480; J0131; J1644